=== PATIENT | female | born 1985 | race Caucasian/White ===

== ENCOUNTER → 2016-06-09 | Outpatient (REF) | payer OTHER ==
[~2016-06-09] MED LIST: /LOR25TA PO; DARI15TA PO; FISH1000 PO; FISH300C2 OR; GABA600T3 PO; MAGN250T OR; MIGRANAL; OMEP40CA2 PO; OXYCO5TA PO; OYST500T OR; PRENTAB8 PO; PRIL40CA OR; TOPI100T PO; VANC125C2 PO; VITA100066 PO; VITA100T OR; VITA500T3 PO; [UNRECOGNIZED DRUG - OTHER] PO; melatonin PO; vitamin d3 PO
== END ==
LOC: M LAB REF 09:34
PROVIDERS: ATTEND Internal Medicine Endocrinology, Diabetes & Metabolism
DX: E27.8 Other specified disorders of adrenal gland (principal)

== ENCOUNTER → 2016-10-17 | Outpatient (REF) | payer OTHER ==
[~2016-10-17] MED LIST changes: +OXYC-517 PO; -OXYCO5TA PO; -TOPI100T PO; +TOPI1TAB31 PO
== END ==
LOC: M SFHCLERA 14:45
PROVIDERS: ATTEND Nurse Practitioner Family
DX: J02.9 Acute pharyngitis, unspecified (principal)

== ENCOUNTER 2016-12-08 05:02 | Emergency (ER) | payer OTHER ==
[~2016-12-08] VITALS: Ht 157.5 cm; Wt 55.0 kg
[~2016-12-08 05:02] MED LIST changes: +TOPI100T9 PO; -TOPI1TAB31 PO
[2016-12-08] MEDS ORDERED: FAMO20TA PO (05:11)
[2016-12-08] MEDS ORDERED: PERCOCET 5MG/325MG TAB PO ONE (07:15)
[2016-12-08] MEDS ORDERED: ONDANSETRON 4 MG ORAL DISINTEGRATING TAB (S0181) PO ONE (07:15)
[2016-12-08] MEDS ORDERED: NS 500 ML IV ONE (07:15)
[2016-12-08 07:23] LABS: CONTROL LINE HCG INT CTR LINE PRESENT
[2016-12-08 07:24] LABS: BASO # 0.1 K/mm3 (0.0-0.2); BASO % 0.7 % (0.0-1.0); EOS # 0.3 K/mm3 (0.0-0.50); LARGE UNSTAINED CELL # 0.1 K/mm3 (0.0-0.4); LARGE UNSTAINED CELL % 1.4 % (0.0-4.0); LYMPH # 2.4 K/mm3 (1.5-4.5); LYMPH % 22.1 % (24.0-44.0); MEAN CORPUSCULAR HEMOGLOBIN 31.7 pg (27.0-33.0); MONO # 0.5 K/mm3 (0.0-0.8); MONO % 4.7 % (0.0-5.0); NEUTROPHILS # 7.1 K/mm3 (1.8-7.7); NEUTROPHILS % 68.3 % (36.0-66.0); PLATELET COUNT, AUTOMATED 303 k/mm3 (150-450); RED CELL DISTRIBUTION WIDTH 14.5 % (11.5-14.5); WHITE BLOOD COUNT 10.4 K/mm3 (4.0-10.0)
[2016-12-08 07:31] LABS: ALBUMIN 2.8 GM/DL (3.2-5.2); ALBUMIN/GLOBULIN RATIO 1.08 (1.00-1.93); ALKALINE PHOSPHATASE 98 U/L (45-117); ALT/SGPT 26 U/L (12-78); AMYLASE 47 U/L (25-115); ANION GAP 5 MEQ/L (8-16); AST/SGOT 25 U/L (15-37); BILIRUBIN,DIRECT < 0.1 MG/DL (0.0-0.2); BILIRUBIN,TOTAL 0.2 MG/DL (0.2-1.0); BLOOD UREA NITROGEN 15 MG/DL (7-18); CALCIUM LEVEL 8.3 MG/DL (8.5-10.1); CARBON DIOXIDE LEVEL 21 MEQ/L (21-32); CHLORIDE LEVEL 116 MEQ/L (98-107); GLOMERULAR FILTRATION RATE > 60.0 (>60); GLUCOSE, FASTING 82 MG/DL (70-105); POTASSIUM SERUM 3.9 MEQ/L (3.5-5.1); SODIUM LEVEL 142 MEQ/L (136-145); TOTAL PROTEIN 5.4 GM/DL (6.4-8.2)
[2016-12-08] MEDS ORDERED: ISOVUE-370 76% 100ML VIAL (Q9967) As Ordered ONE (07:52)
--- NOTE | 2016-12-08 08:21 | REP ---
Chest two views HISTORY: Abdominal pain Comparison: 11/29/2015 The lungs are clear. The heart is normal in size. The pulmonary vasculature is normal in appearance. The bony structure is intact. IMPRESSION: No acute disease. Signed by Cyrus Arguelles MD 12/08/2016 08:13 A
--- NOTE | 2016-12-08 08:37 | REP ---
BILATERAL LOWER EXTREMITY DUPLEX VEINS: RIGHT LOWER LEG: HISTORY: Swelling right lower extremity. There are no filling defects in the deep venous system. The deep venous system is patent. IMPRESSION: There is no deep venous thrombosis. LEFT LOWER EXTREMITY: There are no filling defects in the deep venous system. The deep venous system is patent. IMPRESSION: There is no deep venous thrombosis. Signed by Cyrus Arguelles MD 12/08/2016 08:40 A
--- NOTE | 2016-12-08 10:32 | REP ---
CT ABDOMEN AND PELVIS WITH CONTRAST: HISTORY: Left upper quadrant pain. COMPARISON: 03/02/2016 The patient is status post cholecystectomy and gastric bypass surgery. The previously noted right adrenal mass is not seen. The liver, pancreas, spleen, kidneys and left adrenal gland are normal in appearance. There is no mass, adenopathy or free fluid. The visualized lungs are clear. A small ventral abdominal hernia containing fat is present. IMPRESSION: 1. The patient is status post cholecystectomy and gastric bypass surgery. 2. Small ventral abdominal hernia. CT PELVIS: The urinary bladder and uterus are normal in appearance. There is no mass or adenopathy. A small amount of free fluid is present in the pelvis. IMPRESSION: There is a small amount of free fluid in the pelvis. Signed by Cyrus Arguelles MD 12/08/2016 10:38 A
[2016-12-08 11:02] VITALS: BP 95/60
--- NOTE | 2016-12-08 16:22 | ECGEPIP ---
Stationary ECG Study [facility] - ED Test Date: 2016-12-08 Pat Name: JHON HOFFMANN Department: Room: - Gender: F Rack Puncher: suraj : 1985 Requested By: Fernando Pham Order Number: [id number] Reading MD: Fernando Pham Measurements Intervals [place] Rate: 65 P: 60 W[place]: 115 QRS: 40 QRSD: 83 T: 64 QT: 388 QTc: 406 Interpretive Statements SINUS RHYTHM WITH SINUS ARRHYTHMIA WITH SHORT WY INTERVAL NONSPECIFIC ST T WAVE CHANGES DELAYED R WAVE PROGRESSION NO PRIOR ECG Electronically Signed On 12-08-2016 16:21:41 EDT by Fernando Pham
== END 2016-12-08 11:04 | disposition home or self-care (01) ==
LOC: M ED 05:02
DX: R60.0 Localized edema (principal); I10 Essential (primary) hypertension; R10.9 Unspecified abdominal pain; E77.8 Other disorders of glycoprotein metabolism; F17.210 Nicotine dependence, cigarettes, uncomplicated

== ENCOUNTER 2019-05-11 11:42 | Emergency (ER) | payer OTHER, SELFPAY ==
[~2019-05-11] VITALS: Ht 157.5 cm; Wt 58.2 kg
[~2019-05-11 11:42] MED LIST changes: +CYAN500T8 PO; -DARI15TA PO; +DARI15TA2 PO; +FAMO20TA PO; -OMEP40CA2 PO; +OMEP40CA97 PO; -VANC125C2 PO; +VANC125C3 PO; -VITA500T3 PO
[2019-05-11] MEDS ORDERED: MAXA10TA14 PO (11:59)
[2019-05-11] MEDS ORDERED: HYDR-3713 (11:59)
[2019-05-11] MEDS ORDERED: OMEP10CASR PO (11:59)
[2019-05-11] MEDS ORDERED: probiotic (11:59)
[2019-05-11 13:10] LABS: BASO # 0.1 10^3/uL (0.0-0.2); BASO % 0.9 % (0.0-1.0); EOS # 0.3 10^3/uL (0.0-0.5); EOS % 3.1 % (0.0-3.0); HEMATOCRIT 33.4 % (36.0-47.0); HEMOGLOBIN 9.5 g/dl (12.0-15.5); LYMPH % 21.5 % (24.0-44.0); MEAN CORPUSCULAR HEMOGLOBIN 24.4 pg (27.0-33.0); MEAN CORPUSCULAR HGB CONC 28.4 g/dl (32.0-36.5); MEAN CORPUSCULAR VOLUME 85.6 fl (80.0-96.0); MONO # 0.7 10^3/uL (0.0-0.8); NEUTROPHILS # 6.2 10^3/uL (1.5-8.5); NEUTROPHILS % 67.1 % (36.0-66.0); PLATELET COUNT, AUTOMATED 225 10^3/uL (150-450); WHITE BLOOD COUNT 9.3 10^3/uL (4.0-10.0)
[2019-05-11] MEDS ORDERED: KETOROLAC 30 MG/ML VIAL (J1885) IV ONE (13:15)
[2019-05-11] MEDS ORDERED: NS 1,000 ML IV ONE (13:15)
[2019-05-11] MEDS ORDERED: ONDANSETRON 4MG/2ML VIAL (J2405) IV ONE (13:15)
[2019-05-11] MEDS ORDERED: PANTOPRAZOLE 40MG INJ (PROTONIX) (C9113) IV ONE (13:30)
[2019-05-11 13:31] LABS: APPEARANCE, URINE CLEAR (CLEAR); BACTERIA, URINE AUTO 1+ (NEGATIVE); BILIRUBIN, URINE AUTO NEGATIVE (NEGATIVE); BLOOD, URINE BLOOD NEGATIVE (NEGATIVE); COLOR, URINE YELLOW (YELLOW); GLUCOSE, URINE (UA) AUTO NEGATIVE (NEGATIVE); KETONE, URINE AUTO NEGATIVE (NEGATIVE); LEUKOCYTE ESTERASE, URINE AUTO NEGATIVE (NEGATIVE); MUCUS, URINE SMALL (NEGATIVE); NITRITE, URINE AUTO NEGATIVE (NEGATIVE); PROTEIN, URINE AUTO NEGATIVE (NEGATIVE); RBC, URINE AUTO 1 /HPF (0-3); SPECIFIC GRAVITY URINE AUTO 1.024 (1.002-1.035); SQUAMOUS EPITHELIAL CELL UR AU 1 /HPF (0-6); UROBILINOGEN, URINE AUTO 0.2 mg/dL (0.0-2.0); WBC, URINE AUTO 0 /HPF (0-3)
[2019-05-11 13:38] LABS: ALBUMIN 3.3 GM/DL (3.2-5.2); ALT/SGPT 15 U/L (12-78); AMYLASE 132 U/L (25-115); BILIRUBIN,DIRECT < 0.1 MG/DL (0.0-0.2); BILIRUBIN,TOTAL 0.2 MG/DL (0.2-1.0); LIPASE 866 U/L (73-393); TOTAL PROTEIN 5.8 GM/DL (6.4-8.2)
[2019-05-11] MEDS: GASTROGRAFIN SOLUTION 30ML PO SCH ×2 (14:17→14:46)
[2019-05-11] MEDS ORDERED: ISOVUE-370 76% 100ML VIAL (Q9967) As Ordered ONE (15:00)
[2019-05-11] MEDS ORDERED: PERC5TAB12 PO (15:57)
[2019-05-11] MEDS ORDERED: ONDA4TAB6 PO (15:57)
[2019-05-11] MEDS ORDERED: CARA1TAB6 PO (15:57)
[2019-05-11 16:01] VITALS: BP 116/83
--- NOTE | 2019-05-11 16:03 | REP ---
CT ABDOMEN AND PELVIS WITH ORAL AND IV CONTRAST: TECHNIQUE: Axial contrast enhanced images from the lung bases to the pubic symphysis using 100 mL Isovue 370 intravenous contrast material with multiplanar reformations. Visualized lung bases are clear. Liver demonstrates no mass. Patient has had a prior cholecystectomy. Right adrenal gland also appears to have been removed. There is upper abdominal surgery with sutures most consistent with gastric bypass surgery. Spleen is normal in size with no intrinsic abnormality. Left adrenal gland is normal. No pancreatic mass is seen. Kidneys appear unremarkable. There is no abdominal aortic aneurysm. No adenopathy, free air or free fluid is seen. No bowel wall thickening is seen. I do not see evidence of appendicitis. In the umbilical region there is a midline hernia containing fluid appearing similar to the prior exam of 12/08/2016. There is a left abdominal wall hernia also visualized containing fat, also appearing unchanged. No pelvic mass is seen. Urinary bladder is mildly distended and grossly unremarkable. IMPRESSION: Status post cholecystectomy. No free air or free fluid. Two anterior abdominal wall hernias appear similar to prior study of 12/08/2016. No acute abnormalities detected. Electronically Signed by Sherwin Grace MD 05/12/2019 03:56 P
== END 2019-05-11 16:15 | disposition home or self-care (01) ==
LOC: M ED 11:42
DX: R10.13 Epigastric pain (principal); R79.89 Other specified abnormal findings of blood chemistry; K46.9 Unspecified abdominal hernia without obstruction or gangrene; Z98.84 Bariatric surgery status; Z86.19 Personal history of other infectious and parasitic diseases; Z79.899 Other long term (current) drug therapy; Z88.0 Allergy status to penicillin; Z88.1 Allergy status to other antibiotic agents; Z88.2 Allergy status to sulfonamides; F17.210 Nicotine dependence, cigarettes, uncomplicated
CPT/HCPCS: 74177; 80047; 80076; 81001; 82150; 83690; 84702; 85025; 96361; 96374; 96375; 99284; C9113; J1885; J2405; Q9963; Q9967

== ENCOUNTER → 2019-05-14 | Outpatient (REF) | payer SELFPAY ==
[~2019-05-14] MED LIST changes: +CARA1TAB6 PO; +HYDR-3713; +MAXA10TA14 PO; +OMEP10CASR PO; +ONDA4TAB6 PO; +PERC5TAB12 PO; +probiotic
[2019-05-14 11:34] LABS: AMYLASE 168 U/L (25-115); LIPASE 723 U/L (73-393)
[2019-05-14 11:35] LABS: HEMATOCRIT 32.8 % (36.0-47.0); HEMOGLOBIN 9.2 g/dl (12.0-15.5); MEAN CORPUSCULAR HEMOGLOBIN 24.6 pg (27.0-33.0); MEAN CORPUSCULAR VOLUME 87.7 fl (80.0-96.0); PLATELET COUNT, AUTOMATED 321 10^3/uL (150-450); RED BLOOD COUNT 3.74 10^6/uL (4.00-5.40); WHITE BLOOD COUNT 11.6 10^3/uL (4.0-10.0)
== END ==
LOC: M LABDRAWC 05-13 11:09
PROVIDERS: ATTEND Physician Assistant Medical
DX: D64.9 Anemia, unspecified (principal); R10.13 Epigastric pain

== ENCOUNTER → 2019-05-15 | Outpatient (REF) | payer OTHER ==
[2019-05-15 11:43] LABS: HEMATOCRIT 33.7 % (36.0-47.0); HEMOGLOBIN 9.5 g/dl (12.0-15.5); MEAN CORPUSCULAR HEMOGLOBIN 24.3 pg (27.0-33.0); MEAN CORPUSCULAR HGB CONC 28.2 g/dl (32.0-36.5); MEAN CORPUSCULAR VOLUME 86.2 fl (80.0-96.0); PLATELET COUNT, AUTOMATED 441 10^3/uL (150-450); RED BLOOD COUNT 3.91 10^6/uL (4.00-5.40)
[2019-05-15 14:16] LABS: AMYLASE 119 U/L (25-115); LIPASE 380 U/L (73-393)
== END ==
LOC: M SFHCCLAY 07:52
PROVIDERS: ATTEND Family Medicine
DX: K85.90 Acute pancreatitis without necrosis or infection, unspecified (principal)

== ENCOUNTER → 2019-06-03 | Outpatient (REF) | payer OTHER ==
[2019-06-03 17:03] LABS: ALBUMIN 3.5 GM/DL (3.2-5.2); ALT/SGPT 82 U/L (12-78); AMYLASE 59 U/L (25-115); BILIRUBIN,TOTAL 0.3 MG/DL (0.2-1.0); BLOOD UREA NITROGEN 11 MG/DL (7-18); CALCIUM LEVEL 8.4 MG/DL (8.5-10.1); CARBON DIOXIDE LEVEL 24 MEQ/L (21-32); CHLORIDE LEVEL 112 MEQ/L (98-107); COMPLEMENT C3 81 MG/DL (90-180); GLOMERULAR FILTRATION RATE > 60.0 (>60); GLUCOSE, FASTING 98 MG/DL (70-100); LIPASE 92 U/L (73-393); POTASSIUM SERUM 4.5 MEQ/L (3.5-5.1); SODIUM LEVEL 142 MEQ/L (136-145); TOTAL PROTEIN 5.9 GM/DL (6.4-8.2)
[2019-06-03 17:07] LABS: BASO # 0.1 10^3/uL (0.0-0.2); EOS # 0.7 10^3/uL (0.0-0.5); EOS % 6.3 % (0.0-3.0); HEMATOCRIT 33.7 % (36.0-47.0); HEMOGLOBIN 9.5 g/dl (12.0-15.5); LYMPH # 2.6 10^3/uL (1.5-5.0); LYMPH % 23.7 % (24.0-44.0); MEAN CORPUSCULAR HEMOGLOBIN 24.4 pg (27.0-33.0); MEAN CORPUSCULAR HGB CONC 28.2 g/dl (32.0-36.5); MEAN CORPUSCULAR VOLUME 86.4 fl (80.0-96.0); MONO # 0.7 10^3/uL (0.0-0.8); MONO % 6.3 % (0.0-5.0); NEUTROPHILS # 6.8 10^3/uL (1.5-8.5); NEUTROPHILS % 62.4 % (36.0-66.0); PLATELET COUNT, AUTOMATED 139 10^3/uL (150-450); WHITE BLOOD COUNT 10.9 10^3/uL (4.0-10.0)
[2019-06-03 17:57] LABS: ERYTHROCYTE SEDIMENTATION RATE 4 mm/hr (0-20)
[2019-06-06 00:07] LABS: ANA (HEP2) Negative (.)
== END ==
LOC: M SFHCCLAY 10:56
PROVIDERS: ATTEND Nurse Practitioner Family
DX: M25.50 Pain in unspecified joint (principal); K85.90 Acute pancreatitis without necrosis or infection, unspecified

== ENCOUNTER → 2019-06-08 | Outpatient (REF) | payer OTHER, SELFPAY ==
[2019-06-08 12:06] LABS: HEMATOCRIT 35.3 % (36.0-47.0); HEMOGLOBIN 10.3 g/dl (12.0-15.5); MEAN CORPUSCULAR HEMOGLOBIN 24.7 pg (27.0-33.0); MEAN CORPUSCULAR HGB CONC 29.2 g/dl (32.0-36.5); MEAN CORPUSCULAR VOLUME 84.7 fl (80.0-96.0); PLATELET COUNT, AUTOMATED 399 10^3/uL (150-450); RED BLOOD COUNT 4.17 10^6/uL (4.00-5.40); WHITE BLOOD COUNT 11.3 10^3/uL (4.0-10.0)
[2019-06-08 12:14] LABS: PERCENT SATURATION 4.8 % (13.2-45.0)
[2019-06-08 13:19] LABS: FOLATE 8.8 NG/ML (>5.4)
== END ==
LOC: M SFHCCLAY 08:13
PROVIDERS: ATTEND Nurse Practitioner Family
DX: D64.9 Anemia, unspecified (principal)

== ENCOUNTER → 2019-06-15 | Outpatient (REF) | payer OTHER ==
[2019-06-15 13:26] LABS: HEMATOCRIT 35.7 % (36.0-47.0); HEMOGLOBIN 10.3 g/dl (12.0-15.5); MEAN CORPUSCULAR HEMOGLOBIN 25.1 pg (27.0-33.0); MEAN CORPUSCULAR HGB CONC 28.9 g/dl (32.0-36.5); MEAN CORPUSCULAR VOLUME 86.9 fl (80.0-96.0); PLATELET COUNT, AUTOMATED 785 10^3/uL (150-450); RED BLOOD COUNT 4.11 10^6/uL (4.00-5.40); WHITE BLOOD COUNT 18.5 10^3/uL (4.0-10.0)
[2019-06-15 13:56] LABS: IRON (FE) 14 UG/DL (50-170); PERCENT SATURATION 2.2 % (13.2-45.0); RHEUMATOID FACTOR QUANT < 10.0 IU/ML (<15.0); TOTAL IRON BINDING CAPACITY 634 UG/DL (250-450)
[2019-06-15 14:12] LABS: HEPATITIS B SURFACE ANTIGEN NEGATIVE (NEGATIVE)
[2019-06-15 14:41] LABS: HEPATITIS C VIRUS ABY INDEX < 0.0 INDEX (<0.8)
== END ==
LOC: M SFHCRHEU 09:26
PROVIDERS: ATTEND Internal Medicine
DX: M02.30 Reiter's disease, unspecified site (principal); D64.9 Anemia, unspecified; R94.5 Abnormal results of liver function studies

== ENCOUNTER → 2019-06-26 | Outpatient (CLI) | payer SELFPAY ==
--- NOTE | 2019-06-26 14:12 | REP ---
AP pelvis single view: Comparison is the abdomen study dated 11/29/2015. Mineralization is normal. The sacroiliac articulations are unremarkable and unchanged . The hip articulations are unremarkable and unchanged . There are calcifications inferiorly in the pelvis, unchanged, likely phleboliths. Impression: Negative AP pelvis. No arthropathy. Electronically Signed by Sherwin Osorio MD 06/26/2019 02:03 P
--- NOTE | 2019-06-26 15:05 | REP ---
CHEST, TWO VIEWS: There is no evidence of acute infiltrate. No pleural effusion is seen. The heart is normal in size. The mediastinal silhouette is unremarkable. The visualized osseous structures are intact. IMPRESSION: No acute pulmonary disease. Electronically Signed by Sherwin Grace MD 06/26/2019 03:40 P
--- NOTE | 2019-06-26 15:06 | REP ---
LUMBOSACRAL SPINE: Five views of the lumbosacral spine are performed. There is no compression fracture. There is no spondylolysis or spondylolisthesis with normal lumbar lordosis. Disc spaces appear well preserved. There is sclerosis of the facets at L5-S1. Scattered metallic clips are seen in the abdomen. Posterior elements are intact. IMPRESSION: Mild sclerosis at the facets of L5-S1. No other significant findings. Electronically Signed by Sherwin Grace MD 06/26/2019 03:40 P
== END ==
LOC: M CLY 13:09
PROVIDERS: ATTEND Internal Medicine
DX: M02.30 Reiter's disease, unspecified site (principal)

== ENCOUNTER → 2019-07-25 | Outpatient (CLI) | payer SELFPAY ==
--- NOTE | 2019-07-25 11:30 | REPVR ---
PROCEDURE INFORMATION: Exam: MR Head Without Contrast Exam date and time: 07/25/2019 10:54 AM Age: 33 years old Clinical indication: Pain; Headache. TECHNIQUE: Imaging protocol: MR of the head without contrast. COMPARISON: No relevant prior studies available. FINDINGS: Brain: Normal. No acute infarct. No hemorrhage. No significant white matter disease. No edema. Ventricles: Normal. No ventriculomegaly. Bones/joints: Unremarkable. Soft tissues: Unremarkable. Sinuses: Normal as visualized. No acute sinusitis. Mastoid air cells: Normal as visualized. No mastoid effusion. Orbits: Unremarkable. IMPRESSION: No acute findings. Electronically signed by: Nirav Ramírez On 07/25/2019 11:30:05 AM
== END ==
LOC: M RAD 09:47
PROVIDERS: ATTEND Nurse Practitioner Family
DX: G43.909 Migraine, unspecified, not intractable, without status migrainosus (principal)

== ENCOUNTER → 2019-09-04 | Outpatient (REF) | payer OTHER | LOC: M SFHCCLAY 14:07 | PROVIDERS: ATTEND Family Medicine | DX: R39.15 Urgency of urination (principal); R05 Cough ==

== ENCOUNTER → 2019-10-05 | Outpatient (REF) | payer OTHER, SELFPAY ==
[2019-10-05 16:56] LABS: C REACTIVE PROTEIN QUANTITATIV < 0.30 MG/DL (0.00-0.30); IRON (FE) 48 UG/DL (50-170); TOTAL IRON BINDING CAPACITY 600 UG/DL (250-450)
[2019-10-05 17:36] LABS: HEMATOCRIT 32.8 % (36.0-47.0); HEMOGLOBIN 9.7 g/dl (12.0-15.5); MEAN CORPUSCULAR HEMOGLOBIN 25.2 pg (27.0-33.0); MEAN CORPUSCULAR HGB CONC 29.6 g/dl (32.0-36.5); MEAN CORPUSCULAR VOLUME 85.2 fl (80.0-96.0); PLATELET COUNT, AUTOMATED 197 10^3/uL (150-450); RED BLOOD COUNT 3.85 10^6/uL (4.00-5.40); WHITE BLOOD COUNT 10.8 10^3/uL (4.0-10.0)
[2019-10-05 18:06] LABS: ERYTHROCYTE SEDIMENTATION RATE 8 mm/hr (0-20)
== END ==
LOC: M SFHCCLAY 10:50
PROVIDERS: ATTEND Nurse Practitioner Family
DX: Z98.84 Bariatric surgery status (principal); M02.30 Reiter's disease, unspecified site

== ENCOUNTER → 2019-12-24 | Outpatient (CLI) | payer SELFPAY ==
[~2019-12-24] MED LIST changes: +ALIG10.5 PO; +CLAR10CA3 PO; +DARI15TA11 PO; -DARI15TA2 PO; +GABA-843 PO; +OMEP-221 PO; +OXYC1TAB23 PO
== END ==
LOC: M LABSMTC 13:00
PROVIDERS: ATTEND Pediatrics
DX: Z11.59 Encounter for screening for other viral diseases (principal); Z20.828 Contact with and (suspected) exposure to other viral communicable diseases
CPT/HCPCS: C9803; U0002

== ENCOUNTER → 2020-04-28 | Outpatient (REF) | payer OTHER, SELFPAY ==
[~2020-04-28] MED LIST changes: +CYAN500T14 PO; -CYAN500T8 PO
[2020-04-28 12:04] LABS: BASO # 0.1 10^3/uL (0.0-0.2); BASO % 0.6 % (0.0-1.0); EOS # 0.3 10^3/uL (0.0-0.5); EOS % 4.2 % (0.0-3.0); HEMATOCRIT 47.3 % (36.0-47.0); HEMOGLOBIN 16.1 g/dl (12.0-15.5); LYMPH # 3.1 10^3/uL (1.5-5.0); LYMPH % 38.5 % (24.0-44.0); MEAN CORPUSCULAR HEMOGLOBIN 35.5 pg (27.0-33.0); MEAN CORPUSCULAR VOLUME 104.4 fl (80.0-96.0); MONO # 0.6 10^3/uL (0.0-0.8); MONO % 7.2 % (0.0-5.0); NEUTROPHILS % 49.3 % (36.0-66.0); PLATELET COUNT, AUTOMATED 246 10^3/uL (150-450); RED BLOOD COUNT 4.53 10^6/uL (4.00-5.40); WHITE BLOOD COUNT 8.2 10^3/uL (4.0-10.0)
[2020-04-28 12:38] LABS: ALBUMIN 3.9 GM/DL (3.2-5.2); ALT/SGPT 76 U/L (12-78); BILIRUBIN,TOTAL 0.4 MG/DL (0.2-1.0); BLOOD UREA NITROGEN 6 MG/DL (7-18); CALCIUM LEVEL 9.4 MG/DL (8.5-10.1); CARBON DIOXIDE LEVEL 30 MEQ/L (21-32); CHLORIDE LEVEL 107 MEQ/L (98-107); CHOLESTEROL LEVEL 177 MG/DL (<200); CHOLESTEROL RISK RATIO 2.132 (<5); CREATININE FOR GFR 0.65 MG/DL (0.55-1.30); FERRITIN 324 NG/ML (8-252); FOLATE 8.3 NG/ML (>5.4); GLOMERULAR FILTRATION RATE > 60.0 (>60); GLUCOSE, FASTING 81 MG/DL (70-100); HDL CHOLESTEROL 83 MG/DL (>40); IRON (FE) 146 UG/DL (50-170); LDL CHOLESTEROL 67 MG/DL (<100); MAGNESIUM LEVEL 2.1 MG/DL (1.8-2.4); NON-HDL-C 94 MG/DL; SODIUM LEVEL 142 MEQ/L (136-145); TOTAL IRON BINDING CAPACITY 417 UG/DL (250-450); TOTAL PROTEIN 6.8 GM/DL (6.4-8.2); TRIGLYCERIDES LEVEL 135 MG/DL (<150); VITAMIN B12 LEVEL 515 PG/ML (247-911)
== END ==
LOC: M SFHCCLAY 08:17
PROVIDERS: ATTEND Nurse Practitioner Family
DX: Z98.84 Bariatric surgery status (principal); Z13.6 Encounter for screening for cardiovascular disorders

== ENCOUNTER → 2020-05-09 | Outpatient (REF) | LOC: M LAB 11:18 | PROVIDERS: ATTEND Nurse Practitioner Adult Health | DX: Z01.84 Encounter for antibody response examination (principal); Z11.1 Encounter for screening for respiratory tuberculosis ==

== ENCOUNTER → 2020-05-24 | Outpatient (REF) | payer OTHER, SELFPAY | LOC: M SFHCCLAY 11:43 | PROVIDERS: ATTEND Nurse Practitioner Family | DX: J40 Bronchitis, not specified as acute or chronic (principal) ==

== ENCOUNTER → 2020-07-28 | Outpatient (REF) | payer OTHER, SELFPAY ==
[~2020-07-28] MED LIST changes: +GABA-282 PO; -GABA-843 PO
[2020-07-28 11:52] LABS: BASO # 0.1 10^3/uL (0.0-0.2); BASO % 0.8 % (0.0-1.0); EOS # 0.3 10^3/uL (0.0-0.5); EOS % 2.8 % (0.0-3.0); HEMATOCRIT 42.8 % (36.0-47.0); HEMOGLOBIN 14.5 g/dl (12.0-15.5); LYMPH # 3.4 10^3/uL (1.5-5.0); LYMPH % 33.8 % (24.0-44.0); MEAN CORPUSCULAR HEMOGLOBIN 35.6 pg (27.0-33.0); MEAN CORPUSCULAR HGB CONC 33.9 g/dl (32.0-36.5); MEAN CORPUSCULAR VOLUME 105.2 fl (80.0-96.0); MONO # 0.8 10^3/uL (0.0-0.8); MONO % 7.8 % (2.0-8.0); NEUTROPHILS # 5.5 10^3/uL (1.5-8.5); NEUTROPHILS % 54.5 % (36.0-66.0); PLATELET COUNT, AUTOMATED 294 10^3/uL (150-450); RED BLOOD COUNT 4.07 10^6/uL (4.00-5.40); WHITE BLOOD COUNT 10.1 10^3/uL (4.0-10.0)
[2020-07-28 13:38] LABS: ALBUMIN 3.7 GM/DL (3.2-5.2); ALT/SGPT 22 U/L (12-78); BILIRUBIN,TOTAL 0.2 MG/DL (0.2-1.0); BLOOD UREA NITROGEN 10 MG/DL (7-18); CALCIUM LEVEL 8.5 MG/DL (8.5-10.1); CARBON DIOXIDE LEVEL 26 MEQ/L (21-32); CHLORIDE LEVEL 108 MEQ/L (98-107); FERRITIN 159 NG/ML (8-252); GLOMERULAR FILTRATION RATE > 60.0 (>60); GLUCOSE, FASTING 83 MG/DL (70-100); POTASSIUM SERUM 4.4 MEQ/L (3.5-5.1); SODIUM LEVEL 140 MEQ/L (136-145); TOTAL PROTEIN 6.4 GM/DL (6.4-8.2)
[2020-07-28 13:44] LABS: TOTAL 25(OH) VITAMIN D 11.6 NG/ML (30.0-100.0)
[2020-07-28 13:45] LABS: FOLATE 9.7 NG/ML (>5.4)
== END ==
LOC: M SFHCCLAY 09:03
PROVIDERS: ATTEND Nurse Practitioner Family
DX: E55.9 Vitamin D deficiency, unspecified (principal); R94.5 Abnormal results of liver function studies; D50.9 Iron deficiency anemia, unspecified

== ENCOUNTER → 2020-08-04 | Outpatient (REF) | LOC: M LABSMTC 09:37 | PROVIDERS: ATTEND Pediatrics | DX: Z20.822 Contact with and (suspected) exposure to COVID-19 (principal) ==

== ENCOUNTER → 2020-09-14 | Outpatient (REF) | payer OTHER ==
[2020-09-14 17:45] LABS: BASO % 0.4 % (0.0-1.0); EOS # 0.4 10^3/uL (0.0-0.5); EOS % 3.2 % (0.0-3.0); HEMOGLOBIN 16.3 g/dl (12.0-15.5); LYMPH # 0.9 10^3/uL (1.5-5.0); LYMPH % 7.5 % (24.0-44.0); MEAN CORPUSCULAR HEMOGLOBIN 35.6 pg (27.0-33.0); MEAN CORPUSCULAR HGB CONC 34.7 g/dl (32.0-36.5); MEAN CORPUSCULAR VOLUME 102.6 fl (80.0-96.0); MONO # 0.2 10^3/uL (0.0-0.8); MONO % 1.4 % (2.0-8.0); NEUTROPHILS % 87.1 % (36.0-66.0); PLATELET COUNT, AUTOMATED 167 10^3/uL (150-450); RED BLOOD COUNT 4.58 10^6/uL (4.00-5.40); WHITE BLOOD COUNT 11.4 10^3/uL (4.0-10.0)
[2020-09-14 18:23] LABS: ALBUMIN 3.9 GM/DL (3.2-5.2); ALT/SGPT 858 U/L (12-78); BILIRUBIN,TOTAL 1.6 MG/DL (0.2-1.0); BLOOD UREA NITROGEN 6 MG/DL (7-18); C REACTIVE PROTEIN QUANTITATIV 5.25 MG/DL (0.00-0.30); CALCIUM LEVEL 9.5 MG/DL (8.5-10.1); CARBON DIOXIDE LEVEL 27 MEQ/L (21-32); CHLORIDE LEVEL 97 MEQ/L (98-107); CREATININE FOR GFR 0.69 MG/DL (0.55-1.30); GLOMERULAR FILTRATION RATE > 60.0 (>60); GLUCOSE, FASTING 90 MG/DL (70-100); LDH LACTATE DEHYDROGENASE 692 U/L (84-246); POTASSIUM SERUM 4.3 MEQ/L (3.5-5.1); SODIUM LEVEL 132 MEQ/L (136-145); TOTAL PROTEIN 6.6 GM/DL (6.4-8.2)
[2020-09-14 18:54] LABS: ERYTHROCYTE SEDIMENTATION RATE 8 mm/hr (0-20)
[2020-09-15 11:24] LABS: H PYLORI QUALITATIVE IgG NEGATIVE (NEGATIVE)
[2020-09-15 12:58] LABS: HEPATITIS A ANTIBODY IGM NEGATIVE (NEGATIVE); HEPATITIS B SURFACE ANTIBODY POSITIVE (POSITIVE); HEPATITIS B SURFACE ANTIGEN NEGATIVE (NEGATIVE); HEPATITIS C VIRUS ABY INDEX < 0.0 INDEX (<0.8)
[2020-09-17 00:10] LABS: ANA (HEP2) Negative (.); CYCLIC CITRULLINATED PEPTIDE 7 units (0-19); H PYLORI SERUM QUANT IGM <9.0 units (0.0-8.9); HEPATITIS A IgG TOTAL Positive (Negative); LIVER-KIDNEY MICROSOMAL ABY <20.1 Units (0.0-20.0); SSA SJOGRENS A <0.2 AI (0.0-0.9); SSB SJOGRENS B <0.2 AI (0.0-0.9)
== END ==
LOC: M SFHCCLAY 09:48
PROVIDERS: ATTEND Family Medicine
DX: K29.00 Acute gastritis without bleeding (principal); M35.00 Sjogren syndrome, unspecified; R21 Rash and other nonspecific skin eruption

== ENCOUNTER → 2020-09-19 | Outpatient (REF) | payer OTHER, SELFPAY ==
[2020-09-19 11:53] LABS: BASO % 0.5 % (0.0-1.0); EOS # 0.5 10^3/uL (0.0-0.5); EOS % 5.6 % (0.0-3.0); HEMATOCRIT 48.1 % (36.0-47.0); HEMOGLOBIN 16.6 g/dl (12.0-15.5); LYMPH # 3.7 10^3/uL (1.5-5.0); LYMPH % 43.5 % (24.0-44.0); MEAN CORPUSCULAR HEMOGLOBIN 35.5 pg (27.0-33.0); MEAN CORPUSCULAR HGB CONC 34.5 g/dl (32.0-36.5); MEAN CORPUSCULAR VOLUME 102.8 fl (80.0-96.0); MONO # 0.5 10^3/uL (0.0-0.8); MONO % 5.5 % (2.0-8.0); NEUTROPHILS # 3.8 10^3/uL (1.5-8.5); NEUTROPHILS % 44.5 % (36.0-66.0); PLATELET COUNT, AUTOMATED 237 10^3/uL (150-450); RED BLOOD COUNT 4.68 10^6/uL (4.00-5.40); WHITE BLOOD COUNT 8.4 10^3/uL (4.0-10.0)
[2020-09-19 12:25] LABS: ALBUMIN 3.6 GM/DL (3.2-5.2); ALT/SGPT 201 U/L (12-78); AMYLASE 111 U/L (25-115); BILIRUBIN,TOTAL 0.4 MG/DL (0.2-1.0); BLOOD UREA NITROGEN 10 MG/DL (7-18); CARBON DIOXIDE LEVEL 29 MEQ/L (21-32); CHLORIDE LEVEL 108 MEQ/L (98-107); CREATININE FOR GFR 0.55 MG/DL (0.55-1.30); GLOMERULAR FILTRATION RATE > 60.0 (>60); GLUCOSE, FASTING 90 MG/DL (70-100); LDH LACTATE DEHYDROGENASE 145 U/L (84-246); LIPASE 630 U/L (73-393); POTASSIUM SERUM 3.6 MEQ/L (3.5-5.1); SODIUM LEVEL 143 MEQ/L (136-145); TOTAL PROTEIN 6.4 GM/DL (6.4-8.2)
== END ==
LOC: M SFHCCLAY 08:04
PROVIDERS: ATTEND Family Medicine
DX: R94.5 Abnormal results of liver function studies (principal); K75.9 Inflammatory liver disease, unspecified

== ENCOUNTER → 2020-10-03 | Outpatient (REF) | payer SELFPAY ==
[2020-10-03 11:39] LABS: INR 0.89; PROTHROMBIN TIME 12.2 SECONDS (12.5-14.3)
[2020-10-03 11:40] LABS: PARTIAL THROMBOPLASTIN TIME 32.6 SECONDS (24.2-38.5)
[2020-10-03 12:07] LABS: ALBUMIN 3.6 GM/DL (3.2-5.2); ALT/SGPT 41 U/L (12-78); BILIRUBIN,DIRECT 0.2 MG/DL (0.0-0.2); BILIRUBIN,TOTAL 0.3 MG/DL (0.2-1.0); BLOOD UREA NITROGEN 14 MG/DL (7-18); GLOMERULAR FILTRATION RATE > 60.0 (>60); TOTAL PROTEIN 6.1 GM/DL (6.4-8.2)
[2020-10-04 16:09] LABS: ANTI-MITOCHONDRIAL ANTIBODY <20.0 Units (0.0-20.0); ANTI-SMOOTH MUSCLE ANTIBODY 5 Units (0-19); LIVER-KIDNEY MICROSOMAL ABY <20.1 Units (0.0-20.0)
== END ==
LOC: M LABDRAWC 11:24
PROVIDERS: ATTEND Internal Medicine Gastroenterology
DX: R94.5 Abnormal results of liver function studies (principal)

== ENCOUNTER → 2020-11-24 | Outpatient (REF) | payer OTHER ==
[~2020-11-24] MED LIST changes: +OMEP40CA4 PO; -OMEP40CA97 PO
[2020-11-24 17:00] LABS: ALBUMIN 3.5 GM/DL (3.2-5.2); ALT/SGPT 16 U/L (12-78); BILIRUBIN,TOTAL 0.2 MG/DL (0.2-1.0); BLOOD UREA NITROGEN 10 MG/DL (7-18); CALCIUM LEVEL 9.1 MG/DL (8.5-10.1); CARBON DIOXIDE LEVEL 30 MEQ/L (21-32); CHLORIDE LEVEL 106 MEQ/L (98-107); CREATININE FOR GFR 0.66 MG/DL (0.55-1.30); GLOMERULAR FILTRATION RATE > 60.0 (>60); GLUCOSE, FASTING 79 MG/DL (70-100); POTASSIUM SERUM 5.1 MEQ/L (3.5-5.1); RHEUMATOID FACTOR QUANT < 10.0 IU/ML (<15.0); SODIUM LEVEL 139 MEQ/L (136-145); TOTAL PROTEIN 6.2 GM/DL (6.4-8.2)
[2020-11-24 17:04] LABS: TOTAL 25(OH) VITAMIN D 16.3 NG/ML (30.0-100.0)
== END ==
LOC: M SFHCCLAY 09:50
PROVIDERS: ATTEND Family Medicine
DX: E55.9 Vitamin D deficiency, unspecified (principal); M06.09 Rheumatoid arthritis without rheumatoid factor, multiple sites

== ENCOUNTER 2020-11-30 10:39 | Emergency (ER) | payer OTHER, SELFPAY ==
[~2020-11-30] VITALS: Ht 157.5 cm; Wt 63.7 kg
[2020-11-30] MEDS ORDERED: BUTA50TA (14:14)
[2020-11-30] MEDS ORDERED: GABA-283 (14:14)
[2020-11-30] MEDS ORDERED: FOLI1TAB11 (14:14)
[2020-11-30] MEDS ORDERED: PROM25TA12 (14:14)
[2020-11-30] MEDS ORDERED: TIZA2TA (14:14)
[2020-11-30] MEDS ORDERED: THIA100T22 (14:14)
[2020-11-30] MEDS ORDERED: PRED20TA PO (14:15)
[2020-11-30 15:27] LABS: BASO % 0.2 % (0.0-1.0); EOS % 0.1 % (0.0-3.0); HEMOGLOBIN 14.5 g/dl (12.0-15.5); LYMPH # 2.2 10^3/uL (1.5-5.0); MEAN CORPUSCULAR HEMOGLOBIN 34.4 pg (27.0-33.0); MEAN CORPUSCULAR HGB CONC 33.7 g/dl (32.0-36.5); MEAN CORPUSCULAR VOLUME 101.9 fl (80.0-96.0); MONO # 0.5 10^3/uL (0.0-0.8); MONO % 2.8 % (2.0-8.0); NEUTROPHILS # 14.1 10^3/uL (1.5-8.5); NEUTROPHILS % 83.3 % (36.0-66.0); PLATELET COUNT, AUTOMATED 366 10^3/uL (150-450); RED BLOOD COUNT 4.22 10^6/uL (4.00-5.40)
[2020-11-30] MEDS ORDERED: ACETAMINOPHEN 500 MG TAB PO ONE (15:40)
[2020-11-30] MEDS ORDERED: ONDANSETRON 4MG/2ML VIAL IV ONE (15:40)
[2020-11-30] MEDS ORDERED: KETOROLAC 30 MG/ML 1ML VIAL IV ONE (15:40)
[2020-11-30] MEDS ORDERED: NS 1,000 ML IV ONE (15:40)
--- NOTE | 2020-11-30 16:20 | REP ---
INDICATION: migraines. COMPARISON: None. TECHNIQUE: CT brain performed in the axial plane. Coronal reconstruction images are performed. FINDINGS: The ventricles are normal in size and position.. There is no midline shift or mass effect. Grace-white differentiation is well maintained. There appear to be prominent perivascular spaces at the base of the brain on the right. There is no acute intracranial hemorrhage or extra-axial fluid collection. Bone window examination is unremarkable. The visualized mastoid air cells and paranasal sinuses are clear. IMPRESSION: Negative noncontrast CT brain. <Electronically signed by Sherwin Grace > 11/30/20 [id number]
[2020-11-30 16:23] LABS: BLOOD UREA NITROGEN 15 MG/DL (7-18); CALCIUM LEVEL 9.4 MG/DL (8.5-10.1); CARBON DIOXIDE LEVEL 24 MEQ/L (21-32); CHLORIDE LEVEL 113 MEQ/L (98-107); CREATININE FOR GFR 0.75 MG/DL (0.55-1.30); GLOMERULAR FILTRATION RATE > 60.0 (>60); GLUCOSE, FASTING 118 MG/DL (70-100); POTASSIUM SERUM 4.4 MEQ/L (3.5-5.1); SODIUM LEVEL 142 MEQ/L (136-145)
[2020-11-30] MEDS ORDERED: methylPREDNISolone 125MG 2ML VIAL IV ONE (16:35)
[2020-11-30 17:15] LABS: APPEARANCE, URINE CLEAR (CLEAR); BACTERIA, URINE AUTO 1+ (NEGATIVE); BILIRUBIN, URINE AUTO NEGATIVE (NEGATIVE); BLOOD, URINE BLOOD NEGATIVE (NEGATIVE); COLOR, URINE YELLOW (YELLOW); GLUCOSE, URINE (UA) AUTO NEGATIVE (NEGATIVE); KETONE, URINE AUTO NEGATIVE (NEGATIVE); LEUKOCYTE ESTERASE, URINE AUTO NEGATIVE (NEGATIVE); MUCUS, URINE SMALL (NEGATIVE); NITRITE, URINE AUTO NEGATIVE (NEGATIVE); PROTEIN, URINE AUTO NEGATIVE (NEGATIVE); RBC, URINE AUTO 1 /HPF (0-3); SPECIFIC GRAVITY URINE AUTO 1.015 (1.002-1.035); SQUAMOUS EPITHELIAL CELL UR AU 1 /HPF (0-6); UROBILINOGEN, URINE AUTO 0.2 mg/dL (0.0-2.0); WBC, URINE AUTO 0 /HPF (0-3)
[2020-11-30] MEDS ORDERED: MAG SULF 1GM/100ML (MAG RUN) 1 GM in IV 1 EA IV ONE (18:10)
[2020-11-30] MEDS ORDERED: VALPROATE SOD INJ 1,000 MG in D5W 50 ML IV ONE (18:10)
[2020-11-30 19:45] VITALS: BP 142/68
== END 2020-11-30 19:59 | disposition left against medical advice (07) ==
LOC: M ED 10:39
DX: G43.909 Migraine, unspecified, not intractable, without status migrainosus (principal); K21.9 Gastro-esophageal reflux disease without esophagitis; Z98.84 Bariatric surgery status; Z79.899 Other long term (current) drug therapy; Z88.0 Allergy status to penicillin; Z88.1 Allergy status to other antibiotic agents; Z88.2 Allergy status to sulfonamides; F17.210 Nicotine dependence, cigarettes, uncomplicated
CPT/HCPCS: 36415; 70450; 80048; 81001; 84702; 85025; 96361; 96365; 96375; 99284; J1885; J2405; J2930; J3475

== ENCOUNTER → 2020-12-30 | Outpatient (REF) | payer OTHER, SELFPAY ==
[~2020-12-30] MED LIST changes: +ALBU8.5H; +BUTA50TA PO; +FOLI1TAB11 PO; +GABA-283 PO; -OMEP-221 PO; +OMEP40CA5 PO; +PRED20TA PO; +PROM25TA12 PO; +RIZA10TA2 PO; +SUCR1TAB56 PO; +THIA100T22 PO; +TIZA2TA PO; +VITA1TAB35 PO
[2020-12-30 16:37] LABS: ALBUMIN 3.2 GM/DL (3.2-5.2); ALT/SGPT 13 U/L (12-78); BILIRUBIN,DIRECT < 0.1 MG/DL (0.0-0.2); BILIRUBIN,TOTAL 0.2 MG/DL (0.2-1.0); TOTAL PROTEIN 5.7 GM/DL (6.4-8.2); VALPROIC ACID (DEPAKOTE) 18.5 UG/ML (50.0-100.0)
== END ==
LOC: M SFHCCLAY 10:33
PROVIDERS: ATTEND Family Medicine
DX: G43.411 Hemiplegic migraine, intractable, with status migrainosus (principal)

== ENCOUNTER → 2021-01-24 | Outpatient (CLI) | payer SELFPAY ==
[~2021-01-24] MED LIST changes: +OMEP-221 PO; -OMEP40CA5 PO
== END ==
LOC: M CLY 09:37
PROVIDERS: ATTEND Physician Assistant
DX: R05 Cough (principal)

== ENCOUNTER → 2021-01-24 | Outpatient (REF) | payer OTHER, SELFPAY | LOC: M SFHCCLAY 10:18 | PROVIDERS: ATTEND Physician Assistant | DX: R05 Cough (principal) ==

== ENCOUNTER → 2021-02-20 | Outpatient (REF) | payer BC ==
[~2021-02-20] MED LIST changes: -ALBU8.5H; +BUTA50TA; -BUTA50TA PO; +FOLI1TAB11; -FOLI1TAB11 PO; +GABA-283; -GABA-283 PO; +PROM25TA12; -PROM25TA12 PO; -RIZA10TA2 PO; -SUCR1TAB56 PO; +THIA100T22; -THIA100T22 PO; +TIZA2TA; -TIZA2TA PO; -VITA1TAB35 PO
[2021-02-21 12:06] LABS: BASO # 0.1 10^3/uL (0.0-0.2); BASO % 0.5 % (0.0-1.0); EOS # 0.2 10^3/uL (0.0-0.5); EOS % 1.6 % (0.0-3.0); HEMATOCRIT 41.8 % (36.0-47.0); HEMOGLOBIN 14.6 g/dl (12.0-15.5); LYMPH # 1.5 10^3/uL (1.5-5.0); LYMPH % 15.8 % (24.0-44.0); MEAN CORPUSCULAR HEMOGLOBIN 34.3 pg (27.0-33.0); MEAN CORPUSCULAR HGB CONC 34.9 g/dl (32.0-36.5); MEAN CORPUSCULAR VOLUME 98.1 fl (80.0-96.0); MONO # 0.6 10^3/uL (0.0-0.8); MONO % 5.7 % (2.0-8.0); NEUTROPHILS # 7.4 10^3/uL (1.5-8.5); NEUTROPHILS % 76.1 % (36.0-66.0); PLATELET COUNT, AUTOMATED 417 10^3/uL (150-450); RED BLOOD COUNT 4.26 10^6/uL (4.00-5.40); WHITE BLOOD COUNT 9.7 10^3/uL (4.0-10.0)
[2021-02-21 12:39] LABS: ALBUMIN 2.8 GM/DL (3.2-5.2); ALT/SGPT 37 U/L (12-78); AMYLASE 108 U/L (25-115); BILIRUBIN,TOTAL 0.3 MG/DL (0.2-1.0); BLOOD UREA NITROGEN 9 MG/DL (7-18); CALCIUM LEVEL 8.5 MG/DL (8.5-10.1); CARBON DIOXIDE LEVEL 27 MEQ/L (21-32); CHLORIDE LEVEL 111 MEQ/L (98-107); CREATININE FOR GFR 0.73 MG/DL (0.55-1.30); GLOMERULAR FILTRATION RATE > 60.0 (>60); GLUCOSE, FASTING 97 MG/DL (70-100); LIPASE 587 U/L (73-393); POTASSIUM SERUM 5.6 MEQ/L (3.5-5.1); SODIUM LEVEL 142 MEQ/L (136-145); TOTAL PROTEIN 5.4 GM/DL (6.4-8.2)
== END ==
LOC: M SFHCCLAY 14:12
PROVIDERS: ATTEND Physician Assistant
DX: R10.84 Generalized abdominal pain (principal)

== ENCOUNTER → 2021-03-02 | Outpatient (REF) | payer OTHER, SELFPAY ==
[2021-03-02 16:29] LABS: BASO # 0.1 10^3/uL (0.0-0.2); BASO % 1.1 % (0.0-1.0); EOS # 0.3 10^3/uL (0.0-0.5); EOS % 3.1 % (0.0-3.0); HEMATOCRIT 46.9 % (36.0-47.0); HEMOGLOBIN 15.6 g/dl (12.0-15.5); LYMPH # 2.6 10^3/uL (1.5-5.0); LYMPH % 29.4 % (24.0-44.0); MEAN CORPUSCULAR HEMOGLOBIN 33.8 pg (27.0-33.0); MEAN CORPUSCULAR HGB CONC 33.3 g/dl (32.0-36.5); MEAN CORPUSCULAR VOLUME 101.5 fl (80.0-96.0); MONO # 0.7 10^3/uL (0.0-0.8); MONO % 7.8 % (2.0-8.0); NEUTROPHILS # 5.2 10^3/uL (1.5-8.5); NEUTROPHILS % 58.3 % (36.0-66.0); PLATELET COUNT, AUTOMATED 264 10^3/uL (150-450); RED BLOOD COUNT 4.62 10^6/uL (4.00-5.40); WHITE BLOOD COUNT 8.9 10^3/uL (4.0-10.0)
[2021-03-02 17:59] LABS: ALBUMIN 3.1 GM/DL (3.2-5.2); ALT/SGPT 19 U/L (12-78); BILIRUBIN,TOTAL 0.3 MG/DL (0.2-1.0); BLOOD UREA NITROGEN 9 MG/DL (7-18); CALCIUM LEVEL 9.3 MG/DL (8.5-10.1); CARBON DIOXIDE LEVEL 29 MEQ/L (21-32); CHLORIDE LEVEL 110 MEQ/L (98-107); CREATININE FOR GFR 0.67 MG/DL (0.55-1.30); GLOMERULAR FILTRATION RATE > 60.0 (>60); GLUCOSE, FASTING 78 MG/DL (70-100); LIPASE 95 U/L (73-393); POTASSIUM SERUM 4.7 MEQ/L (3.5-5.1); SODIUM LEVEL 144 MEQ/L (136-145); TOTAL PROTEIN 5.9 GM/DL (6.4-8.2)
== END ==
LOC: M SFHCCLAY 10:52
PROVIDERS: ATTEND Family Medicine
DX: K85.30 Drug induced acute pancreatitis without necrosis or infection (principal)

== ENCOUNTER → 2021-03-21 | Outpatient (CLI) | payer SELFPAY ==
[~2021-03-21] MED LIST changes: +GASTROGRAFIN SOLUTION 30ML (Q9963) As Ordered ONE; +ISOVUE-370 76% 100ML VIAL As Ordered ONE
--- NOTE | 2021-03-21 16:04 | REP ---
INDICATION: GENERALIZED ABD PAIN. COMPARISON: Multiple the latest 05/11/2019 also with contrast. TECHNIQUE: Standard helical technique after the intravenous administration of 100 cc Isovue 370 and oral bowel preparatory contrast administration FINDINGS: There is a curvilinear density in the left lung base likely subsegmental atelectatic change. There are no pleural or pericardial effusions. There is surgical clips in the gallbladder fossa from previous cholecystectomy status quo. The liver, spleen, pancreas, and left adrenal gland are again seen to be within normal limits. The right adrenal gland is absent. Kidneys are within normal limits and unchanged. The abdominal aorta and para-aortic regions are unchanged. There is no significant change in appearance of the bowel loops or the mesenteries. There is no free fluid or free air. There is no evidence of a mass or adenopathy. There is a ventral hernia status quo. There is a left spigelian hernia status quo. Bone window technique throughout the examination shows the osseous structures to be stable and intact. IMPRESSION: 1. Likely plate like atelectasis left lung base. 2. No evidence of acute intraabdominal or intrapelvic disease. Findings as described above. <Electronically signed by Silver Mcclendon > 03/21/21 [id number]
== END ==
LOC: M RAD 13:47
PROVIDERS: ATTEND Family Medicine
DX: R10.84 Generalized abdominal pain (principal); Z90.49 Acquired absence of other specified parts of digestive tract; Z90.89 Acquired absence of other organs
CPT/HCPCS: 74177; Q9963; Q9967

== ENCOUNTER → 2021-04-26 | Outpatient (CLI) | payer SELFPAY ==
[~2021-04-26] MED LIST changes: +ALBU8.5H; -BUTA50TA; +BUTA50TA PO; -FOLI1TAB11; +FOLI1TAB11 PO; -GABA-283; +GABA-283 PO; -GASTROGRAFIN SOLUTION 30ML (Q9963) As Ordered ONE; -ISOVUE-370 76% 100ML VIAL As Ordered ONE; -OMEP-221 PO; +OMEP40CA5 PO; -PROM25TA12; +PROM25TA12 PO; +RIZA10TA2 PO; +SUCR1TAB56 PO; -THIA100T22; +THIA100T22 PO; -TIZA2TA; +TIZA2TA PO; +VITA1TAB35 PO
== END ==
LOC: M LABSMTC 11:43
PROVIDERS: ATTEND Anesthesiology
DX: Z01.812 Encounter for preprocedural laboratory examination (principal); Z11.52 Encounter for screening for COVID-19

== ENCOUNTER 2021-05-01 09:54 | Day surgery (SDC) | payer SELFPAY ==
[~2021-05-01] VITALS: Ht 157.5 cm; Wt 60.1 kg
[~2021-05-01 09:54] MED LIST changes: -ALBU8.5H; +LIDOCAINE 2% 100MG/5ML SDV (FOR ANES.) As Ordered ONE; +NS 1,000 ML IV ONE; +OMEP-221 PO; -OMEP40CA5 PO; +propofoL 500 MG/50 ML VIAL As Ordered ONE
--- OUTSIDE RECORDS SUMMARY | 2021-05-01 10:00 | CCD ---
Author Author [facility] Organization [facility] Address Unknown Phone Unavailable Care Team Providers Care Procurement Inspector Name Role Phone Jcarlos Hernández Unavailable PROBLEMS Type Condition ICD9-CM Code [id number] Code Onset Dates Condition S tatus W/U Status Risk SNOMED Code Notes Problem Migraine without status migr ainosus, not intractable, unspecified migraine type G43.909 Active confirmed 97102030 Problem Psoriasis L40.9 Active confirmed 0764819 Problem Carpal tunnel syndrome of right wrist G56.01 Ac tive confirmed 77030909 Problem Psoriatic arthritis L40.50 Active confirmed 740909641 Problem Sinusitis, unspecified chronicity, unspecified location J32.9 Active confirmed 84046511 Problem S/P bariatric surgery Z98.84 Active confirmed 362636565 Problem Elevated LFTs R94.5 Active confirmed 440648 001 Problem Colitis, enteritis, and gastroenteritis of presu med infectious origin K52.9 Active confirmed 036288903 Problem Arthralgia, unspecified joint M25.50 Active confirm ed 56409785 Problem Intestinal infection due to Clostridium difficile A04.72 Active confirmed 122204437 Problem Decreased sensation R20.8 Active confirmed 395399640 Problem Rheumatoid arthritis of multiple sites w ith negative rheumatoid factor M06.09 Active confirmed 663518707 Problem Iron deficiency anemia, unspecified iron deficiency an emia type D50.9 Active confirmed 31710131 Problem Low back pain with right-andrew ed sciatica, unspecified back pain laterality, unspecified chronicity M54.41 Active confirmed 548392913 Problem Reactive arthritis M02.30 Active confirmed 2 30009728 Problem Frontal sinusitis, unspecified chronicity J32.1 Active confirmed 99932738 Problem Intractable migraine with aura with status migrainosus G43.111 Active confirmed 943427195 Problem Low back pain M54.5 Active confirmed 420069 009 Problem Salmonella gastroenteritis A02.0 Active confirmed 54005709 Problem Intractable migraine with aura without status migrainosus G43.119 Active confirmed 470658141 Problem Leukocytosis, unspecified type D72.829 Active confi rmed 093860159 Problem Vitamin D deficiency E55.9 Active confirmed 99487014 Problem Hepatitis K75.9 Active confirmed 451553114 Problem Sicca syndrome M35.00 Active confirmed 21312 0000 ALLERGIES Allergen (clinical drug ingredient) Drug/Non Drug Allergy do cumented on EMR Reaction Allergy Type Onset Date Status Valproic Acid pancreatitis Drug Allergy Active Penicillin (For Allergies Use Only) hives Drug Allerg y Active azithromycin Zithromax Z-Mauricio([facility] Code:[address]-64) hives Drug Allergy Active cefuroxime Ceftin hives Drug Allergy Active doxycycline Doxycycline Nausea/Vomiting Drug Allergy Activ e Sulfasalazine Sulfa Antibiotics Hives Drug Allergy Ac tive Latex Gloves([facility] Code:14674-22040) EDEMA Drug Allergy Active ciprofloxacin Cipro([facility] Code:[address]-90) C-Diff Drug Allergy Active codeine Codeine Sulfate([facility] Code:[address]-57) nausea Drug Al lergy Active erythromycin Erythromycin([facility] Code:[address]-88) hives Drug All ergy Active ENCOUNTERS from 1985 to 2021-03-10 Encounter Location Date Provider Diagnosis [address] [phone] [place] [address] Feb, Jcarlos Hernández IMMUNIZATIONS Vaccine Route Administration Date Status Toradol 60mg/2mL Ketorolac IM Intramuscular November 29, 2020 Admi nistered Influenza 6mo & up Fluzone Unknown October 17, 2016 Other s SOCIAL HISTORY Tobacco Use: Social History Observation Description Date Details (start date - stop date) Current Smoker Sex Assigned At : Social History Observation Description Sex Assigned At Unknown Audit Question Answer Notes Total Score: 0 Interpretation: Alcohol Education Sexual Hx: Question Answer Notes Had sex in the last 12 months (vaginal, oral, or anal)? Yes LMP: 2018 Have you ever had an STD? No with Men only Use protection? No Drug and Alcohol Question Answer Notes Total Score: 0 Interpretation: No problems reported Alcohol Screening: Question Answer Notes Did you have a drink containing alcohol in the past year? Ye s Points 1 Interpretation Negative How often did you have six or more drinks on one occas ion in the past year? Never (0 points) How many drinks did you have on a typica l day when you were drinking in the past year? 1 or 2 (0 points) How often did you have a drink containing alcohol in t he past year? Monthly or less (1 point) Tobacco Use: Question Answer Notes Are you a: current smoker Smoking Cessation Information Given 03/02/2021 Patient counseled on the dangers of tobacco use and urged to quit: 03/02/2021 How many cigarettes a day do you smoke? 11-20 Are you interested in quitting? Not ready to quit Counseled the patient on smoking effects, education provided 03/02/2021 REASON FOR REFERRAL No Information VITAL SIGNS No information MEDICATIONS Medication SIG (Take, Route, Frequency, Duration) Notes Start Da te End Date Status Fluconazole 150 MG 1 tablet Orally one now, repeat in 3 days Nov, Not-Taking Fluticasone Propionate 50 MCG/ACT 1 spray in each nost ril Nasally bid for 30 day(s) Jan, Active Drisdol 1.25 MG (64128 UT) 1 capsule Orally TWICE A WEEK 0 4 Jul, 2020 Not-Taking tiZANidine HCl 2 MG 1 tablet as needed Orally Three times a day Feb, Active levoFLOXacin 500 MG 1 tablet Orally Once a day for 10 day(s) Nov, Not-Taking Maxalt 10 MG 1 tablet as needed one time Orally Once a day rarely Active Ondansetron 4 MG 1 tablet on the tongue and allow to dissolve Or ally qid May, Not-Taking Vitamin B12 1000 MCG 1 tablet Orally Once a day Active Butalbital-APAP 50-325 MG 1 tablet as needed Orally every 6 hrs MDD=4 rarely Jul, Active Folic Acid 1 MG 1 tablet Orally Once a day Active Gabapentin 400 MG 1 capsule Orally three times daily as needed Nov, Active Omeprazole 40 MG 1 capsule Orally bid Active Tessalon Perles 100 MG 1 capsule as needed Orally Three times a day Dec, Active predniSONE 10 MG 6 tablets/day x 3 days, 4 ta bs/day x 3 days, 2 tabs/day x 3 days, 1 tab/day x 4 days Orally Daily for 13 days Nov, Not-Taking oxyCODONE-Acetaminophen 5-325 MG 1 tablet as needed Or ally every 4 hours as needed MDD=6 for 30 Days Feb, Active Fluconazole 150 MG 1 tablet Orally one now, repeat in 3 days Jan, Active Doxycycline Monohydrate 100 MG 1 tablet Orally bid for 14 day(s) Jan, Not-Taking Probiotic 1 tab(s) Orally daily Act rashad ProAir HFA 108 (90 Base) MCG/ACT 2 puffs as needed Inh alation four times daily as needed Active Promethazine HCl 25 MG 1 tablet as needed Orally ev nita 8 hrs as needed for nausea for 10 day(s) Aug, Active PROCEDURES No Information RESULTS No Results REASON FOR VISIT paperwork MEDICAL (GENERAL) HISTORY Type Description Date Medical History C-diff Medical History Salmonella Medical History Elevated Pancreatic Enzymes Medical History IBS Medical History PCOS Medical History Endometriosis Medical History PSORIATIC ARTHRITIS Medical History PSORIASIS Medical History 2020 Elevated LFT'S Surgical History Gastric bypass 2007 Surgical History Tonsilectomy 2002 Surgical History Cholecystectomy 2016 Surgical History Fulgeration of endometriosis and bilater al ovarian drilling Surgical History umbilical hernia Surgical History adrenelectomy (R) Hospitalization History surgery Hospitalization History possible colitis 2014 Hospitalization History pancreatitis [facility] 2020 Hospitalization History pneumonia [facility] 2020 Goals Section No Information Health Concerns No Information MEDICAL EQUIPMENT No Information MENTAL STATUS No Information FUNCTIONAL STATUS No Information ASSESSMENTS No Information PLAN OF TREATMENT Medication Medication Name Sig Start Date Stop Date Folic Acid 1 MG 1 tablet Orally Once a day Probiotic 1 tab(s) Orally daily Butalbital-APAP 50-325 MG 1 tablet as needed Orally every 6 hrs MDD=4 Jul, Vitamin B12 1000 MCG 1 tablet Orally Once a day Omeprazole 40 MG 1 capsule Orally bid tiZANidine HCl 2 MG 1 tablet as needed Orally Three times a day Feb, Tessalon Perles 100 MG 1 capsule as needed Orally Three time s a day Dec, Maxalt 10 MG 1 tablet as needed one time Orally Once a day oxyCODONE-Acetaminophen 5-325 MG 1 tablet as needed Or ally every 4 hours as needed MDD=6 for 30 Days Feb, ProAir HFA 108 (90 Base) MCG/ACT 2 puffs as needed Inh alation four times daily as needed Gabapentin 400 MG 1 capsule Orally three times daily as needed 1 4 Nov, 2019 Promethazine HCl 25 MG 1 tablet as needed Orally ev nita 8 hrs as needed for nausea for 10 day(s) Aug, Fluconazole 150 MG 1 tablet Orally one now, repeat in 3 days Jan, Next Appt Details Provider Name:Jcarlos Hernández, 2021-03-16 11 :30:00 AM, [address] , , [place], [address], Provider Name:Jcarlos Hernández, 2021-06-14 11 :00:00 AM, [address], , [place], [address], Insurance Providers Payer Name Payer Address Payer Phone Insured Name Patient Relati onship to Insured Coverage Start Date Coverage End Date SELF PAY ONLY - SP1 JHON HOFFMANN self
--- OUTSIDE RECORDS SUMMARY | 2021-05-01 10:00 | CCD | Continuity of Care Document ---
Author Author Dimitrios ANNA M.D. Organization Unknown Address [address], [address] [place] [address] Phone [phone] Care Team Providers Care Bakery Machine Mechanic Supervisor Name Role Phone Coco Gamboa D.O. AUTM [phone] Jcarlos Hernández M.D. AUTM [phone] Sdio AUTM [phone] Problems Description No Information Available Social History Type Date Description Comments Sex Unknown ETOH Use Denies alcohol use Recreational Drug Use Denies Drug Use Tobacco Use Start: Unknown Patient is a current smoker, smo kes every day 1 PPD FOR 20 YEARS Allergies and adverse reactions Active Allergies Criticality Reaction | Severity Comments Date Penicillin Unable to assess criticality Hives 06/01/2019 Erythromycin Unable to assess criticality Hives 06/01/2019 Ceftin Unable to assess criticality Hives 06/01/2019 Sulfa Unable to assess criticality Hives 06/01/2019 Cipro Unable to assess criticality C DIFF 06/01/2019 Zpack Unable to assess criticality 09/22/2020 Doxycycline Unable to assess criticality 03/15/2021 Medications Active Medications SIG Qnty Indications Ordering Provide r Date Clenpiq 10-3.5-12mg-GM -GM/160ML S olution follow pre-procedure instructions. start day before procedure. (if not covered by insurance please fill gavilyte script). 320ml Jelena Lynn M.D. 04/09/2021 Gavilyte-N With Flavor Pack 420gm Solution Rec drink the liquid as per the pre-procedur e instructions. ( fill this script only if clenpiq is not covered by insurance). 4000ml Steve Lynn M.D. 04/09/2021 Dulcolax 5mg Tablets take 4 tablets together as per bowel preparation instructions. 4tabs Steve Lynn M.D. 04/09/2021 Thiamine HCL 100mg Tablets 1 by mouth every day 90tabs R94.5 Steve Lynn M.D. 2020 Folic Acid 1mg Tablets one tablet by mouth every day after meals 90tabs R94.5 Steve Lynn M.D. 09/22/[address] 1cap po bid Unknown Probiotic Capsules 1cap po q d Unknown Tizanidine HCL 2mg Capsules 1cap po prn Unknown Maxalt 10mg Tablets 1tab po p rn Unknown Vitamin D 1tab po 2x/wk Unknown Oxycodone-Acetaminophen 5-325mg Ta blets up to 6t per day prn Unknown Immunizations Description No Information Available Vital Signs Date Vital Result Comment 04/12/2021 9:16am BP Systolic 120 mmHg BP Diastolic 68 mmHg Body Temperature 98.3 F Height 62 inches 5'2" Weight 134.12 lb BMI (Body Mass Index) 24.5 kg/m2 [place] Body Weight 110 lb Weight 60.839 kg BSA (Body Surface Area) 1.61 m2 03/15/2021 1:55pm BP Systolic 112 mmHg BP Diastolic 68 mmHg Height 62 inches 5'2" Weight 131.00 lb BMI (Body Mass Index) 24.0 kg/m2 [place] Body Weight 110 lb Weight 59.422 kg BSA (Body Surface Area) 1.60 m2 Results Description No Information Available Procedures Date Code Description Status 04/12/2021 76659 Office/Outpatient Established Mo d MDM 30-39 Min Completed Medical Devices Description No Information Available Encounters Type Date Location Provider Dx Diagnosis Office Visit 04/12/2021 9:15a [facility] Marc saavedra M.D. K43.2 Incisional hernia without obstruction or gangrene Z98.84 Bariatric surgery status R10.9 Unspecified abdominal pain Assessments Date Code Description Provider 04/12/2021 K43.2 Incisional hernia without obstru ction or gangrene Marc Anna M.D. 04/12/2021 Z98.84 Bariatric surgery status Marc Anna M.D. 04/12/2021 R10.9 Unspecified abdominal pain [facility] wooten Sydnie Anna. 03/15/2021 K29.60 Other gastritis without bleeding Steve Lynn M.D. 03/15/2021 R11.2 Nausea with vomiting, unspecifie d Steve Lynn M.D. 03/15/2021 K58.1 Irritable bowel syndrome with co nstipation Steve Lynn M.D. 03/15/2021 R93.3 Abnormal findings on diagnostic imaging of other parts of digestive tract Steve Lynn M.D. Plan of Treatment Future Appointment(s):* 05/16/2021 1:00 pm - Marc Anna M.D. at [facility] * 05/30/2021 9:45 am - OSMAN Tillman at [facility] * 05/01/2021 11:25 am - Steve Lynn M.D. at [facility]ology [facility] 04/12/2021 - Marc Anna M.D.* K43.2 Incisional hernia without obstruction or gangrene* Comments:* I discussed with the patient that she has a definite left upper quadrant incisional hernia. This appears to contain some fatty tissue probably omentum. She did not initially complain of pain in this area but focused on pains in her lower quadrants particularly on the left side. I advised her that it is not clear that the hernia in her left upper quadrant is responsible for significant discomfort. She does report that she sometimes has pain in this area as well. She has had multiple tests to look for other causes for her lower abdominal pain. She will be having a colonoscopy and EGD by Dr. Lynn in the next 3 weeks. I advised her that we can certainly repair her hernia and if we were to do this that I would recommend a robotic assisted laparoscopic approach. This would allow us to reduce the contents of the hernia and then suture the defect and place mesh to reinforce this. She had an opportunity to ask questions. I described the procedure to her and also counseled her regarding the risks of the procedure. Risks include but are not limited to bleeding, infection, scarring, adverse drug reaction, need for further surgery, injury of internal organ, failure to relieve her symptoms, and possible recurrence of her hernia. After some discussion we agr eed that we will proceed with repair of her definite hernia. We will delay this until after she has completed her endoscopic exams and so after the first week of April. * Z98.84 Bariatric surgery status * R10.9 Unspecified abdominal pain Functional Status Description No Information Available Mental Status Description No Information Available Referrals Refer to Reason for Referral Status Appt Date Marc Anna M.D. ABD PAIN, SPIGELIAN HERNIA Scheduled 04/05/2021 [facility] [address] [place] [address] [phone]
--- OUTSIDE RECORDS SUMMARY | 2021-05-01 10:00 | CCD ---
Author Author [facility] Organization [facility] Address Unknown Phone Unavailable Care Team Providers Care Group President Name Role Phone Jcarlos Hernández Unavailable PROBLEMS Type Condition ICD9-CM Code NUE03-DT Code Onset Dates Condition S tatus W/U Status Risk SNOMED Code Notes Problem Migraine without status migr ainosus, not intractable, unspecified migraine type G43.909 Active confirmed 27012150 Problem Psoriasis L40.9 Active confirmed 0480231 Problem Carpal tunnel syndrome of right wrist G56.01 Ac tive confirmed 71368384 Problem Psoriatic arthritis L40.50 Active confirmed 126753619 Problem Sinusitis, unspecified chronicity, unspecified location J32.9 Active confirmed 97734815 Problem S/P bariatric surgery Z98.84 Active confirmed 278208059 Problem Elevated LFTs R94.5 Active confirmed 210845 001 Problem Colitis, enteritis, and gastroenteritis of presu med infectious origin K52.9 Active confirmed 594905395 Problem Arthralgia, unspecified joint M25.50 Active confirm ed 64765448 Problem Intestinal infection due to Clostridium difficile A04.72 Active confirmed 702783668 Problem Decreased sensation R20.8 Active confirmed 692376322 Problem Rheumatoid arthritis of multiple sites w ith negative rheumatoid factor M06.09 Active confirmed 521895656 Problem Iron deficiency anemia, unspecified iron deficiency an emia type D50.9 Active confirmed 51651993 Problem Low back pain with right-andrew ed sciatica, unspecified back pain laterality, unspecified chronicity M54.41 Active confirmed 884359539 Problem Reactive arthritis M02.30 Active confirmed 2 32644734 Problem Frontal sinusitis, unspecified chronicity J32.1 Active confirmed 55895551 Problem Intractable migraine with aura with status migrainosus G43.111 Active confirmed 199335952 Problem Low back pain M54.5 Active confirmed 135266 009 Problem Salmonella gastroenteritis A02.0 Active confirmed 53352787 Problem Intractable migraine with aura without status migrainosus G43.119 Active confirmed 569707005 Problem Leukocytosis, unspecified type D72.829 Active confi rmed 396792004 Problem Vitamin D deficiency E55.9 Active confirmed 26931222 Problem Hepatitis K75.9 Active confirmed 056019657 Problem Sicca syndrome M35.00 Active confirmed 22881 0000 ALLERGIES Allergen (clinical drug ingredient) Drug/Non Drug Allergy do cumented on EMR Reaction Allergy Type Onset Date Status Valproic Acid pancreatitis Drug Allergy Active Penicillin (For Allergies Use Only) hives Drug Allerg y Active azithromycin Zithromax Z-Mauricio([facility] Code:[address]-39) hives Drug Allergy Active cefuroxime Ceftin hives Drug Allergy Active doxycycline Doxycycline Nausea/Vomiting Drug Allergy Activ e Sulfasalazine Sulfa Antibiotics Hives Drug Allergy Ac tive Latex Gloves([facility] Code:63621-85327) EDEMA Drug Allergy Active ciprofloxacin Cipro([facility] Code:[address]-97) C-Diff Drug Allergy Active codeine Codeine Sulfate([facility] Code:[address]-51) nausea Drug Al lergy Active erythromycin Erythromycin([facility] Code:[address]-80) hives Drug All ergy Active ENCOUNTERS from 1983 to 2021-03-17 Encounter Location Date Provider Diagnosis [address] [phone] [place] [address] Feb, Jcarlos Hernández Generalized abdominal pain R10.84 ; Diar moe of presumed infectious origin R19.7 and S/P bariatric surgery Z98.84 IMMUNIZATIONS Vaccine Route Administration Date Status Toradol [...] a: current smoker Smoking Cessation Information Given 03/16/2021 Patient counseled on the dangers of tobacco use and urged to quit: 03/16/2021 How many cigarettes a day do you smoke? 11-20 Are you interested in quitting? Not ready to quit Counseled the patient on smoking effects, education provided 03/16/2021 REASON FOR REFERRAL No Information VITAL SIGNS Weight 131 lbs Feb, Height 62" in Feb, BMI 23.96 kg/m2 Feb, Heart Rate 88 /min Feb, Respiratory Rate 18 /min Feb, Temperature 98 degrees Fahrenheit Feb, Oximetry 96RA Feb, Blood pressure systolic 125 mm Hg Feb, Blood pressure diastolic 84 mm Hg Feb, MEDICATIONS Medication SIG (Take, Route, Frequency, Duration) Notes Start Da te End Date Status Butalbital-APAP 50-325 MG 1 tablet as needed Orally every 6 hrs MDD=4 rarely Jul, Active predniSONE 10 MG 6 tablets/day x 3 days, 4 ta bs/day x 3 days, 2 tabs/day x 3 days, 1 tab/day x 4 days Orally Daily for 13 days Nov, Not-Taking Vitamin B12 1000 MCG 1 tablet Orally Once a day Active oxyCODONE-Acetaminophen 5-325 MG 1 tablet as needed Or ally every 4 hours as needed MDD=6 for 30 Days Feb, Active Doxycycline Monohydrate 100 MG 1 tablet Orally bid for 14 day(s) Jan, Not-Taking Omeprazole 40 MG 1 capsule Orally bid Active Folic Acid 1 MG 1 tablet Orally Once a day Active Fluconazole 150 MG 1 tablet Orally one now, repeat in 3 days Nov, Not-Taking ProAir HFA 108 (90 Base) MCG/ACT 2 puffs as needed Inh alation four times daily as needed Active Ondansetron 4 MG 1 tablet on the tongue and allow to dissolve Or ally qid May, Not-Taking Promethazine HCl 25 MG 1 tablet as needed Orally ev nita 8 hrs as needed for nausea for 10 day(s) Aug, Active Probiotic 1 tab(s) Orally daily Act rashad Drisdol 1.25 MG (78890 UT) 1 capsule Orally TWICE A WEEK 0 4 Jul, 2020 Not-Taking Gabapentin 400 MG 1 capsule Orally three times daily as needed Nov, Active Sucralfate 1 GM 1 tablet on an empty stomach Orally qid for 30 d ay(s) Feb, Active Fluconazole 150 MG 1 tablet Orally one now, repeat in 3 days Jan, Active Tessalon Perles 100 MG 1 capsule as needed Orally Three times a day Dec, Active levoFLOXacin 500 MG 1 tablet Orally Once a day for 10 day(s) Nov, Not-Taking tiZANidine HCl 2 MG 1 tablet as needed Orally Three times a day Feb, Active Fluticasone Propionate 50 MCG/ACT 1 spray in each nost ril Nasally bid for 30 day(s) Jan, Active Maxalt 10 MG 1 tablet as needed one time Orally Once a day rarely Active PROCEDURES No Information RESULTS No Results REASON FOR VISIT 2 week follow up MEDICAL (GENERAL) HISTORY Type Description Date Medical [...] Hospitalization History surgery Hospitalization History possible colitis 2015 Hospitalization History pancreatitis [facility] 2020 Hospitalization History pneumonia [facility] 2020 Goals Section No Information Health Concerns No Information MEDICAL EQUIPMENT No Information MENTAL STATUS No Information FUNCTIONAL STATUS No Information ASSESSMENTS Encounter Date Diagnosis Assessment Notes Treatment Notes Treatm ent Clinical Notes Feb, Generalized abdominal pain (ICD-10 - R10.84) separate the sucralfate from food and other meds by 1 hour at least. Feb, Diarrhea of presumed infectious origin (ICD-10 - R19.7) Feb, S/P bariatric surgery (ICD-10 - Z98.84) PLAN OF TREATMENT Medication Medication Name Sig Start Date Stop Date Sucralfate 1 GM 1 tablet on an empty stomach Orally qid for 30 day(s) Feb, Treatment Notes Assessment Notes Clinical Notes Generalized abdominal pain separate the sucralfate fro m food and other meds by 1 hour at least. Future Test Test Name Order Date CT ABD & PELVIS WITH CONTRAST CT.ABDPELWITH PLZ or [facility] [id number] Next Appt Details 4 Weeks Reason: Provider Name:Jcarlos Hernández, 2021-06-14 11 :00:00 AM, [address] , , [place], [address], Insurance Providers Payer Name Payer Address Payer Phone Insured Name Patient Relati onship to Insured Coverage Start Date Coverage End Date SELF PAY ONLY - SP1 JHON HOFFMANN self
--- OUTSIDE RECORDS SUMMARY | 2021-05-01 10:00 | CCD | Continuity of Care Document ---
Author Author [facility] Address [address] [place] [address] Phone Care Team Providers Care Senior Information Security Architect Name Role Phone Rick BRADSHAW PCP Chief Complaint and Reason for Visit Reason for Visit ACUTE PANCREATITIS Health Concerns Health Concerns may be documented in an alternate section. Allergies, Adverse Reactions, Alerts No allergy information available. Social History Assigned Sex Female Problems No problem information available. Medications No medication information available. Immunizations No Immunization Information Available Medical Equipment No Medical Equipment Information available Procedures Procedure Date Performed Status ABD/PEL WITH IV CONTRAST January 262020 completed ABD/PEL WITH ORAL AND IV January 262020 completed ABD/PEL WITH IV CONTRAST January 262020 completed Relevant Diagnostic Tests and/or Laboratory Data Laboratory Results Test Date/Time Result Interpretation Reference Range Result Comment Performing Site White Blood Count February 19 3:20am 8.9 4.0-10.0 [facility], [address] [place] [address] Red Blood Count February 19, 2021 3:20a m 3.85 4.00-5.50 [facility], [address] [place] [address] Hemoglobin February 19, 2021 3:20am 13.2 12.0-16.0 [facility], 4 [facility] [address] Hematocrit February 19, 2021 3:20am 36.4 36.0-48.8 [facility], 4 [facility] [address] Mean Corpuscular Volume February 192020 3:20am 94.5 80-96 [facility], 4 [facility] [address] Mean Corpuscular Hemoglobin Septembe r 2020 3:20am 34.3 27.0-31.0 [facility], 4 [facility] [address] Mean Corpuscular Hgb Concent Diff Se ptember 2020 3:20am 36.3 32.0-36.0 [facility], 4 [facility] [address] Red Cell Distribution Width Septembe r 2020 3:20am 14.5 10.0-14.5 [facility], 4 [facility] [address] Platelet Count February 19, 2021 3:20am 322 172-450 [facility], 4 [facility] [address] Mean Platelet Volume February 19, 2021 3:20am 9.3 9.0-13.0 [facility], 4 [facility] [address] Granulocytes % (Auto) January 3:20am 58.9 50-80.0 [facility], 4 [facility] [address] Immature Granulocytes % February 192020 3:20am 0.2 0.0-0.2 [facility], 4 [facility] [address] Lymphocytes % February 19, 2021 3:20am 28.8 25.0-50.0 [facility], 4 [facility] [address] Monocytes % February 19, 2021 3:20am 7.2 2.0-10.0 [facility], 4 [facility] [address] Eosinophils % February 19, 2021 3:20am 4.6 0-5.0 [facility], 4 [facility] [address] Basophils % February 19, 2021 3:20am 0.3 0.0-2.0 [facility], 4 [facility] [address] Granulocytes # February 19, 2021 3:20am 5.3 2.0-8.00 [facility], 4 [facility] [address] Immature Granulocytes # February 192020 3:20am 0.0 0.0-0.2 [facility], 4 [facility] [address] Lymphocytes # February 19, 2021 3:20am 2.6 1.0-5.0 [facility], 4 [facility] [address] Monocytes # February 19, 2021 3:20am 0.6 0.10-1.20 [facility], 4 [facility] [address] Eosinophils # February 19, 2021 3:20am 0.4 0.0-0.5 [facility], 4 [facility] [address] Basophils # February 19, 2021 3:20am 0.0 0.0-0.2 [facility], 4 [facility] [address] Prothrombin Time February 16 4:48pm 9.3 9.1-11.6 [facility], 4 [facility] [address] INR International Normalized Ratio [facility] 2020 4:48pm 0.89 0.87-1.06 [facility], 4 [facility] [address] Partial Thromboplastin Time - [place] epteer 2020 4:48pm 23.5 21.2-27.3 [facility], 4 [facility] [address] Urine Color February 18, 2021 9:56am YELLOW [facility], 4 [facility] [address] Urine Appearance February 18 9:56am SLIGHTY CLOUDY [facility], 4 [facility] [address] Urine Glucose February 18, 2021 9:56am NEGATIVE NEGATIVE [facility], 4 [facility] [address] Urine Bilirubin February 18, 2021 9:56a m NEGATIVE NEGATIVE [facility], 4 [facility] [address] Urine Ketones February 18, 2021 9:56am 5(TRACE) NEGATIVE [facility], 4 [facility] [address] Specific Minetto February 18 9:56am 1.015 1.005-1.030 [facility], 4 [facility] [address] Urine Blood February 18, 2021 9:56am NEGATIVE NEGATIVE [facility], 4 [facility] [address] Urine pH February 18, 2021 9:56am 6.5 5.0-9.0 [facility], 4 [facility] [address] Urine Protein February 18, 2021 9:56am NEGATIVE NEGATIVE [facility], 4 [facility] [address] Urine Urobilinogen February 18, 021 9:56am 2 0-1 [facility], 4 [facility] [address] Urine Nitrite February 18, 2021 9:56am NEGATIVE NEGATIVE [facility], 4 [facility] [address] Urine Leukocyte Esterase January 262020 9:56am NEGATIVE NEGATIVE [facility] [address] Urine Microscopic RBC January 5:05pm NONE SEEN 0-3 [facility], [address] [place] [address] Urine Microscopic WBC January 5:05pm NONE SEEN 0-5 [facility], 4 [facility] [address] Urine Epithelial Cells January 5:05pm 1+ 0 [facility], 4 [facility] [address] Urine Bacteria February 14, 2021 9:14am TRACE NONE SEEN [facility], 4 [facility] [address] Urine Hyaline Casts February 14, 2021 9:14am 5-10 0 [facility], [address] [place] [address] Glucose Level February 19, 2021 3:20am 90 74-106 [facility], 4 [facility] [address] Lactic Acid Level February 18 12:15pm 0.8 0.4-2.0 [facility], 4 [facility] [address] Blood Urea Nitrogen February 19, 2021 3:20am 6 7-18 [facility], 4 [facility] [address] Creatinine February 19, 2021 3:20am 0.65 0.6-1.0 [facility], 4 [facility] [address] Sodium Level February 19, 2021 3:20am 148 136-145 [facility], 4 [facility] [address] Potassium Level February 19, 2021 3:20a m 3.4 3.5-5.1 [facility], 4 [facility] [address] Chloride Level February 19, 2021 3:20am 113 98-107 [facility], 4 [facility] [address] Carbon Dioxide Level February 19, 2021 3:20am 27 21-32 [facility], 4 [facility] [address] Calcium Level February 19, 2021 3:20am 7.8 8.5-10.1 [facility], 4 [facility] [address] Anion Gap February 19, 2021 3:20am 8.0 5-12 [facility], [address] [place] [address] Estimated GFR (MDRD) February 19, 2021 3:20am >90 GF R IS CALCULATED IN mL/min/1.73m2 NORMAL FUNCTION: >90MILDLY DECREASED: 60-89MILDY TO MODERATELY DECREASED: 45-59 MODERATELY TO SEVERELY DECREASED: 30-44SEVERELY DECREASED: 15-29RENAL FAILURE: <15 [facility], 4 [facility] [address] Aspartate Amino Transf (AST/SGOT) Se ptember 2020 3:20am 22 15-37 [facility], 4 [facility] [address] Alanine Aminotransferase (ALT/SGPT) February 19, 2021 3:20am 36 12-78 [facility], 4 [facility] [address] Alkaline Phosphatase February 19, 2021 3:20am 71 46-116 [facility], 4 [facility] [address] Total Bilirubin February 19, 2021 3:20a m 0.4 0.2-1.0 [facility], 4 [facility] [address] Total Protein February 19, 2021 3:20am 4.7 6.4-8.2 [facility], 4 [facility] [address] Albumin February 19, 2021 3:20am 2.3 3.4-5.0 [facility], 4 [facility] [address] Lipase February 19, 2021 3:20am 292 73-393 [facility], [address] [place] [address]3517 Magnesium Level February 16, 2021 4:48p m 1.9 1.8-2.4 [facility], 4 [facility] [address] C-Reactive Protein February 19, 2 021 3:20am < 0.5 0.0-3.0 [facility], [address] [place] [address] Coronavirus (COVID-19)(PCR) r 2020 7:52am NEGATIVE NEGATIVE Negative results should be treated as pr esumptive and, ifinconsistent with clinical signs and symptoms or necessaryfor patient management, should be tested with differentauthorized or cleared molecular tests.Negative results do not preclude SARS-CoV-2 infection andshould not be used as the sole basis for patient managementdecisions.This is a rapid molecular isothermal nucleic acidamplification technology (NAAT) in vitro diagnostic testutilizing a loop mediated isothermal amplification (LAMP)test with nicking endonuclease amplification reaction(NEAR) intended for the qualitative detection of nucleica nitesh from the SARS-CoV-2 viral RNA in direct nasal,nasopharyngeal or throat swabs from individuals who aresuspected of COVID-19.Results are for the indentification of SARS-CoV-2 RNA. [id number] RNA is generally detectable in respiratorysamples during the actue phase of infection. [facility], 4 [facility] [address] Urine HCG, Qualitative January 5:05pm NEGATIVE NEGATIVE [facility], [address] [place], [place] [id number] Adenovirus (PCR) February 16 4:48pm Not Detected Not [facility], 4 [facility] [address] Coronavirus Type 229E (PCR) [facility] 4:48pm Not Detected Not [facility], 4 [facility] [address] Coronavirus Type HKU1 (PCR) [facility] 4:48pm Not Detected Not [facility], 4 [facility] [address] Coronavirus Type NL63 (PCR) [facility] 4:48pm Not Detected Not [facility], 4 [facility] [address] Coronavirus Type OC43 (PCR) [facility] 4:48pm Not Detected Not [facility], 4 [facility] [address] Coronavirus (COVID-19)(PCR) [facility] 4:48pm Not Detected Not Negative results do not preclude SARS-Co V-2 infection andshould not be used as the sole basis for treatment or otherpatient management decisions. Negative SARS-CoV-2 resultsmust be combined with clinical observations, patienthistory, and epidemiological information. [facility], 4 [facility] [address] Human Metapneumovirus (PCR) [facility] 2020 4:48pm Not Detected Not [facility], 4 [facility] [address] Rhinovirus (PCR) February 16 4:48pm DETECTED Not [facility], 4 [facility] [address] Influenza Type A (RT-PCR) February 16, 2021 4:48pm Not Detected Not [facility], 4 [facility] [address] Influenza Type B (RT-PCR) February 16, 2021 4:48pm Not Detected Not [facility], 4 [facility] [address] Parainfluenza Type 1 (PCR) February 16, 2021 4:48pm Not Detected Not [facility], 4 [facility] [address] Parainfluenza Type 2 (PCR) February 16, 2021 4:48pm Not Detected Not [facility], 4 [facility] [address] Parainfluenza Type 3 (PCR) February 16, 2021 4:48pm Not Detected Not [facility], 4 [facility] [address] Parainfluenza Type 4 (PCR) February 16, 2021 4:48pm Not Detected Not [facility], [facility] [address] Respiratory Syncytial Virus (PCR) Se ptember 2020 4:48pm Not Detected Not [facility], [facility] [address] Bordetella parapertussis DNA (PCR) S eptember 2020 4:48pm Not Detected Not [facility], [facility] [address] Bordetella pertussis DNA (PCR) Septe mber 2020 4:48pm Not Detected Not [facility], [facility] [address] Chlamydia pneumoniae February 16, 2021 4:48pm Not Detected Not [facility], 4 [facility] [address] Mycoplasma pneumoniae January 4:48pm Not Detected Not The results of the respiratory panel should notbe used as the sole basis for diagnosis, treatmentor other patient management decisions.Negative results in the setting of a respiratoryillness may be due to infection with pathogens that are not detected by this test,or lower respiratorytract infection that may not be detected by a nasopharyngeal swab specimen.Positive results do not rule out co-infection with other organisms: the agent(s) detected by the FilmArrayRP2 may not be the definite cause of disease. Additional Laboratory testing may be necessary when evaluating a patient with possible respiratory tract infection.The Above results have been determined by using the vushaper system.TalkpushArray is an automated in vitro diagnostic system thatutilizes nested multiplex Polymerase Chain Reaction (PCR)and high-resolution melting analysis to detect and identifymultiple nucleic acid targets from clinical specimens. [facility], [address] [facility] [address] Diagnostic Imaging Reports Report Dictated Date/Time Dictated By Status PS360 TEMPLATE February 14, 2021 9:52am VINCE CURRAN lucas Patient Name: JHON HOFFMANN Unit#: [id number] Rad#: [id number] : 81 Status: SACHI Quintanilla MD: CEZAR STORY Room/Bed Sex: F Concessionist: Rose Marie Burton Date: 02/14/21 Report #: [id number] Signed - ABD/PEL WITH IV CONTRAST ORIGINAL REPORT DATE OF EXAMINATION: 02/14/2021 12:58 EDT ABD/PEL WITH IV CONTRAST HISTORY: Pain and diarrhea TECHNIQUE: This CT exam was performed using the following dose reduction techniques: automated exposure control, adjustment of mA and/or kV according to the patient's size, and use of iterative reconstruction technique. Standard contiguous axial spiral imaging was obtained from the dome of the diaphragms through the symphysis pubis without oral contrast and with intravenous contrast administration and with coronal reformatting. FINDINGS: Lower thorax: Unremarkable ABDOMEN: Liver: Moderate fatty infiltration. No focal mass Gallbladder and bile ducts: Cholecystectomy Pancreas: Normal Spleen: Normal Adrenals: Normal Kidneys and ureters: Normal Stomach and bowel: Status post gastric bypass Appendix: No appendicitis PELVIS: Bladder: Unremarkable Reproductive: Not seen 1 cm fat-containing umbilical hernia IMPRESSION: Cholecystectomy and gastric bypass. Moderate fatty infiltration of liver. 1 cm fat-containing umbilical hernia. Electronically signed in PS360 by: Vince Curran M.D. 02/14/2021 13:54 EDT PS360 TEMPLATE February 17, 2021 4:09am VINCE CURRAN completed Patient Name: JHON HOFFMANN Unit#: [id number] Rad#: [id number] : 81 Status: DEP ER [place] MD: VICKI LEROY Room/Bed Sex: F Concessionist: Keyon Zacarias Date: 02/16/21 Report #: [id number] Signed - ABD/PEL WITH ORAL AND IV ORIGINAL REPORT DATE OF EXAMINATION: 02/16/2021 20:39 EDT ABD/PEL WITH ORAL AND IV HISTORY: Abdominal pain. Generalized pain. TECHNIQUE: This CT exam was performed using the following dose reduction techniques: automated exposure control, adjustment of mA and/or kV according to the patient's size, and use of iterative reconstruction technique. Standard contiguous axial spiral imaging was obtained from the dome of the diaphragms through the symphysis pubis with oral contrast and with intravenous contrast administration and with coronal reformatting. FINDINGS: Lower thorax: Mild atelectatic changes. ABDOMEN: Liver: Moderate fatty infiltration Gallbladder and bile ducts: Cholecystectomy Pancreas: Normal Spleen: Normal Adrenals: Normal Kidneys and ureters: Normal Stomach and bowel: Gastric bypass. Dilation of proximal jejunal loops is suspicious for possible obstruction. There is some mucosal thickening of descending colon consistent with colitis Appendix: No evidence for appendicitis PELVIS: Bladder: Unremarkable Reproductive: Unremarkable No ascites IMPRESSION: Status post gastric bypass. Proximal jejunal loops appear moderately dilated raising the possibility of partial proximal small bowel obstruction. Thickening of the ascending colon suspicious for possible colitis. Eventration of the umbilicus is seen. Electronically signed in PS360 by: Vince Curran M.D. 02/17/2021 8:12 EDT PS360 TEMPLATE February 18, 2021 1:41pm AVEL WARD Patient Name: JHON HOFFMANN Unit#: [id number] Rad#: [id number] : 81 Status: REG ER Ordering MD: MONICA ABDULLAHI Room/Bed Sex: F Concessionist: Keyon Lopez Date: 02/18/21 Report #: [id number] Signed - ABD/PEL WITH IV CONTRAST ORIGINAL REPORT DATE OF EXAMINATION: 02/18/2021 16:01 EDT ABD/PEL WITH IV CONTRAST HISTORY: Pain Comparison:02/14/2021, 02/16/2021 TECHNIQUE: This CT exam was performed using the following dose reduction techniques: automated exposure control, adjustment of mA and/or kV according to the patient's size, and use of iterative reconstruction technique. Standard contiguous axial spiral imaging was obtained from the dome of the diaphragms through the symphysis pubis without oral contrast and with intravenous contrast administration and with coronal reformatting. FINDINGS: Lower thorax: Mild scarring versus atelectasis at the lung bases. No pleural or pericardial effusion. ABDOMEN: Liver: A message left hepatic lobe. No focal hepatic lesions. Gallbladder and bile ducts: Post cholecystectomy Pancreas: Pancreas is grossly unremarkable. Spleen: Spleen is normal Adrenals: Normal adrenal glands. No adrenal masses Kidneys and ureters: No hydronephrosis or renal stones no renal masses Stomach and bowel: Post bariatric surgery. The excluded portion of the of the stomach is fluid-filled similar to the previous study. Mild enhancement of the mucosa. Prominent small bowel in the region of the anastomotic talon. This is immediately adjacent to an umbilical hernia. The appearance is similar to the previous study. Mildly thickened jejunal loops. There is contrast in the colon from the previously done CT scan. No evidence of bowel obstruction. Mild thickening of the proximal ascending colon. Appendix: No evidence of appendicitis Peritoneum/retroperitoneum:Small amount of free fluid in the pelvis. No free air. Lymph nodes:No adenopathy Soft tissues:Umbilical hernia with diastases of the rectus muscles in that region. There is protrusion of the loop of small bowel. There is a defect in the left lateral abdominal wall with herniated mesenteric fat however no herniated bowel. This appearance is also similar to the previous examination. Bones:No bony lytic or blastic lesions. No fractures. Vessels:Unremarkable PELVIS: Bladder: Unremarkable Reproductive: Unremarkable as visualized IMPRESSION: Findings similar to the very recent CT scans. There is questionable mild thickening of loops of jejunum however no evidence of bowel obstruction. Prominent loop of small bowel in the midline adjacent to anastomotic talon similar to previous studies. Mild thickening of proximal colon. This can be seen with enterocolitis. There is fluid distention of the excluded portion of the stomach post bariatric surgery with mild enhancement of the mucosa. Midline vertical hernia as well as defect in the left lateral abdominal wall with herniated mesenteric fat. Electronically signed in PS360 by: Avel Ward M.D. 02/18/2021 17:53 EDT Vital Signs No vital signs result information available. Insurance Providers Guarantor JHON HOFFMANN Address [address] [place] [address] Contact Info. Home Phone: Payer Policy Id Coverage Id Subscriber's Name Subscriber Id Effective Date Expiration Date [employer] [place] [id number] JHON HOFFMANN 2020 Encounters Encounter Location(s) Ar rival/Admit Date Discharge/Depart Date Provider(s) Discharged Inpatient [facility] February 18, 2021 9:51am February 19, 2021 5:34pm PAULA SANDERS Departed Emergency [facility] February 16, 2021 3:56pm February 16, 2021 9:35pm VICKI LEROY [facility] February 14, 2021 6:59am February 14, 2021 11:03am CEZAR STORY Functional Status No Functional Status information available Mental Status No Mental Status Information Available Assessments No Assessments Information Available Goals Goals may be documented in an alternate section.
--- OUTSIDE RECORDS SUMMARY | 2021-05-01 10:00 | CCD ---
Author Author [facility] Organization [facility] Address Unknown Phone Unavailable Care Team Providers Care Senior Safety Management Consultant Name Role Phone Jcarlos Hernández Unavailable PROBLEMS Type Condition ICD9-CM Code HBJ01-VU Code Onset Dates Condition S tatus W/U Status Risk SNOMED Code Notes Problem Migraine without status migr ainosus, not intractable, unspecified migraine type G43.909 Active confirmed 86575445 Problem Psoriasis L40.9 Active confirmed 5034818 Problem Carpal tunnel syndrome of right wrist G56.01 Ac tive confirmed 14980722 Problem Psoriatic arthritis L40.50 Active confirmed 526701332 Problem Sinusitis, unspecified chronicity, unspecified location J32.9 Active confirmed 39820579 Problem S/P bariatric surgery Z98.84 Active confirmed 458510582 Problem Elevated LFTs R94.5 Active confirmed 268737 001 Problem Colitis, enteritis, and gastroenteritis of presu med infectious origin K52.9 Active confirmed 081704680 Problem Arthralgia, unspecified joint M25.50 Active confirm ed 82025386 Problem Intestinal infection due to Clostridium difficile A04.72 Active confirmed 340548404 Problem Decreased sensation R20.8 Active confirmed 868573541 Problem Rheumatoid arthritis of multiple sites w ith negative rheumatoid factor M06.09 Active confirmed 057338118 Problem Iron deficiency anemia, unspecified iron deficiency an emia type D50.9 Active confirmed 89883575 Problem Low back pain with right-andrew ed sciatica, unspecified back pain laterality, unspecified chronicity M54.41 Active confirmed 766675019 Problem Reactive arthritis M02.30 Active confirmed 2 14183583 Problem Frontal sinusitis, unspecified chronicity J32.1 Active confirmed 33178217 Problem Intractable migraine with aura with status migrainosus G43.111 Active confirmed 493656889 Problem Low back pain M54.5 Active confirmed 034959 009 Problem Salmonella gastroenteritis A02.0 Active confirmed 90469087 Problem Intractable migraine with aura without status migrainosus G43.119 Active confirmed 466125431 Problem Leukocytosis, unspecified type D72.829 Active confi rmed 748468001 Problem Vitamin D deficiency E55.9 Active confirmed 60744732 Problem Hepatitis K75.9 Active confirmed 848755732 Problem Sicca syndrome M35.00 Active confirmed 36347 0000 ALLERGIES Allergen (clinical drug ingredient) Drug/Non Drug Allergy do cumented on EMR Reaction Allergy Type Onset Date Status Valproic Acid pancreatitis Drug Allergy Active Penicillin (For Allergies Use Only) hives Drug Allerg y Active azithromycin Zithromax Z-Mauricio([facility] Code:[address]-27) hives Drug Allergy Active cefuroxime Ceftin hives Drug Allergy Active doxycycline Doxycycline Nausea/Vomiting Drug Allergy Activ e Sulfasalazine Sulfa Antibiotics Hives Drug Allergy Ac tive Latex Gloves([facility] Code:505[address]) EDEMA Drug Allergy Active ciprofloxacin Cipro([facility] Code:[address]-12) C-Diff Drug Allergy Active codeine Codeine Sulfate([facility] Code:[address]-67) nausea Drug Al lergy Active erythromycin Erythromycin([facility] Code:[address]-43) hives Drug All ergy Active ENCOUNTERS from 1983 to 2021-03-10 Encounter Location Date Provider Diagnosis [address] [phone] [place] [address] Feb, Jcarlos Hernández Drug-induced acute pancreatitis, unspeci fied complication status K85.30 ; Acute maxillary sinusitis, recurrence not specified J01.00 ; Pneumonia of left lower lobe due to infectious organism J18.9 ; Cough R05 and Intractable migraine with aura with status migrainosus G43.111 IMMUNIZATIONS Vaccine Route Administration Date Status Toradol [...] FOR REFERRAL No Information VITAL SIGNS Weight 133.8 lbs Feb, Height 62" in Feb, BMI 24.47 kg/m2 Feb, Heart Rate 84 /min Feb, Respiratory Rate 18 /min Feb, Temperature 98.6 degrees Fahrenheit Feb, Oximetry 95RA Feb, Blood pressure systolic 143 mm Hg Feb, Blood pressure diastolic 87 mm Hg Feb, MEDICATIONS Medication SIG (Take, Route, Frequency, Duration) Notes Start Da te End Date Status Fluconazole 150 MG 1 tablet Orally one now, repeat in 3 days Nov, Not-Taking Fluticasone Propionate 50 MCG/ACT 1 spray in each nost ril Nasally bid for 30 day(s) Jan, Active Drisdol 1.25 MG (49384 UT) 1 capsule Orally TWICE A WEEK [...] day(s) Aug, Active PROCEDURES No Information RESULTS Component Value Reference Range Comprehensive Metabolic Profile (CMP) Reviewed date:03/05/2021 18:26:15 Interpretation:Normal Performing Lab:[facility], [facility] [address] [facility] [id number] , ,[place] [address] GLUCOSE, FASTING 78 70-100 BLOOD UREA NITROGEN 9 7-18 CREATININE FOR GFR 0.67 0.55-1.30 GLOMERULAR FILTRATION RATE > 60.0 >60 SODIUM LEVEL 144 136-145 POTASSIUM SERUM 4.7 3.5-5.1 CHLORIDE LEVEL 110 98-107 CARBON DIOXIDE LEVEL 29 21-32 CALCIUM LEVEL 9.3 8.5-10.1 AST/SGOT 20 7-37 ALT/SGPT 19 12-78 ALKALINE PHOSPHATASE 73 45-117 BILIRUBIN,TOTAL 0.3 0.2-1.0 TOTAL PROTEIN 5.9 6.4-8.2 ALBUMIN 3.1 3.2-5.2 ALBUMIN/GLOBULIN RATIO 1.1 1.2-2.2 LIPASE Reviewed date:03/05/2021 18:26:15 Interpretation:Normal Performing Lab:[facility], [facility] [address] [facility] [address] , ,[place] [address] LIPASE 95 73-393 CBC with Auto Differential Reviewed date:03/05/2021 18:26:15 Interpretation:Normal Performing Lab:[facility], [facility] [address] [facility] [address] , ,[facility] WHITE BLOOD COUNT 8.9 4.0-10.0 RED BLOOD COUNT 4.62 4.00-5.40 HEMOGLOBIN 15.6 12.0-15.5 HEMATOCRIT 46.9 36.0-47.0 MEAN CORPUSCULAR VOLUME 101.5 80.0-96.0 MEAN CORPUSCULAR HEMOGLOBIN 33.8 27.0-33.0 MEAN CORPUSCULAR HGB CONC 33.3 32.0-36.5 RED CELL DISTRIBUTION WIDTH 14.5 11.5-14.5 PLATELET COUNT, AUTOMATED 264 150-450 NEUTROPHILS % 58.3 36.0-66.0 LYMPH % 29.4 24.0-44.0 MONO % 7.8 2.0-8.0 EOS % 3.1 0.0-3.0 BASO % 1.1 0.0-1.0 IMMATURE GRANULOCYTE % 0.3 0-3.0 NUCLEATED RED BLOOD CELL % 0.0 0-0 NEUTROPHILS # 5.2 1.5-8.5 LYMPH # 2.6 1.5-5.0 MONO # 0.7 0.0-0.8 EOS # 0.3 0.0-0.5 BASO # 0.1 0.0-0.2 REASON FOR VISIT f/u with Dr Hernández after seeing BB MEDICAL (GENERAL) HISTORY Type Description Date Medical [...] History possible colitis 2015 Hospitalization History pancreatitis [facility] 2020 Hospitalization History pneumonia [facility] 2020 Goals Section No Information Health Concerns No Information MEDICAL EQUIPMENT No Information MENTAL STATUS No Information FUNCTIONAL STATUS No Information ASSESSMENTS Encounter Date Diagnosis Assessment Notes Treatment Notes Treatm ent Clinical Notes Feb, Drug-induced acute pancreati tis, unspecified complication status (ICD-10 - K85.30) Feb, Acute maxillary sinusitis, r ecurrence not specified (ICD-10 - J01.00) Feb, Pneumonia of left lower lobe due to infectious organism (ICD-10 - J18.9) Feb, Cough (ICD-10 - R05) Feb, Intractable migraine with au ra with status migrainosus (ICD-10 - G43.111) PLAN OF TREATMENT Medication Medication Name Sig [...] in 3 days Jan, Next Appt Details 2 Weeks Reason: Provider Name:Jcarlos Hernández, 2021-03-16 11 :30:00 AM, [address] , , [place], [address], Provider Name:Jcarlos Hernández, 2021-06-14 11 :00:00 AM, [address] , , [place], [address], Insurance Providers Payer Name Payer Address Payer Phone Insured Name Patient Relati onship to Insured Coverage Start Date Coverage End Date SELF PAY ONLY - SP1 JHON HOFFMANN self
--- OUTSIDE RECORDS SUMMARY | 2021-05-01 10:00 | CCD | Continuity of Care Document ---
Author Author Dimitrios BARAKAT M.D. Organization Unknown Address [address] [place] [address], [address] [place] [address] Phone [phone] Care Team Providers Care Security Installer Name Role Phone Coco Gamboa D.O. AUTM [phone] Jcarlos Hernández M.D. AUTM [phone] Problems Description No Information Available Social History [...] SIG Qnty Indications Ordering Provide r Date Thiamine HCL 100mg Tablets 1 by mouth every day 90tabs R94.5 Steve Barakat M.D. 2020 Folic Acid 1mg Tablets one tablet by mouth every day after meals 90tabs R94.5 Steve Barakat M.D. 09/22/[address] 1cap po bid Unknown Probiotic Capsules 1cap po q d Unknown Tizanidine HCL 2mg Capsules 1cap po prn Unknown Maxalt 10mg Tablets 1tab po p rn Unknown Vitamin D 1tab po 2x/wk Unknown Oxycodone-Acetaminophen 5-325mg Ta blets up to 6t per day prn Unknown Immunizations Description No Information Available Vital Signs Date Vital Result Comment 03/15/2021 1:55pm Height 62 inches 5'2" 09/22/2020 12:03pm BP Systolic 116 mmHg BP Diastolic 68 mmHg Height 62 inches 5'2" Weight 130.00 lb BMI (Body Mass Index) 23.8 kg/m2 [place] Body Weight 110 lb Weight 58.968 kg BSA (Body Surface Area) 1.59 m2 Results Test Acquired Date Facility Test Result H/L Range Note Liver Profile 10/03/2020 [facility] [address] [place] [address] [phone] Ast/Sgot 31 U/L Normal 7-37 Alt/SGPT 41 U/L Normal 12-78 Alkaline Phosphatase 92 U/L Normal 45-117 Bilirubin,Total 0.3 mg/dL Normal 0.2-1.0 Bilirubin,Direct 0.2 mg/dL Normal 0.0-0.2 Total Protein 6.1 GM/DL Low 6.4-8.2 Albumin 3.6 GM/DL Normal 3.2-5.2 Albumin/Globulin Ratio 1.4 Normal 1.2-2.2 Laboratory test finding 10/03/2020 [facility] [address] [place] [address] [phone] Anti-Mitochondrial Antibody <20.0 units Normal 0.0 -20.0 1 Liver-Kidney Microsomal Joan <20.1 units Normal 0.0-20.0 2 Anti-Smooth Muscle Antibody 5 units Normal 0-19 3 PT & Aptt 10/03/2020 [facility] [address] [place] [address] [phone] Prothrombin Time 12.2 seconds Normal 12.5-14.3 Inr 0.89 Normal 4 Partial Thromboplastin Time 32.6 seconds Normal 24.2-38.5 BUN & Creatinine ([facility]) 10/03/2020 [facility] Lab [address] [place] [address] [phone] Blood Urea Nitrogen 14 mg/dL Normal 7-18 Creatinine With GFR 10/03/2020 [facility] Main Lab [address] [place] [address] [phone] Creatinine For GFR 0.70 mg/dL Normal 0.55-1.30 Glomerular Filtration Rate > 60.0 Normal >60 5 1 Negative 0.0 - 20.0 Equivocal 20.1 - 24.9 Positive >24.9 . Mitochondrial (M2) Antibodies are found in 90-96% of patients with primary biliary cirrhosis. 2 Negative 0.0 - 20.0 Equivocal 20.1 - 24.9 Positive >24.9 . LKM type 1 antibodies are detected in patients with autoimmune hepatitis type 2 and in up to 8% of patients with chronic HCV infection. Performed at: RN - [facility] [address] [id number] Machine Load Clerk: Belen Holman MD, Phone: [phone] 3 Negative 0 - 19 Weak positive 20 - 30 Moderate to strong positive >30 . Actin Antibodies are found in 52-85% of patients with autoimmune hepatitis or chronic active hepatitis and in 22% of patients with primary biliary cirrhosis. 4 THERAPUTIC HUMAN INR VALUES INDICATIONS NORMAL RANGES PROPHYLAXIS/TREATMENT OF: VENOUS THROMBOSIS 2.0-3.0 PULMONARY EMBOLISM 2.0-3.0 PREVENTION OF SYSTEMIC EMBOLISM FROM: TISSUE HEART VALVES 2.0-3.0 ACUTE MYOCARDIAL INFARCTION 2.0-3.0 VALVULAR HEART DISEASE 2.0-3.0 ATRIAL FIBRILLATION 2.0-3.0 MECHANICAL VALVES(HIGH RISK) 2.5-3.5 RECURRENT MYOCARDIAL INFARCTION 2.5-3.5 5 Units are mL/min/1.73 m2 Chronic Kidney Disease Staging per NKF: Stage I & II GFR >=60 Normal to Mildly Decreased Stage III GFR 30-59 Moderately Decreased Stage IV GFR 15-29 Severely Decreased Stage V GFR <15 Very Little GFR Left ESRD GFR <15 on [employer]REL LAT[employer]PERATOR Procedures Date Code Description Status 09/22/2020 66447 Office/Outpatient New Low MDM 30 -44 Minutes Completed Medical Devices Description No Information Available Encounters Type Date Location Provider Dx Diagnosis Office Visit 09/22/2020 10:50a [facility] Carlee Barakat M.D. R94.5 Abnormal results of liver fu nction studies R53.81 Other malaise R53.82 Chronic fatigue, unspecified Assessments Date Code Description Provider 03/15/2021 K29.60 Other gastritis without bleeding Steve Barakat M.D. 03/15/2021 R11.2 Nausea with vomiting, unspecifie d Steve Barakat M.D. 03/15/2021 K58.1 Irritable bowel syndrome with co nstipation Steve Barakat M.D. 03/15/2021 R93.3 Abnormal findings on diagnostic imaging of other parts of digestive tract Steve Barakat M.D. 09/22/2020 R94.5 Abnormal results of liver functi on studies Steve Barakat M.D. 09/22/2020 R53.81 Other malaise Steve Mccarthy ala, M.D. 09/22/2020 R53.82 Chronic fatigue, unspecified Adelaida Barakat M.D. Plan of Treatment No Information Available Functional Status Description No Information Available Mental Status Description No Information Available Referrals Refer to Dr Reason for Referral Status Appt Date Steve Barakat M.D. GASTRITIS, HEPATITIS Scheduled 09/22/2020 [facility] [address] [facility], [place] [address] [phone]
--- OUTSIDE RECORDS SUMMARY | 2021-05-01 10:00 | CCD ---
Author Author [facility] Organization [facility] Address Unknown Phone Unavailable Care Team Providers Care Site Auditor Name Role Phone Jcarlos Hernández Unavailable PROBLEMS Type Condition ICD9-CM Code PET37-PP Code Onset Dates Condition S tatus W/U Status Risk SNOMED Code Notes Problem Migraine without status migr ainosus, not intractable, unspecified migraine type G43.909 Active confirmed 40257092 Problem Psoriasis L40.9 Active confirmed 0027507 Problem Carpal tunnel syndrome of right wrist G56.01 Ac tive confirmed 16141939 Problem Psoriatic arthritis L40.50 Active confirmed 943126710 Problem Sinusitis, unspecified chronicity, unspecified location J32.9 Active confirmed 61580775 Problem S/P bariatric surgery Z98.84 Active confirmed 453341595 Problem Elevated LFTs R94.5 Active confirmed 773713 001 Problem Colitis, enteritis, and gastroenteritis of presu med infectious origin K52.9 Active confirmed 339675739 Problem Arthralgia, unspecified joint M25.50 Active confirm ed 45452949 Problem Intestinal infection due to Clostridium difficile A04.72 Active confirmed 892019549 Problem Decreased sensation R20.8 Active confirmed 034778876 Problem Rheumatoid arthritis of multiple sites w ith negative rheumatoid factor M06.09 Active confirmed 719023105 Problem Iron deficiency anemia, unspecified iron deficiency an emia type D50.9 Active confirmed 36647519 Problem Low back pain with right-andrew ed sciatica, unspecified back pain laterality, unspecified chronicity M54.41 Active confirmed 043520565 Problem Reactive arthritis M02.30 Active confirmed 2 04242573 Problem Frontal sinusitis, unspecified chronicity J32.1 Active confirmed 31346693 Problem Intractable migraine with aura with status migrainosus G43.111 Active confirmed 532438458 Problem Low back pain M54.5 Active confirmed 890779 009 Problem Salmonella gastroenteritis A02.0 Active confirmed 47780695 Problem Intractable migraine with aura without status migrainosus G43.119 Active confirmed 061883505 Problem Leukocytosis, unspecified type D72.829 Active confi rmed 812457739 Problem Vitamin D deficiency E55.9 Active confirmed 61421502 Problem Hepatitis K75.9 Active confirmed 562465076 Problem Sicca syndrome M35.00 Active confirmed 66260 0000 ALLERGIES Allergen (clinical drug ingredient) Drug/Non Drug Allergy do cumented on EMR Reaction Allergy Type Onset Date Status Valproic Acid pancreatitis Drug Allergy Active Penicillin (For Allergies Use Only) hives Drug Allerg y Active azithromycin Zithromax Z-Mauricio([facility] Code:[address]-99) hives Drug Allergy Active cefuroxime Ceftin hives Drug Allergy Active doxycycline Doxycycline Nausea/Vomiting Drug Allergy Activ e Sulfasalazine Sulfa Antibiotics Hives Drug Allergy Ac tive Latex Gloves([facility] Code:31266-[address]83) EDEMA Drug Allergy Active ciprofloxacin Cipro([facility] Code:[address]-95) C-Diff Drug Allergy Active codeine Codeine Sulfate([facility] Code:[address]-58) nausea Drug Al lergy Active erythromycin Erythromycin([facility] Code:[address]-63) hives Drug All ergy Active ENCOUNTERS from 1983 to 2021-03-23 Encounter Location Date Provider Diagnosis [address] [phone] [place] [address] Feb, Jcarlos Hernández 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 noted spigelian hernia. could this contribute to her c/o abdominal pain? Diagnosis 1 Spigelian hernia (K43.9) Referral Organization [facility] [place] Referring Provider First Name Jcarlos Referring Provider Last Name Edgar Referring Provider Specialty Family Medicine Referred Provider [facility] General SurgeryDipesh Referred Provider Specialty General Surgery Referral Priority Routine General Notes Dora Parker 03/23/2021 1 :50:16 PM > ref faxed VITAL SIGNS No information MEDICATIONS Medication SIG [...] Orally daily Act rashad Drisdol 1.25 MG (84298 UT) 1 capsule Orally TWICE A WEEK 0 Jul, Not-Taking Gabapentin 400 MG 1 capsule Orally [...] Information RESULTS No Results REASON FOR VISIT Re:Please review your Lab Results MEDICAL (GENERAL) HISTORY Type Description Date Medical [...] Treatment Notes Treatm ent Clinical Notes Feb, Spigelian hernia (ICD-10 - K43.9) PLAN OF TREATMENT Medication Medication Name Sig Start Date Stop Date Sucralfate 1 GM 1 tablet on an empty stomach Orally qid for 30 day(s) Feb, Referrals Referral Date Details left abdominal pain in patie nt with hx of pancreatitis. noted spigelian hernia. could this contribute to her c/o abdominal pain?, [facility] Next Appt Details Provider Name:Jcarlos Rochah, 2021-06-14 11 :00:00 AM, [address], , [place], [address], Insurance Providers Payer Name Payer Address Payer Phone Insured Name Patient Relati onship to Insured Coverage Start Date Coverage End Date SELF PAY ONLY - SP1 JHON HOFFMANN self
--- OUTSIDE RECORDS SUMMARY | 2021-05-01 10:00 | CCD | Continuity of Care Document ---
Author Author Dimitrios ANNA M.D. Organization Unknown Address [address] [facility], [address] [place] [address] Phone [phone] Care Team Providers Care Operations Research Scientist Name Role Phone Coco Gamboa D.O. AUTM [phone] Jcarlos Hernández M.D. AUTM [phone] Problems Description No Information Available Social History [...] 1 by mouth every day 90tabs R94.5 Steev Lynn M.D. 2020 Folic Acid 1mg Tablets [...] lb BMI (Body Mass Index) 24.5 kg/m2 [place] Body Weight 110 lb Weight 60.839 kg BSA (Body Surface Area) 1.61 m2 03/15/2021 1:55pm BP Systolic 112 mmHg BP Diastolic 68 mmHg Height 62 inches 5'2" Weight 131.00 lb BMI (Body Mass Index) 24.0 kg/m2 [place] Body Weight 110 lb Weight 59.422 kg BSA (Body Surface Area) 1.60 m2 Results Description No Information Available Procedures Description No Information Available Medical Devices Description No Information Available Encounters Description No Information Available Assessments Date Code Description Provider 03/15/2021 K29.60 Other gastritis without bleeding Steve Lynn M.D. 03/15/2021 R11.2 Nausea with vomiting, unspecifie d Steve Lynn M.D. 03/15/2021 K58.1 Irritable bowel syndrome with co nstipation Steve Lynn M.D. 03/15/2021 R93.3 Abnormal findings on diagnostic imaging of other parts of digestive tract Steve Lynn M.D. Plan of Treatment Future Appointment(s):* 05/01/2021 11:25 am - Steve Lynn M.D. at [facility] Functional Status Description No Information Available Mental Status Description No Information Available Referrals Refer to Reason for Referral Status Appt Date Marc Anna M.D. ABD PAIN, SPIGELIAN HERNIA Scheduled 04/05/2021 [facility] [address] [place] [address] [phone]
--- OUTSIDE RECORDS SUMMARY | 2021-05-01 10:00 | CCD ---
Author Author [facility] Organization [facility] Address Unknown Phone Unavailable Care Team Providers Care Medical Health Researcher Name Role Phone Jcarlos Hernández Unavailable PROBLEMS Type Condition ICD9-CM Code [id number] Code Onset Dates Condition S tatus W/U Status Risk SNOMED Code Notes Problem Migraine without status migr ainosus, not intractable, unspecified migraine type G43.909 Active confirmed 91328330 Problem Psoriasis L40.9 Active confirmed 7456511 Problem Carpal tunnel syndrome of right wrist G56.01 Ac tive confirmed 40465479 Problem Psoriatic arthritis L40.50 Active confirmed 774908673 Problem Sinusitis, unspecified chronicity, unspecified location J32.9 Active confirmed 93052574 Problem S/P bariatric surgery Z98.84 Active confirmed 911080092 Problem Elevated LFTs R94.5 Active confirmed 669081 001 Problem Colitis, enteritis, and gastroenteritis of presu med infectious origin K52.9 Active confirmed 938121782 Problem Arthralgia, unspecified joint M25.50 Active confirm ed 92878518 Problem Intestinal infection due to Clostridium difficile A04.72 Active confirmed 972887976 Problem Decreased sensation R20.8 Active confirmed 280948600 Problem Rheumatoid arthritis of multiple sites w ith negative rheumatoid factor M06.09 Active confirmed 563353975 Problem Iron deficiency anemia, unspecified iron deficiency an emia type D50.9 Active confirmed 31484503 Problem Low back pain with right-andrew ed sciatica, unspecified back pain laterality, unspecified chronicity M54.41 Active confirmed 947132625 Problem Reactive arthritis M02.30 Active confirmed 2 13632594 Problem Frontal sinusitis, unspecified chronicity J32.1 Active confirmed 82904238 Problem Intractable migraine with aura with status migrainosus G43.111 Active confirmed 173556162 Problem Low back pain M54.5 Active confirmed 999091 009 Problem Salmonella gastroenteritis A02.0 Active confirmed 23440605 Problem Intractable migraine with aura without status migrainosus G43.119 Active confirmed 757747498 Problem Leukocytosis, unspecified type D72.829 Active confi rmed 006408854 Problem Vitamin D deficiency E55.9 Active confirmed 15950081 Problem Hepatitis K75.9 Active confirmed 289811102 Problem Sicca syndrome M35.00 Active confirmed 15665 0000 ALLERGIES Allergen (clinical drug ingredient) Drug/Non Drug Allergy do cumented on EMR Reaction Allergy Type Onset Date Status Valproic Acid pancreatitis Drug Allergy Active Penicillin (For Allergies Use Only) hives Drug Allerg y Active azithromycin Zithromax Z-Mauricio([facility] Code:[address]-91) hives Drug Allergy Active cefuroxime Ceftin hives Drug Allergy Active doxycycline Doxycycline Nausea/Vomiting Drug Allergy Activ e Sulfasalazine Sulfa Antibiotics Hives Drug Allergy Ac tive Latex Gloves([facility] Code:97299-48089) EDEMA Drug Allergy Active ciprofloxacin Cipro([facility] Code:[address]-29) C-Diff Drug Allergy Active codeine Codeine Sulfate([facility] Code:[address]-85) nausea Drug Al lergy Active erythromycin Erythromycin([facility] Code:[address]-10) hives Drug All ergy Active ENCOUNTERS from 1983 to 2021-03-10 Encounter Location Date Provider Diagnosis [address] [phone] [place] [address] Feb, Jcarlos Hernández IMMUNIZATIONS Vaccine Route Administration [...] 30 day(s) Jan, Active Drisdol 1.25 MG (23796 UT) 1 capsule Orally TWICE A WEEK [...] Information RESULTS No Results REASON FOR VISIT No Information MEDICAL (GENERAL) HISTORY Type Description Date Medical [...] History possible colitis 2014 Hospitalization History pancreatitis [facility] 2020 Hospitalization History pneumonia [facility] 2020 Goals Section No Information Health [...] 11 :30:00 AM, Lillian THOMAS , , [place], [address], Provider Name:Jcarlos Hernández, 2021-06-14 11 :00:00 AM, [address], , [place], [address], Insurance Providers Payer Name Payer Address Payer Phone Insured Name Patient Relati onship to Insured Coverage Start Date Coverage End Date SELF PAY ONLY - SP1 JHON HOFFMANN self
--- OUTSIDE RECORDS SUMMARY | 2021-05-01 10:01 | CCD ---
Author Author [facility] Organization [facility] Address Unknown Phone Unavailable Care Team Providers Care Tank Officer Name Role Phone Vaibhav Helm Unavailable PROBLEMS Type Condition ICD9-CM Code [id number] Code Onset Dates Condition S tatus W/U Status Risk SNOMED Code Notes Problem Migraine without status migr ainosus, not intractable, unspecified migraine type G43.909 Active confirmed 63967965 Problem Psoriasis L40.9 Active confirmed 8487416 Problem Carpal tunnel syndrome of right wrist G56.01 Ac tive confirmed 00900131 Problem Psoriatic arthritis L40.50 Active confirmed 792426604 Problem Sinusitis, unspecified chronicity, unspecified location J32.9 Active confirmed 89553255 Problem S/P bariatric surgery Z98.84 Active confirmed 845637253 Problem Elevated LFTs R94.5 Active confirmed 863019 001 Problem Colitis, enteritis, and gastroenteritis of presu med infectious origin K52.9 Active confirmed 720176576 Problem Arthralgia, unspecified joint M25.50 Active confirm ed 06171110 Problem Intestinal infection due to Clostridium difficile A04.72 Active confirmed 509505366 Problem Decreased sensation R20.8 Active confirmed 138313443 Problem Rheumatoid arthritis of multiple sites w ith negative rheumatoid factor M06.09 Active confirmed 264024739 Problem Iron deficiency anemia, unspecified iron deficiency an emia type D50.9 Active confirmed 44029932 Problem Low back pain with right-andrew ed sciatica, unspecified back pain laterality, unspecified chronicity M54.41 Active confirmed 168212157 Problem Reactive arthritis M02.30 Active confirmed 2 33403912 Problem Frontal sinusitis, unspecified chronicity J32.1 Active confirmed 55373908 Problem Intractable migraine with aura with status migrainosus G43.111 Active confirmed 920268213 Problem Low back pain M54.5 Active confirmed 039766 009 Problem Salmonella gastroenteritis A02.0 Active confirmed 05442751 Problem Intractable migraine with aura without status migrainosus G43.119 Active confirmed 748976312 Problem Leukocytosis, unspecified type D72.829 Active confi rmed 728160812 Problem Vitamin D deficiency E55.9 Active confirmed 38843795 Problem Hepatitis K75.9 Active confirmed 028618339 Problem Sicca syndrome M35.00 Active confirmed 15585 0000 ALLERGIES Allergen (clinical drug ingredient) Drug/Non Drug Allergy do cumented on EMR Reaction Allergy Type Onset Date Status ciprofloxacin Cipro([facility] Code:[address]-88) C-Diff Drug Allergy Active Penicillin (For Allergies Use Only) hives Drug Allerg y Active cefuroxime Ceftin hives Drug Allergy Active codeine Codeine Sulfate([facility] Code:[address]-06) nausea Drug Al lergy Active erythromycin Erythromycin([facility] Code:[address]-66) hives Drug All ergy Active Sulfasalazine Sulfa Antibiotics Hives Drug Allergy Ac tive Latex Gloves([facility] Code:04587-99435) EDEMA Drug Allergy Active azithromycin Zithromax Z-Mauricio([facility] Code:[address]-33) hives Drug Allergy Active ENCOUNTERS from 1983 to 2021-02-03 Encounter Location Date Provider Diagnosis [address] [phone] [place] [address] Jan, 2021 Vaibhav Helm IMMUNIZATIONS Vaccine Route Administration Date Status Toradol [...] a: current smoker Smoking Cessation Information Given 12/30/2020 Patient counseled on the dangers of tobacco use and urged to quit: 12/30/2020 How many cigarettes a day do you smoke? 11-20 Are you interested in quitting? Not ready to quit Counseled the patient on smoking effects, education provided 12/30/2020 REASON FOR REFERRAL No Information VITAL SIGNS No information MEDICATIONS Medication SIG (Take, Route, Frequency, Duration) Notes Start Da te End Date Status predniSONE 10 MG 6 tablets/day x 3 days, 4 ta bs/day x 3 days, 2 tabs/day x 3 days, 1 tab/day x 4 days Orally Daily for 13 days Nov, Not-Taking levoFLOXacin 500 MG 1 tablet Orally Once a day for 10 day(s) Nov, Not-Taking Ondansetron 4 MG 1 tablet on the tongue and allow to dissolve Or ally qid May, Not-Taking ProAir HFA 108 (90 Base) MCG/ACT 2 puffs as needed Inh alation four times daily as needed for 30 Days Active tiZANidine HCl 2 MG 1 tablet as needed Orally Three times a day for 30 Days Feb, Active Valproic Acid 250 MG 1 capsule Orally tid for 30 day(s) Nov, Active Fluconazole 150 MG 1 tablet Orally one now, repeat in 3 days Nov, Not-Taking Drisdol 1.25 MG (14605 UT) 1 capsule Orally TWICE A WEEK 0 Jul, Not-Taking Probiotic 1 tab(s) Orally daily Act rashad Tessalon Perles 100 MG 1 capsule as needed Orally T hree times a day for 10 day(s) Dec, Active Folic Acid 1 MG 1 tablet Orally Once a day Active oxyCODONE-Acetaminophen 5-325 MG 1 tablet as needed Or ally every 4 hours as needed MDD=6 for 30 Days Jan, Active Omeprazole 40 MG 1 capsule Orally bid for 30 Days Active Promethazine HCl 25 MG 1 tablet as needed Orally ev nita 8 hrs as needed for nausea for 5 day(s) Aug, Not-Taking Gabapentin 400 MG 1 capsule Orally three times daily as needed Nov, Not-Taking Maxalt 10 MG 1 tablet as needed one time Orally Once a day Active Metoclopramide HCl 10 MG 1 tablet before meals Orally Twice a day for 30 day(s) Nov, Active Butalbital-APAP 50-325 MG 1 tablet as needed Orally every 6 hrs MDD=4 rarely Jul, Active Vitamin B12 1000 MCG 1 tablet Orally Once a day Active PROCEDURES No Information RESULTS No Results REASON FOR VISIT script MEDICAL (GENERAL) HISTORY Type Description Date Medical [...] History surgery Hospitalization History possible colitis 2015 Goals Section No Information Health Concerns No Information MEDICAL EQUIPMENT No Information MENTAL STATUS No Information FUNCTIONAL STATUS No Information ASSESSMENTS No Information PLAN OF TREATMENT Medication Medication Name Sig Start Date Stop Date ProAir HFA 108 (90 Base) MCG/ACT 2 puffs as needed Inh alation four times daily as needed for 30 Days Tessalon Perles 100 MG 1 capsule as needed Orally T hree times a day for 10 day(s) Dec, oxyCODONE-Acetaminophen 5-325 MG 1 tablet as needed Or ally every 4 hours as needed MDD=6 for 30 Days Jan, Next Appt Details Provider Name:Jcarlos Hernández, 2021-02-08 10 :30:00 AM, [address], , [place], [address], Insurance Providers Payer Name Payer Address Payer Phone Insured Name Patient Relati onship to Insured Coverage Start Date Coverage End Date SELF PAY ONLY - SP1 JHON HOFFMANN self
--- OUTSIDE RECORDS SUMMARY | 2021-05-01 10:01 | CCD ---
Author Author [facility] Organization [facility] Address Unknown Phone Unavailable Care Team Providers Care Technical Trainer Name Role Phone Vaibhav Helm Unavailable PROBLEMS Type Condition ICD9-CM Code ZXA07-GT Code Onset Dates Condition S tatus W/U Status Risk SNOMED Code Notes Problem Migraine without status migr ainosus, not intractable, unspecified migraine type G43.909 Active confirmed 05635896 Problem Psoriasis L40.9 Active confirmed 3825135 Problem Carpal tunnel syndrome of right wrist G56.01 Ac tive confirmed 71368231 Problem Psoriatic arthritis L40.50 Active confirmed 901659060 Problem Sinusitis, unspecified chronicity, unspecified location J32.9 Active confirmed 86598741 Problem S/P bariatric surgery Z98.84 Active confirmed 857581892 Problem Elevated LFTs R94.5 Active confirmed 313296 001 Problem Colitis, enteritis, and gastroenteritis of presu med infectious origin K52.9 Active confirmed 967307403 Problem Arthralgia, unspecified joint M25.50 Active confirm ed 87379441 Problem Intestinal infection due to Clostridium difficile A04.72 Active confirmed 428272068 Problem Decreased sensation R20.8 Active confirmed 730170228 Problem Rheumatoid arthritis of multiple sites w ith negative rheumatoid factor M06.09 Active confirmed 865623053 Problem Iron deficiency anemia, unspecified iron deficiency an emia type D50.9 Active confirmed 10203753 Problem Low back pain with right-andrew ed sciatica, unspecified back pain laterality, unspecified chronicity M54.41 Active confirmed 118613394 Problem Reactive arthritis M02.30 Active confirmed 2 83307911 Problem Frontal sinusitis, unspecified chronicity J32.1 Active confirmed 73333672 Problem Intractable migraine with aura with status migrainosus G43.111 Active confirmed 839642000 Problem Low back pain M54.5 Active confirmed 485890 009 Problem Salmonella gastroenteritis A02.0 Active confirmed 67323339 Problem Intractable migraine with aura without status migrainosus G43.119 Active confirmed 907024244 Problem Leukocytosis, unspecified type D72.829 Active confi rmed 193992960 Problem Vitamin D deficiency E55.9 Active confirmed 53610788 Problem Hepatitis K75.9 Active confirmed 144627375 Problem Sicca syndrome M35.00 Active confirmed 62341 0000 ALLERGIES Allergen (clinical drug ingredient) Drug/Non Drug Allergy do cumented on EMR Reaction Allergy Type Onset Date Status ciprofloxacin Cipro([facility] Code:[address]-25) C-Diff Drug Allergy Active Penicillin (For Allergies Use Only) hives Drug Allerg y Active cefuroxime Ceftin hives Drug Allergy Active erythromycin Erythromycin([facility] Code:[address]-89) hives Drug All ergy Active doxycycline Doxycycline Nausea/Vomiting Drug Allergy Activ e Sulfasalazine Sulfa Antibiotics Hives Drug Allergy Ac tive Latex Gloves([facility] Code:16550-25418) EDEMA Drug Allergy Active azithromycin Zithromax Z-Mauricio([facility] Code:[address]-54) hives Drug Allergy Active codeine Codeine Sulfate([facility] Code:[address]-90) nausea Drug Al lergy Active ENCOUNTERS from 1983 to 2021-02-23 Encounter Location Date Provider Diagnosis [address] [phone] [place] [address] Jan, 2021 Vaibhav [place] Cough R05 ; Generalized abdominal pain R 10.84 and Pneumonia of left lower lobe due to infectious organism J18.9 IMMUNIZATIONS Vaccine Route Administration Date Status Toradol [...] a: current smoker Smoking Cessation Information Given 02/08/2021 Patient counseled on the dangers of tobacco use and urged to quit: 02/08/2021 How many cigarettes a day do you smoke? 11-20 Are you interested in quitting? Not ready to quit Counseled the patient on smoking effects, education provided 02/08/2021 REASON FOR REFERRAL No Information VITAL SIGNS Weight 144 lbs Jan, Height 62" in Jan, BMI 26.34 kg/m2 Jan, Heart Rate 66 /min Jan, Respiratory Rate 18 /min Jan, Temperature 100.7 degrees Fahrenheit Jan, Oximetry 98 Jan, Blood pressure systolic 127 mm Hg Jan, Blood pressure diastolic 86 mm Hg Jan, MEDICATIONS Medication SIG (Take, Route, Frequency, Duration) Notes Start Da te End Date Status Doxycycline Monohydrate 100 MG 1 tablet Orally bid for 14 day(s) Jan, Not-Taking Ondansetron 4 MG 1 tablet on the tongue and allow to dissolve Or ally qid May, Not-Taking Butalbital-APAP 50-325 MG 1 tablet as needed Orally every 6 hrs MDD=4 rarely Jul, Active ProAir HFA 108 (90 Base) MCG/ACT 2 puffs as needed Inh alation four times daily as needed for 30 Days Active Fluticasone Propionate 50 MCG/ACT 1 spray in each nost ril Nasally bid for 30 day(s) Jan, Active Promethazine HCl 25 MG 1 tablet as needed Orally ev nita 8 hrs as needed for nausea for 5 day(s) Aug, Not-Taking Maxalt 10 MG 1 tablet as needed one time Orally Once a day rarely Active Ondansetron HCl 4 MG 1 tablet Orally qid, prn nausea for 14 day( s) Jan, Active Folic Acid 1 MG 1 tablet Orally Once a day Active Tessalon Perles 100 MG 1 capsule as needed Orally T hree times a day for 10 day(s) Dec, Not-Taking Vitamin B12 1000 MCG 1 tablet Orally Once a day Active levoFLOXacin 500 MG 1 tablet Orally Once a day for 10 day(s) Nov, Not-Taking predniSONE 10 MG 6 tablets/day x 3 days, 4 ta bs/day x 3 days, 2 tabs/day x 3 days, 1 tab/day x 4 days Orally Daily for 13 days Nov, Not-Taking Omeprazole 40 MG 1 capsule Orally bid for 30 Days Active tiZANidine HCl 2 MG 1 tablet as needed Orally Three times a day for 30 Days Feb, Active oxyCODONE-Acetaminophen 5-325 MG 1 tablet as needed Or ally every 4 hours as needed MDD=6 for 30 Days Jan, Active Fluconazole 150 MG 1 tablet Orally one now, repeat in 3 days Nov, Not-Taking Metoclopramide HCl 10 MG 1 tablet before meals Orally Twice a day for 30 day(s) Nov, Not-Taking Probiotic 1 tab(s) Orally daily Act rashad Fluconazole 150 MG 1 tablet Orally one now, repeat in 3 days Jan, Active levoFLOXacin 500 MG 1 tablet Orally Once a day for 7 day(s) Jan, Active Valproic Acid 250 MG 1 capsule Orally tid for 30 day(s) Nov, Active Gabapentin 400 MG 1 capsule Orally three times daily as needed Nov, Not-Taking Drisdol 1.25 MG (79240 UT) 1 capsule Orally TWICE A WEEK 0 4 Jul, 2020 Not-Taking PROCEDURES No Information RESULTS Component Value Reference Range AMYLASE Reviewed date:02/22/2021 16:33:24 Interpretation:Normal Performing Lab:[facility], [facility] [address] [id number] , ,[place] [address] AMYLASE 108 25-115 CBC with Differential Reviewed date:02/22/2021 16:33:54 Interpretation: Performing Lab:[facility] [id number] , ,[place] [address] WHITE BLOOD COUNT 9.7 4.0-10.0 RED BLOOD COUNT 4.26 4.00-5.40 HEMOGLOBIN 14.6 12.0-15.5 HEMATOCRIT 41.8 36.0-47.0 MEAN CORPUSCULAR VOLUME 98.1 80.0-96.0 MEAN CORPUSCULAR HEMOGLOBIN 34.3 27.0-33.0 MEAN CORPUSCULAR HGB CONC 34.9 32.0-36.5 RED CELL DISTRIBUTION WIDTH 15.1 11.5-14.5 PLATELET COUNT, AUTOMATED 417 150-450 NEUTROPHILS % 76.1 36.0-66.0 LYMPH % 15.8 24.0-44.0 MONO % 5.7 2.0-8.0 EOS % 1.6 0.0-3.0 BASO % 0.5 0.0-1.0 NEUTROPHILS # 7.4 1.5-8.5 LYMPH # 1.5 1.5-5.0 MONO # 0.6 0.0-0.8 EOS # 0.2 0.0-0.5 BASO # 0.1 0.0-0.2 Comprehensive Metabolic Profile (CMP) Reviewed date:02/22/2021 16:33:42 Interpretation: Performing Lab:[facility] [id number] , ,[place] [address] GLUCOSE, FASTING 97 70-100 BLOOD UREA NITROGEN 9 7-18 CREATININE FOR GFR 0.73 0.55-1.30 GLOMERULAR FILTRATION RATE > 60.0 >60 SODIUM LEVEL 142 136-145 POTASSIUM SERUM 5.6 3.5-5.1 CHLORIDE LEVEL 111 98-107 CARBON DIOXIDE LEVEL 27 21-32 CALCIUM LEVEL 8.5 8.5-10.1 AST/SGOT 24 7-37 ALT/SGPT 37 12-78 ALKALINE PHOSPHATASE 93 45-117 BILIRUBIN,TOTAL 0.3 0.2-1.0 TOTAL PROTEIN 5.4 6.4-8.2 ALBUMIN 2.8 3.2-5.2 ALBUMIN/GLOBULIN RATIO 1.1 1.2-2.2 LIPASE Reviewed date:02/22/2021 16:33:14 Interpretation:elevated, but improved from 1219 Performing Lab:[facility], [facility] [id number] , ,[place] [address] LIPASE [phone] REASON FOR VISIT ER F/U A- [place] pancreatitis MEDICAL (GENERAL) HISTORY Type Description Date Medical [...] History surgery Hospitalization History possible colitis 2014 Goals Section No Information Health Concerns No Information MEDICAL EQUIPMENT No Information MENTAL STATUS No Information FUNCTIONAL STATUS No Information ASSESSMENTS Encounter Date Diagnosis Assessment Notes Treatment Notes Treatm ent Clinical Notes Jan, Cough (ICD-10 - R05) Jan, Generalized abdominal pain (ICD-10 - R10.84) Your complaining of having ongoing uncontrolled abdominal pain. 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 If the pain remains unbearable, I recommend that you go to the emergency department where the pain can be better controlled or you can be observed as was recommended. As discussed, I am not going to increase or alter your current pain medication regimen. If you feel that it needs to be changed, I recommend that you discuss your pain further with your primary care provider. As discussed, you need to follow-up with Dr. Lynn as you are still considered to be a patient of the clinic. If you find that you need a referral, please let me know. I also recommend that you follow-up with a gastric bypass surgeon to discuss some of the possible complications that you have with hernias. Please let me know if you require a referral. Continue to follow a liquid diet and re st until pain improves. Please return to the emergency department if symptoms persist or worsen for better pain management and observation. We will recheck some blood work at this time to make sure that your white blood cell count was not elevated and that your lipase is trending down. Jan, Pneumonia of left lower lobe due to infectious organism (ICD-10 - J18.9) You may have pneumonia at this time, which can be a serious infection. Please take the antibiotic as directed until course has been completed. Rest and drink clear fluids throughout the day. You may use humidification and saline irrigation to help with the congestion. You may also take motrin or tylenol as needed for pain or fever. You may also consider using [id number] decongestant medication as needed. Use albuterol as needed to help with breathing and inflammation in the lungs. You may also use tessalon perles as needed to help with the cough. Please follow up with your family practice prov ider in 5-7 days to make sure your symptoms are improving. You may need to have a repeat chest x-ray in 3-4 weeks to make sure that the pneumonia has resolved. Go to ED if you develop difficulty breathing. Jan, Other Medication/s di scussed with patient and questions answered. RTC as needed for worsening or unresolved symptoms. Patient states understanding and agreement with this plan. PLAN OF TREATMENT Medication Medication Name Sig Start Date Stop Date levoFLOXacin 500 MG 1 tablet Orally Once a day for 7 day(s) 2020 Treatment Notes Assessment Notes Clinical Notes Generalized abdominal pain Your complaining of having ongoing uncontrolled abdominal pain. 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 If the pain remains unbearable, I recommend that you go to the emergency department where the pain can be better controlled or you can be observed as was recommended. As discussed, I am not going to increase or alter your current pain medication regimen. If you feel that it needs to be changed, I recommend that you discuss your pain further with your primary care provider. As discussed, you need to follow-up with Dr. Lynn as you are still considered to be a patient of the clinic. If you find that you need a referral, please let me know. I also recommend that you follow-up with a gastric bypass surgeon to discuss some of the possible complications that you have with hernias. Please let me know if you require a referral. Continue to follow a liquid diet and rest until pain improves. Please return to the emergency department if symptoms persist or worsen for better pain management and observation. We will recheck some blood work at this time to make sure that your white blood cell count was not elevated and that your lipase is trending down. Pneumonia of left lower lobe due to infectious organis m You may have pneumonia at this time, which can be a serious infection. Please take the antibiotic as directed until course has been completed. Rest and drink clear fluids throughout the day. You may use humidification and saline irrigation to help with the congestion. You may also take motrin or tylenol as needed for pain or fever. You may also consider using [id number] decongestant medication as needed. Use albuterol as needed to help with breathing and inflammation in the lungs. You may also use tessalon perles as needed to help with the cough. Please follow up with your family practice provider in 5-7 days to make sure your symptoms are improving. You may need to have a repeat chest x-ray in 3-4 weeks to make sure that the pneumonia has resolved. Go to ED if you develop difficulty breathing. Next Appt Details Go to the ED with worsening symptoms. A s directed with gastroenterology and your PCP. Reason: Provider Name:Jcarlos Hernández, 2021-03-02 10 :00:00 AM, [address] , , [place], [address], Provider Name:Jcarlos Hernández, 2021-06-14 11 :00:00 AM, [address], , [place], [address], Insurance Providers Payer Name Payer Address Payer Phone Insured Name Patient Relati onship to Insured Coverage Start Date Coverage End Date [employer] PPO [phone] [facility] [place] [id number] J[place] self 2021
--- OUTSIDE RECORDS SUMMARY | 2021-05-01 10:01 | CCD | Continuity of Care Document ---
Author Author [facility] Address [address] [place] [address] Phone Care Team Providers Care Garment Turner Name Role Phone Rick BRADSHAW PCP Chief [...] Blood Count February 19 3:20am 8.9 4.0-10.0 [facility], [address] [place] [address] Red Blood Count February 19, 2021 3:20a m 3.85 4.00-5.50 [facility], [address] [place] [address] Hemoglobin February 19, 2021 3:20am 13.2 12.0-16.0 [facility], [address] [facility] [address] Hematocrit February 19, 2021 3:20am 36.4 36.0-48.8 [facility], 4 [facility] [address] Mean Corpuscular Volume February 192020 3:20am 94.5 80-96 [facility], 4 [facility] 83332 Mean Corpuscular Hemoglobin Septembe r 2020 3:20am 34.3 27.0-31.0 [facility], 4 [facility] [address] Mean Corpuscular Hgb Concent Diff Se ptember 2020 3:20am 36.3 32.0-36.0 [facility], 4 [facility] [address] Red Cell Distribution Width Septembe r 2020 3:20am 14.5 10.0-14.5 [facility], 4 [facility] [address]951 Platelet Count February 19, 2021 3:20am 322 172-450 [facility], 4 [facility] 81294 Mean Platelet Volume February 19, 2021 3:20am 9.3 9.0-13.0 [facility], 4 [facility] [address] Granulocytes % (Auto) January 3:20am 58.9 50-80.0 [facility], 4 [facility] [address] Immature Granulocytes % February 192020 3:20am 0.2 0.0-0.2 [facility], 4 [facility] 29468 Lymphocytes % February 19, 2021 3:20am 28.8 25.0-50.0 [facility], 4 [facility] 18027 Monocytes % February 19, 2021 3:20am 7.2 2.0-10.0 [facility], 4 [facility] [address] Eosinophils % February 19, 2021 3:20am 4.6 0-5.0 [facility], 4 [facility] 14792 Basophils % February 19, 2021 3:20am 0.3 0.0-2.0 [facility], 4 [facility] 8[address] Granulocytes # February 19, 2021 3:20am 5.3 2.0-8.00 [facility], 4 [facility] 31072 Immature Granulocytes # February 192020 3:20am 0.0 0.0-0.2 [facility], 4 [facility] 62748 Lymphocytes # February 19, 2021 3:20am 2.6 1.0-5.0 [facility], 4 [facility] [address] Monocytes # February 19, 2021 3:20am 0.6 0.10-1.20 [facility], 4 [facility] [address] Eosinophils # February 19, 2021 3:20am 0.4 0.0-0.5 [facility], 4 [facility] 80599 Basophils # February 19, 2021 3:20am 0.0 0.0-0.2 [facility], 4 [facility] 88660 Prothrombin Time February 16 4:48pm 9.3 9.1-11.6 [facility], 4 [facility] [address]684 INR International Normalized Ratio [facility] 4:48pm 0.89 0.87-1.06 [facility], 4 [facility] [address] Partial Thromboplastin Time - [place] S epteer 2020 4:48pm 23.5 21.2-27.3 [facility], 4 [facility] [address] Urine Color February 18, 2021 9:56am YELLOW [facility], 4 [facility] 866[address] Urine Appearance February 18 9:56am SLIGHTY CLOUDY [facility], 4 [facility] [address] Urine Glucose February 18, 2021 9:56am NEGATIVE NEGATIVE [facility], 4 [facility] [address]92 Urine Bilirubin February 18, 2021 9:56a m NEGATIVE NEGATIVE [facility], 4 [facility] [address]59 Urine Ketones February 18, 2021 9:56am 5(TRACE) NEGATIVE [facility], 4 [facility] [address]99 Specific Bethany February 18 9:56am 1.015 1.005-1.030 [facility], 4 [facility] 76576 Urine Blood February 18, 2021 9:56am NEGATIVE NEGATIVE [facility], 4 [facility] 39393 Urine pH February 18, 2021 9:56am 6.5 5.0-9.0 [facility], 4 [facility] [address]18[address] Urine Protein February 18, 2021 9:56am NEGATIVE NEGATIVE [facility], 4 [facility] 47476 Urine Urobilinogen February 18, 021 9:56am 2 0-1 [facility], 4 [facility] [address]33 Urine Nitrite February 18, 2021 9:56am NEGATIVE NEGATIVE [facility], 4 [facility] [address]294 Urine Leukocyte Esterase January 262020 9:56am NEGATIVE NEGATIVE [facility] [address] Urine Microscopic RBC January 5:05pm NONE SEEN 0-3 [facility], [address] [place] [address] Urine Microscopic WBC January 5:05pm NONE SEEN 0-5 [facility], 4 [facility] 87885 Urine Epithelial Cells January 5:05pm 1+ 0 [facility], 4 [facility] 98617 Urine Bacteria February 14, 2021 9:14am TRACE NONE SEEN [facility], 4 [facility] [address]33 Urine Hyaline Casts February 14, 2021 9:14am 5-10 0 [facility], [address] [place] [address]73 Glucose Level February 19, 2021 3:20am 90 74-106 [facility], 4 [facility] [address]285 Lactic Acid Level February 18 12:15pm 0.8 0.4-2.0 [facility], 4 [facility] [address] Blood Urea Nitrogen February 19, 2021 3:20am 6 7-18 [facility], 4 [facility] [address] Creatinine February 19, 2021 3:20am 0.65 0.6-1.0 [facility], 4 [facility] [address]130 Sodium Level February 19, 2021 3:20am 148 136-145 [facility], 4 [facility] 24654 Potassium Level February 19, 2021 3:20a m 3.4 3.5-5.1 [facility], 4 [facility] [address]66 Chloride Level February 19, 2021 3:20am 113 98-107 [facility], 4 [facility] 93298 Carbon Dioxide Level February 19, 2021 3:20am 27 21-32 [facility], 4 [facility] 97698 Calcium Level February 19, 2021 3:20am 7.8 8.5-10.1 [facility], 4 [facility] [address] Anion Gap February 19, 2021 3:20am 8.0 5-12 [facility], [address] [place] [address] Estimated GFR (MDRD) February 19, 2021 3:20am >90 GF R IS CALCULATED IN mL/min/1.73m2 NORMAL FUNCTION: >90MILDLY DECREASED: 60-89MILDY TO MODERATELY DECREASED: 45-59 MODERATELY TO SEVERELY DECREASED: 30-44SEVERELY DECREASED: 15-29RENAL FAILURE: <15 [facility], 4 [facility] [address]132 Aspartate Amino Transf (AST/SGOT) Se ptember 2020 3:20am 22 15-37 [facility], 4 [facility] [address] Alanine Aminotransferase (ALT/SGPT) February 19, 2021 3:20am 36 12-78 [facility], 4 [facility] [address] Alkaline Phosphatase February 19, 2021 3:20am 71 46-116 [facility], 4 [facility] [address]249 Total Bilirubin February 19, 2021 3:20a m 0.4 0.2-1.0 [facility], 4 [facility] 6[address]37 Total Protein February 19, 2021 3:20am 4.7 6.4-8.2 [facility], 4 [facility] 89055 Albumin February 19, 2021 3:20am 2.3 3.4-5.0 [facility], 4 [facility] [address]88 Lipase February 19, 2021 3:20am 292 73-393 [facility], [address] [place] 7943217 Magnesium Level February 16, 2021 4:48p m 1.9 1.8-2.4 [facility], 4 [facility] [address]2584 C-Reactive Protein February 19, 2 021 3:20am < 0.5 0.0-3.0 [facility], [address] [place] [address] Coronavirus (COVID-19)(PCR) r 2020 7:52am NEGATIVE NEGATIVE [...] are for the indentification of SARS-CoV-2 RNA. [id number]-[id number] RNA is generally detectable in respiratorysamples during the actue phase of infection. [facility], 4 [facility] [address] Urine HCG, Qualitative January 5:05pm NEGATIVE NEGATIVE [facility], [address] [place], [place] [address] Adenovirus (PCR) February 16 4:48pm Not Detected Not [facility], 4 [facility] [address] Coronavirus Type 229E (PCR) [facility] 4:48pm Not Detected Not [facility], 4 [facility] [address] Coronavirus Type HKU1 (PCR) [facility] 4:48pm Not Detected Not [facility], 4 [facility] [address]855 Coronavirus Type NL63 (PCR) [facility] 4:48pm Not Detected Not [facility], 4 [facility] [address] Coronavirus Type OC43 (PCR) [facility] 4:48pm Not Detected Not [facility], 4 [facility] [address] Coronavirus (COVID-19)([facility]) [facility] 4:48pm Not Detected Not Negative results do not preclude SARS-Co V-2 infection andshould not be used as the sole basis for treatment or otherpatient management decisions. Negative SARS-CoV-2 resultsmust be combined with clinical observations, patienthistory, and epidemiological information. [facility], 4 [facility] [address] Human Metapneumovirus (PCR) [facility] 2020 4:48pm Not Detected Not [facility], 4 [facility] [address]773 Rhinovirus (PCR) February 16 4:48pm DETECTED Not [facility], 4 [facility] [address]70 Influenza Type A (RT-PCR) February 16, 2021 4:48pm Not Detected Not [facility], 4 [facility] [address]2881 Influenza Type B (RT-PCR) February 16, 2021 4:48pm Not Detected Not [facility], 4 [facility] [address] Parainfluenza Type 1 (PCR) February 16, 2021 4:48pm Not Detected Not [facility], 4 [facility] [address] Parainfluenza Type 2 (PCR) February 16, 2021 4:48pm Not Detected Not [facility], 4 [facility] [address] Parainfluenza Type 3 (PCR) February 16, 2021 4:48pm Not Detected Not [facility], 4 [facility] [address] Parainfluenza Type 4 (PCR) February 16, 2021 4:48pm Not Detected Not [facility], 4 [facility] [address] Respiratory Syncytial Virus (PCR) Se ptember 2020 4:48pm Not Detected Not [facility], 4 [facility] [address]776 Bordetella parapertussis DNA (PCR) S eptember 2020 4:48pm Not Detected Not [facility], 4 [facility] [address]39 Bordetella pertussis DNA (PCR) Septe mber 2020 4:48pm Not Detected Not [facility], [address] [facility] [address] Chlamydia pneumoniae February 16, 2021 4:48pm Not Detected Not [facility], 4 [facility] [address] Mycoplasma pneumoniae January 4:48pm Not Detected Not [...] results have been determined by using the [employer] system.[employer] is an automated in vitro diagnostic system thatutilizes nested multiplex Polymerase Chain Reaction (PCR)and high-resolution melting analysis to detect and identifymultiple nucleic acid targets from clinical specimens. [facility], 4 [facility] [address] Diagnostic Imaging Reports Report Dictated Date/Time Dictated By Status PS360 TEMPLATE February 14, 2021 9:52am VINCE CURRAN lucas Patient Name: JHON HOFFMANN Unit#: [id number] Rad#: [id number] : 81 Status: SACHI Quintanilla MD: CEZAR STORY Room/Bed Sex: F Psychiatric Secretary: Rose Marie Burton Date: 02/14/21 Report #: [id number] Signed - ABD/PEL WITH IV CONTRAST ORIGINAL [...] CURRAN completed Patient Name: JHON HOFFMANN Unit#: [id number] Rad#: [id number] : 81 Status: DEP ER [place] MD: VICKI LEROY Room/Bed Sex: F Psychiatric Secretary: Keyon Zacarias Date: 02/16/21 Report #: [id number] Signed - ABD/PEL WITH ORAL AND IV [...] AVEL WARD Patient Name: JHON HOFFMANN Unit#: [id number] Rad#: [id number] : 81 Status: REG ER Ordering MD: MONICA ABDULLAHI Room/Bed Sex: F Psychiatric Secretary: Keyon Lopez Date: 02/18/21 Report #: [id number] Signed - ABD/PEL WITH IV CONTRAST ORIGINAL [...] available. Insurance Providers Guarantor JHON HOFFMANN Address [address] [place] [address] Contact Info. Home Phone: Payer Policy Id Coverage Id Subscriber's Name Subscriber Id Effective Date Expiration Date [employer] [place] [id number] JHON HOFFMANN 2020 Encounters Encounter Location(s) Ar rival/Admit Date Discharge/Depart Date Provider(s) Discharged Inpatient [facility] February 18, 2021 9:51am February 19, 2021 5:34pm PAULA SANDERS Departed Emergency [facility] February 16, 2021 3:56pm February 16, 2021 9:35pm VICKI LEROY [facility], [facility] February 14, 2021 6:59am February 14, 2021 11:03am CEZAR STORY Functional Status No Functional Status information available Mental Status No Mental Status Information Available Assessments No Assessments Information Available Goals Goals may be documented in an alternate section.
--- OUTSIDE RECORDS SUMMARY | 2021-05-01 10:01 | CCD | Continuity of Care Document ---
Author Author [facility] Address [address] [place] [address] Phone Care Team Providers Care Diamond Setter Name Role Phone Rick BRADSHAW PCP Chief [...] Blood Count February 19 3:20am 8.9 4.0-10.0 [facility], [address] [place] [address] Red Blood Count February 19, 2021 3:20a m 3.85 4.00-5.50 [facility], [address] [place] [address] Hemoglobin February 19, 2021 3:20am 13.2 12.0-16.0 [facility], 4 [facility] [address] Hematocrit February 19, 2021 3:20am 36.4 36.0-48.8 [facility], 4 [facility] [address] Mean Corpuscular Volume February 192020 3:20am 94.5 80-96 [facility], 4 [facility] [address]775 Mean Corpuscular Hemoglobin Septembe r 2020 3:20am 34.3 27.0-31.0 [facility], 4 [facility] [address] Mean Corpuscular Hgb Concent Diff Se ptember 2020 3:20am 36.3 32.0-36.0 [facility], 4 [facility] [address] Red Cell Distribution Width Septembe r 2020 3:20am 14.5 10.0-14.5 [facility], 4 [facility] [address] Platelet Count February 19, 2021 3:20am 322 172-450 [facility], 4 [facility] 85671 Mean Platelet Volume February 19, 2021 3:20am 9.3 9.0-13.0 [facility], 4 [facility] 94012 Granulocytes % (Auto) January 3:20am 58.9 50-80.0 [facility], 4 [facility] [address] Immature Granulocytes % February 192020 3:20am 0.2 0.0-0.2 [facility], 4 [facility] 87992 Lymphocytes % February 19, 2021 3:20am 28.8 25.0-50.0 [facility], 4 [facility] 865[address] Monocytes % February 19, 2021 3:20am 7.2 2.0-10.0 [facility], 4 [facility] 10279 Eosinophils % February 19, 2021 3:20am 4.6 0-5.0 [facility], 4 [facility] 97092 Basophils % February 19, 2021 3:20am 0.3 0.0-2.0 [facility], 4 [facility] [address] Granulocytes # February 19, 2021 3:20am 5.3 2.0-8.00 [facility], 4 [facility] [address]46 Immature Granulocytes # February 192020 3:20am 0.0 0.0-0.2 [facility], 4 [facility] [address] Lymphocytes # February 19, 2021 3:20am 2.6 1.0-5.0 [facility], 4 [facility] [address] Monocytes # February 19, 2021 3:20am 0.6 0.10-1.20 [facility], 4 [facility] [address] Eosinophils # February 19, 2021 3:20am 0.4 0.0-0.5 [facility], 4 [facility] 9[address] Basophils # February 19, 2021 3:20am 0.0 0.0-0.2 [facility], 4 [facility] [address] Prothrombin Time February 16 4:48pm 9.3 9.1-11.6 [facility], 4 [facility] 62645 INR International Normalized [facility] 2020 4:48pm 0.89 0.87-1.06 [facility], 4 [facility] [address] Partial Thromboplastin Time - Hendry S epteer 2020 4:48pm 23.5 21.2-27.3 [facility], 4 [facility] [address] Urine Color February 18, 2021 9:56am YELLOW [facility], 4 [facility] [address]137 Urine Appearance February 18 9:56am SLIGHTY CLOUDY [facility], 4 [facility] 19572 Urine Glucose February 18, 2021 9:56am NEGATIVE NEGATIVE [facility], 4 [facility] 60251 Urine Bilirubin February 18, 2021 9:56a m NEGATIVE NEGATIVE [facility], 4 [facility] [address]208 Urine Ketones February 18, 2021 9:56am 5(TRACE) NEGATIVE [facility], 4 [facility] 09678 Specific [place]ester[place] February 18 9:56am 1.015 1.005-1.030 [facility], 4 [facility] [address] Urine Blood February 18, 2021 9:56am NEGATIVE NEGATIVE [facility], 4 [facility] [address] Urine pH February 18, 2021 9:56am 6.5 5.0-9.0 [facility], 4 [facility] 69669 Urine Protein February 18, 2021 9:56am NEGATIVE NEGATIVE [facility], 4 [facility] [address]3766 Urine Urobilinogen February 18, 021 9:56am 2 0-1 [facility], 4 [facility] 287[address] Urine Nitrite February 18, 2021 9:56am NEGATIVE NEGATIVE [facility], 4 [facility] [address]778 Urine Leukocyte Esterase January 262020 9:56am NEGATIVE NEGATIVE [facility] [address] Urine Microscopic RBC January 5:05pm NONE SEEN 0-3 [facility], [address] [place] [address] Urine Microscopic WBC January 5:05pm NONE SEEN 0-5 [facility], 4 [facility] 35862 Urine Epithelial Cells January 5:05pm 1+ 0 [facility], 4 [facility] 78516 Urine Bacteria February 14, 2021 9:14am TRACE NONE SEEN [facility], 4 [facility] 98813 Urine Hyaline Casts February 14, 2021 9:14am 5-10 0 [facility], [address] [place] [address] Glucose Level February 19, 2021 3:20am 90 74-106 [facility], 4 [facility] [address]208 Lactic Acid Level February 18 12:15pm 0.8 0.4-2.0 [facility], 4 [facility] 648[address] Blood Urea Nitrogen February 19, 2021 3:20am 6 7-18 [facility], 4 [facility] [address]137 Creatinine February 19, 2021 3:20am 0.65 0.6-1.0 [facility], 4 [facility] 62119 Sodium Level February 19, 2021 3:20am 148 136-145 [facility], 4 [facility] [address] Potassium Level February 19, 2021 3:20a m 3.4 3.5-5.1 [facility], 4 [facility] 68643 Chloride Level February 19, 2021 3:20am 113 98-107 [facility], 4 [facility] [address]86 Carbon Dioxide Level February 19, 2021 3:20am 27 21-32 [facility], 4 [facility] 95017 Calcium Level February 19, 2021 3:20am 7.8 8.5-10.1 [facility], 4 [facility] 87528 Anion Gap February 19, 2021 3:20am 8.0 5-12 [facility], [address] [place] [address] Estimated GFR (MDRD) February 19, 2021 3:20am >90 GF R IS CALCULATED IN mL/min/1.73m2 NORMAL FUNCTION: >90MILDLY DECREASED: 60-89MILDY TO MODERATELY DECREASED: 45-59 MODERATELY TO SEVERELY DECREASED: 30-44SEVERELY DECREASED: 15-29RENAL FAILURE: <15 [facility], 4 [facility] 6[address] Aspartate Amino Transf (AST/SGOT) Se ptember 2020 3:20am 22 15-37 [facility], 4 [facility] [address]57 Alanine Aminotransferase (ALT/SGPT) February 19, 2021 3:20am 36 12-78 [facility], 4 [facility] [address]130 Alkaline Phosphatase February 19, 2021 3:20am 71 46-116 [facility], 4 [facility] 24232 Total Bilirubin February 19, 2021 3:20a m 0.4 0.2-1.0 [facility], 4 [facility] 19806 Total Protein February 19, 2021 3:20am 4.7 6.4-8.2 [facility], 4 [facility] 81530 Albumin February 19, 2021 3:20am 2.3 3.4-5.0 [facility], 4 [facility] 76568 Lipase February 19, 2021 3:20am 292 73-393 [facility], [address] [place] 3437917 Magnesium Level February 16, 2021 4:48p m 1.9 1.8-2.4 [facility], 4 [facility] [address] C-Reactive Protein February 19, 2 021 3:20am < 0.5 0.0-3.0 [facility], [address] [place] [address] Coronavirus (COVID-19)(PCR) r 2020 7:52am NEGATIVE NEGATIVE [...] are for the indentification of SARS-CoV-2 RNA. SfeXZYS-FiX-8 RNA is generally detectable in respiratorysamples during the actue phase of infection. [facility], 4 [facility] [address] Urine HCG, Qualitative January 5:05pm NEGATIVE NEGATIVE [facility], [address] [place], [place] [address] Adenovirus (PCR) February 16 4:48pm Not Detected Not [facility], 4 [facility] [address] Coronavirus Type 229E (PCR) [facility] 2020 4:48pm Not Detected Not [facility], 4 [facility] [address] Coronavirus Type HKU1 (PCR) [facility] 2020 4:48pm Not Detected Not [facility], 4 [facility] [address] Coronavirus Type NL63 (PCR) [facility] 2020 4:48pm Not Detected Not [facility], 4 [facility] [address] Coronavirus Type OC43 (PCR) [facility] 2020 4:48pm Not Detected Not [facility], 4 [facility] [address] Coronavirus (COVID-19)(PCR) [facility] 2020 4:48pm Not Detected Not Negative results do not preclude SARS-Co V-2 infection andshould not be used as the sole basis for treatment or otherpatient management decisions. Negative SARS-CoV-2 resultsmust be combined with clinical observations, patienthistory, and epidemiological information. [facility], 4 [facility] [address] Human Metapneumovirus (PCR) [facility] 2020 4:48pm Not Detected Not [facility], 4 [facility] [address] Rhinovirus (PCR) February 16 4:48pm DETECTED Not [facility], 4 [facility] [address]24 Influenza Type A (RT-PCR) February 16, 2021 4:48pm Not Detected Not [facility], 4 [facility] [address] Influenza Type B (RT-PCR) February 16, 2021 4:48pm Not Detected Not [facility], 4 [facility] [address] Parainfluenza Type 1 (PCR) February 16, 2021 4:48pm Not Detected Not [facility], 4 [facility] 9[address]47 Parainfluenza Type 2 (PCR) February 16, 2021 4:48pm Not Detected Not [facility], 4 [facility] [address] Parainfluenza Type 3 (PCR) February 16, 2021 4:48pm Not Detected Not [facility], 4 [facility] [address] Parainfluenza Type 4 (PCR) February 16, 2021 4:48pm Not Detected Not [facility], 4 [facility] [address] Respiratory Syncytial Virus (PCR) Se ptember 2020 4:48pm Not Detected Not [facility], 4 [facility] [address] Bordetella parapertussis DNA (PCR) S eptember 2020 4:48pm Not Detected Not [facility], 4 [facility] [address] Bordetella pertussis DNA (PCR) Septe mber 2020 4:48pm Not Detected Not [facility], 4 [facility] [address] Chlamydia pneumoniae February 16, 2021 4:48pm Not Detected Not [facility], 4 [facility] [address] Mycoplasma pneumoniae January 4:48pm Not Detected Not [...] results have been determined by using the [employer] system.[employer] is an automated in vitro diagnostic system thatutilizes nested multiplex Polymerase Chain Reaction (PCR)and high-resolution melting analysis to detect and identifymultiple nucleic acid targets from clinical specimens. [facility], 4 [facility] [address] Diagnostic Imaging Reports Report Dictated Date/Time Dictated By Status PS360 TEMPLATE February 14, 2021 9:52am VINCE CURRAN lucas Patient Name: JHON HOFFMANN Unit#: [id number] Rad#: [id number] : 81 Status: SACHI Quintanilla MD: CEZAR STORY Room/Bed Sex: F Supervisor [employer] [place]: Rose Marie Burton Date: 02/14/21 Report #: [id number] Signed - ABD/PEL WITH IV CONTRAST ORIGINAL [...] CURRAN completed Patient Name: JHON HOFFMANN Unit#: [id number] Rad#: [id number] : 81 Status: DEP ER [place] MD: VICKI LEROY Room/Bed Sex: F Supervisor [employer] [place]: Keyon Zacarias Date: 02/16/21 Report #: [id number] Signed - ABD/PEL WITH ORAL AND IV [...] AVEL WARD Patient Name: JHON HOFFMANN Unit#: [id number] Rad#: [id number] : 81 Status: REG ER Ordering MD: MONICA ABDULLAHI Room/Bed Sex: F Supervisor [employer] [place]: Keyon Lopez Date: 02/18/21 Report #: [id number] Signed - ABD/PEL WITH IV CONTRAST ORIGINAL [...] available. Insurance Providers Guarantor JHON HOFFMANN Address [address] [place] [address] Contact Info. Home Phone: Payer Policy Id Coverage Id Subscriber's Name Subscriber Id Effective Date Expiration Date [employer] [id number] JHON HOFFMANN 2020 Encounters Encounter Location(s) Ar rival/Admit Date Discharge/Depart Date Provider(s) Discharged Inpatient [facility] February 18, 2021 9:51am February 19, 2021 5:34pm PAULA SANDERS Departed Emergency [facility] February 16, 2021 3:56pm February 16, 2021 9:35pm VICKI LEROY [facility] February 14, 2021 6:59am February 14, 2021 11:03am CEZAR STORY Functional Status No Functional Status information available Mental Status No Mental Status Information Available Assessments No Assessments Information Available Goals Goals may be documented in an alternate section.
--- OUTSIDE RECORDS SUMMARY | 2021-05-01 10:01 | CCD ---
Author Author [facility] Organization [facility] Address Unknown Phone Unavailable Care Team Providers Care Machine Cementer Name Role Phone Jcarlos Hernández Unavailable PROBLEMS Type Condition ICD9-CM Code [id number] Code Onset Dates Condition S tatus W/U Status Risk SNOMED Code Notes Problem Migraine without status migr ainosus, not intractable, unspecified migraine type G43.909 Active confirmed 67018812 Problem Psoriasis L40.9 Active confirmed 2802637 Problem Carpal tunnel syndrome of right wrist G56.01 Ac tive confirmed 19685113 Problem Psoriatic arthritis L40.50 Active confirmed 900784350 Problem Sinusitis, unspecified chronicity, unspecified location J32.9 Active confirmed 08071101 Problem S/P bariatric surgery Z98.84 Active confirmed 542273371 Problem Elevated LFTs R94.5 Active confirmed 990473 001 Problem Colitis, enteritis, and gastroenteritis of presu med infectious origin K52.9 Active confirmed 412055573 Problem Arthralgia, unspecified joint M25.50 Active confirm ed 05182706 Problem Intestinal infection due to Clostridium difficile A04.72 Active confirmed 069549879 Problem Decreased sensation R20.8 Active confirmed 366303459 Problem Rheumatoid arthritis of multiple sites w ith negative rheumatoid factor M06.09 Active confirmed 541280315 Problem Iron deficiency anemia, unspecified iron deficiency an emia type D50.9 Active confirmed 96298469 Problem Low back pain with right-andrew ed sciatica, unspecified back pain laterality, unspecified chronicity M54.41 Active confirmed 387633752 Problem Reactive arthritis M02.30 Active confirmed 2 08909957 Problem Frontal sinusitis, unspecified chronicity J32.1 Active confirmed 44863519 Problem Intractable migraine with aura with status migrainosus G43.111 Active confirmed 243488791 Problem Low back pain M54.5 Active confirmed 468025 009 Problem Salmonella gastroenteritis A02.0 Active confirmed 10409863 Problem Intractable migraine with aura without status migrainosus G43.119 Active confirmed 727720017 Problem Leukocytosis, unspecified type D72.829 Active confi rmed 436567524 Problem Vitamin D deficiency E55.9 Active confirmed 26428449 Problem Hepatitis K75.9 Active confirmed 590855781 Problem Sicca syndrome M35.00 Active confirmed 50739 0000 ALLERGIES Allergen (clinical drug ingredient) Drug/Non Drug Allergy do cumented on EMR Reaction Allergy Type Onset Date Status ciprofloxacin Cipro([facility] Code:[address]-29) C-Diff Drug Allergy Active Penicillin (For Allergies Use Only) hives Drug Allerg y Active cefuroxime Ceftin hives Drug Allergy Active codeine Codeine Sulfate([facility] Code:[address]-82) nausea Drug Al lergy Active erythromycin Erythromycin([facility] Code:[address]-42) hives Drug All ergy Active Sulfasalazine Sulfa Antibiotics Hives Drug Allergy Ac tive Latex Gloves([facility] Code:09666-39408) EDEMA Drug Allergy Active azithromycin Zithromax Z-Mauricio([facility] Code:[address]-37) hives Drug Allergy Active ENCOUNTERS from 1983 to 2021-02-09 Encounter Location Date Provider Diagnosis [address] [phone] [place] [address] Jan, Jcarlos Hernández Acute maxillary sinusitis, recurrence no t specified J01.00 IMMUNIZATIONS Vaccine Route Administration Date Status Toradol [...] effects, education provided 02/08/2021 REASON FOR REFERRAL from 1983 to 2021-02-09 Reason long hx of migraines, since age 10. various agents have been used with little success. currently on depakote with some improvement. Diagnosis 1 Migraine without status migr ainosus, not intractable, unspecified migraine type (G43.909) Referral Organization [facility] Referring Provider First Name Jcarlos Referring Provider Last Name Hernández Referring Provider Specialty Family Medicine Referred Provider Karina Carter Referred Provider Specialty Neurology Referral Priority Routine General Notes Dora Parker 02/08/2021 1: 58:01 PM > sent P2P VITAL SIGNS Weight 135.8 lbs Jan, Height 62" in Jan, BMI 24.84 kg/m2 Jan, Heart Rate 92 /min Jan, Respiratory Rate 18 /min Jan, Temperature 97.3 degrees Fahrenheit Jan, Oximetry 97RA Jan, Blood pressure systolic 130 mm Hg Jan, Blood pressure diastolic 90 mm Hg Jan, MEDICATIONS Medication SIG (Take, Route, Frequency, Duration) Notes Start Da te End Date Status Ondansetron 4 MG 1 tablet on the tongue and allow to dissolve Or ally qid May, Not-Taking Metoclopramide HCl 10 MG 1 tablet before meals Orally Twice a day for 30 day(s) Nov, Active Promethazine HCl 25 MG 1 tablet as needed Orally ev nita 8 hrs as needed for nausea for 5 day(s) Aug, Not-Taking Fluconazole 150 MG 1 tablet Orally one now, repeat in 3 days Nov, Not-Taking Tessalon Perles 100 MG 1 capsule as needed Orally T hree times a day for 10 day(s) Dec, Active tiZANidine HCl 2 MG 1 tablet as needed Orally Three times a day for 30 Days Feb, Active Gabapentin 400 MG 1 capsule Orally three times daily as needed Nov, Not-Taking Vitamin B12 1000 MCG 1 tablet Orally Once a day Active Ondansetron HCl 4 MG 1 tablet Orally qid, prn nausea for 14 day( s) Jan, Active Butalbital-APAP 50-325 MG 1 tablet as needed Orally every 6 hrs MDD=4 rarely Jul, Active Maxalt 10 MG 1 tablet as needed one time Orally Once a day Active Valproic Acid 250 MG 1 capsule Orally tid for 30 day(s) Nov, Active Fluticasone Propionate 50 MCG/ACT 1 spray in each nost ril Nasally bid for 30 day(s) Jan, Active Probiotic 1 tab(s) Orally daily Act rashad Omeprazole 40 MG 1 capsule Orally bid for 30 Days Active Folic Acid 1 MG 1 tablet Orally Once a day Active ProAir HFA 108 (90 Base) MCG/ACT 2 puffs as needed Inh alation four times daily as needed for 30 Days Active Doxycycline Monohydrate 100 MG 1 tablet Orally bid for 14 day(s) Jan, Active levoFLOXacin 500 MG 1 tablet Orally Once a day for 10 day(s) Nov, Not-Taking predniSONE 10 MG 6 tablets/day x 3 days, 4 ta bs/day x 3 days, 2 tabs/day x 3 days, 1 tab/day x 4 days Orally Daily for 13 days Nov, Not-Taking Fluconazole 150 MG 1 tablet Orally one now, repeat in 3 days Jan, Active oxyCODONE-Acetaminophen 5-325 MG 1 tablet as needed Or ally every 4 hours as needed MDD=6 for 30 Days Jan, Active Drisdol 1.25 MG (61299 UT) 1 capsule Orally TWICE A WEEK 0 4 Jul, 2020 Not-Taking PROCEDURES No Information RESULTS No Results REASON FOR VISIT Follow Up per Dr. Hernández MEDICAL (GENERAL) HISTORY Type Description Date Medical [...] Treatment Notes Treatm ent Clinical Notes Jan, Acute maxillary sinusitis, r ecurrence not specified (ICD-10 - J01.00) PLAN OF TREATMENT Medication Medication Name Sig Start Date Stop Date Ondansetron HCl 4 MG 1 tablet Orally qid, prn nausea for 14 day( s) Jan, Fluconazole 150 MG 1 tablet Orally one now, repeat in 3 days Jan, Doxycycline Monohydrate 100 MG 1 tablet Orally bid for 14 day(s) Jan, Fluticasone Propionate 50 MCG/ACT 1 spray in each nost ril Nasally bid for 30 day(s) Jan, Referrals Referral Date Details long hx of migraines, since age 10. various agents have been used with little success. currently on depakote with some improvement., Karina Carter Next Appt Details 4 Months Reason: Provider Name:Jcarlos Hernández, 2021-06-14 11 :00:00 AM, [address] , , [place], [address], Insurance Providers Payer Name Payer Address Payer Phone Insured Name Patient Relati onship to Insured Coverage Start Date Coverage End Date [employer]AT [employer]TI[employer]ULIA ALMEIDA PPO [id number] [facility] [employer] OSMAN SERRANO [id number] JHON HOFFMANN 2021
--- OUTSIDE RECORDS SUMMARY | 2021-05-01 10:01 | CCD ---
Author Author [facility] Organization [facility] Address Unknown Phone Unavailable Care Team Providers Care Sap Security Architect Name Role Phone Jcarlos Hernández Unavailable PROBLEMS Type Condition ICD9-CM Code IER84-MR Code Onset Dates Condition S tatus W/U Status Risk SNOMED Code Notes Problem Migraine without status migr ainosus, not intractable, unspecified migraine type G43.909 Active confirmed 61400745 Problem Psoriasis L40.9 Active confirmed 7302228 Problem Carpal tunnel syndrome of right wrist G56.01 Ac tive confirmed 45613582 Problem Psoriatic arthritis L40.50 Active confirmed 773137123 Problem Sinusitis, unspecified chronicity, unspecified location J32.9 Active confirmed 82956042 Problem S/P bariatric surgery Z98.84 Active confirmed 093590127 Problem Elevated LFTs R94.5 Active confirmed 862091 001 Problem Colitis, enteritis, and gastroenteritis of presu med infectious origin K52.9 Active confirmed 489422759 Problem Arthralgia, unspecified joint M25.50 Active confirm ed 18932496 Problem Intestinal infection due to Clostridium difficile A04.72 Active confirmed 231708807 Problem Decreased sensation R20.8 Active confirmed 815158584 Problem Rheumatoid arthritis of multiple sites w ith negative rheumatoid factor M06.09 Active confirmed 343539873 Problem Iron deficiency anemia, unspecified iron deficiency an emia type D50.9 Active confirmed 30412986 Problem Low back pain with right-andrew ed sciatica, unspecified back pain laterality, unspecified chronicity M54.41 Active confirmed 712973567 Problem Reactive arthritis M02.30 Active confirmed 2 06883623 Problem Frontal sinusitis, unspecified chronicity J32.1 Active confirmed 15255421 Problem Intractable migraine with aura with status migrainosus G43.111 Active confirmed 656050002 Problem Low back pain M54.5 Active confirmed 357904 009 Problem Salmonella gastroenteritis A02.0 Active confirmed 39249848 Problem Intractable migraine with aura without status migrainosus G43.119 Active confirmed 985229045 Problem Leukocytosis, unspecified type D72.829 Active confi rmed 248609140 Problem Vitamin D deficiency E55.9 Active confirmed 90926758 Problem Hepatitis K75.9 Active confirmed 740671832 Problem Sicca syndrome M35.00 Active confirmed 84111 0000 ALLERGIES Allergen (clinical drug ingredient) Drug/Non Drug Allergy do cumented on EMR Reaction Allergy Type Onset Date Status ciprofloxacin Cipro([facility] Code:[address]-79) C-Diff Drug Allergy Active Penicillin (For Allergies Use Only) hives Drug Allerg y Active cefuroxime Ceftin hives Drug Allergy Active codeine Codeine Sulfate([facility] Code:[address]-72) nausea Drug Al lergy Active erythromycin Erythromycin([facility] Code:[address]-21) hives Drug All ergy Active Sulfasalazine Sulfa Antibiotics Hives Drug Allergy Ac tive Latex Gloves([facility] Code:59174-04480) EDEMA Drug Allergy Active azithromycin Zithromax Z-Mauricio([facility] Code:[address]-76) hives Drug Allergy Active ENCOUNTERS from 1983 to 2021-02-10 Encounter Location Date Provider Diagnosis [address] [phone] [place] [address] 17 Jan, 2021 Jcarlos Hernández IMMUNIZATIONS Vaccine Route Administration Date [...] 30 Days Jan, Active Drisdol 1.25 MG (58654 UT) 1 capsule Orally TWICE A WEEK 0 Jul, Not-Taking PROCEDURES No Information RESULTS No Results REASON FOR VISIT doxycycline issues MEDICAL (GENERAL) HISTORY Type Description Date Medical [...] ril Nasally bid for 30 day(s) Jan, Next Appt Details Provider Name:Jcarlos Hernández, 2021-06-14 11 :00:00 AM, AyeshaDarya LINARES, , [place], [address], Insurance Providers Payer Name Payer Address Payer Phone Insured Name Patient Relati onship to Insured Coverage Start Date Coverage End Date BCBS MITCH [place] O [phone] [facility] [place] [address] JHON HOFFMANN self 2021
--- OUTSIDE RECORDS SUMMARY | 2021-05-01 10:01 | CCD ---
Author Author [facility] Organization [facility] Address Unknown Phone Unavailable Care Team Providers Care Associate Financial Advisor Name Role Phone Jcarlos Hernández Unavailable PROBLEMS Type Condition ICD9-CM Code VUN29-GO Code Onset Dates Condition S tatus W/U Status Risk SNOMED Code Notes Problem Migraine without status migr ainosus, not intractable, unspecified migraine type G43.909 Active confirmed 34527777 Problem Psoriasis L40.9 Active confirmed 2098821 Problem Carpal tunnel syndrome of right wrist G56.01 Ac tive confirmed 83244221 Problem Psoriatic arthritis L40.50 Active confirmed 136973779 Problem Sinusitis, unspecified chronicity, unspecified location J32.9 Active confirmed 25754884 Problem S/P bariatric surgery Z98.84 Active confirmed 117364238 Problem Elevated LFTs R94.5 Active confirmed 115049 001 Problem Colitis, enteritis, and gastroenteritis of presu med infectious origin K52.9 Active confirmed 696378947 Problem Arthralgia, unspecified joint M25.50 Active confirm ed 24233069 Problem Intestinal infection due to Clostridium difficile A04.72 Active confirmed 954762763 Problem Decreased sensation R20.8 Active confirmed 964203425 Problem Rheumatoid arthritis of multiple sites w ith negative rheumatoid factor M06.09 Active confirmed 348350536 Problem Iron deficiency anemia, unspecified iron deficiency an emia type D50.9 Active confirmed 67131583 Problem Low back pain with right-andrew ed sciatica, unspecified back pain laterality, unspecified chronicity M54.41 Active confirmed 342438186 Problem Reactive arthritis M02.30 Active confirmed 2 23700971 Problem Frontal sinusitis, unspecified chronicity J32.1 Active confirmed 48065403 Problem Intractable migraine with aura with status migrainosus G43.111 Active confirmed 547803832 Problem Low back pain M54.5 Active confirmed 803096 009 Problem Salmonella gastroenteritis A02.0 Active confirmed 45787285 Problem Intractable migraine with aura without status migrainosus G43.119 Active confirmed 909894855 Problem Leukocytosis, unspecified type D72.829 Active confi rmed 387976780 Problem Vitamin D deficiency E55.9 Active confirmed 53021802 Problem Hepatitis K75.9 Active confirmed 695877592 Problem Sicca syndrome M35.00 Active confirmed 25381 0000 ALLERGIES Allergen (clinical drug ingredient) Drug/Non Drug Allergy do cumented on EMR Reaction Allergy Type Onset Date Status ciprofloxacin Cipro([facility] Code:[address]-91) C-Diff Drug Allergy Active Penicillin (For Allergies Use Only) hives Drug Allerg y Active cefuroxime Ceftin hives Drug Allergy Active codeine Codeine Sulfate([facility] Code:[address]-93) nausea Drug Al lergy Active erythromycin Erythromycin([facility] Code:[address]-32) hives Drug All ergy Active Sulfasalazine Sulfa Antibiotics Hives Drug Allergy Ac tive Latex Gloves([facility] Code:98552-51274) EDEMA Drug Allergy Active azithromycin Zithromax Z-Mauricio([facility] Code:[address]-50) hives Drug Allergy Active ENCOUNTERS from 1983 to 2021-02-10 Encounter Location Date Provider Diagnosis [address] [phone] [place] [address] 16 Jan, 2021 Jcarlos Hernández IMMUNIZATIONS Vaccine Route [...] 30 Days Jan, Active Drisdol 1.25 MG (45680 UT) 1 capsule Orally TWICE A WEEK 0 4 Jul, 2020 Not-Taking PROCEDURES No Information RESULTS No Results REASON FOR VISIT nausea from antibotic MEDICAL (GENERAL) HISTORY Type Description Date Medical [...] :00:00 AM, AyeshaDarya LINARES, , [place], [address], Insurance Providers Payer Name Payer Address Payer Phone Insured Name Patient Relati onship to Insured Coverage Start Date Coverage End Date BCBS MITCH [place] O [phone] [facility] [place] [address] JHON HOFFMANN self 2021
--- OUTSIDE RECORDS SUMMARY | 2021-05-01 10:01 | CCD ---
Author Author [facility] Organization [facility] Address Unknown Phone Unavailable Care Team Providers Care Cleaning Porter Name Role Phone Vaibhav Helm Unavailable PROBLEMS Type Condition ICD9-CM Code ADK29-VE Code Onset Dates Condition S tatus W/U Status Risk SNOMED Code Notes Problem Migraine without status migr ainosus, not intractable, unspecified migraine type G43.909 Active confirmed 21078016 Problem Psoriasis L40.9 Active confirmed 2826137 Problem Carpal tunnel syndrome of right wrist G56.01 Ac tive confirmed 85166891 Problem Psoriatic arthritis L40.50 Active confirmed 473879225 Problem Sinusitis, unspecified chronicity, unspecified location J32.9 Active confirmed 05935602 Problem S/P bariatric surgery Z98.84 Active confirmed 366982592 Problem Elevated LFTs R94.5 Active confirmed 996244 001 Problem Colitis, enteritis, and gastroenteritis of presu med infectious origin K52.9 Active confirmed 266387615 Problem Arthralgia, unspecified joint M25.50 Active confirm ed 84633435 Problem Intestinal infection due to Clostridium difficile A04.72 Active confirmed 694324196 Problem Decreased sensation R20.8 Active confirmed 301165135 Problem Rheumatoid arthritis of multiple sites w ith negative rheumatoid factor M06.09 Active confirmed 050457483 Problem Iron deficiency anemia, unspecified iron deficiency an emia type D50.9 Active confirmed 75809454 Problem Low back pain with right-andrew ed sciatica, unspecified back pain laterality, unspecified chronicity M54.41 Active confirmed 642367134 Problem Reactive arthritis M02.30 Active confirmed 2 86589101 Problem Frontal sinusitis, unspecified chronicity J32.1 Active confirmed 76408665 Problem Intractable migraine with aura with status migrainosus G43.111 Active confirmed 296549039 Problem Low back pain M54.5 Active confirmed 397212 009 Problem Salmonella gastroenteritis A02.0 Active confirmed 20413559 Problem Intractable migraine with aura without status migrainosus G43.119 Active confirmed 692641704 Problem Leukocytosis, unspecified type D72.829 Active confi rmed 191944330 Problem Vitamin D deficiency E55.9 Active confirmed 93176277 Problem Hepatitis K75.9 Active confirmed 018507815 Problem Sicca syndrome M35.00 Active confirmed 33735 0000 ALLERGIES Allergen (clinical drug ingredient) Drug/Non Drug Allergy do cumented on EMR Reaction Allergy Type Onset Date Status ciprofloxacin Cipro([facility] Code:[address]-85) C-Diff Drug Allergy Active Penicillin (For Allergies Use Only) hives Drug Allerg y Active cefuroxime Ceftin hives Drug Allergy Active erythromycin Erythromycin([facility] Code:[address]-06) hives Drug All ergy Active doxycycline Doxycycline Nausea/Vomiting Drug Allergy Activ e Sulfasalazine Sulfa Antibiotics Hives Drug Allergy Ac tive Latex Gloves([facility] Code:[address]) EDEMA Drug Allergy Active azithromycin Zithromax Z-Mauricio([facility] Code:[address]-29) hives Drug Allergy Active codeine Codeine Sulfate([facility] Code:[address]-71) nausea Drug Al lergy Active ENCOUNTERS from 1983 to 2021-02-22 Encounter Location Date Provider Diagnosis [address] [phone] [place] [address] Jan, Vaibhav Helm IMMUNIZATIONS Vaccine Route Administration Date [...] as needed Nov, Not-Taking Drisdol 1.25 MG (72887 UT) 1 capsule Orally TWICE A WEEK 0 Jul, Not-Taking PROCEDURES No Information RESULTS No Results REASON FOR VISIT Lab results MEDICAL (GENERAL) HISTORY Type Description Date Medical [...] Orally Once a day for 7 day(s) 27 S 2020 Next Appt Details Provider Name:Jcarlos Hernández, 2021-03-02 10 :00:00 AM, Lillian LINARES, , [place], [address], Provider Name:Jcarlos Hernández, 2021-06-14 11 :00:00 AM, AyeshaDarya LINARES, , [place], [address], Insurance Providers Payer Name Payer Address Payer Phone Insured Name Patient Relati onship to Insured Coverage Start Date Coverage End Date BCBS MITCH [place] O [phone] [facility] [place] [address] JHON HOFFMANN self 2021
--- OUTSIDE RECORDS SUMMARY | 2021-05-01 10:01 | CCD ---
Author Author [facility] Organization [facility] Address Unknown Phone Unavailable Care Team Providers Care Woodyard Operator Name Role Phone Jcarlos Hernández Unavailable PROBLEMS Type Condition ICD9-CM Code ISN56-BM Code Onset Dates Condition S tatus W/U Status Risk SNOMED Code Notes Problem Migraine without status migr ainosus, not intractable, unspecified migraine type G43.909 Active confirmed 27534397 Problem Psoriasis L40.9 Active confirmed 9988542 Problem Carpal tunnel syndrome of right wrist G56.01 Ac tive confirmed 35260661 Problem Psoriatic arthritis L40.50 Active confirmed 886276546 Problem Sinusitis, unspecified chronicity, unspecified location J32.9 Active confirmed 48583313 Problem S/P bariatric surgery Z98.84 Active confirmed 371351279 Problem Elevated LFTs R94.5 Active confirmed 593926 001 Problem Colitis, enteritis, and gastroenteritis of presu med infectious origin K52.9 Active confirmed 988426437 Problem Arthralgia, unspecified joint M25.50 Active confirm ed 31453950 Problem Intestinal infection due to Clostridium difficile A04.72 Active confirmed 127770259 Problem Decreased sensation R20.8 Active confirmed 603224259 Problem Rheumatoid arthritis of multiple sites w ith negative rheumatoid factor M06.09 Active confirmed 113651684 Problem Iron deficiency anemia, unspecified iron deficiency an emia type D50.9 Active confirmed 77312460 Problem Low back pain with right-andrew ed sciatica, unspecified back pain laterality, unspecified chronicity M54.41 Active confirmed 234929143 Problem Reactive arthritis M02.30 Active confirmed 2 56975480 Problem Frontal sinusitis, unspecified chronicity J32.1 Active confirmed 53717585 Problem Intractable migraine with aura with status migrainosus G43.111 Active confirmed 847217614 Problem Low back pain M54.5 Active confirmed 942472 009 Problem Salmonella gastroenteritis A02.0 Active confirmed 00393088 Problem Intractable migraine with aura without status migrainosus G43.119 Active confirmed 866681828 Problem Leukocytosis, unspecified type D72.829 Active confi rmed 929839607 Problem Vitamin D deficiency E55.9 Active confirmed 54052090 Problem Hepatitis K75.9 Active confirmed 827899352 Problem Sicca syndrome M35.00 Active confirmed 88686 0000 ALLERGIES Allergen (clinical drug ingredient) Drug/Non Drug Allergy do cumented on EMR Reaction Allergy Type Onset Date Status ciprofloxacin Cipro([facility] Code:[address]-44) C-Diff Drug Allergy Active Penicillin (For Allergies Use Only) hives Drug Allerg y Active cefuroxime Ceftin hives Drug Allergy Active erythromycin Erythromycin([facility] Code:[address]-40) hives Drug All ergy Active doxycycline Doxycycline Nausea/Vomiting Drug Allergy Activ e Sulfasalazine Sulfa Antibiotics Hives Drug Allergy Ac tive Latex Gloves([facility] Code:[address]) EDEMA Drug Allergy Active azithromycin Zithromax Z-Mauricio([facility] Code:[address]-81) hives Drug Allergy Active codeine Codeine Sulfate([facility] Code:[address]-43) nausea Drug Al lergy Active ENCOUNTERS from 1983 to 2021-02-20 Encounter Location Date Provider Diagnosis [address] [phone] [place] [address] Jan, Jcarlos Hernández IMMUNIZATIONS Vaccine Route Administration Date [...] as needed Nov, Not-Taking Drisdol 1.25 MG (07560 UT) 1 capsule Orally TWICE A WEEK 0 Jul, Not-Taking PROCEDURES No Information RESULTS No Results REASON FOR VISIT ER F/U seen in A- Marty/pancreatitis MEDICAL (GENERAL) HISTORY Type Description Date Medical [...] 2020 Next Appt Details Provider Name:Jcarlos Hernández, 2021-06-14 11 :00:00 AM, [address], , [place], [address], Insurance Providers Payer Name Payer Address Payer Phone Insured Name Patient Relati onship to Insured Coverage Start Date Coverage End Date GRETCHEN [employer]MEIDA PPO [phone] [facility] [place] [address] JHON HOFFMANN self 2021
--- OUTSIDE RECORDS SUMMARY | 2021-05-01 10:01 | CCD ---
Author Author [facility] Organization [facility] Address Unknown Phone Unavailable Care Team Providers Care Road Test Examiner Name Role Phone Jcarlos Hernández Unavailable PROBLEMS Type Condition ICD9-CM Code PDB43-TO Code Onset Dates Condition S tatus W/U Status Risk SNOMED Code Notes Problem Migraine without status migr ainosus, not intractable, unspecified migraine type G43.909 Active confirmed 18885809 Problem Psoriasis L40.9 Active confirmed 4929484 Problem Carpal tunnel syndrome of right wrist G56.01 Ac tive confirmed 82315379 Problem Psoriatic arthritis L40.50 Active confirmed 342241498 Problem Sinusitis, unspecified chronicity, unspecified location J32.9 Active confirmed 51976975 Problem S/P bariatric surgery Z98.84 Active confirmed 451616023 Problem Elevated LFTs R94.5 Active confirmed 275663 001 Problem Colitis, enteritis, and gastroenteritis of presu med infectious origin K52.9 Active confirmed 851677591 Problem Arthralgia, unspecified joint M25.50 Active confirm ed 63165734 Problem Intestinal infection due to Clostridium difficile A04.72 Active confirmed 304454449 Problem Decreased sensation R20.8 Active confirmed 252515958 Problem Rheumatoid arthritis of multiple sites w ith negative rheumatoid factor M06.09 Active confirmed 286127699 Problem Iron deficiency anemia, unspecified iron deficiency an emia type D50.9 Active confirmed 85923748 Problem Low back pain with right-andrew ed sciatica, unspecified back pain laterality, unspecified chronicity M54.41 Active confirmed 501895534 Problem Reactive arthritis M02.30 Active confirmed 2 99367881 Problem Frontal sinusitis, unspecified chronicity J32.1 Active confirmed 22894413 Problem Intractable migraine with aura with status migrainosus G43.111 Active confirmed 330651024 Problem Low back pain M54.5 Active confirmed 587220 009 Problem Salmonella gastroenteritis A02.0 Active confirmed 73207475 Problem Intractable migraine with aura without status migrainosus G43.119 Active confirmed 297993991 Problem Leukocytosis, unspecified type D72.829 Active confi rmed 240004489 Problem Vitamin D deficiency E55.9 Active confirmed 25248384 Problem Hepatitis K75.9 Active confirmed 338496624 Problem Sicca syndrome M35.00 Active confirmed 12152 0000 ALLERGIES Allergen (clinical drug ingredient) Drug/Non Drug Allergy do cumented on EMR Reaction Allergy Type Onset Date Status ciprofloxacin Cipro([facility] Code:[address]-58) C-Diff Drug Allergy Active Penicillin (For Allergies Use Only) hives Drug Allerg y Active Ceftin hives Drug Allergy Active codeine Codeine Sulfate([facility] Code:[address]-74) nausea Drug Al lergy Active erythromycin Erythromycin([facility] Code:[address]-81) hives Drug All ergy Active Sulfasalazine Sulfa Antibiotics Hives Drug Allergy Ac tive Latex Gloves([facility] Code:68043-41376) EDEMA Drug Allergy Active Zithromax Z-Mauricio hives Drug Allergy Active ENCOUNTERS from 1983 to 2021-02-15 Encounter Location Date Provider Diagnosis [facility] [address] [facility] [phone] [place] [address] Jan, Jcarlos Hernández IMMUNIZATIONS Vaccine Route Administration [...] 30 Days Jan, Active Drisdol 1.25 MG (89115 UT) 1 capsule Orally TWICE A WEEK 0 4 Jul, 2020 Not-Taking PROCEDURES No Information RESULTS No Results REASON FOR VISIT headache/n/v/d MEDICAL (GENERAL) HISTORY Type Description Date Medical [...] Provider Name:Jcarlos Hernández, 2021-06-14 11 :00:00 AM, Lillian THOMAS VIJAY, , [place], [address], Insurance Providers Payer Name Payer Address Payer Phone Insured Name Patient Relati onship to Insured Coverage Start Date Coverage End Date BCBS [employer]CH [place] PPO [phone] [facility] [place] [address] JHON HOFFMANN 2021
--- OUTSIDE RECORDS SUMMARY | 2021-05-01 10:04 | CCD ---
Author Author [facility] Organization [facility] Address Unknown Phone Unavailable Care Team Providers Care Cyber Transport Systems Specialist Name Role Phone PAULA SANDERS Unavailable Unavailable PAULA SANDERS Unavailable Unavailable Rick Hernández MD Unavailable Unavailable Rick Hernández MD Unavailable Unavailable Rick Hernández MD Unavailable Unavailable Rick Hernández MD Unavailable Unavailable Rick Hernández MD Unavailable Unavailable Rick Hernández MD Unavailable Unavailable Rick Hernández MD Unavailable Unavailable Rick Hernández MD Unavailable Unavailable Rick Hernández MD Unavailable Unavailable Rick Hernández MD Unavailable Unavailable Rick Hernández MD Unavailable Unavailable Rick Hernández MD Unavailable Unavailable Rick Hernández MD Unavailable Unavailable Rick Hernández MD Unavailable Unavailable Rick Hernández MD Unavailable Unavailable Rick Hernández MD Unavailable Unavailable Rick Hernández MD Unavailable Unavailable Rick Hernández MD Unavailable Unavailable Rick Hernández MD Unavailable Unavailable Rick Hernández MD Unavailable Unavailable Rick Hernández MD Unavailable Unavailable Rick Hernández MD Unavailable Unavailable Rick Hernández MD Unavailable Unavailable Rick Hernández MD Unavailable Unavailable Rick Hernández MD Unavailable Unavailable Rick Hernández MD Unavailable Unavailable Rick Hernández MD Unavailable Unavailable Rick Hernández MD Unavailable Unavailable Rick Hernández MD Unavailable Unavailable Rick Hernández MD Unavailable Unavailable Rick Hernández MD Unavailable Unavailable Rick Hernández MD Unavailable Unavailable Rick Hernández MD Unavailable Unavailable Rick Hernández MD Unavailable Unavailable Rick Hernández MD Unavailable Unavailable Rick Hernández MD Unavailable Unavailable Rick Hernández MD Unavailable Unavailable Rick Hernández MD Unavailable Unavailable Rick Hernández MD Unavailable Unavailable Rick Hernández MD Unavailable Unavailable Rick Hernández MD Unavailable Unavailable Rick Hernández MD Unavailable Unavailable Rick Hernández MD Unavailable Unavailable Rick Hernández MD Unavailable Unavailable Rick Hernández MD Unavailable Unavailable Rick Hernández MD Unavailable Unavailable Rick Hernández MD Unavailable Unavailable Rick Hernández MD Unavailable Unavailable Rick Hernández MD Unavailable Unavailable Rick Hernández MD Unavailable Unavailable Rick Hernández MD Unavailable Unavailable Rick Hernández MD Unavailable Unavailable Rick Hernández MD Unavailable Unavailable Rick Hernández MD Unavailable Unavailable Rick Hernández MD Unavailable Unavailable Rick Hernández MD Unavailable Unavailable Rick Hernández MD Unavailable Unavailable Rick Hernández MD Unavailable Unavailable Rick Hernández MD Unavailable Unavailable Rick Hernández MD Unavailable Unavailable Rick Hernández MD Unavailable Unavailable Rick Hernández MD Unavailable Unavailable Rick Hernández MD Unavailable Unavailable Rick Hernández MD Unavailable Unavailable Rick Hernández MD Unavailable Unavailable Rick Hernández MD Unavailable Unavailable Rick Hernández MD Unavailable Unavailable Rick Hernández MD Unavailable Unavailable Rick Hernández MD Unavailable Unavailable Rick Hernández MD Unavailable Unavailable Rick Hernández MD Unavailable Unavailable Rick Hernández MD Unavailable Unavailable Rick Hernández MD Unavailable Unavailable Rick Hernández MD Unavailable Unavailable Rick Hernández MD Unavailable Unavailable PETROFF, MONICA PA Unavailable Unavailable PETROFF, MONICA PA Unavailable Unavailable PETROFF, MONICA PA Unavailable Unavailable PETROFF, MONICA PA Unavailable Unavailable PETROFF, MONICA PA Unavailable Unavailable PETROFF, MONICA PA Unavailable Unavailable PETROFF, MONICA PA Unavailable Unavailable PETROFF, MONICA PA Unavailable Unavailable SHOSHANA, O MIKE PALOMARES Unavailable Unavailable SHOSHANA, O MIKE PALOMARES Unavailable Unavailable SHOSHANA, O MIKE PALOMARES Unavailable Unavailable SHOSHANA, O MIKE PALOMARES Unavailable Unavailable SHOSHANA, O MIKE PALOMARES Unavailable Unavailable SHOSHANA, O MIKE PALOMARES Unavailable Unavailable SHOSHANA, O MIKE PALOMARES Unavailable Unavailable SHOSHANA, O MIKE PALOMARES Unavailable Unavailable SHOSHANA, O IMKE PALOMARES Unavailable Unavailable SHOSHANA, O MIKE PALOMARES Unavailable Unavailable SHOSHANA, O MIKE PALOMARES Unavailable Unavailable SHOSHANA, O MIKE PALOMARES Unavailable Unavailable SHOSHANA, O MIKE PALOMARES Unavailable Unavailable SHOSHANA, O MIKE PALOMARES Unavailable Unavailable SHOSHANA, Kameron MCKEON MD Unavailable Unavailable SHOSHANA, O MIKE PALOMARES Unavailable Unavailable SHOSHANA, O MIKE PALOMARES Unavailable Unavailable SHOSHANA, O MIKE PALOMARES Unavailable Unavailable SHOSHANA, O MIKE PALOMARES Unavailable Unavailable SHOSHANA, O MIKE PALOMARES Unavailable Unavailable SHOSHANA, O MIKE PALOMARES Unavailable Unavailable SHOSHANA, O MIKE PALOMARES Unavailable Unavailable SHOSHANA, O MIKE PALOMARES Unavailable Unavailable SHOSHANA, O MIKE PALOMARES Unavailable Unavailable SHOSHANA, O MIKE PALOMARES Unavailable Unavailable SHOSHANA, O MIKE PALOMARES Unavailable Unavailable SHOSHANA, O MIKE PALOMARES Unavailable Unavailable SHOSHANA, O MIKE PALOMARES Unavailable Unavailable SHOSHANA, O MIKE PALOMARES Unavailable Unavailable SHOSHANA, O MIKE PALOMARES Unavailable Unavailable SHOSHANA, O MIKE PALOMARES Unavailable Unavailable SHOSHANA, O MIKE PALOMARES Unavailable Unavailable SHOSHANA, O MIKE PALOMARES Unavailable Unavailable SHOSHANA, O MIKE PALOMARES Unavailable Unavailable SHOSHANA, O MIKE PALOMARES Unavailable Unavailable SHOSHANA, O MIKE PALOMARES Unavailable Unavailable SHOSHANA, O MIKE PALOMARES Unavailable Unavailable SHOSHANA, O MIKE PALOMARES Unavailable Unavailable SHOSHANA, O MIKE PALOMARES Unavailable Unavailable SHOSHANA, O MIKE PALOMARES Unavailable Unavailable SHOSHANA, O MIKE PALOMARES Unavailable Unavailable SHOSHANA, O MIKE PALOMARES Unavailable Unavailable SHOSHANA, O MIKE PALOMARES Unavailable Unavailable SHOSHANA, O MIKE PALOMARES Unavailable Unavailable SHOSHANA, O MIKE PALOMARES Unavailable Unavailable Carrie Romero CARDROOM HAND Unavailable Unavailable Romero, Carrie CARDROOM HAND Unavailable Unavailable Romero, Carrie CARDROOM HAND Unavailable Unavailable Romero, Carrie CARDROOM HAND Unavailable Unavailable Romero, Carrie CARDROOM HAND Unavailable Unavailable Romero, Carrie CARDROOM HAND Unavailable Unavailable Romero, Carrie CARDROOM HAND Unavailable Unavailable Romero, Carrie CARDROOM HAND Unavailable Unavailable Romero, Carrie CARDROOM HAND Unavailable Unavailable Romero, Carrie CARDROOM HAND Unavailable Unavailable Romero, Carrie CARDROOM HAND Unavailable Unavailable Romero, Carrie CARDROOM HAND Unavailable Unavailable Romero, Carrie CARDROOM HAND Unavailable Unavailable Romero, Carrie CARDROOM HAND Unavailable Unavailable Romero, Carrie CARDROOM HAND Unavailable Unavailable Romero, Carrie CARDROOM HAND Unavailable Unavailable Romero, Carrie CARDROOM HAND Unavailable Unavailable Romero, Carrie CARDROOM HAND Unavailable Unavailable Romero, Carrie CARDROOM HAND Unavailable Unavailable Romero, Carrie CARDROOM HAND Unavailable Unavailable Romero, Carrie CARDROOM HAND Unavailable Unavailable Romero, Carrie CARDROOM HAND Unavailable Unavailable Romero, Carrie CARDROOM HAND Unavailable Unavailable Romero, Carrie CARDROOM HAND Unavailable Unavailable Romero, Carrie CARDROOM HAND Unavailable Unavailable Romero, Carrie CARDROOM HAND Unavailable Unavailable Romero, Carrie CARDROOM HAND Unavailable Unavailable Romero, Carrie CARDROOM HAND Unavailable Unavailable Romero, Carrie CARDROOM HAND Unavailable Unavailable Romero, Carrie CARDROOM HAND Unavailable Unavailable Romero, Carrie CARDROOM HAND Unavailable Unavailable Romero, Carrie CARDROOM HAND Unavailable Unavailable Romero, Carrie CARDROOM HAND Unavailable Unavailable Romero, Carrie CARDROOM HAND Unavailable Unavailable Romero, Carrie CARDROOM HAND Unavailable Unavailable Romero, Carrie CARDROOM HAND Unavailable Unavailable Romero, Carrie CARDROOM HAND Unavailable Unavailable Romero, Carrie CARDROOM HAND Unavailable Unavailable Romero, Carrie CARDROOM HAND Unavailable Unavailable Romero, Carrie CARDROOM HAND Unavailable Unavailable Romero, Carrie CARDROOM HAND Unavailable Unavailable Romero, Carrie CARDROOM HAND Unavailable Unavailable Romero, Carrie CARDROOM HAND Unavailable Unavailable Romero, Carrie CARDROOM HAND Unavailable Unavailable Romero, Carrie CARDROOM HAND Unavailable Unavailable Romero, Carrie CARDROOM HAND Unavailable Unavailable Romero, Carrie CARDROOM HAND Unavailable Unavailable Romero, Carrie CARDROOM HAND Unavailable Unavailable Tea LEROYER PA Unavailable Unavailable MARGARETHENOTea BondER PA Unavailable Unavailable MARGARETHENOTea BondER PA Unavailable Unavailable MARGARETHENOTea BondER PA Unavailable Unavailable MARGARETHENOTea BondER PA Unavailable Unavailable MARGARETHENOTea BondER PA Unavailable Unavailable MARGARETHENOTea BondER PA Unavailable Unavailable Tea LEROYOPHER PA Unavailable Unavailable MARGARETHENOTea Bond CHRISTOPHER PA Unavailable Unavailable MRAGARETHENOTea BondOPHER PA Unavailable Unavailable MARGARETHENOVarun G CHRISTOPHER PA Unavailable Unavailable MARGARETHENOVarun G CHRISTOPHER PA Unavailable Unavailable SYMENOW, G CHRISTOPHER PA Unavailable Unavailable SYMENOW, G CHRISTOPHER PA Unavailable Unavailable SYMENOW, G CHRISTOPHER PA Unavailable Unavailable SYMENOW, G CHRISTOPHER PA Unavailable Unavailable Clyde Moreno PA-C Unavailable Clyde Moreno PA-C Unavailable Clyde Moreno PA-C Unavailable Clyde Moreno PA-C Unavailable Clyde Moreno PA-C Unavailable RADHA, L BATSHEVA PA Unavailable Unavailable RADHA, L BATSHEVA PA Unavailable Unavailable RADHA, L BATSHEVA PA Unavailable Unavailable RADHA, L BATSHEVA PA Unavailable Unavailable RADHA, L BATSHEVA PA Unavailable Unavailable RADHA, L BATSHEVA PA Unavailable Unavailable RADHA, L BATSHEVA PA Unavailable Unavailable RADHA, L BATSHEVA PA Unavailable Unavailable RADHA, L BATSHEVA PA Unavailable Unavailable RADHA, L BATSHEVA PA Unavailable Unavailable RADHA, L BATSHEVA PA Unavailable Unavailable RADHA, L BATSHEVA PA Unavailable Unavailable RADHA, L BATSHEVA PA Unavailable Unavailable RADHA, L BATSHEVA PA Unavailable Unavailable RADHA, L BATSHEVA PA Unavailable Unavailable RADHA, L BATSHEVA PA Unavailable Unavailable RADHA, L BATSHEVA PA Unavailable Unavailable RADHA, L BATSHEVA PA Unavailable Unavailable RADHA, L BATSHEVA PA Unavailable Unavailable RADHA, L BATSHEVA PA Unavailable Unavailable RADHA, L BATSHEVA PA Unavailable Unavailable RADHA, L BATSHEVA PA Unavailable Unavailable RADHA, L BATSHEVA PA Unavailable Unavailable Ruddy Carty MD Unavailable Unavailable Ruddy Carty MD Unavailable Unavailable Ruddy Carty MD Unavailable Unavailable Ruddy Carty MD Unavailable Unavailable Ruddy Carty MD Unavailable Unavailable Ruddy Carty MD Unavailable Unavailable Ruddy Carty MD Unavailable Unavailable Ruddy Carty MD Unavailable Unavailable Ruddy Carty MD Unavailable Unavailable Ruddy Carty MD Unavailable Unavailable Ruddy Carty MD Unavailable Unavailable Ruddy Carty MD Unavailable Unavailable Ruddy Carty MD Unavailable Unavailable Ruddy Carty MD Unavailable Unavailable Ruddy Carty MD Unavailable Unavailable Ruddy Carty MD Unavailable Unavailable Dombek-Lang, V Sally MD Unavailable Unavailable Dombek-Lang, V Sally MD Unavailable Unavailable Dombek-Lang, V Sally MD Unavailable Unavailable Dombek-Lang, V Sally MD Unavailable Unavailable Dombek-Lang, V Sally MD Unavailable Unavailable Dombek-Lang, V Sally MD Unavailable Unavailable Dombek-Lang, V Sally MD Unavailable Unavailable Dombek-Lang, V Sally MD Unavailable Unavailable Dombek-Lang, V Sally MD Unavailable Unavailable Dombek-Lang, V Sally MD Unavailable Unavailable Dombek-Lang, V Sally MD Unavailable Unavailable Dombek-Lang, V Sally MD Unavailable Unavailable Dombek-Lang, V Sally MD Unavailable Unavailable Dombek-Lang, V Sally MD Unavailable Unavailable Dombek-Lang, V Sally MD Unavailable Unavailable Dombek-Lang, V Sally MD Unavailable Unavailable Dombek-Lang, V Sally MD Unavailable Unavailable Dombek-Lang, V Sally MD Unavailable Unavailable Dombek-Lang, V Sally MD Unavailable Unavailable Dombek-Lang, V Sally MD Unavailable Unavailable Dombek-Lang, V Sally MD Unavailable Unavailable Dombek-Lang, V Sally MD Unavailable Unavailable Dombek-Lang, V Sally MD Unavailable Unavailable Sandy BARAKAT MD Unavailable Unavailable Sandy BARAKAT MD Unavailable Unavailable Sandy BARAKAT MD Unavailable Unavailable Sandy BARAKAT MD Unavailable Unavailable Sandy BARAKAT MD Unavailable Unavailable Sandy BARAKAT MD Unavailable Unavailable Sandy BARAKAT MD Unavailable Unavailable Sandy BARAKAT MD Unavailable Unavailable Sandy BARAKAT MD Unavailable Unavailable Sandy BARAKAT MD Unavailable Unavailable Sandy BARAKAT MD Unavailable Unavailable Sandy BARAKAT MD Unavailable Unavailable Sandy BARAKAT MD Unavailable Unavailable Sandy BARAKAT MD Unavailable Unavailable Sandy BARAKAT MD Unavailable Unavailable Sandy BARAKAT MD Unavailable Unavailable Sandy BARAKAT MD Unavailable Unavailable Sandy BARAKAT MD Unavailable Unavailable Sandy BARAKAT MD Unavailable Unavailable Sandy BARAKAT MD Unavailable Unavailable Sandy BARAKAT MD Unavailable Unavailable AWARALSandy Saucedo MD Unavailable Unavailable YUVAL, Sandy HAYNES MD Unavailable Unavailable YUVAL, Sandy HAYNES MD Unavailable Unavailable YUVAL, Sandy HAYNES MD Unavailable Unavailable Sandy BARAKAT MD Unavailable Unavailable Sandy BARAKAT MD Unavailable Unavailable Sandy BARAKAT MD Unavailable Unavailable YUVAL, Sandy HAYNES MD Unavailable Unavailable YUVAL, Sandy HAYNES MD Unavailable Unavailable YUVAL, Sandy HAYNES MD Unavailable Unavailable Sandy BARAKAT MD Unavailable Unavailable YUVAL, Sandy HAYNES MD Unavailable Unavailable Hebert, W Mike RPA-C Unavailable Unavailable Hebert, W Mike RPA-C Unavailable Unavailable Hebert, W Mike RPA-C Unavailable Unavailable Hebert, W Mike RPA-C Unavailable Unavailable Hebert, W Mike RPA-C Unavailable Unavailable Hebert, W Mike RPA-C Unavailable Unavailable Hebert, W Mike RPA-C Unavailable Unavailable Hebert, W Mike RPA-C Unavailable Unavailable Hebert, W Mike RPA-C Unavailable Unavailable Hebert, W Mike RPA-C Unavailable Unavailable Hebert, W Mike RPA-C Unavailable Unavailable Hebert, W Mike RPA-C Unavailable Unavailable Hebert, W Mike RPA-C Unavailable Unavailable Hebert, W Mike RPA-C Unavailable Unavailable Hebert, W Mike RPA-C Unavailable Unavailable Hebert, W Mike RPA-C Unavailable Unavailable Hebert, W Mike RPA-C Unavailable Unavailable SHERLY, HUNTER KELLY PA Unavailable Unavailable SHERLY, HUNTER KELLY PA Unavailable Unavailable SEHRLY, HUNTER KELLY PA Unavailable Unavailable SHERLY, HUNTER KELLY PA Unavailable Unavailable SHERLY, HUNTER KELLY PA Unavailable Unavailable SHERLY, HUNTER KELLY PA Unavailable Unavailable SHERLY, HUNTER KELLY PA Unavailable Unavailable SHERLY, HUNTER KELLY PA Unavailable Unavailable SHERLY, HUNTER KELLY PA Unavailable Unavailable SHERLY, HUNTER KELLY PA Unavailable Unavailable SHERLY, HUNTER KELLY PA Unavailable Unavailable SHERLY, HUNTER KELLY PA Unavailable Unavailable SHERLY, HUNTER KELLY PA Unavailable Unavailable SHERLY, HUNTER KELLY PA Unavailable Unavailable SHERLY, HUNTER KELLY PA Unavailable Unavailable SHERLY, HUNTER KELLY PA Unavailable Unavailable SHERLY, HUNTER KELLY PA Unavailable Unavailable SHERLY, HUNTER MENDOZA PA Unavailable Unavailable SHERLY, HUNTER MENDOZA PA Unavailable Unavailable SHERLY, HUNTER MENDOZA PA Unavailable Unavailable SHERLY, HUNTER MENDOZA PA Unavailable Unavailable SHERLY, HUNTER MENDOZA PA Unavailable Unavailable Re-disclosure Warning The records that you are about to access may contain information from federally-assisted alcohol or drug abuse programs. If such information is present, then the following federally mandated warning applies: This information has been disclosed to you from records protected by federal confidentiality rules (42 CFR part 2). The federal rules prohibit you from making any further disclosure of this information unless further disclosure is expressly permitted by the written consent of the person to whom it pertains or as otherwise permitted by 42 CFR part 2. A general authorization for the release of medical or other information is NOT sufficient for this purpose. The Federal rules restrict any use of the information to criminally investigate or prosecute any alcohol or drug abuse patient.The records that you are about to access may contain highly sensitive health information, the redisclosure of which is protected by Article 27-F of the [facility] Public Health law. If you continue you may have access to information: Regarding HIV / AIDS; Provided by facilities licensed or operated by the [facility] Office of Mental Health; or Provided by the [facility] Office for People With Developmental Disabilities. If such information is present, then the following [facility] mandated warning applies: This information has been disclosed to you from confidential records which are protected by state law. State law prohibits you from making any further disclosure of this information without the specific written consent of the person to whom it pertains, or as otherwise permitted by law. Any unauthorized further disclosure in violation of state law may result in a fine or [place] [facility] sentence or both. A general authorization for the release of medical or other information is NOT sufficient authorization for further disc losure. Family History Family Member Name Family Member Gender Family Member Status Date o f Status Description Data Source(s) Unknown Unknown Problem [facility] ([facility]) Unknown Unknown Problem [facility] ([facility]) Encounters Encounter Providers Location Date Indications Data Source(s ) Outpatient Attender: MIKE Sepulveda/Ashley/Toy/Jacque indl 04/12/2021 08:15:00 AM EST [facility] ([facility]) [place] [address] [facility] [address] 03/22/2021 12:00:00 AM EDT eCW1 ([facility]) [place] [address] [facility] [address] 03/16/2021 12:00:00 AM EDT eCW1 ([facility]) [place] [address] [facility] [address] 03/10/2021 12:00:00 AM EDT eCW1 ([facility]) [place] [address] [facility] [address] 03/09/2021 12:00:00 AM EDT eCW1 ([facility]) [place] [address] [facility] [address] 03/02/2021 12:00:00 AM EDT eCW1 ([facility]) [place] [address] [facility] [address] 02/22/2021 12:00:00 AM EDT eCW1 ([facility]) [place] [address] [facility] [address] 02/20/2021 12:00:00 AM EDT eCW1 ([facility]) [place] [address] [facility] [address] 02/20/2021 12:00:00 AM EDT eCW1 ([facility]) Inpatient Attender: PAULA Abel : MONICA ABDULLAHI PAAdmitter: Sally Thomas MDReferrer: Jcarlos Hernández MD EMERGENCY ROOM-2N 02/18/2021 09:24:00 PM E DT - 02/19/2021 09:34:00 PM EDT [facility] Patient discharged. Emergency ES1-ES1 02/18/2021 09:00:00 AM EDT - 021 01:21:00 PM EDT [facility] Patient discharged. Emergency Attender: VICKI LEROY PAReferrsandeep : Jcarlos Hernández MD EMERGENCY ROOM-ER 02/16/2021 10:48:00 PM EDT - 02/17/2021 01:35:00 AM EDT [facility] Patient discharged. Emergency Attender: Clyde BREWER-CReferrer: Carrie TUCKER EMERGENCY ROOM-ER 02/14/2021 11:39:00 AM EDT - 02/14/2021 03:03:00 PM EDT [facility] Patient discharged. [place] [address] [facility] [address] 02/14/2021 12:00:00 AM EDT eCW1 ([facility]) [place] [address] [facility] [address] 02/10/2021 12:00:00 AM EDT eCW1 ([facility]) [place] [address] [facility] [address] 02/09/2021 12:00:00 AM EDT eCW1 ([facility]) [place] [address] [facility] [address] 02/08/2021 12:00:00 AM EDT eCW1 ([facility]) [place] [address] [facility] [address] 02/03/2021 12:00:00 AM EDT eCW1 ([facility]) [place] [address] [facility] [address] 01/25/2021 12:00:00 AM EDT eCW1 ([facility]) [place] [address] [facility] [address] 01/24/2021 12:00:00 AM EDT eCW1 ([facility]) [place] [address] [facility] [place] [address] 01/23/2021 12:00:00 AM EDT eCW1 ([facility]) [place] [address] [facility] [address] 01/06/2021 12:00:00 AM EDT eCW1 ([facility]) [place] [address] [facility] [address] 01/03/2021 12:00:00 AM EDT eCW1 ([facility]) [place] [address] [facility] [address] 12/30/2020 12:00:00 AM EDT eCW1 ([facility]) [place] [address] [facility] [address] 12/30/2020 12:00:00 AM EDT eCW1 ([facility]) Unknown [address] [facility] [address] 12/06/2020 12:00:00 AM EDT eCW1 ([facility]) [place] [address] [facility] [address] 12/06/2020 12:00:00 AM EDT eCW1 ([facility]) Outpatient [address] [facility] [address] 12/02/2020 12:00:00 AM EDT eCW1 ([facility]) [place] [address] [facility] [address] 12/01/2020 12:00:00 AM EDT eCW1 ([facility]) Outpatient [address] [facility] [address] 11/29/2020 12:00:00 AM EDT eCW1 ([facility]) [place] [address] [facility] [address] 11/29/2020 12:00:00 AM EDT eCW1 ([facility]) [place] [address] [facility] [address] 11/24/2020 12:00:00 AM EDT eCW1 ([facility]) Emergency Attender: VICKI Stanton: Carrie TUCKER 11/13/2020 07:57:00 PM EDT - 11/13/2020 09:58:00 PM EDT [facility] Patient discharged. Emergency Attender: KELLY Stanton: Ton SEYMOURP EMERGENCY ROOM-ER 11/09/2020 01:26:00 PM EDT - 11/09/2020 02:47:00 PM EDT [facility] Patient discharged. [place] [address] [facility] [address] 11/09/2020 12:00:00 AM EDT [facility]CW1 ([facility]) [place] [address] [facility] [address] 11/07/2020 12:00:00 AM EDT eCW1 ([facility]) [place] [address] [facility] [address] 10/14/2020 12:00:00 AM EDT eCW1 ([facility]) [place] [address] [facility] [address] 10/06/2020 12:00:00 AM EDT eCW1 ([facility]) [place] [address] [facility] [address] 09/29/2020 12:00:00 AM EDT eCW1 ([facility]) [place] [address] [facility] [address] 09/28/2020 12:00:00 AM EDT eCW1 ([facility]) [place] [address] [facility] [address] 09/27/2020 12:00:00 AM EDT eCW1 ([facility]) [place] [address] [facility] [address] 09/23/2020 12:00:00 AM EDT eCW1 [facility]) Outpatient Attender: IVY Sepulveda/Ashley/Tod orosco/Terrie 09/22/2020 10:50:00 AM EDT [facility] ([facility]) [place] [address] [facility] [address] 09/22/2020 12:00:00 AM EDT eCW1 ([facility]) Outpatient Attender: Jcarlos Hernández MDReferrer: Carrie TUCKER 09/20/2020 08:30:00 AM EDT [facility] Unknown [address] [facility] [address] 09/19/2020 12:00:00 AM EDT eCW1 ([facility]) Unknown [address] [facility] [address] 09/19/2020 12:00:00 AM EDT eCW1 ([facility]) [place] [address] [facility] [address] 09/18/2020 12:00:00 AM EDT eCW1 ([facility]) [place] [address] [facility] [address] 09/16/2020 12:00:00 AM EDT [facility] [facility] [address] [facility] [address] 09/14/2020 12:00:00 AM EDT eCW1 ([facility]) Unknown [address] [facility] [address] 09/14/2020 12:00:00 AM EDT eCW1 ([facility]) Unknown [address] [facility] [address] 09/14/2020 12:00:00 AM EDT eCW1 ([facility]) Unknown [address] [facility] [address] 09/08/2020 12:00:00 AM EDT eCW1 ([facility]) Unknown [address] [facility] [address] 08/15/2020 12:00:00 AM EDT eCW1 ([facility]) Unknown [address] [facility] [address] 08/05/2020 12:00:00 AM EST eCW1 ([facility]) [place]patient [address] [facility] [address] 07/28/2020 12:00:00 AM EST eCW1 ([facility]) Unknown [address] [facility] [address] 07/22/2020 12:00:00 AM EST eCW1 ([facility]) [place] [address] [facility] [address] 07/15/2020 12:00:00 AM EST eCW1 ([facility]) Emergency Attender: BATSHEVA Stanton: Carrie Fowler 07/09/2020 04:35:00 PM EST - 07/09/2020 04:55:00 PM EST [facility] Patient discharged. Unknown [address] [facility] [address] 07/08/2020 12:00:00 AM EST eCW1 ([facility]) Unknown [address] [facility] [address] 07/01/2020 12:00:00 AM EST eCW1 ([facility]) Unknown [address] [facility] [address] 06/30/2020 12:00:00 AM EST eCW1 ([facility]) Unknown [address] [facility] [address] 06/24/2020 12:00:00 AM EST eCW1 ([facility]) Unknown [address] [facility] [address] 06/17/2020 12:00:00 AM EST eCW1 ([facility]) Unknown [address] [facility] [address] 06/14/2020 12:00:00 AM EST eCW1 ([facility]) Unknown [address] [facility] [address] 06/13/2020 12:00:00 AM EST eCW1 ([facility]) Unknown [address] [facility] [address] 06/06/2020 12:00:00 AM EST eCW1 ([facility]) Unknown [address] [facility] [address] 05/30/2020 12:00:00 AM EST eCW1 ([facility]) Outpatient [address] [facility] [address] 05/24/2020 12:00:00 AM EST eCW1 ([facility]) Unknown [address] [facility] [address] 05/24/2020 12:00:00 AM EST eCW1 ([facility]) Unknown [address] [facility] [address] 05/23/2020 12:00:00 AM EST eCW1 ([facility]) Unknown [address] [facility] [address] 05/18/2020 12:00:00 AM EST eCW1 ([facility]) Unknown [address] [facility] [address] 05/12/2020 12:00:00 AM EST eCW1 ([facility]) Unknown [address] [facility] [address] 05/06/2020 12:00:00 AM EST eCW1 ([facility]) Outpatient [address] [facility] [address] 04/29/2020 12:00:00 AM EST eCW1 ([facility]) Unknown [address] [facility] [address] 04/20/2020 12:00:00 AM EST eCW1 ([facility]) Unknown [address] [facility] [address] 04/15/2020 12:00:00 AM EST eCW1 ([facility]) Unknown [address] [facility] [address] 04/11/2020 12:00:00 AM EST eCW1 ([facility]) Unknown [address] [facility] [address] 04/04/2020 12:00:00 AM EST eCW1 ([facility]) Unknown [address] [facility] [address] 04/01/2020 12:00:00 AM EST eCW1 ([facility]) Unknown [address] [facility] [address] 03/30/2020 12:00:00 AM EST eCW1 ([facility]) Unknown [address] [facility] [address] 03/29/2020 12:00:00 AM EST eCW1 ([facility]) Unknown [address] [facility] [address] 03/23/2020 12:00:00 AM EDT eCW1 ([facility]) Unknown [address] [facility] [address] 03/17/2020 12:00:00 AM EDT eCW1 ([facility]) Unknown [address] [facility] [address] 03/11/2020 12:00:00 AM EDT eCW1 ([facility]) Unknown [address] [facility] [address] 03/02/2020 12:00:00 AM EDT eCW1 ([facility]) Emergency Attender: BATSHEVA Stanton: Lamin TUCKER EMERGENCY ROOM-ER 04/16/2019 02:48:00 PM EST - 04/16/2019 04:14:00 PM [facility] Patient discharged. Emergency Attender: Mike Hebert RPA-C 11:28:00 PM EDT - 10/12/2017 11:36:00 PM [facility] Emergency Attender: KELLY BREWER EMERGENCY ROOM-ER 12/17/2016 03:28:00 PM EDT - 11/26/2016 12:55:00 PM [facility] Immunizations Vaccine Date Status Description Data Source(s) 11/29/2020 03:47:00 PM EDT completed e CW1 ([facility]) 11/29/2020 03:47:00 PM EDT completed e CW1 ([facility]) 11/29/2020 03:47:00 PM EDT completed e CW1 ([facility]) 11/29/2020 03:47:00 PM EDT completed e CW1 ([facility]) 11/29/2020 03:47:00 PM EDT completed e CW1 ([facility]) 11/29/2020 03:47:00 PM EDT completed e CW1 ([facility]) 11/29/2020 03:47:00 PM EDT completed e CW1 ([facility]) 11/29/2020 03:47:00 PM EDT completed e CW1 ([facility]) 11/29/2020 03:47:00 PM EDT completed e CW1 ([facility]) 11/29/2020 03:47:00 PM EDT completed e CW1 ([facility]) 11/29/2020 03:47:00 PM EDT completed e CW1 ([facility]) 11/29/2020 03:47:00 PM EDT completed e CW1 ([facility]) 11/29/2020 03:47:00 PM EDT completed e CW1 ([facility]) 11/29/2020 03:47:00 PM EDT completed e CW1 ([facility]) 11/29/2020 03:47:00 PM EDT completed e CW1 ([facility]) 11/29/2020 03:47:00 PM EDT completed e CW1 ([facility]) 11/29/2020 03:47:00 PM EDT completed e CW1 ([facility]) 11/29/2020 03:47:00 PM EDT completed e CW1 ([facility]) 11/29/2020 03:47:00 PM EDT completed e CW1 ([facility]) 11/29/2020 03:47:00 PM EDT completed e CW1 ([facility]) 11/29/2020 03:47:00 PM EDT completed e CW1 ([facility]) 11/29/2020 03:47:00 PM EDT completed e CW1 ([facility]) 11/29/2020 03:47:00 PM EDT completed e CW1 ([facility]) 11/29/2020 03:47:00 PM EDT completed e CW1 ([facility]) 11/29/2020 03:47:00 PM EDT completed e CW1 ([facility]) 11/29/2020 03:47:00 PM EDT completed e CW1 ([facility]) 11/29/2020 03:47:00 PM EDT completed e CW1 ([facility]) Medications Medication Brand Name Start Date Product Form Dose Route Admi nistrative Instructions Pharmacy Instructions Status Indications Reaction Description Data Source(s) 5 mg 04/28/2021 12:00:00 AM EST tablet,delayed release (DR/EC) 4 TAKE FOUR TABLETS BY MOUTH TOGETHER PER BOWEL PREPARATION INSTRUCTIONS TAKE FOUR TABLETS BY MOUTH TOGETHER PER BOWEL PREPARATION INSTRUCTIONS SOLD: 04/29/2021 [facility] POLYETHYLENE GLYCOL 3350 423428 MG / Pot assium Chloride 1480 MG / Sodium Bicarbonate 5720 MG / Sodium Chloride 54274 MG Powder for Oral Solution SODIUM CHLORIDE/NAHCO3/KCL/PEG 04/28/2021 12:00:00 AM EST recon soln 4000 DRINK THE LIQUID PER THE PRE-PROCEDURE INSTRUCTIONS DRINK THE LIQUID PER THE PRE- PROCEDURE INSTRUCTIONS SOLD: 04/29/2021 [facility] Clenpiq Clenpiq 04/09/2021 12:00:00 AM EST active MED[facility] ([facility], ) POLYETHYLENE GLYCOL 3350 105 MG/ML / Pot assium Chloride 0.12040 MEQ/ML / Sodium Bicarbonate 0.017 MEQ/ML / Sodium Chloride 0.0479 MEQ/ML Oral Solution [GaviLyte-N] Gavilyte-N With Flavor Pack 04/09/2021 12:00:00 AM EST active MED[facility] ([facility], ) Bisacodyl 5 MG Delayed Release Oral Tablet [Dulcolax] Dulcol ax 04/09/2021 12:00:00 AM EST active M EDENT ([facility], ) 5-325 mg 04/04/2021 12:00:00 AM EST tablet 180 TAKE ONE TABLET BY MOUTH EVERY FOUR HOURS NEEDED MAXIMUM DAILY DOSE = SIX TABLETS TAKE ONE TABLET BY MOUTH EVERY FOUR HOURS NEEDED MAXIMUM DAILY DOSE = SIX TABLETS SOLD: 04/04/2021 [facility] 1 gram 03/17/2021 12:00:00 AM EDT tablet 120 TAKE ONE TABLET BY MOUTH FOUR TIMES A DAY ON AN EMPTY STOMACH TAKE ONE TABLET BY MOUTH FOUR TIMES A DA Y ON AN EMPTY STOMACH SOLD: 03/18/2021 [facility] Sucralfate 1000 MG Oral Tablet Sucralfate 1 GM Sucralfate 1 GM 03/16/2021 12:00:00 AM EDT 1.0 {tablet_on_an_empty_stomach} active Sucralfate 1 GM eCW1 ([facility]) Sucralfate 1000 MG Oral Tablet Sucralfate 1 GM Sucralfate 1 GM 03/16/2021 12:00:00 AM EDT 1.0 {tablet_on_an_empty_stomach} active Sucralfate 1 GM eCW1 ([facility]) 400 mg 03/14/2021 12:00:00 AM EDT capsule 90 TAKE ONE CAPSULE BY MOUTH THREE TIMES A DAY TAKE ONE CAPSULE BY MOUTH THREE TIMES A DAY SOLD: 03/14/2021 [facility] 5-325 mg 03/05/2021 12:00:00 AM EDT tablet 180 TAKE ONE TABLET BY MOUTH EVERY 4 HOURS NEEDED MAXIMUM DAILY DOSE = 6 TABLETS TAKE ONE TABLET BY MOUTH EVERY 4 HOURS NEEDED MAXIMUM DAILY DOSE = 6 TABLETS SOLD: 03/05/2021 [facility] Promethazine Hydrochloride 25 MG Oral Tablet PROMETHAZINE HC L 03/02/2021 12:00:00 AM EDT tablet 30 TAKE ONE TABLET BY MOUTH EVERY 8 HOURS NEEDED FOR NAUSEA TAKE ONE TABLET BY MOUTH EVERY 8 HOURS NEEDED FOR N AUSEA SOLD: 03/03/2021 [facility] Acetaminophen 325 MG / Oxycodone Hydroch loride 5 MG Oral Tablet oxyCODONE- Acetaminophen 5-325 MG oxyCODONE-Acetaminophen 5-325 MG 03/02/2021 12:00:00 A M EDT 1.0 {tablet_as_needed} active o xyCODONE-Acetaminophen 5-325 MG eCW1 ([facility]) Acetaminophen 325 MG / Oxycodone Hydroch loride 5 MG Oral Tablet oxyCODONE- Acetaminophen 5-325 MG oxyCODONE-Acetaminophen 5-325 MG 03/02/2021 12:00:00 A M EDT 1.0 {tablet_as_needed} active o xyCODONE-Acetaminophen 5-325 MG eCW1 ([facility]) 10 mg 03/02/2021 12:00:00 AM EDT tablet 5 TAKE ONE TABLET BY MOUTH NEEDED ONE TIME ONCE A DAY TAKE ONE TABLET BY MOUTH NEEDED ONE TIME ONCE A DAY SOLD: 04/01/2021 [facility] 150 mg 03/02/2021 12:00:00 AM EDT tablet 2 TAKE ONE TABLET BY MOUTH NOW, REPEAT IN 3 DAYS TAKE ONE TABLET BY MOUTH NOW, REPEAT IN 3 DAYS SOLD: 1 [facility] 10 mg 03/02/2021 12:00:00 AM EDT tablet 5 TAKE ONE TABLET BY MOUTH NEEDED ONE TIME ONCE A DAY TAKE ONE TABLET BY MOUTH NEEDED ONE TIME ONCE A DAY SOLD: 03/03/2021 [facility] Acetaminophen 325 MG / Oxycodone Hydroch loride 5 MG Oral Tablet oxyCODONE- Acetaminophen 5-325 MG oxyCODONE-Acetaminophen 5-325 MG 03/02/2021 12:00:00 A M EDT 1.0 {tablet_as_needed} active o xyCODONE-Acetaminophen 5-325 MG eCW1 ([facility]) 10 mg 03/02/2021 12:00:00 AM EDT tablet 5 TAKE ONE TABLET BY MOUTH NEEDED ONE TIME ONCE A DAY TAKE ONE TABLET BY MOUTH NEEDED ONE TIME ONCE A DAY SOLD: 03/22/2021 [facility] Acetaminophen 325 MG / Oxycodone Hydroch loride 5 MG Oral Tablet oxyCODONE- Acetaminophen 5-325 MG oxyCODONE-Acetaminophen 5-325 MG 03/02/2021 12:00:00 A M EDT 1.0 {tablet_as_needed} active o xyCODONE-Acetaminophen 5-325 MG eCW1 ([facility]) Acetaminophen 325 MG / Oxycodone Hydroch loride 5 MG Oral Tablet oxyCODONE- Acetaminophen 5-325 MG oxyCODONE-Acetaminophen 5-325 MG 03/02/2021 12:00:00 A M EDT 1.0 {tablet_as_needed} active o xyCODONE-Acetaminophen 5-325 MG eCW1 ([facility]) Levofloxacin 500 MG Oral Tablet levoFLOXacin 500 MG levoFLOX acin 500 MG 02/20/2021 12:00:00 AM EDT 1.0 {tablet} active levoFLOXacin 500 MG eCW1 ([facility]) 500 mg 02/20/2021 12:00:00 AM EDT tablet 7 TAKE ONE TABLET BY MOUTH EVERY DAY FOR 7 DAYS TAKE ONE TABLET BY MOUTH EVERY DAY FOR 7 DAYS SOLD: 02/20/2021 [facility] Levofloxacin 500 MG Oral Tablet levoFLOXacin 500 MG levoFLOX acin 500 MG 02/20/2021 12:00:00 AM EDT 1.0 {tablet} active levoFLOXacin 500 MG eCW1 ([facility]) Levofloxacin 500 MG Oral Tablet levoFLOXacin 500 MG levoFLOX acin 500 MG 02/20/2021 12:00:00 AM EDT 1.0 {tablet} active levoFLOXacin 500 MG eCW1 ([facility]) Ondansetron 4 MG Oral Tablet Ondansetron HCl 4 MG Ondansetro n HCl 4 MG 02/09/2021 12:00:00 AM EDT 1.0 {tablet} active Ondansetron HCl 4 MG eCW1 ([facility]) Ondansetron 4 MG Oral Tablet Ondansetron HCl 4 MG Ondansetro n HCl 4 MG 02/09/2021 12:00:00 AM EDT 1.0 {tablet} active Ondansetron HCl 4 MG eCW1 ([facility]) Ondansetron 4 MG Oral Tablet Ondansetron HCl 4 MG Ondansetro n HCl 4 MG 02/09/2021 12:00:00 AM EDT 1.0 {tablet} active Ondansetron HCl 4 MG eCW1 ([facility]) Ondansetron 4 MG Oral Tablet Ondansetron HCl 4 MG Ondansetro n HCl 4 MG 02/09/2021 12:00:00 AM EDT 1.0 {tablet} active Ondansetron HCl 4 MG eCW1 ([facility]) 4 mg 02/09/2021 12:00:00 AM EDT tablet 56 TAKE ONE TABLET BY MOUTH FOUR TIMES A DAY NEEDED FOR NAUSEA TAKE ONE TABLET BY MOUTH FOUR TIMES A DA Y NEEDED FOR NAUSEA SOLD: 02/09/2021 [facility] Ondansetron 4 MG Oral Tablet Ondansetron HCl 4 MG Ondansetro n HCl 4 MG 02/09/2021 12:00:00 AM EDT 1.0 {tablet} active Ondansetron HCl 4 MG eCW1 ([facility]) Ondansetron 4 MG Oral Tablet Ondansetron HCl 4 MG Ondansetro n HCl 4 MG 02/09/2021 12:00:00 AM EDT 1.0 {tablet} active Ondansetron HCl 4 MG eCW1 ([facility]) Ondansetron 4 MG Oral Tablet Ondansetron HCl 4 MG Ondansetro n HCl 4 MG 02/09/2021 12:00:00 AM EDT 1.0 {tablet} active Ondansetron HCl 4 MG eCW1 ([facility]) Doxycycline Monohydrate 100 MG Oral Tablet Doxycycline Monoh ydrate 100 MG 02/08/2021 12:00:00 AM EDT 1.0 {tablet} active Doxycycline Monohydrate 100 MG eCW1 ([facility]) 150 mg 02/08/2021 12:00:00 AM EDT tablet 2 TAKE ONE TABLET BY MOUTH NOW, THEN REPEAT IN 3 DAYS TAKE ONE TABLET BY MOUTH NOW, THEN REPEAT IN 3 DAYS SO LD: 02/08/2021 [facility] Fluticasone Propionate 50 MCG/ACT Fluticasone Propionate 50 MCG/ACT 02/08/2021 12:00:00 AM EDT 1.0 {spray_in_each_nostril} acti ve Fluticasone Propionate 50 MCG/ACT eCW1 ([facility]) Fluticasone Propionate 50 MCG/ACT Fluticasone Propionate 50 MCG/ACT 02/08/2021 12:00:00 AM EDT 1.0 {spray_in_each_nostril} acti ve Fluticasone Propionate 50 MCG/ACT eCW1 ([facility]) Fluconazole 150 MG Oral Tablet Fluconazole 150 MG 02/08/2021 12:00: 00 AM EDT 1.0 {tablet} active Fluconazole 150 MG eCW1 ([facility]) 150 mg 02/08/2021 12:00:00 AM EDT tablet 2 TAKE ONE TABLET BY MOUTH NOW, THEN REPEAT IN 3 DAYS TAKE ONE TABLET BY MOUTH NOW, THEN REPEAT IN 3 DAYS SO LD: 02/22/2021 [facility] Doxycycline Monohydrate 100 MG Oral Tablet Doxycycline Monoh ydrate 100 MG 02/08/2021 12:00:00 AM EDT 1.0 {tablet} suspende d Doxycycline Monohydrate 100 MG eCW1 ([facility]) Fluconazole 150 MG Oral Tablet Fluconazole 150 MG 02/08/2021 12:00: 00 AM EDT 1.0 {tablet} active Fluconazole 150 MG eCW1 ([facility]) Fluconazole 150 MG Oral Tablet Fluconazole 150 MG 02/08/2021 12:00: 00 AM EDT 1.0 {tablet} active Fluconazole 150 MG eCW1 ([facility]) Doxycycline Monohydrate 100 MG Oral Tablet Doxycycline Monoh ydrate 100 MG 02/08/2021 12:00:00 AM EDT 1.0 {tablet} active Doxycycline Monohydrate 100 MG eCW1 ([facility]) Fluconazole 150 MG Oral Tablet Fluconazole 150 MG 02/08/2021 12:00: 00 AM EDT 1.0 {tablet} active Fluconazole 150 MG eCW1 ([facility]) Doxycycline Monohydrate 100 MG Oral Tablet Doxycycline Monoh ydrate 100 MG 02/08/2021 12:00:00 AM EDT 1.0 {tablet} suspende d Doxycycline Monohydrate 100 MG eCW1 ([facility]) Fluticasone Propionate 50 MCG/ACT Fluticasone Propionate 50 MCG/ACT 02/08/2021 12:00:00 AM EDT 1.0 {spray_in_each_nostril} acti ve Fluticasone Propionate 50 MCG/ACT eCW1 ([facility]) Doxycycline Monohydrate 100 MG Oral Tablet Doxycycline Monoh ydrate 100 MG 02/08/2021 12:00:00 AM EDT 1.0 {tablet} suspende d Doxycycline Monohydrate 100 MG eCW1 ([facility]) 100 mg 02/08/2021 12:00:00 AM EDT tablet 28 TAKE ONE TABLET BY MOUTH TWICE A DAY FOR 14 DAYS TAKE ONE TABLET BY MOUTH TWICE A DAY FOR 14 DAYS SOLD: 02/08/2021 [facility] Fluticasone Propionate 50 MCG/ACT Fluticasone Propionate 50 MCG/ACT 02/08/2021 12:00:00 AM EDT 1.0 {spray_in_each_nostril} acti ve Fluticasone Propionate 50 MCG/ACT eCW1 ([facility]) Doxycycline Monohydrate 100 MG Oral Tablet Doxycycline Monoh ydrate 100 MG 02/08/2021 12:00:00 AM EDT 1.0 {tablet} suspende d Doxycycline Monohydrate 100 MG eCW1 ([facility]) Fluticasone Propionate 50 MCG/ACT Fluticasone Propionate 50 MCG/ACT 02/08/2021 12:00:00 AM EDT 1.0 {spray_in_each_nostril} acti ve Fluticasone Propionate 50 MCG/ACT eCW1 ([facility]) Fluticasone Propionate 50 MCG/ACT Fluticasone Propionate 50 MCG/ACT 02/08/2021 12:00:00 AM EDT 1.0 {spray_in_each_nostril} acti ve Fluticasone Propionate 50 MCG/ACT eCW1 ([facility]) Doxycycline Monohydrate 100 MG Oral Tablet Doxycycline Monoh ydrate 100 MG 02/08/2021 12:00:00 AM EDT 1.0 {tablet} suspende d Doxycycline Monohydrate 100 MG eCW1 ([facility]) Fluticasone propionate 0.05 MG/ACTUAT Metered Dose Jose al [place] 50 mcg/actuation FLUTICASONE PROPIONATE 02/08/2021 12:00:00 AM EDT spray,suspension 16 SPRAY ONE SPRAY IN EACH NOSTRIL EVERY DAY SPRAY ONE SPRAY IN EACH NOSTRIL EVERY DAY SOLD: 02/08/2021 [facility] Doxycycline Monohydrate 100 MG Oral Tablet Doxycycline Monoh ydrate 100 MG 02/08/2021 12:00:00 AM EDT 1.0 {tablet} active Doxycycline Monohydrate 100 MG eCW1 ([facility]) Fluticasone Propionate 50 MCG/ACT Fluticasone Propionate 50 MCG/ACT 02/08/2021 12:00:00 AM EDT 1.0 {spray_in_each_nostril} acti ve Fluticasone Propionate 50 MCG/ACT eCW1 ([facility]) Doxycycline Monohydrate 100 MG Oral Tablet Doxycycline Monoh ydrate 100 MG 02/08/2021 12:00:00 AM EDT 1.0 {tablet} suspende d Doxycycline Monohydrate 100 MG eCW1 ([facility]) Doxycycline Monohydrate 100 MG Oral Tablet Doxycycline Monoh ydrate 100 MG 02/08/2021 12:00:00 AM EDT 1.0 {tablet} suspende d Doxycycline Monohydrate 100 MG eCW1 ([facility]) Fluconazole 150 MG Oral Tablet Fluconazole 150 MG 02/08/2021 12:00: 00 AM EDT 1.0 {tablet} active Fluconazole 150 MG eCW1 ([facility]) Fluticasone Propionate 50 MCG/ACT Fluticasone Propionate 50 MCG/ACT 02/08/2021 12:00:00 AM EDT 1.0 {spray_in_each_nostril} acti ve Fluticasone Propionate 50 MCG/ACT eCW1 ([facility]) Doxycycline Monohydrate 100 MG Oral Tablet Doxycycline Monoh ydrate 100 MG 02/08/2021 12:00:00 AM EDT 1.0 {tablet} active Doxycycline Monohydrate 100 MG eCW1 ([facility]) Fluticasone Propionate 50 MCG/ACT Fluticasone Propionate 50 MCG/ACT 02/08/2021 12:00:00 AM EDT 1.0 {spray_in_each_nostril} acti ve Fluticasone Propionate 50 MCG/ACT eCW1 ([facility]) Fluticasone Propionate 50 MCG/ACT Fluticasone Propionate 50 MCG/ACT 02/08/2021 12:00:00 AM EDT 1.0 {spray_in_each_nostril} acti ve Fluticasone Propionate 50 MCG/ACT eCW1 ([facility]) Fluconazole 150 MG Oral Tablet Fluconazole 150 MG 02/08/2021 12:00: 00 AM EDT 1.0 {tablet} active Fluconazole 150 MG eCW1 ([facility]) Fluconazole 150 MG Oral Tablet Fluconazole 150 MG 02/08/2021 12:00: 00 AM EDT 1.0 {tablet} active Fluconazole 150 MG eCW1 ([facility]) Fluconazole 150 MG Oral Tablet Fluconazole 150 MG 02/08/2021 12:00: 00 AM EDT 1.0 {tablet} active Fluconazole 150 MG eCW1 ([facility]) Fluticasone Propionate 50 MCG/ACT Fluticasone Propionate 50 MCG/ACT 02/08/2021 12:00:00 AM EDT 1.0 {spray_in_each_nostril} acti ve Fluticasone Propionate 50 MCG/ACT eCW1 ([facility]) Fluconazole 150 MG Oral Tablet Fluconazole 150 MG 02/08/2021 12:00: 00 AM EDT 1.0 {tablet} active Fluconazole 150 MG eCW1 ([facility]) Fluconazole 150 MG Oral Tablet Fluconazole 150 MG 02/08/2021 12:00: 00 AM EDT 1.0 {tablet} active Fluconazole 150 MG eCW1 ([facility]) Doxycycline Monohydrate 100 MG Oral Tablet Doxycycline Monoh ydrate 100 MG 02/08/2021 12:00:00 AM EDT 1.0 {tablet} suspende d Doxycycline Monohydrate 100 MG eCW1 ([facility]) Fluconazole 150 MG Oral Tablet Fluconazole 150 MG 02/08/2021 12:00: 00 AM EDT 1.0 {tablet} active Fluconazole 150 MG eCW1 ([facility]) Fluconazole 150 MG Oral Tablet Fluconazole 150 MG 02/08/2021 12:00: 00 AM EDT 1.0 {tablet} active Fluconazole 150 MG eCW1 ([facility]) Fluticasone Propionate 50 MCG/ACT Fluticasone Propionate 50 MCG/ACT 02/08/2021 12:00:00 AM EDT 1.0 {spray_in_each_nostril} acti ve Fluticasone Propionate 50 MCG/ACT eCW1 ([facility]) Acetaminophen 325 MG / Oxycodone Hydroch loride 5 MG Oral Tablet oxyCODONE- Acetaminophen 5-325 MG oxyCODONE-Acetaminophen 5-325 MG 02/03/2021 12:00:00 A M EDT 1.0 {tablet_as_needed} active o xyCODONE-Acetaminophen 5-325 MG eCW1 ([facility]) Acetaminophen 325 MG / Oxycodone Hydroch loride 5 MG Oral Tablet oxyCODONE- Acetaminophen 5-325 MG oxyCODONE-Acetaminophen 5-325 MG 02/03/2021 12:00:00 A M EDT 1.0 {tablet_as_needed} active o xyCODONE-Acetaminophen 5-325 MG eCW1 ([facility]) Acetaminophen 325 MG / Oxycodone Hydroch loride 5 MG Oral Tablet oxyCODONE- Acetaminophen 5-325 MG oxyCODONE-Acetaminophen 5-325 MG 02/03/2021 12:00:00 A M EDT 1.0 {tablet_as_needed} active o xyCODONE-Acetaminophen 5-325 MG eCW1 ([facility]) Acetaminophen 325 MG / Oxycodone Hydroch loride 5 MG Oral Tablet oxyCODONE- Acetaminophen 5-325 MG oxyCODONE-Acetaminophen 5-325 MG 02/03/2021 12:00:00 A M EDT 1.0 {tablet_as_needed} active o xyCODONE-Acetaminophen 5-325 MG eCW1 ([facility]) Acetaminophen 325 MG / Oxycodone Hydroch loride 5 MG Oral Tablet oxyCODONE- Acetaminophen 5-325 MG oxyCODONE-Acetaminophen 5-325 MG 02/03/2021 12:00:00 A M EDT 1.0 {tablet_as_needed} active o xyCODONE-Acetaminophen 5-325 MG eCW1 ([facility]) 5-325 mg 02/03/2021 12:00:00 AM EDT tablet 180 TAKE ONE TABLET BY MOUTH EVERY 4 HOURS NEEDED MAXIMUM DAILY DOSE = 6 TABLETS TAKE ONE TABLET BY MOUTH EVERY 4 HOURS NEEDED MAXIMUM DAILY DOSE = 6 TABLETS SOLD: 02/04/2021 [facility] Acetaminophen 325 MG / Oxycodone Hydroch loride 5 MG Oral Tablet oxyCODONE- Acetaminophen 5-325 MG oxyCODONE-Acetaminophen 5-325 MG 02/03/2021 12:00:00 A M EDT 1.0 {tablet_as_needed} active o xyCODONE-Acetaminophen 5-325 MG eCW1 ([facility]) Acetaminophen 325 MG / Oxycodone Hydroch loride 5 MG Oral Tablet oxyCODONE- Acetaminophen 5-325 MG oxyCODONE-Acetaminophen 5-325 MG 02/03/2021 12:00:00 A M EDT 1.0 {tablet_as_needed} active o xyCODONE-Acetaminophen 5-325 MG eCW1 ([facility]) Acetaminophen 325 MG / Oxycodone Hydroch loride 5 MG Oral Tablet oxyCODONE- Acetaminophen 5-325 MG oxyCODONE-Acetaminophen 5-325 MG 02/03/2021 12:00:00 A M EDT 1.0 {tablet_as_needed} active o xyCODONE-Acetaminophen 5-325 MG eCW1 ([facility]) 90 mcg/actuation 01/25/2021 12:00:00 AM EDT HFA aerosol inha ler 8 INHALE TWO PUFFS BY MOUTH FOUR TIMES A DAY NEEDED INHALE TWO PUFFS BY MOUTH FOUR TIMES A DAY NEEDED SOLD: 01/25/2021 Ebenezer sharma benzonatate 100 MG Oral Capsule [Tessalon Perles] Dali angel Perles 100 MG Tessalon Perles 100 MG 01/24/2021 12:00:00 AM EDT 1.0 {capsule_as_nee ded} active Tessalon Perles 100 MG eCW1 ([facility]) benzonatate 100 MG Oral Capsule [Tessalon Perles] Dali angel Perles 100 MG Tessalon Perles 100 MG 01/24/2021 12:00:00 AM EDT 1.0 {capsule_as_nee ded} active Tessalon Perles 100 MG eCW1 ([facility]) benzonatate 100 MG Oral Capsule [Tessalon Perles] Dali angel Perles 100 MG Tessalon Perles 100 MG 01/24/2021 12:00:00 AM EDT 1.0 {capsule_as_nee ded} active Tessalon Perles 100 MG eCW1 ([facility]) benzonatate 100 MG Oral Capsule [Tessalon Perles] Dali angel Perles 100 MG Tessalon Perles 100 MG 01/24/2021 12:00:00 AM EDT 1.0 {capsule_as_nee ded} active Tessalon Perles 100 MG eCW1 ([facility]) benzonatate 100 MG Oral Capsule [Tessalon Perles] Dali angel Perles 100 MG Tessalon Perles 100 MG 01/24/2021 12:00:00 AM EDT 1.0 {capsule_as_nee ded} active Tessalon Perles 100 MG eCW1 ([facility]) benzonatate 100 MG Oral Capsule [Tessalon Perles] Dali angel Perles 100 MG Tessalon Perles 100 MG 01/24/2021 12:00:00 AM EDT 1.0 {capsule_as_nee ded} active Tessalon Perles 100 MG eCW1 ([facility]) benzonatate 100 MG Oral Capsule [Tessalon Perles] Dali angel Perles 100 MG Tessalon Perles 100 MG 01/24/2021 12:00:00 AM EDT 1.0 {capsule_as_nee ded} active Tessalon Perles 100 MG eCW1 ([facility]) benzonatate 100 MG Oral Capsule [Tessalon Perles] Dali angel Perles 100 MG Tessalon Perles 100 MG 01/24/2021 12:00:00 AM EDT 1.0 {capsule_as_nee ded} suspended Tessalon Perles 100 MG eCW1 ([facility]) benzonatate 100 MG Oral Capsule [Tessalon Perles] Dali angel Perles 100 MG Tessalon Perles 100 MG 01/24/2021 12:00:00 AM EDT 1.0 {capsule_as_nee ded} suspended Tessalon Perles 100 MG eCW1 ([facility]) benzonatate 100 MG Oral Capsule [Tessalon Perles] Dali angel Perles 100 MG Tessalon Perles 100 MG 01/24/2021 12:00:00 AM EDT 1.0 {capsule_as_nee ded} suspended Tessalon Perles 100 MG eCW1 ([facility]) benzonatate 100 MG Oral Capsule [Tessalon Perles] Dali angel Perles 100 MG Tessalon Perles 100 MG 01/24/2021 12:00:00 AM EDT 1.0 {capsule_as_nee ded} active Tessalon Perles 100 MG eCW1 ([facility]) benzonatate 100 MG Oral Capsule [Tessalon Perles] Dali angel Perles 100 MG Tessalon Perles 100 MG 01/24/2021 12:00:00 AM EDT 1.0 {capsule_as_nee ded} active Tessalon Perles 100 MG eCW1 ([facility]) benzonatate 100 MG Oral Capsule [Tessalon Perles] Dali angel Perles 100 MG Tessalon Perles 100 MG 01/24/2021 12:00:00 AM EDT 1.0 {capsule_as_nee ded} active Tessalon Perles 100 MG eCW1 ([facility]) benzonatate 100 MG Oral Capsule [Tessalon Perles] Dali angel Perles 100 MG Tessalon Perles 100 MG 01/24/2021 12:00:00 AM EDT 1.0 {capsule_as_nee ded} active Tessalon Perles 100 MG eCW1 ([facility]) benzonatate 100 MG Oral Capsule [Tessalon Perles] Dali angel Perles 100 MG Tessalon Perles 100 MG 01/24/2021 12:00:00 AM EDT 1.0 {capsule_as_nee ded} active Tessalon Perles 100 MG eCW1 ([facility]) benzonatate 100 MG Oral Capsule BENZONATATE 01/24/2021 12:00:00 AM EDT capsule 30 TAKE ONE CAPSULE BY MOUTH THREE TIMES A DAY NEEDED FOR 10 DAYS TAKE ONE CAPSULE BY MOUTH THREE TIMES A DAY NEEDED FOR 10 DAYS SOLD: 01/24/2021 [facility] 250 mg 01/08/2021 12:00:00 AM EDT capsule 90 TAKE ONE CAPSULE BY MOUTH THREE TIMES A DAY TAKE ONE CAPSULE BY MOUTH THREE TIMES A DAY SOLD: 01/09/2021 [facility] Acetaminophen 325 MG / Oxycodone Hydroch loride 5 MG Oral Tablet oxyCODONE- Acetaminophen 5-325 MG oxyCODONE-Acetaminophen 5-325 MG 01/06/2021 12:00:00 A M EDT 1.0 {tablet_as_needed} active o xyCODONE-Acetaminophen 5-325 MG eCW1 ([facility]) Acetaminophen 325 MG / Oxycodone Hydroch loride 5 MG Oral Tablet oxyCODONE- Acetaminophen 5-325 MG oxyCODONE-Acetaminophen 5-325 MG 01/06/2021 12:00:00 A M EDT 1.0 {tablet_as_needed} active o xyCODONE-Acetaminophen 5-325 MG eCW1 ([facility]) Acetaminophen 325 MG / Oxycodone Hydroch loride 5 MG Oral Tablet oxyCODONE- Acetaminophen 5-325 MG oxyCODONE-Acetaminophen 5-325 MG 01/06/2021 12:00:00 A M EDT 1.0 {tablet_as_needed} active o xyCODONE-Acetaminophen 5-325 MG eCW1 ([facility]) Acetaminophen 325 MG / Oxycodone Hydroch loride 5 MG Oral Tablet oxyCODONE- Acetaminophen 5-325 MG oxyCODONE-Acetaminophen 5-325 MG 01/06/2021 12:00:00 A M EDT 1.0 {tablet_as_needed} active o xyCODONE-Acetaminophen 5-325 MG eCW1 ([facility]) 5-325 mg 01/06/2021 12:00:00 AM EDT tablet 180 TAKE ONE TABLET BY MOUTH EVERY 4 HOURS NEEDED MAXIMUM DAILY DOSE = 6 TAKE ONE TABLET BY MOUTH EVERY 4 HOURS NEEDED MAXIMUM DAILY DOSE = 6 SOLD: 01/06/2021 [facility] 40 mg 01/04/2021 12:00:00 AM EDT capsule,delayed release (DR/EC) 60 TAKE ONE CAPSULE BY MOUTH TWICE A DAY TAKE ONE CAPSULE BY MOUTH TWICE A DAY SOLD: 04/28/2021 [facility] 40 mg 01/04/2021 12:00:00 AM EDT capsule,delayed release (DR/EC) 60 TAKE ONE CAPSULE BY MOUTH TWICE A DAY TAKE ONE CAPSULE BY MOUTH TWICE A DAY SOLD: 03/22/2021 [facility] 40 mg 01/04/2021 12:00:00 AM EDT capsule,delayed release (DR/EC) 60 TAKE ONE CAPSULE BY MOUTH TWICE A DAY TAKE ONE CAPSULE BY MOUTH TWICE A DAY SOLD: 02/15/2021 [facility] 40 mg 01/04/2021 12:00:00 AM EDT capsule,delayed release (DR/EC) 60 TAKE ONE CAPSULE BY MOUTH TWICE A DAY TAKE ONE CAPSULE BY MOUTH TWICE A DAY SOLD: 01/06/2021 [facility] 5-325 mg 12/08/2020 12:00:00 AM EDT tablet 180 TAKE ONE TABLET BY MOUTH EVERY 4 HOURS NEEDED MAX=6TABS/DAY TAKE ONE TABLET BY MOUTH EVERY 4 HOURS A S NEEDED MAX=6TABS/DAY SOLD: 12/08/2020 [facility] Acetaminophen 325 MG / Oxycodone Hydroch loride 5 MG Oral Tablet oxyCODONE- Acetaminophen 5-325 MG oxyCODONE-Acetaminophen 5-325 MG 12/06/2020 12:00:00 A M EDT 1.0 {tablet_as_needed} active o xyCODONE-Acetaminophen 5-325 MG eCW1 ([facility]) Acetaminophen 325 MG / Oxycodone Hydroch loride 5 MG Oral Tablet oxyCODONE- Acetaminophen 5-325 MG oxyCODONE-Acetaminophen 5-325 MG 12/06/2020 12:00:00 A M EDT 1.0 {tablet_as_needed} active o xyCODONE-Acetaminophen 5-325 MG eCW1 ([facility]) Metoclopramide 10 MG Oral Tablet Metoclopramide HCl 10 MG Metoclopramide HCl 10 MG 12/06/2020 12:00:00 AM EDT 1.0 {tablet_before_meals} suspended Metoclopramide HCl 10 MG eCW1 ([facility]) Metoclopramide 10 MG Oral Tablet Metoclopramide HCl 10 MG Metoclopramide HCl 10 MG 12/06/2020 12:00:00 AM EDT 1.0 {tablet_before_meals} active Metoclopramide HCl 10 MG eCW1 ([facility]) Metoclopramide 10 MG Oral Tablet Metoclopramide HCl 10 MG Metoclopramide HCl 10 MG 12/06/2020 12:00:00 AM EDT 1.0 {tablet_before_meals} active Metoclopramide HCl 10 MG eCW1 ([facility]) Metoclopramide 10 MG Oral Tablet Metoclopramide HCl 10 MG Metoclopramide HCl 10 MG 12/06/2020 12:00:00 AM EDT 1.0 {tablet_before_meals} active Metoclopramide HCl 10 MG eCW1 ([facility]) Metoclopramide 10 MG Oral Tablet Metoclopramide HCl 10 MG Metoclopramide HCl 10 MG 12/06/2020 12:00:00 AM EDT 1.0 {tablet_before_meals} active Metoclopramide HCl 10 MG eCW1 ([facility]) Acetaminophen 325 MG / Oxycodone Hydroch loride 5 MG Oral Tablet oxyCODONE- Acetaminophen 5-325 MG oxyCODONE-Acetaminophen 5-325 MG 12/06/2020 12:00:00 A M EDT 1.0 {tablet_as_needed} active o xyCODONE-Acetaminophen 5-325 MG eCW1 ([facility]) Acetaminophen 325 MG / Oxycodone Hydroch loride 5 MG Oral Tablet oxyCODONE- Acetaminophen 5-325 MG oxyCODONE-Acetaminophen 5-325 MG 12/06/2020 12:00:00 A M EDT 1.0 {tablet_as_needed} active o xyCODONE-Acetaminophen 5-325 MG eCW1 ([facility]) Metoclopramide 10 MG Oral Tablet Metoclopramide HCl 10 MG Metoclopramide HCl 10 MG 12/06/2020 12:00:00 AM EDT 1.0 {tablet_before_meals} active Metoclopramide HCl 10 MG eCW1 ([facility]) Metoclopramide 10 MG Oral Tablet Metoclopramide HCl 10 MG Metoclopramide HCl 10 MG 12/06/2020 12:00:00 AM EDT 1.0 {tablet_before_meals} active Metoclopramide HCl 10 MG eCW1 ([facility]) Metoclopramide 10 MG Oral Tablet Metoclopramide HCl 10 MG Metoclopramide HCl 10 MG 12/06/2020 12:00:00 AM EDT 1.0 {tablet_before_meals} active Metoclopramide HCl 10 MG eCW1 ([facility]) Acetaminophen 325 MG / Oxycodone Hydroch loride 5 MG Oral Tablet oxyCODONE- Acetaminophen 5-325 MG oxyCODONE-Acetaminophen 5-325 MG 12/06/2020 12:00:00 A M EDT 1.0 {tablet_as_needed} active o xyCODONE-Acetaminophen 5-325 MG eCW1 ([facility]) 10 mg 12/06/2020 12:00:00 AM EDT tablet 60 TAKE ONE TABLET BY MOUTH TWICE A DAY BEFORE MEALS TAKE ONE TABLET BY MOUTH TWICE A DAY BEFORE MEALS SOLD : 12/08/2020 [facility] Acetaminophen 325 MG / Oxycodone Hydroch loride 5 MG Oral Tablet oxyCODONE- Acetaminophen 5-325 MG oxyCODONE-Acetaminophen 5-325 MG 12/06/2020 12:00:00 A M EDT 1.0 {tablet_as_needed} active o xyCODONE-Acetaminophen 5-325 MG eCW1 ([facility]) Metoclopramide 10 MG Oral Tablet Metoclopramide HCl 10 MG Metoclopramide HCl 10 MG 12/06/2020 12:00:00 AM EDT 1.0 {tablet_before_meals} active Metoclopramide HCl 10 MG eCW1 ([facility]) Metoclopramide 10 MG Oral Tablet Metoclopramide HCl 10 MG Metoclopramide HCl 10 MG 12/06/2020 12:00:00 AM EDT 1.0 {tablet_before_meals} active Metoclopramide HCl 10 MG eCW1 ([facility]) Metoclopramide 10 MG Oral Tablet Metoclopramide HCl 10 MG Metoclopramide HCl 10 MG 12/06/2020 12:00:00 AM EDT 1.0 {tablet_before_meals} active Metoclopramide HCl 10 MG eCW1 ([facility]) Metoclopramide 10 MG Oral Tablet Metoclopramide HCl 10 MG Metoclopramide HCl 10 MG 12/06/2020 12:00:00 AM EDT 1.0 {tablet_before_meals} active Metoclopramide HCl 10 MG eCW1 ([facility]) Metoclopramide 10 MG Oral Tablet Metoclopramide HCl 10 MG Metoclopramide HCl 10 MG 12/06/2020 12:00:00 AM EDT 1.0 {tablet_before_meals} active Metoclopramide HCl 10 MG eCW1 ([facility]) Metoclopramide 10 MG Oral Tablet Metoclopramide HCl 10 MG Metoclopramide HCl 10 MG 12/06/2020 12:00:00 AM EDT 1.0 {tablet_before_meals} active Metoclopramide HCl 10 MG eCW1 ([facility]) Acetaminophen 325 MG / Oxycodone Hydroch loride 5 MG Oral Tablet oxyCODONE- Acetaminophen 5-325 MG oxyCODONE-Acetaminophen 5-325 MG 12/06/2020 12:00:00 A M EDT 1.0 {tablet_as_needed} active o xyCODONE-Acetaminophen 5-325 MG eCW1 ([facility]) Metoclopramide 10 MG Oral Tablet Metoclopramide HCl 10 MG Metoclopramide HCl 10 MG 12/06/2020 12:00:00 AM EDT 1.0 {tablet_before_meals} active Metoclopramide HCl 10 MG eCW1 ([facility]) Metoclopramide 10 MG Oral Tablet Metoclopramide HCl 10 MG Metoclopramide HCl 10 MG 12/06/2020 12:00:00 AM EDT 1.0 {tablet_before_meals} active Metoclopramide HCl 10 MG eCW1 ([facility]) Metoclopramide 10 MG Oral Tablet Metoclopramide HCl 10 MG Metoclopramide HCl 10 MG 12/06/2020 12:00:00 AM EDT 1.0 {tablet_before_meals} active Metoclopramide HCl 10 MG eCW1 ([facility]) Metoclopramide 10 MG Oral Tablet Metoclopramide HCl 10 MG Metoclopramide HCl 10 MG 12/06/2020 12:00:00 AM EDT 1.0 {tablet_before_meals} suspended Metoclopramide HCl 10 MG eCW1 ([facility]) Metoclopramide 10 MG Oral Tablet Metoclopramide HCl 10 MG Metoclopramide HCl 10 MG 12/06/2020 12:00:00 AM EDT 1.0 {tablet_before_meals} suspended Metoclopramide HCl 10 MG eCW1 ([facility]) Acetaminophen 325 MG / Oxycodone Hydroch loride 5 MG Oral Tablet oxyCODONE- Acetaminophen 5-325 MG oxyCODONE-Acetaminophen 5-325 MG 12/06/2020 12:00:00 A M EDT 1.0 {tablet_as_needed} active o xyCODONE-Acetaminophen 5-325 MG eCW1 ([facility]) Metoclopramide 10 MG Oral Tablet Metoclopramide HCl 10 MG Metoclopramide HCl 10 MG 12/06/2020 12:00:00 AM EDT 1.0 {tablet_before_meals} active Metoclopramide HCl 10 MG eCW1 ([facility]) Levofloxacin 500 MG Oral Tablet levoFLOXacin 500 MG levoFLOX acin 500 MG 12/02/2020 12:00:00 AM EDT 1.0 {tablet} active levoFLOXacin 500 MG eCW1 ([facility]) Valproic Acid 250 MG Oral Capsule Valproic Acid 250 MG 12/02 12:00:00 AM EDT 1.0 {capsule} active Valproic A nitesh 250 MG eCW1 ([facility]) Levofloxacin 500 MG Oral Tablet levoFLOXacin 500 MG levoFLOX acin 500 MG 12/02/2020 12:00:00 AM EDT 1.0 {tablet} suspende d levoFLOXacin 500 MG eCW1 ([facility]) Levofloxacin 500 MG Oral Tablet levoFLOXacin 500 MG levoFLOX acin 500 MG 12/02/2020 12:00:00 AM EDT 1.0 {tablet} suspende d levoFLOXacin 500 MG eCW1 ([facility]) Fluconazole 150 MG Oral Tablet Fluconazole 150 MG 12/02/2020 12:00: 00 AM EDT 1.0 {tablet} suspended Fluconazole 150 M G eCW1 ([facility]) Levofloxacin 500 MG Oral Tablet levoFLOXacin 500 MG levoFLOX acin 500 MG 12/02/2020 12:00:00 AM EDT 1.0 {tablet} active levoFLOXacin 500 MG eCW1 ([facility]) Valproic Acid 250 MG Oral Capsule Valproic Acid 250 MG 12/02 12:00:00 AM EDT 1.0 {capsule} active Valproic A nitesh 250 MG eCW1 ([facility]) Valproic Acid 250 MG Oral Capsule Valproic Acid 250 MG 12/02 12:00:00 AM EDT 1.0 {capsule} active Valproic A nitesh 250 MG eCW1 ([facility]) Fluconazole 150 MG Oral Tablet Fluconazole 150 MG 12/02/2020 12:00: 00 AM EDT 1.0 {tablet} suspended Fluconazole 150 M G eCW1 ([facility]) Levofloxacin 500 MG Oral Tablet levoFLOXacin 500 MG levoFLOX acin 500 MG 12/02/2020 12:00:00 AM EDT 1.0 {tablet} suspende d levoFLOXacin 500 MG eCW1 ([facility]) Valproic Acid 250 MG Oral Capsule Valproic Acid 250 MG 12/02 12:00:00 AM EDT 1.0 {capsule} active Valproic A nitesh 250 MG eCW1 ([facility]) Valproic Acid 250 MG Oral Capsule Valproic Acid 250 MG 12/02 12:00:00 AM EDT 1.0 {capsule} active Valproic A nitesh 250 MG eCW1 ([facility]) Levofloxacin 500 MG Oral Tablet levoFLOXacin 500 MG levoFLOX acin 500 MG 12/02/2020 12:00:00 AM EDT 1.0 {tablet} suspende d levoFLOXacin 500 MG eCW1 ([facility]) Valproic Acid 250 MG Oral Capsule Valproic Acid 250 MG 12/02 12:00:00 AM EDT 1.0 {capsule} active Valproic A nitesh 250 MG eCW1 ([facility]) Valproic Acid 250 MG Oral Capsule Valproic Acid 250 MG 12/02 12:00:00 AM EDT 1.0 {capsule} active Valproic A nitesh 250 MG eCW1 ([facility]) Fluconazole 150 MG Oral Tablet Fluconazole 150 MG 12/02/2020 12:00: 00 AM EDT 1.0 {tablet} suspended Fluconazole 150 M G eCW1 ([facility]) Fluconazole 150 MG Oral Tablet Fluconazole 150 MG 12/02/2020 12:00: 00 AM EDT 1.0 {tablet} suspended Fluconazole 150 M G eCW1 ([facility]) Valproic Acid 250 MG Oral Capsule Valproic Acid 250 MG 12/02 12:00:00 AM EDT 1.0 {capsule} active Valproic A nitesh 250 MG eCW1 ([facility]) 150 mg 12/02/2020 12:00:00 AM EDT tablet 2 TAKE ONE TABLET BY MOUTH NOW, REPEAT IN THREE DAYS TAKE ONE TABLET BY MOUTH NOW, REPEAT IN THREE DAYS [facility] Levofloxacin 500 MG Oral Tablet levoFLOXacin 500 MG levoFLOX acin 500 MG 12/02/2020 12:00:00 AM EDT 1.0 {tablet} suspende d levoFLOXacin 500 MG eCW1 ([facility]) Valproic Acid 250 MG Oral Capsule Valproic Acid 250 MG 12/02 12:00:00 AM EDT 1.0 {capsule} active Valproic A nitesh 250 MG eCW1 ([facility]) Levofloxacin 500 MG Oral Tablet levoFLOXacin 500 MG levoFLOX acin 500 MG 12/02/2020 12:00:00 AM EDT 1.0 {tablet} suspende d levoFLOXacin 500 MG eCW1 ([facility]) 150 mg 12/02/2020 12:00:00 AM EDT tablet 2 TAKE ONE TABLET BY MOUTH NOW, REPEAT IN THREE DAYS TAKE ONE TABLET BY MOUTH NOW, REPEAT IN THREE DAYS [facility] Fluconazole 150 MG Oral Tablet Fluconazole 150 MG 12/02/2020 12:00: 00 AM EDT 1.0 {tablet} suspended Fluconazole 150 M G eCW1 ([facility]) Levofloxacin 500 MG Oral Tablet levoFLOXacin 500 MG levoFLOX acin 500 MG 12/02/2020 12:00:00 AM EDT 1.0 {tablet} suspende d levoFLOXacin 500 MG eCW1 ([facility]) Valproic Acid 250 MG Oral Capsule Valproic Acid 250 MG 12/02 12:00:00 AM EDT 1.0 {capsule} active Valproic A nitesh 250 MG eCW1 ([facility]) 250 mg 12/02/2020 12:00:00 AM EDT capsule 60 TAKE ONE CAPSULE BY MOUTH TWICE A DAY FOR 30 DAYS TAKE ONE CAPSULE BY MOUTH TWICE A DAY FOR 30 DAYS SOLD : 12/03/2020 [facility] Valproic Acid 250 MG Oral Capsule Valproic Acid 250 MG 12/02 12:00:00 AM EDT 1.0 {capsule} active Valproic A nitesh 250 MG eCW1 ([facility]) Valproic Acid 250 MG Oral Capsule Valproic Acid 250 MG 12/02 12:00:00 AM EDT 1.0 {capsule} active Valproic A nitesh 250 MG eCW1 ([facility]) Fluconazole 150 MG Oral Tablet Fluconazole 150 MG 12/02/2020 12:00: 00 AM EDT 1.0 {tablet} suspended Fluconazole 150 M G eCW1 ([facility]) Fluconazole 150 MG Oral Tablet Fluconazole 150 MG 12/02/2020 12:00: 00 AM EDT 1.0 {tablet} suspended Fluconazole 150 M G eCW1 ([facility]) Levofloxacin 500 MG Oral Tablet levoFLOXacin 500 MG levoFLOX acin 500 MG 12/02/2020 12:00:00 AM EDT 1.0 {tablet} active levoFLOXacin 500 MG eCW1 ([facility]) Levofloxacin 500 MG Oral Tablet levoFLOXacin 500 MG levoFLOX acin 500 MG 12/02/2020 12:00:00 AM EDT 1.0 {tablet} suspende d levoFLOXacin 500 MG eCW1 ([facility]) Fluconazole 150 MG Oral Tablet Fluconazole 150 MG 12/02/2020 12:00: 00 AM EDT 1.0 {tablet} suspended Fluconazole 150 M G eCW1 ([facility]) Valproic Acid 250 MG Oral Capsule Valproic Acid 250 MG 12/02 12:00:00 AM EDT 1.0 {capsule} active Valproic A nitesh 250 MG eCW1 ([facility]) Levofloxacin 500 MG Oral Tablet levoFLOXacin 500 MG levoFLOX acin 500 MG 12/02/2020 12:00:00 AM EDT 1.0 {tablet} suspende d levoFLOXacin 500 MG eCW1 ([facility]) Fluconazole 150 MG Oral Tablet Fluconazole 150 MG 12/02/2020 12:00: 00 AM EDT 1.0 {tablet} suspended Fluconazole 150 M G eCW1 ([facility]) Levofloxacin 500 MG Oral Tablet levoFLOXacin 500 MG levoFLOX acin 500 MG 12/02/2020 12:00:00 AM EDT 1.0 {tablet} suspende d levoFLOXacin 500 MG eCW1 ([facility]) Fluconazole 150 MG Oral Tablet Fluconazole 150 MG 12/02/2020 12:00: 00 AM EDT 1.0 {tablet} suspended Fluconazole 150 M G eCW1 ([facility]) Levofloxacin 500 MG Oral Tablet levoFLOXacin 500 MG levoFLOX acin 500 MG 12/02/2020 12:00:00 AM EDT 1.0 {tablet} suspende d levoFLOXacin 500 MG eCW1 ([facility]) Levofloxacin 500 MG Oral Tablet levoFLOXacin 500 MG levoFLOX acin 500 MG 12/02/2020 12:00:00 AM EDT 1.0 {tablet} suspende d levoFLOXacin 500 MG eCW1 ([facility]) Fluconazole 150 MG Oral Tablet Fluconazole 150 MG 12/02/2020 12:00: 00 AM EDT 1.0 {tablet} suspended Fluconazole 150 M G eCW1 ([facility]) Fluconazole 150 MG Oral Tablet Fluconazole 150 MG 12/02/2020 12:00: 00 AM EDT 1.0 {tablet} suspended Fluconazole 150 M G eCW1 ([facility]) Fluconazole 150 MG Oral Tablet Fluconazole 150 MG 12/02/2020 12:00: 00 AM EDT 1.0 {tablet} suspended Fluconazole 150 M G eCW1 ([facility]) Levofloxacin 500 MG Oral Tablet levoFLOXacin 500 MG levoFLOX acin 500 MG 12/02/2020 12:00:00 AM EDT 1.0 {tablet} suspende d levoFLOXacin 500 MG eCW1 ([facility]) Valproic Acid 250 MG Oral Capsule Valproic Acid 250 MG 12/02 12:00:00 AM EDT 1.0 {capsule} active Valproic A nitesh 250 MG eCW1 ([facility]) Fluconazole 150 MG Oral Tablet Fluconazole 150 MG 12/02/2020 12:00: 00 AM EDT 1.0 {tablet} active Fluconazole 150 MG eCW1 ([facility]) Fluconazole 150 MG Oral Tablet Fluconazole 150 MG 12/02/2020 12:00: 00 AM EDT 1.0 {tablet} active Fluconazole 150 MG eCW1 ([facility]) Levofloxacin 500 MG Oral Tablet levoFLOXacin 500 MG levoFLOX acin 500 MG 12/02/2020 12:00:00 AM EDT 1.0 {tablet} suspende d levoFLOXacin 500 MG eCW1 ([facility]) Fluconazole 150 MG Oral Tablet Fluconazole 150 MG 12/02/2020 12:00: 00 AM EDT 1.0 {tablet} suspended Fluconazole 150 M G eCW1 ([facility]) Fluconazole 150 MG Oral Tablet Fluconazole 150 MG 12/02/2020 12:00: 00 AM EDT 1.0 {tablet} suspended Fluconazole 150 M G eCW1 ([facility]) Fluconazole 150 MG Oral Tablet Fluconazole 150 MG 12/02/2020 12:00: 00 AM EDT 1.0 {tablet} suspended Fluconazole 150 M G eCW1 ([facility]) Fluconazole 150 MG Oral Tablet Fluconazole 150 MG 12/02/2020 12:00: 00 AM EDT 1.0 {tablet} active Fluconazole 150 MG eCW1 ([facility]) Valproic Acid 250 MG Oral Capsule Valproic Acid 250 MG 12/02 12:00:00 AM EDT 1.0 {capsule} active Valproic A nitesh 250 MG eCW1 ([facility]) Levofloxacin 500 MG Oral Tablet levoFLOXacin 500 MG levoFLOX acin 500 MG 12/02/2020 12:00:00 AM EDT 1.0 {tablet} active levoFLOXacin 500 MG eCW1 ([facility]) Levofloxacin 500 MG Oral Tablet levoFLOXacin 500 MG levoFLOX acin 500 MG 12/02/2020 12:00:00 AM EDT 1.0 {tablet} suspende d levoFLOXacin 500 MG eCW1 ([facility]) Fluconazole 150 MG Oral Tablet Fluconazole 150 MG 12/02/2020 12:00: 00 AM EDT 1.0 {tablet} active Fluconazole 150 MG eCW1 ([facility]) Levofloxacin 500 MG Oral Tablet levoFLOXacin 500 MG levoFLOX acin 500 MG 12/02/2020 12:00:00 AM EDT 1.0 {tablet} suspende d levoFLOXacin 500 MG eCW1 ([facility]) Valproic Acid 250 MG Oral Capsule Valproic Acid 250 MG 12/02 12:00:00 AM EDT 1.0 {capsule} active Valproic A nitesh 250 MG eCW1 ([facility]) Fluconazole 150 MG Oral Tablet Fluconazole 150 MG 12/02/2020 12:00: 00 AM EDT 1.0 {tablet} suspended Fluconazole 150 M G eCW1 ([facility]) Valproic Acid 250 MG Oral Capsule Valproic Acid 250 MG 12/02 12:00:00 AM EDT 1.0 {capsule} active Valproic A nitesh 250 MG eCW1 ([facility]) Fluconazole 150 MG Oral Tablet Fluconazole 150 MG 12/02/2020 12:00: 00 AM EDT 1.0 {tablet} active Fluconazole 150 MG eCW1 ([facility]) Fluconazole 150 MG Oral Tablet Fluconazole 150 MG 12/02/2020 12:00: 00 AM EDT 1.0 {tablet} suspended Fluconazole 150 M G eCW1 ([facility]) Fluconazole 150 MG Oral Tablet Fluconazole 150 MG 12/02/2020 12:00: 00 AM EDT 1.0 {tablet} suspended Fluconazole 150 M G eCW1 ([facility]) Valproic Acid 250 MG Oral Capsule Valproic Acid 250 MG 12/02 12:00:00 AM EDT 1.0 {capsule} active Valproic A nitesh 250 MG eCW1 ([facility]) Valproic Acid 250 MG Oral Capsule Valproic Acid 250 MG 12/02 12:00:00 AM EDT 1.0 {capsule} active Valproic A nitesh 250 MG eCW1 ([facility]) Levofloxacin 500 MG Oral Tablet levoFLOXacin 500 MG levoFLOX acin 500 MG 12/02/2020 12:00:00 AM EDT 1.0 {tablet} suspende d levoFLOXacin 500 MG eCW1 ([facility]) Levofloxacin 500 MG Oral Tablet levoFLOXacin 500 MG levoFLOX acin 500 MG 12/02/2020 12:00:00 AM EDT 1.0 {tablet} suspende d levoFLOXacin 500 MG eCW1 ([facility]) Levofloxacin 500 MG Oral Tablet levoFLOXacin 500 MG levoFLOX acin 500 MG 12/02/2020 12:00:00 AM EDT 1.0 {tablet} active levoFLOXacin 500 MG eCW1 ([facility]) Levofloxacin 500 MG Oral Tablet levoFLOXacin 500 MG levoFLOX acin 500 MG 12/02/2020 12:00:00 AM EDT 1.0 {tablet} suspende d levoFLOXacin 500 MG eCW1 ([facility]) Fluconazole 150 MG Oral Tablet Fluconazole 150 MG 12/02/2020 12:00: 00 AM EDT 1.0 {tablet} suspended Fluconazole 150 M G eCW1 ([facility]) 500 mg 12/02/2020 12:00:00 AM EDT tablet 10 TAKE ONE TABLET BY MOUTH EVERY DAY FOR 10 DAYS TAKE ONE TABLET BY MOUTH EVERY DAY FOR 10 DAYS SOLD: [facility] Levofloxacin 500 MG Oral Tablet levoFLOXacin 500 MG levoFLOX acin 500 MG 12/02/2020 12:00:00 AM EDT 1.0 {tablet} suspende d levoFLOXacin 500 MG eCW1 ([facility]) Valproic Acid 250 MG Oral Capsule Valproic Acid 250 MG 12/02 12:00:00 AM EDT 1.0 {capsule} active Valproic A nitesh 250 MG eCW1 ([facility]) Prednisone 10 MG Oral Tablet predniSONE 10 MG predniSONE 10 MG 11/29/2020 12:00:00 AM EDT active predniSO NE 10 MG eCW1 ([facility]) Prednisone 10 MG Oral Tablet predniSONE 10 MG predniSONE 10 MG 11/29/2020 12:00:00 AM EDT suspended predn iSONE 10 MG eCW1 ([facility]) Prednisone 10 MG Oral Tablet predniSONE 10 MG predniSONE 10 MG 11/29/2020 12:00:00 AM EDT suspended predn iSONE 10 MG eCW1 ([facility]) Prednisone 10 MG Oral Tablet predniSONE 10 MG predniSONE 10 MG 11/29/2020 12:00:00 AM EDT active predniSO NE 10 MG eCW1 ([facility]) 10 mg 11/29/2020 12:00:00 AM EDT tablet 40 TAKE SIX TABLETS BY MOUTH FOR 3 DAYS, THEN FOUR TABLETS FOR 3 DAYS, THEN TWO TABLETS FOR THREE DAYS, THEN ONE TABLET FOR FOUR DAYS TAKE SIX TABLETS BY MOUTH FOR 3 DAYS, TH EN FOUR TABLETS FOR 3 DAYS, THEN TWO TABLETS FOR THREE DAYS, THEN ONE TABLET FOR FOUR DAYS SOLD: 11/29/2020 [facility] Prednisone 10 MG Oral Tablet predniSONE 10 MG predniSONE 10 MG 11/29/2020 12:00:00 AM EDT suspended predn iSONE 10 MG eCW1 ([facility]) Prednisone 10 MG Oral Tablet predniSONE 10 MG predniSONE 10 MG 11/29/2020 12:00:00 AM EDT suspended predn iSONE 10 MG eCW1 ([facility]) Prednisone 10 MG Oral Tablet predniSONE 10 MG predniSONE 10 MG 11/29/2020 12:00:00 AM EDT suspended predn iSONE 10 MG eCW1 ([facility]) Prednisone 10 MG Oral Tablet predniSONE 10 MG predniSONE 10 MG 11/29/2020 12:00:00 AM EDT suspended predn iSONE 10 MG eCW1 ([facility]) Prednisone 10 MG Oral Tablet predniSONE 10 MG predniSONE 10 MG 11/29/2020 12:00:00 AM EDT suspended predn iSONE 10 MG eCW1 ([facility]) Prednisone 10 MG Oral Tablet predniSONE 10 MG predniSONE 10 MG 11/29/2020 12:00:00 AM EDT suspended predn iSONE 10 MG eCW1 ([facility]) Prednisone 10 MG Oral Tablet predniSONE 10 MG predniSONE 10 MG 11/29/2020 12:00:00 AM EDT active predniSO NE 10 MG eCW1 ([facility]) Prednisone 10 MG Oral Tablet predniSONE 10 MG predniSONE 10 MG 11/29/2020 12:00:00 AM EDT active predniSO NE 10 MG eCW1 ([facility]) Prednisone 10 MG Oral Tablet predniSONE 10 MG predniSONE 10 MG 11/29/2020 12:00:00 AM EDT suspended predn iSONE 10 MG eCW1 ([facility]) Prednisone 10 MG Oral Tablet predniSONE 10 MG predniSONE 10 MG 11/29/2020 12:00:00 AM EDT active predniSO NE 10 MG eCW1 ([facility]) Prednisone 10 MG Oral Tablet predniSONE 10 MG predniSONE 10 MG 11/29/2020 12:00:00 AM EDT suspended predn iSONE 10 MG eCW1 ([facility]) Prednisone 10 MG Oral Tablet predniSONE 10 MG predniSONE 10 MG 11/29/2020 12:00:00 AM EDT suspended predn iSONE 10 MG eCW1 ([facility]) Prednisone 10 MG Oral Tablet predniSONE 10 MG predniSONE 10 MG 11/29/2020 12:00:00 AM EDT suspended predn iSONE 10 MG eCW1 ([facility]) Prednisone 10 MG Oral Tablet predniSONE 10 MG predniSONE 10 MG 11/29/2020 12:00:00 AM EDT suspended predn iSONE 10 MG eCW1 ([facility]) Prednisone 10 MG Oral Tablet predniSONE 10 MG predniSONE 10 MG 11/29/2020 12:00:00 AM EDT active predniSO NE 10 MG eCW1 ([facility]) Prednisone 10 MG Oral Tablet predniSONE 10 MG predniSONE 10 MG 11/29/2020 12:00:00 AM EDT suspended predn iSONE 10 MG eCW1 ([facility]) Prednisone 10 MG Oral Tablet predniSONE 10 MG predniSONE 10 MG 11/29/2020 12:00:00 AM EDT suspended predn iSONE 10 MG eCW1 ([facility]) Prednisone 10 MG Oral Tablet predniSONE 10 MG predniSONE 10 MG 11/29/2020 12:00:00 AM EDT suspended predn iSONE 10 MG eCW1 ([facility]) Prednisone 10 MG Oral Tablet predniSONE 10 MG predniSONE 10 MG 11/29/2020 12:00:00 AM EDT suspended predn iSONE 10 MG eCW1 ([facility]) Promethazine Hydrochloride 25 MG Oral Tablet PROMETHAZINE HC L 11/29/2020 12:00:00 AM EDT tablet 15 TAKE ONE TABLET BY MOUTH EVERY EIGHT HOURS NEEDED FOR NAUSEA TAKE ONE TABLET BY MOUTH EVERY EIGHT HOURS NEEDED F OR NAUSEA SOLD: 11/29/2020 [facility] Prednisone 10 MG Oral Tablet predniSONE 10 MG predniSONE 10 MG 11/29/2020 12:00:00 AM EDT suspended predn iSONE 10 MG eCW1 ([facility]) Prednisone 10 MG Oral Tablet predniSONE 10 MG predniSONE 10 MG 11/29/2020 12:00:00 AM EDT active predniSO NE 10 MG eCW1 ([facility]) Prednisone 10 MG Oral Tablet predniSONE 10 MG predniSONE 10 MG 11/29/2020 12:00:00 AM EDT suspended predn iSONE 10 MG eCW1 ([facility]) Prednisone 10 MG Oral Tablet predniSONE 10 MG predniSONE 10 MG 11/29/2020 12:00:00 AM EDT suspended predn iSONE 10 MG eCW1 ([facility]) 5 % 11/14/2020 12:00:00 AM EDT adhesive patch,medicate d 20 APPLY 2 PATCHES TOPICALLY ONCE DAILY REMOVE AFTER 12 HOURS APPLY 2 PATCHES TOPICALLY ONCE DAILY REMOVE AFTER 12 HOURS SOLD: 11/14/2020 [facility] 5-325 mg 11/08/2020 12:00:00 AM EDT tablet 180 TAKE ONE TABLET BY MOUTH EVERY 4 HOURS NEEDED MAXIMUM DAILY DOSE = 6 TABLETS TAKE ONE TABLET BY MOUTH EVERY 4 HOURS NEEDED MAXIMUM DAILY DOSE = 6 TABLETS SOLD: 11/09/2020 [facility] tizanidine 2 MG Oral Tablet TIZANIDINE HCL 11/07/2020 12:00:00 AM EDT tablet 90 TAKE ONE TABLET BY MOUTH THREE TIMES A DAY NEEDED T HARLEY ONE TABLET BY MOUTH THREE TIMES A DAY NEEDED SOLD: 11/09/2020 [facility] Acetaminophen 325 MG / Oxycodone Hydroch loride 5 MG Oral Tablet oxyCODONE- Acetaminophen 5-325 MG oxyCODONE-Acetaminophen 5-325 MG 11/07/2020 12:00:00 A M EDT 1.0 {tablet_as_needed} active o xyCODONE-Acetaminophen 5-325 MG eCW1 ([facility]) Acetaminophen 325 MG / Oxycodone Hydroch loride 5 MG Oral Tablet oxyCODONE- Acetaminophen 5-325 MG oxyCODONE-Acetaminophen 5-325 MG 11/07/2020 12:00:00 A M EDT 1.0 {tablet_as_needed} active o xyCODONE-Acetaminophen 5-325 MG eCW1 ([facility]) tizanidine 2 MG Oral Tablet TIZANIDINE HCL 11/07/2020 12:00:00 AM EDT tablet 90 TAKE ONE TABLET BY MOUTH THREE TIMES A DAY NEEDED T HARLEY ONE TABLET BY MOUTH THREE TIMES A DAY NEEDED SOLD: 03/29/2021 [facility] Acetaminophen 325 MG / Oxycodone Hydroch loride 5 MG Oral Tablet oxyCODONE- Acetaminophen 5-325 MG oxyCODONE-Acetaminophen 5-325 MG 11/07/2020 12:00:00 A M EDT 1.0 {tablet_as_needed} active o xyCODONE-Acetaminophen 5-325 MG eCW1 ([facility]) 40 mg 11/07/2020 12:00:00 AM EDT capsule,delayed release (DR/EC) 60 TAKE ONE CAPSULE BY MOUTH TWICE A DAY TAKE ONE CAPSULE BY MOUTH TWICE A DAY SOLD: 11/09/2020 [facility] Acetaminophen 325 MG / Oxycodone Hydroch loride 5 MG Oral Tablet oxyCODONE- Acetaminophen 5-325 MG oxyCODONE-Acetaminophen 5-325 MG 11/07/2020 12:00:00 A M EDT 1.0 {tablet_as_needed} active o xyCODONE-Acetaminophen 5-325 MG eCW1 ([facility]) tizanidine 2 MG Oral Tablet TIZANIDINE HCL 11/07/2020 12:00:00 AM EDT tablet 90 TAKE ONE TABLET BY MOUTH THREE TIMES A DAY NEEDED T HARLEY ONE TABLET BY MOUTH THREE TIMES A DAY NEEDED SOLD: 02/21/2021 [facility] 5-325 mg 2020 12:00:00 AM EDT tablet 180 TAKE ONE TABLET BY MOUTH EVERY 4 HOURS NEEDED MAXIMUM DAILY DOSE = 6 TABLETS TAKE ONE TABLET BY MOUTH EVERY 4 HOURS NEEDED MAXIMUM DAILY DOSE = 6 TABLETS SOLD: 2020 [facility] Acetaminophen 325 MG / Oxycodone Hydroch loride 5 MG Oral Tablet Oxycodone- Acetaminophen 5-325 MG Oxycodone-Acetaminophen 5-325 MG 10/07/2020 12:00:00 A M EDT 1.0 {tablet_as_needed} active O xycodone-Acetaminophen 5-325 MG eCW1 ([facility]) Acetaminophen 325 MG / Oxycodone Hydroch loride 5 MG Oral Tablet Oxycodone- Acetaminophen 5-325 MG Oxycodone-Acetaminophen 5-325 MG 10/07/2020 12:00:00 A M EDT 1.0 {tablet_as_needed} active eCW1 ([facility]) 100 mg 09/22/2020 12:00:00 AM EDT tablet 90 TAKE ONE TABLET BY MOUTH EVERY DAY TAKE ONE TABLET BY MOUTH EVERY DAY SOLD: 09/24/2020 [facility] 1 mg 09/22/2020 12:00:00 AM EDT tablet 90 TAKE ONE TABLET BY MOUTH EVERY DAY AFTER A MEAL TAKE ONE TABLET BY MOUTH EVERY DAY AFTER A MEAL SOLD: 09/24/2020 [facility] Folic Acid 1 MG Oral Tablet Folic Acid 09/22/2020 12:00:00 AM EDT ORAL active MEDENT ([facility], ) Thiamine 100 MG Oral Tablet Thiamine HCL 09/22/2020 12:00:00 AM EDT ORAL active MEDENT ([facility], ) 90 mcg/actuation 09/21/2020 12:00:00 AM EDT HFA aerosol inha ler 8 INHALE TWO PUFFS BY MOUTH FOUR TIMES A DAY NEEDED INHALE TWO PUFFS BY MOUTH FOUR TIMES A DAY NEEDED SOLD: 09/21/2020 [facility] 1,250 mcg (50,000 unit) 09/19/2020 12:00:00 AM EDT capsule 8 TAKE ONE CAPSULE BY MOUTH TWICE A WEEK TAKE ONE CAPSULE BY MOUTH TWICE A WEEK SOLD: 09/21/2020 [facility] Fluconazole 150 MG Oral Tablet Fluconazole 150 MG 09/14/2020 12:00: 00 AM EDT 1.0 {tablet} suspended Fluconazole 150 M G eCW1 ([facility]) Promethazine Hydrochloride 25 MG Oral Tablet Promethaz ine HCl 25 MG Promethazine HCl 25 MG 09/14/2020 12:00:00 AM EDT 1.0 {tablet_as_needed} active Promethazine HCl 25 MG eCW1 ([facility]) Promethazine Hydrochloride 25 MG Oral Tablet Promethaz ine HCl 25 MG Promethazine HCl 25 MG 09/14/2020 12:00:00 AM EDT 1.0 {tablet_as_needed} active Promethazine HCl 25 MG eCW1 ([facility]) Promethazine Hydrochloride 25 MG Oral Tablet Promethaz ine HCl 25 MG Promethazine HCl 25 MG 09/14/2020 12:00:00 AM EDT 1.0 {tablet_as_needed} active Promethazine HCl 25 MG eCW1 ([facility]) Promethazine Hydrochloride 25 MG Oral Tablet Promethaz ine HCl 25 MG Promethazine HCl 25 MG 09/14/2020 12:00:00 AM EDT 1.0 {tablet_as_needed} suspended Promethazine HCl 25 MG eCW1 ([facility]) Promethazine Hydrochloride 25 MG Oral Tablet Promethaz ine HCl 25 MG Promethazine HCl 25 MG 09/14/2020 12:00:00 AM EDT 1.0 {tablet_as_needed} active Promethazine HCl 25 MG eCW1 ([facility]) 40 mg 09/14/2020 12:00:00 AM EDT capsule,delayed release (DR/EC) 28 TAKE ONE CAPSULE BY MOUTH TWICE A DAY TAKE ONE CAPSULE BY MOUTH TWICE A DAY SOLD: 10/19/2020 [facility] Promethazine Hydrochloride 25 MG Oral Tablet Promethaz ine HCl 25 MG Promethazine HCl 25 MG 09/14/2020 12:00:00 AM EDT 1.0 {tablet_as_needed} suspended Promethazine HCl 25 MG eCW1 ([facility]) Fluconazole 150 MG Oral Tablet Fluconazole 150 MG 09/14/2020 12:00: 00 AM EDT 1.0 {tablet} active Fluconazole 150 MG eCW1 ([facility]) Promethazine Hydrochloride 25 MG Oral Tablet Promethaz ine HCl 25 MG Promethazine HCl 25 MG 09/14/2020 12:00:00 AM EDT 1.0 {tablet_as_needed} active Promethazine HCl 25 MG eCW1 ([facility]) Promethazine Hydrochloride 25 MG Oral Tablet Promethaz ine HCl 25 MG Promethazine HCl 25 MG 09/14/2020 12:00:00 AM EDT 1.0 {tablet_as_needed} active Promethazine HCl 25 MG eCW1 ([facility]) Promethazine Hydrochloride 25 MG Oral Tablet PROMETHAZINE HC L 09/14/2020 12:00:00 AM EDT tablet 15 TAKE ONE TABLET BY MOUTH EVERY 8 HOURS NEEDED FOR NAUSEA TAKE ONE TABLET BY MOUTH EVERY 8 HOURS NEEDED FOR N AUSEA SOLD: 09/14/2020 [facility] Promethazine Hydrochloride 25 MG Oral Tablet Promethaz ine HCl 25 MG Promethazine HCl 25 MG 09/14/2020 12:00:00 AM EDT 1.0 {tablet_as_needed} active Promethazine HCl 25 MG eCW1 ([facility]) Promethazine Hydrochloride 25 MG Oral Tablet Promethaz ine HCl 25 MG Promethazine HCl 25 MG 09/14/2020 12:00:00 AM EDT 1.0 {tablet_as_needed} suspended Promethazine HCl 25 MG eCW1 ([facility]) Promethazine Hydrochloride 25 MG Oral Tablet Promethaz ine HCl 25 MG Promethazine HCl 25 MG 09/14/2020 12:00:00 AM EDT 1.0 {tablet_as_needed} active Promethazine HCl 25 MG eCW1 ([facility]) Fluconazole 150 MG Oral Tablet Fluconazole 150 MG 09/14/2020 12:00: 00 AM EDT 1.0 {tablet} active Fluconazole 150 MG eCW1 ([facility]) Fluconazole 150 MG Oral Tablet Fluconazole 150 MG 09/14/2020 12:00: 00 AM EDT 1.0 {tablet} active Fluconazole 150 MG eCW1 ([facility]) Fluconazole 150 MG Oral Tablet Fluconazole 150 MG 09/14/2020 12:00: 00 AM EDT 1.0 {tablet} active Fluconazole 150 MG eCW1 ([facility]) Promethazine Hydrochloride 25 MG Oral Tablet Promethaz ine HCl 25 MG Promethazine HCl 25 MG 09/14/2020 12:00:00 AM EDT 1.0 {tablet_as_needed} suspended Promethazine HCl 25 MG eCW1 ([facility]) Promethazine Hydrochloride 25 MG Oral Tablet Promethaz ine HCl 25 MG Promethazine HCl 25 MG 09/14/2020 12:00:00 AM EDT 1.0 {tablet_as_needed} suspended Promethazine HCl 25 MG eCW1 ([facility]) Promethazine Hydrochloride 25 MG Oral Tablet Promethaz ine HCl 25 MG Promethazine HCl 25 MG 09/14/2020 12:00:00 AM EDT 1.0 {tablet_as_needed} active Promethazine HCl 25 MG eCW1 ([facility]) Promethazine Hydrochloride 25 MG Oral Tablet Promethaz ine HCl 25 MG Promethazine HCl 25 MG 09/14/2020 12:00:00 AM EDT 1.0 {tablet_as_needed} active Promethazine HCl 25 MG eCW1 ([facility]) Promethazine Hydrochloride 25 MG Oral Tablet Promethaz ine HCl 25 MG Promethazine HCl 25 MG 09/14/2020 12:00:00 AM EDT 1.0 {tablet_as_needed} active eCW1 ([facility]) Promethazine Hydrochloride 25 MG Oral Tablet Promethaz ine HCl 25 MG Promethazine HCl 25 MG 09/14/2020 12:00:00 AM EDT 1.0 {tablet_as_needed} active Promethazine HCl 25 MG eCW1 ([facility]) Promethazine Hydrochloride 25 MG Oral Tablet Promethaz ine HCl 25 MG Promethazine HCl 25 MG 09/14/2020 12:00:00 AM EDT 1.0 {tablet_as_needed} suspended Promethazine HCl 25 MG eCW1 ([facility]) Fluconazole 150 MG Oral Tablet Fluconazole 150 MG 09/14/2020 12:00: 00 AM EDT 1.0 {tablet} active Fluconazole 150 MG eCW1 ([facility]) Promethazine Hydrochloride 25 MG Oral Tablet Promethaz ine HCl 25 MG Promethazine HCl 25 MG 09/14/2020 12:00:00 AM EDT 1.0 {tablet_as_needed} suspended Promethazine HCl 25 MG eCW1 ([facility]) Promethazine Hydrochloride 25 MG Oral Tablet Promethaz ine HCl 25 MG Promethazine HCl 25 MG 09/14/2020 12:00:00 AM EDT 1.0 {tablet_as_needed} active Promethazine HCl 25 MG eCW1 ([facility]) Promethazine Hydrochloride 25 MG Oral Tablet Promethaz ine HCl 25 MG Promethazine HCl 25 MG 09/14/2020 12:00:00 AM EDT 1.0 {tablet_as_needed} active Promethazine HCl 25 MG eCW1 ([facility]) Promethazine Hydrochloride 25 MG Oral Tablet Promethaz ine HCl 25 MG Promethazine HCl 25 MG 09/14/2020 12:00:00 AM EDT 1.0 {tablet_as_needed} active Promethazine HCl 25 MG eCW1 ([facility]) Promethazine Hydrochloride 25 MG Oral Tablet Promethaz ine HCl 25 MG Promethazine HCl 25 MG 09/14/2020 12:00:00 AM EDT 1.0 {tablet_as_needed} suspended Promethazine HCl 25 MG eCW1 ([facility]) Promethazine Hydrochloride 25 MG Oral Tablet Promethaz ine HCl 25 MG Promethazine HCl 25 MG 09/14/2020 12:00:00 AM EDT 1.0 {tablet_as_needed} suspended Promethazine HCl 25 MG eCW1 ([facility]) Promethazine Hydrochloride 25 MG Oral Tablet Promethaz ine HCl 25 MG Promethazine HCl 25 MG 09/14/2020 12:00:00 AM EDT 1.0 {tablet_as_needed} active Promethazine HCl 25 MG eCW1 ([facility]) Promethazine Hydrochloride 25 MG Oral Tablet Promethaz ine HCl 25 MG Promethazine HCl 25 MG 09/14/2020 12:00:00 AM EDT 1.0 {tablet_as_needed} active Promethazine HCl 25 MG eCW1 ([facility]) Promethazine Hydrochloride 25 MG Oral Tablet Promethaz ine HCl 25 MG Promethazine HCl 25 MG 09/14/2020 12:00:00 AM EDT 1.0 {tablet_as_needed} active Promethazine HCl 25 MG eCW1 ([facility]) Fluconazole 150 MG Oral Tablet Fluconazole 150 MG 09/14/2020 12:00: 00 AM EDT 1.0 {tablet} active Fluconazole 150 MG eCW1 ([facility]) Promethazine Hydrochloride 25 MG Oral Tablet Promethaz ine HCl 25 MG Promethazine HCl 25 MG 09/14/2020 12:00:00 AM EDT 1.0 {tablet_as_needed} active Promethazine HCl 25 MG eCW1 ([facility]) 150 mg 09/14/2020 12:00:00 AM EDT tablet 2 TAKE ONE TABLET BY MOUTH NOW AND REPEAT IN 3 DAYS TAKE ONE TABLET BY MOUTH NOW AND REPEAT IN 3 DAYS SOLD : 09/14/2020 [facility] Fluconazole 150 MG Oral Tablet Fluconazole 150 MG 09/14/2020 12:00: 00 AM EDT 1.0 {tablet} active Fluconazole 150 MG eCW1 ([facility]) Promethazine Hydrochloride 25 MG Oral Tablet Promethaz ine HCl 25 MG Promethazine HCl 25 MG 09/14/2020 12:00:00 AM EDT 1.0 {tablet_as_needed} active Promethazine HCl 25 MG eCW1 ([facility]) Promethazine Hydrochloride 25 MG Oral Tablet Promethaz ine HCl 25 MG Promethazine HCl 25 MG 09/14/2020 12:00:00 AM EDT 1.0 {tablet_as_needed} active Promethazine HCl 25 MG eCW1 ([facility]) Promethazine Hydrochloride 25 MG Oral Tablet PROMETHAZINE HC L 09/14/2020 12:00:00 AM EDT tablet 15 TAKE ONE TABLET BY MOUTH EVERY 8 HOURS NEEDED FOR NAUSEA TAKE ONE TABLET BY MOUTH EVERY 8 HOURS NEEDED FOR N AUSEA SOLD: 10/19/2020 [facility] Promethazine Hydrochloride 25 MG Oral Tablet Promethaz ine HCl 25 MG Promethazine HCl 25 MG 09/14/2020 12:00:00 AM EDT 1.0 {tablet_as_needed} active Promethazine HCl 25 MG eCW1 ([facility]) Promethazine Hydrochloride 25 MG Oral Tablet Promethaz ine HCl 25 MG Promethazine HCl 25 MG 09/14/2020 12:00:00 AM EDT 1.0 {tablet_as_needed} active Promethazine HCl 25 MG eCW1 ([facility]) Promethazine Hydrochloride 25 MG Oral Tablet Promethaz ine HCl 25 MG Promethazine HCl 25 MG 09/14/2020 12:00:00 AM EDT 1.0 {tablet_as_needed} active Promethazine HCl 25 MG eCW1 ([facility]) Fluconazole 150 MG Oral Tablet Fluconazole 150 MG 09/14/2020 12:00: 00 AM EDT 1.0 {tablet} active Fluconazole 150 MG eCW1 ([facility]) Fluconazole 150 MG Oral Tablet Fluconazole 150 MG 09/14/2020 12:00: 00 AM EDT 1.0 {tablet} active Fluconazole 150 MG eCW1 ([facility]) Promethazine Hydrochloride 25 MG Oral Tablet Promethaz ine HCl 25 MG Promethazine HCl 25 MG 09/14/2020 12:00:00 AM EDT 1.0 {tablet_as_needed} suspended Promethazine HCl 25 MG eCW1 ([facility]) Promethazine Hydrochloride 25 MG Oral Tablet Promethaz ine HCl 25 MG Promethazine HCl 25 MG 09/14/2020 12:00:00 AM EDT 1.0 {tablet_as_needed} active Promethazine HCl 25 MG eCW1 ([facility]) Promethazine Hydrochloride 25 MG Oral Tablet Promethaz ine HCl 25 MG Promethazine HCl 25 MG 09/14/2020 12:00:00 AM EDT 1.0 {tablet_as_needed} active Promethazine HCl 25 MG eCW1 ([facility]) 40 mg 09/14/2020 12:00:00 AM EDT capsule,delayed release (DR/EC) 28 TAKE ONE CAPSULE BY MOUTH TWICE A DAY TAKE ONE CAPSULE BY MOUTH TWICE A DAY SOLD: 09/14/2020 [facility] Promethazine Hydrochloride 25 MG Oral Tablet Promethaz ine HCl 25 MG Promethazine HCl 25 MG 09/14/2020 12:00:00 AM EDT 1.0 {tablet_as_needed} active Promethazine HCl 25 MG eCW1 ([facility]) Promethazine Hydrochloride 25 MG Oral Tablet Promethaz ine HCl 25 MG Promethazine HCl 25 MG 09/14/2020 12:00:00 AM EDT 1.0 {tablet_as_needed} active Promethazine HCl 25 MG eCW1 ([facility]) Promethazine Hydrochloride 25 MG Oral Tablet Promethaz ine HCl 25 MG Promethazine HCl 25 MG 09/14/2020 12:00:00 AM EDT 1.0 {tablet_as_needed} active Promethazine HCl 25 MG eCW1 ([facility]) Promethazine Hydrochloride 25 MG Oral Tablet Promethaz ine HCl 25 MG Promethazine HCl 25 MG 09/14/2020 12:00:00 AM EDT 1.0 {tablet_as_needed} active Promethazine HCl 25 MG eCW1 ([facility]) Promethazine Hydrochloride 25 MG Oral Tablet Promethaz ine HCl 25 MG Promethazine HCl 25 MG 09/14/2020 12:00:00 AM EDT 1.0 {tablet_as_needed} active Promethazine HCl 25 MG eCW1 ([facility]) Promethazine Hydrochloride 25 MG Oral Tablet Promethaz ine HCl 25 MG Promethazine HCl 25 MG 09/14/2020 12:00:00 AM EDT 1.0 {tablet_as_needed} active Promethazine HCl 25 MG eCW1 ([facility]) Fluconazole 150 MG Oral Tablet Fluconazole 150 MG 09/14/2020 12:00: 00 AM EDT 1.0 {tablet} active Fluconazole 150 MG eCW1 ([facility]) Promethazine Hydrochloride 25 MG Oral Tablet Promethaz ine HCl 25 MG Promethazine HCl 25 MG 09/14/2020 12:00:00 AM EDT 1.0 {tablet_as_needed} active Promethazine HCl 25 MG eCW1 ([facility]) 5-325 mg 09/11/2020 12:00:00 AM EDT tablet 180 TAKE ONE TABLET BY MOUTH EVERY 4 HOURS NEEDED MAXIMUM DAILY DOSE = 6 TAKE ONE TABLET BY MOUTH EVERY 4 HOURS NEEDED MAXIMUM DAILY DOSE = 6 SOLD: 09/11/2020 [facility] Acetaminophen 325 MG / Oxycodone Hydroch loride 5 MG Oral Tablet Oxycodone- Acetaminophen 5-325 MG Oxycodone-Acetaminophen 5-325 MG 09/08/2020 12:00:00 A M EDT 1.0 {tablet_as_needed} active O xycodone-Acetaminophen 5-325 MG eCW1 ([facility]) Acetaminophen 325 MG / Oxycodone Hydroch loride 5 MG Oral Tablet Oxycodone- Acetaminophen 5-325 MG Oxycodone-Acetaminophen 5-325 MG 09/08/2020 12:00:00 A M EDT 1.0 {tablet_as_needed} active O xycodone-Acetaminophen 5-325 MG eCW1 ([facility]) Acetaminophen 325 MG / Oxycodone Hydroch loride 5 MG Oral Tablet Oxycodone- Acetaminophen 5-325 MG Oxycodone-Acetaminophen 5-325 MG 09/08/2020 12:00:00 A M EDT 1.0 {tablet_as_needed} active O xycodone-Acetaminophen 5-325 MG eCW1 ([facility]) Acetaminophen 325 MG / Oxycodone Hydroch loride 5 MG Oral Tablet Oxycodone- Acetaminophen 5-325 MG Oxycodone-Acetaminophen 5-325 MG 09/08/2020 12:00:00 A M EDT 1.0 {tablet_as_needed} active O xycodone-Acetaminophen 5-325 MG eCW1 ([facility]) Acetaminophen 325 MG / Oxycodone Hydroch loride 5 MG Oral Tablet Oxycodone- Acetaminophen 5-325 MG Oxycodone-Acetaminophen 5-325 MG 09/08/2020 12:00:00 A M EDT 1.0 {tablet_as_needed} active O xycodone-Acetaminophen 5-325 MG eCW1 ([facility]) Acetaminophen 325 MG / Oxycodone Hydroch loride 5 MG Oral Tablet Oxycodone- Acetaminophen 5-325 MG Oxycodone-Acetaminophen 5-325 MG 09/08/2020 12:00:00 A M EDT 1.0 {tablet_as_needed} active O xycodone-Acetaminophen 5-325 MG eCW1 ([facility]) Acetaminophen 325 MG / Oxycodone Hydroch loride 5 MG Oral Tablet Oxycodone- Acetaminophen 5-325 MG Oxycodone-Acetaminophen 5-325 MG 09/08/2020 12:00:00 A M EDT 1.0 {tablet_as_needed} active O xycodone-Acetaminophen 5-325 MG eCW1 ([facility]) Acetaminophen 325 MG / Oxycodone Hydroch loride 5 MG Oral Tablet Oxycodone- Acetaminophen 5-325 MG Oxycodone-Acetaminophen 5-325 MG 09/08/2020 12:00:00 A M EDT 1.0 {tablet_as_needed} active O xycodone-Acetaminophen 5-325 MG eCW1 ([facility]) Acetaminophen 325 MG / Oxycodone Hydroch loride 5 MG Oral Tablet Oxycodone- Acetaminophen 5-325 MG Oxycodone-Acetaminophen 5-325 MG 09/08/2020 12:00:00 A M EDT 1.0 {tablet_as_needed} active O xycodone-Acetaminophen 5-325 MG eCW1 ([facility]) Acetaminophen 325 MG / Oxycodone Hydroch loride 5 MG Oral Tablet Oxycodone- Acetaminophen 5-325 MG Oxycodone-Acetaminophen 5-325 MG 09/08/2020 12:00:00 A M EDT 1.0 {tablet_as_needed} active O xycodone-Acetaminophen 5-325 MG eCW1 ([facility]) Acetaminophen 325 MG / Oxycodone Hydroch loride 5 MG Oral Tablet Oxycodone- Acetaminophen 5-325 MG Oxycodone-Acetaminophen 5-325 MG 09/08/2020 12:00:00 A M EDT 1.0 {tablet_as_needed} active O xycodone-Acetaminophen 5-325 MG eCW1 ([facility]) Acetaminophen 325 MG / Oxycodone Hydroch loride 5 MG Oral Tablet Oxycodone- Acetaminophen 5-325 MG Oxycodone-Acetaminophen 5-325 MG 09/08/2020 12:00:00 A M EDT 1.0 {tablet_as_needed} active O xycodone-Acetaminophen 5-325 MG eCW1 ([facility]) Acetaminophen 325 MG / Oxycodone Hydroch loride 5 MG Oral Tablet Oxycodone- Acetaminophen 5-325 MG Oxycodone-Acetaminophen 5-325 MG 09/08/2020 12:00:00 A M EDT 1.0 {tablet_as_needed} active O xycodone-Acetaminophen 5-325 MG eCW1 ([facility]) 5-325 mg 08/13/2020 12:00:00 AM EDT tablet 180 TAKE ONE TABLET BY MOUTH EVERY 4 HOURS NEEDED MAX=6TABS/DAY TAKE ONE TABLET BY MOUTH EVERY 4 HOURS A S NEEDED MAX=6TABS/DAY SOLD: 08/13/2020 [facility] Acetaminophen 325 MG / Oxycodone Hydroch loride 5 MG Oral Tablet Oxycodone- Acetaminophen 5-325 MG Oxycodone-Acetaminophen 5-325 MG 08/12/2020 12:00:00 A M EDT 1.0 {tablet_as_needed} active O xycodone-Acetaminophen 5-325 MG eCW1 ([facility]) 4 mg 08/12/2020 12:00:00 AM EDT tablet 30 TAKE ONE TABLET BY MOUTH EVERY 8 HOURS TAKE ONE TABLET BY MOUTH EVERY 8 HOURS SOLD: 08/13/2020 [facility] tizanidine 2 MG Oral Tablet TIZANIDINE HCL 08/05/2020 12:00:00 AM EST tablet 90 TAKE ONE TABLET BY MOUTH THREE TIMES A DAY NEEDED T [place] ONE TABLET BY MOUTH THREE TIMES A DAY NEEDED SOLD: 08/05/2020 [facility] 5-325 mg 07/31/2020 12:00:00 AM EST tablet 84 TAKE ONE TABLET BY MOUTH EVERY 4 HOURS NEEDED FOR PAIN MAXIMUM DAILY DOSE = 6 TABLETS TAKE ONE TABLET BY MOUTH EVERY 4 HOURS NEEDED FOR PAIN MAXIMUM DAILY DOSE = 6 TABLETS SOLD: 07/31/2020 [facility] Ergocalciferol 44870 UNT Oral Capsule [Drisdol] Drisdo l 1.25 MG (49448 UT) Drisdol 1.25 MG (92068 UT) 07/28/2020 12:00:00 AM EST 1.0 {capsule} active Drisdol 1.25 MG (28050 UT) eCW1 ([facility]) Ergocalciferol 96268 UNT Oral Capsule [Drisdol] Drisdo l 1.25 MG (08842 UT) Drisdol 1.25 MG (58138 UT) 07/28/2020 12:00:00 AM EST 1.0 {capsule} active eCW1 ([facility]) Ergocalciferol 24598 UNT Oral Capsule [Drisdol] Drisdo l 1.25 MG (95464 UT) Drisdol 1.25 MG (23185 UT) 07/28/2020 12:00:00 AM EST 1.0 {capsule} active Drisdol 1.25 MG (02203 UT) [facility] ([facility]) Ergocalciferol 14897 UNT Oral Capsule [Drisdol] Drisdo l 1.25 MG (42908 UT) Drisdol 1.25 MG (70913 UT) 07/28/2020 12:00:00 AM EST 1.0 {capsule} suspended Drisdol 1.25 MG (90934 UT) [facility] ([facility]) Ergocalciferol 87471 UNT Oral Capsule [Drisdol] Drisdo l 1.25 MG (48290 UT) Drisdol 1.25 MG (65319 UT) 07/28/2020 12:00:00 AM EST 1.0 {capsule} suspended Drisdol 1.25 MG (83057 UT) [facility] ([facility]) Ergocalciferol 75306 UNT Oral Capsule [Drisdol] Drisdo l 1.25 MG (98527 UT) Drisdol 1.25 MG (22682 UT) 07/28/2020 12:00:00 AM EST 1.0 {capsule} suspended Drisdol 1.25 MG (35991 UT) [facility] ([facility]) Ergocalciferol 63691 UNT Oral Capsule [Drisdol] Drisdo l 1.25 MG (46147 UT) Drisdol 1.25 MG (79988 UT) 07/28/2020 12:00:00 AM EST 1.0 {capsule} active Drisdol 1.25 MG (26307 UT) eC ([facility]) Ergocalciferol 52328 UNT Oral Capsule [Drisdol] Drisdo l 1.25 MG (13211 UT) Drisdol 1.25 MG (14614 UT) 07/28/2020 12:00:00 AM EST 1.0 {capsule} active Drisdol 1.25 MG (41271 UT) [facility] ([facility]) Ergocalciferol 12090 UNT Oral Capsule [Drisdol] Drisdo l 1.25 MG (63288 UT) Drisdol 1.25 MG (80895 UT) 07/28/2020 12:00:00 AM EST 1.0 {capsule} active Drisdol 1.25 MG (58634 UT) eCW1 ([facility]) Ergocalciferol 53756 UNT Oral Capsule [Drisdol] Drisdo l 1.25 MG (24000 UT) Drisdol 1.25 MG (16698 UT) 07/28/2020 12:00:00 AM EST 1.0 {capsule} suspended Drisdol 1.25 MG (29974 UT) eCW1 ([facility]) Ergocalciferol 53933 UNT Oral Capsule [Drisdol] Drisdo l 1.25 MG (68103 UT) Drisdol 1.25 MG (67218 UT) 07/28/2020 12:00:00 AM EST 1.0 {capsule} suspended Drisdol 1.25 MG (54212 UT) [facility] ([facility]) Ergocalciferol 39355 UNT Oral Capsule [Drisdol] Drisdo l 1.25 MG (63594 UT) Drisdol 1.25 MG (20310 UT) 07/28/2020 12:00:00 AM EST 1.0 {capsule} active Drisdol 1.25 MG (33530 UT) [facility] ([facility]) Acetaminophen 325 MG / Oxycodone Hydroch loride 5 MG Oral Tablet Oxycodone- Acetaminophen 5-325 MG Oxycodone-Acetaminophen 5-325 MG 07/28/2020 12:00:00 A M EST 1.0 {tablet_as_needed} active O xycodone-Acetaminophen 5-325 MG [facility] ([facility]) 50-325 mg 07/28/2020 12:00:00 AM EST tablet 40 TAKE ONE TABLET BY MOUTH EVERY 6 HOURS NEEDED MAXIMUM DAILY DOSE = 4 TABLETS TAKE ONE TABLET BY MOUTH EVERY 6 HOURS NEEDED MAXIMUM DAILY DOSE = 4 TABLETS SOLD: 07/28/2020 [facility] Ergocalciferol 33258 UNT Oral Capsule [Drisdol] Drisdo l 1.25 MG (11206 UT) Drisdol 1.25 MG (51877 UT) 07/28/2020 12:00:00 AM EST 1.0 {capsule} suspended Drisdol 1.25 MG (32780 UT) eCW1 ([facility]) Ergocalciferol 23637 UNT Oral Capsule [Drisdol] Drisdo l 1.25 MG (78140 UT) Drisdol 1.25 MG (58896 UT) 07/28/2020 12:00:00 AM EST 1.0 {capsule} suspended Drisdol 1.25 MG (10682 UT) W ([facility]) Ergocalciferol 53225 UNT Oral Capsule [Drisdol] Drisdo l 1.25 MG (97601 UT) Drisdol 1.25 MG (81587 UT) 07/28/2020 12:00:00 AM EST 1.0 {capsule} suspended Drisdol 1.25 MG (87054 UT) [facility] ([facility]) Ergocalciferol 27696 UNT Oral Capsule [Drisdol] Drisdo l 1.25 MG (59286 UT) Drisdol 1.25 MG (77695 UT) 07/28/2020 12:00:00 AM EST 1.0 {capsule} active Drisdol 1.25 MG (49553 UT) eCW ([facility]) Ergocalciferol 31920 UNT Oral Capsule [Drisdol] Drisdo l 1.25 MG (51745 UT) Drisdol 1.25 MG (19826 UT) 07/28/2020 12:00:00 AM EST 1.0 {capsule} active Drisdol 1.25 MG (58123 UT) [facility] ([facility]) Ergocalciferol 39656 UNT Oral Capsule [Drisdol] Drisdo l 1.25 MG (09309 UT) Drisdol 1.25 MG (89219 UT) 07/28/2020 12:00:00 AM EST 1.0 {capsule} active Drisdol 1.25 MG (00875 UT) [facility] ([facility]) Ergocalciferol 78617 UNT Oral Capsule [Drisdol] Drisdo l 1.25 MG (53533 UT) Drisdol 1.25 MG (92323 UT) 07/28/2020 12:00:00 AM EST 1.0 {capsule} active Drisdol 1.25 MG (97572 UT) [facility] ([facility]) Acetaminophen 325 MG / Oxycodone Hydroch loride 5 MG Oral Tablet Oxycodone- Acetaminophen 5-325 MG Oxycodone-Acetaminophen 5-325 MG 07/28/2020 12:00:00 A M EST 1.0 {tablet_as_needed} active O xycodone-Acetaminophen 5-325 MG [facility] ([facility]) Ergocalciferol 75357 UNT Oral Capsule [Drisdol] Drisdo l 1.25 MG (03870 UT) Drisdol 1.25 MG (51443 UT) 07/28/2020 12:00:00 AM EST 1.0 {capsule} active Drisdol 1.25 MG (64523 UT) [facility] ([facility]) Ergocalciferol 41027 UNT Oral Capsule [Drisdol] Drisdo l 1.25 MG (85207 UT) Drisdol 1.25 MG (83548 UT) 07/28/2020 12:00:00 AM EST 1.0 {capsule} active Drisdol 1.25 MG (97718 UT) [facility] ([facility]) Ergocalciferol 13941 UNT Oral Capsule [Drisdol] Drisdo l 1.25 MG (55577 UT) Drisdol 1.25 MG (68252 UT) 07/28/2020 12:00:00 AM EST 1.0 {capsule} suspended Drisdol 1.25 MG (94673 UT) [facility] ([facility]) Ergocalciferol 24579 UNT Oral Capsule [Drisdol] Drisdo l 1.25 MG (93332 UT) Drisdol 1.25 MG (28381 UT) 07/28/2020 12:00:00 AM EST 1.0 {capsule} active Drisdol 1.25 MG (78836 UT) [facility] ([facility]) Ergocalciferol 10130 UNT Oral Capsule [Drisdol] Drisdo l 1.25 MG (21540 UT) Drisdol 1.25 MG (08520 UT) 07/28/2020 12:00:00 AM EST 1.0 {capsule} active Drisdol 1.25 MG (37175 UT) [facility] ([facility]) Ergocalciferol 92830 UNT Oral Capsule [Drisdol] Drisdo l 1.25 MG (19499 UT) Drisdol 1.25 MG (93240 UT) 07/28/2020 12:00:00 AM EST 1.0 {capsule} suspended Drisdol 1.25 MG (60025 UT) [facility] ([facility]) Ergocalciferol 17011 UNT Oral Capsule [Drisdol] Drisdo l 1.25 MG (48652 UT) Drisdol 1.25 MG (07278 UT) 07/28/2020 12:00:00 AM EST 1.0 {capsule} active Drisdol 1.25 MG (40023 UT) [facility] ([facility]) Ergocalciferol 38735 UNT Oral Capsule [Drisdol] Drisdo l 1.25 MG (99539 UT) Drisdol 1.25 MG (42244 UT) 07/28/2020 12:00:00 AM EST 1.0 {capsule} suspended Drisdol 1.25 MG (75081 UT) [facility] ([facility]) Ergocalciferol 94589 UNT Oral Capsule [Drisdol] Drisdo l 1.25 MG (81915 UT) Drisdol 1.25 MG (78383 UT) 07/28/2020 12:00:00 AM EST 1.0 {capsule} active Drisdol 1.25 MG (53902 UT) [facility] ([facility]) Ergocalciferol 46157 UNT Oral Capsule [Drisdol] Drisdo l 1.25 MG (30530 UT) Drisdol 1.25 MG (19965 UT) 07/28/2020 12:00:00 AM EST 1.0 {capsule} suspended Drisdol 1.25 MG (13887 UT) [facility] ([facility]) Ergocalciferol 40522 UNT Oral Capsule [Drisdol] Drisdo l 1.25 MG (44783 UT) Drisdol 1.25 MG (32243 UT) 07/28/2020 12:00:00 AM EST 1.0 {capsule} active Drisdol 1.25 MG (38338 UT) [facility] ([facility]) Ergocalciferol 10416 UNT Oral Capsule [Drisdol] Drisdo l 1.25 MG (77551 UT) Drisdol 1.25 MG (54874 UT) 07/28/2020 12:00:00 AM EST 1.0 {capsule} active Drisdol 1.25 MG (99013 UT) [facility] ([facility]) Ergocalciferol 55628 UNT Oral Capsule [Drisdol] Drisdo l 1.25 MG (21494 UT) Drisdol 1.25 MG (08195 UT) 07/28/2020 12:00:00 AM EST 1.0 {capsule} suspended Drisdol 1.25 MG (38920 UT) [facility] ([facility]) Ergocalciferol 09733 UNT Oral Capsule [Drisdol] Drisdo l 1.25 MG (56495 UT) Drisdol 1.25 MG (35950 UT) 07/28/2020 12:00:00 AM EST 1.0 {capsule} suspended Drisdol 1.25 MG (97365 UT) [facility] ([facility]) Ergocalciferol 19360 UNT Oral Capsule [Drisdol] Drisdo l 1.25 MG (10941 UT) Drisdol 1.25 MG (05666 UT) 07/28/2020 12:00:00 AM EST 1.0 {capsule} suspended Drisdol 1.25 MG (64479 UT) [facility] ([facility]) Ergocalciferol 59438 UNT Oral Capsule [Drisdol] Drisdo l 1.25 MG (76051 UT) Drisdol 1.25 MG (36297 UT) 07/28/2020 12:00:00 AM EST 1.0 {capsule} suspended Drisdol 1.25 MG (24533 UT) [facility] ([facility]) Ergocalciferol 33082 UNT Oral Capsule [Drisdol] Drisdo l 1.25 MG (98351 UT) Drisdol 1.25 MG (25159 UT) 07/28/2020 12:00:00 AM EST 1.0 {capsule} active Drisdol 1.25 MG (54841 UT) [facility] ([facility]) Ergocalciferol 46388 UNT Oral Capsule [Drisdol] Drisdo l 1.25 MG (68489 UT) Drisdol 1.25 MG (94749 UT) 07/28/2020 12:00:00 AM EST 1.0 {capsule} suspended Drisdol 1.25 MG (70181 UT) [facility] ([facility]) Ergocalciferol 64852 UNT Oral Capsule [Drisdol] Drisdo l 1.25 MG (74721 UT) Drisdol 1.25 MG (02520 UT) 07/28/2020 12:00:00 AM EST 1.0 {capsule} suspended Drisdol 1.25 MG (16619 UT) [facility] ([facility]) Ergocalciferol 26232 UNT Oral Capsule [Drisdol] Drisdo l 1.25 MG (71607 UT) Drisdol 1.25 MG (26598 UT) 07/28/2020 12:00:00 AM EST 1.0 {capsule} suspended Drisdol 1.25 MG (65600 UT) [facility] ([facility]) Ergocalciferol 84347 UNT Oral Capsule [Drisdol] Drisdo l 1.25 MG (22668 UT) Drisdol 1.25 MG (31643 UT) 07/28/2020 12:00:00 AM EST 1.0 {capsule} suspended Drisdol 1.25 MG (75481 UT) [facility] ([facility]) Ergocalciferol 74342 UNT Oral Capsule [Drisdol] Drisdo l 1.25 MG (12014 UT) Drisdol 1.25 MG (84866 UT) 07/28/2020 12:00:00 AM EST 1.0 {capsule} suspended Drisdol 1.25 MG (74760 UT) [facility] ([facility]) Ergocalciferol 40092 UNT Oral Capsule [Drisdol] Drisdo l 1.25 MG (51093 UT) Drisdol 1.25 MG (50111 UT) 07/28/2020 12:00:00 AM EST 1.0 {capsule} suspended Drisdol 1.25 MG (61176 UT) [facility] ([facility]) Ergocalciferol 27108 UNT Oral Capsule [Drisdol] Drisdo l 1.25 MG (79386 UT) Drisdol 1.25 MG (90098 UT) 07/28/2020 12:00:00 AM EST 1.0 {capsule} suspended Drisdol 1.25 MG (64446 UT) [facility] ([facility]) Ergocalciferol 67234 UNT Oral Capsule [Drisdol] Drisdo l 1.25 MG (35785 UT) Drisdol 1.25 MG (89066 UT) 07/28/2020 12:00:00 AM EST 1.0 {capsule} suspended Drisdol 1.25 MG (61263 UT) [facility] ([facility]) Ergocalciferol 32481 UNT Oral Capsule [Drisdol] Drisdo l 1.25 MG (11382 UT) Drisdol 1.25 MG (09013 UT) 07/28/2020 12:00:00 AM EST 1.0 {capsule} suspended Drisdol 1.25 MG (60705 UT) [facility] ([facility]) Ergocalciferol 62557 UNT Oral Capsule [Drisdol] Drisdo l 1.25 MG (78428 UT) Drisdol 1.25 MG (45096 UT) 07/28/2020 12:00:00 AM EST 1.0 {capsule} suspended Drisdol 1.25 MG (82657 UT) [facility] ([facility]) Ergocalciferol 57823 UNT Oral Capsule [Drisdol] Drisdo l 1.25 MG (38116 UT) Drisdol 1.25 MG (13146 UT) 07/28/2020 12:00:00 AM EST 1.0 {capsule} suspended Drisdol 1.25 MG (14589 UT) [facility] ([facility]) 5-325 mg 07/24/2020 12:00:00 AM EST tablet 42 TAKE ONE TABLET BY MOUTH EVERY 4 HOURS NEEDED MAX=6TABS/DAY TAKE ONE TABLET BY MOUTH EVERY 4 HOURS A S NEEDED MAX=6TABS/DAY SOLD: 07/24/2020 [facility] Acetaminophen 325 MG / Oxycodone Hydroch loride 5 MG Oral Tablet Oxycodone- Acetaminophen 5-325 MG Oxycodone-Acetaminophen 5-325 MG 07/22/2020 12:00:00 A M EST 1.0 {tablet_as_needed} active O xycodone-Acetaminophen 5-325 MG eCW1 ([facility]) 5-325 mg 07/17/2020 12:00:00 AM EST tablet 42 TAKE ONE TABLET BY MOUTH EVERY 4 HOURS NEEDED MAXIMUM DAILY DOSE = 6 TABLETS TAKE ONE TABLET BY MOUTH EVERY 4 HOURS NEEDED MAXIMUM DAILY DOSE = 6 TABLETS SOLD: 07/17/2020 [facility] Acetaminophen 325 MG / Oxycodone Hydroch loride 5 MG Oral Tablet Oxycodone- Acetaminophen 5-325 MG Oxycodone-Acetaminophen 5-325 MG 07/15/2020 12:00:00 A M EST 1.0 {tablet_as_needed} active O xycodone-Acetaminophen 5-325 MG eCW1 ([facility]) 5-325 mg 07/10/2020 12:00:00 AM EST tablet 42 TAKE ONE TABLET BY MOUTH EVERY 4 HOURS NEEDED MAX=6TABS TAKE ONE TABLET BY MOUTH EVERY 4 HOURS A S NEEDED MAX=6TABS SOLD: 07/10/2020 [facility] 0.3 % 07/09/2020 12:00:00 AM EST drops 5 INSTILL 1 TO 2 DROPS IN EACH EYE EVERY 2 HOURS FOR 2 DAYS THEN EVERY 4 HOURS FOR 5 DAYS INSTILL 1 TO 2 DROPS IN EACH EYE EVERY 2 HOURS FOR 2 DAYS THEN EVERY 4 HOURS FOR 5 DAYS SOLD: 07/09/2020 [facility] Acetaminophen 325 MG / Oxycodone Hydroch loride 5 MG Oral Tablet Oxycodone- Acetaminophen 5-325 MG Oxycodone-Acetaminophen 5-325 MG 07/08/2020 12:00:00 A M EST 1.0 {tablet_as_needed} active O xycodone-Acetaminophen 5-325 MG eCW1 ([facility]) 5-325 mg 07/03/2020 12:00:00 AM EST tablet 42 TAKE ONE TABLET BY MOUTH EVERY 4 HOURS NEEDED MAXIMUM DAILY DOSE = 6 TABLETS TAKE ONE TABLET BY MOUTH EVERY 4 HOURS NEEDED MAXIMUM DAILY DOSE = 6 TABLETS SOLD: 07/03/2020 [facility] Acetaminophen 325 MG / Oxycodone Hydroch loride 5 MG Oral Tablet Oxycodone- Acetaminophen 5-325 MG Oxycodone-Acetaminophen 5-325 MG 07/01/2020 12:00:00 A M EST 1.0 {tablet_as_needed} active O xycodone-Acetaminophen 5-325 MG eCW1 ([facility]) Acetaminophen 325 MG / Oxycodone Hydroch loride 5 MG Oral Tablet Oxycodone- Acetaminophen 5-325 MG Oxycodone-Acetaminophen 5-325 MG 07/01/2020 12:00:00 A M EST 1.0 {tablet_as_needed} active O xycodone-Acetaminophen 5-325 MG eCW1 ([facility]) 4 mg 06/30/2020 12:00:00 AM EST tablet,disintegrating 1 2 DISSOLVE ONE TABLET ON TONGUE FOUR TIMES A DAY FOR 3 DAYS DISSOLVE ONE TABLET ON TONGUE FOUR TIMES A DAY FOR 3 DAYS SOLD: 07/26/2020 [facility] 4 mg 06/30/2020 12:00:00 AM EST tablet,disintegrating 1 2 DISSOLVE ONE TABLET ON TONGUE FOUR TIMES A DAY FOR 3 DAYS DISSOLVE ONE TABLET ON TONGUE FOUR TIMES A DAY FOR 3 DAYS SOLD: 06/30/2020 [facility] 5-325 mg 06/25/2020 12:00:00 AM EST tablet 42 TAKE ONE TABLET BY MOUTH EVERY 4 HOURS NEEDED MAXIMUM DAILY DOSE = 6 TABLETS TAKE ONE TABLET BY MOUTH EVERY 4 HOURS NEEDED MAXIMUM DAILY DOSE = 6 TABLETS SOLD: 06/26/2020 [facility] Acetaminophen 325 MG / Oxycodone Hydroch loride 5 MG Oral Tablet Oxycodone- Acetaminophen 5-325 MG Oxycodone-Acetaminophen 5-325 MG 06/24/2020 12:00:00 A M EST 1.0 {tablet_as_needed} active O xycodone-Acetaminophen 5-325 MG eCW1 ([facility]) Acetaminophen 325 MG / Oxycodone Hydroch loride 5 MG Oral Tablet Oxycodone- Acetaminophen 5-325 MG Oxycodone-Acetaminophen 5-325 MG 06/17/2020 12:00:00 A M EST 1.0 {tablet_as_needed} active O xycodone-Acetaminophen 5-325 MG eCW1 ([facility]) 5-325 mg 06/17/2020 12:00:00 AM EST tablet 42 TAKE ONE TABLET BY MOUTH EVERY 4 HOURS NEEDED. MAXIMUM DAILY DOSE = 6 TABLETS TAKE ONE TABLET BY MOUTH EVERY 4 HOURS NEEDED. MAXIMUM DAILY DOSE = 6 TABLETS SOLD: 06/19/2020 [facility] Ondansetron 4 MG Disintegrating Oral Tablet Ondansetron 4 MG 06/14/2020 12:00:00 AM EST 1.0 {tablet_on_the_tongue_and_allow_to_dissolve} active Ondansetron 4 MG eCW1 ([facility]) Ondansetron 4 MG Disintegrating Oral Tablet Ondansetron 4 MG 06/14/2020 12:00:00 AM EST 1.0 {tablet_on_the_tongue_and_allow_to_dissolve} active Ondansetron 4 MG eCW1 ([facility]) Ondansetron 4 MG Disintegrating Oral Tablet Ondansetron 4 MG 06/14/2020 12:00:00 AM EST 1.0 {tablet_on_the_tongue_and_allow_to_dissolve} suspended Ondansetron 4 MG eCW1 ([facility]) Ondansetron 4 MG Disintegrating Oral Tablet Ondansetron 4 MG 06/14/2020 12:00:00 AM EST 1.0 {tablet_on_the_tongue_and_allow_to_dissolve} suspended Ondansetron 4 MG eCW1 ([facility]) Ondansetron 4 MG Disintegrating Oral Tablet Ondansetron 4 MG 06/14/2020 12:00:00 AM EST 1.0 {tablet_on_the_tongue_and_allow_to_dissolve} suspended Ondansetron 4 MG eCW1 ([facility]) Ondansetron 4 MG Disintegrating Oral Tablet Ondansetron 4 MG 06/14/2020 12:00:00 AM EST 1.0 {tablet_on_the_tongue_and_allow_to_dissolve} suspended Ondansetron 4 MG eCW1 ([facility]) Ondansetron 4 MG Disintegrating Oral Tablet Ondansetron 4 MG 06/14/2020 12:00:00 AM EST 1.0 {tablet_on_the_tongue_and_allow_to_dissolve} active Ondansetron 4 MG eCW1 ([facility]) Ondansetron 4 MG Disintegrating Oral Tablet Ondansetron 4 MG 06/14/2020 12:00:00 AM EST 1.0 {tablet_on_the_tongue_and_allow_to_dissolve} active Ondansetron 4 MG eCW1 ([facility]) Ondansetron 4 MG Disintegrating Oral Tablet Ondansetron 4 MG 06/14/2020 12:00:00 AM EST 1.0 {tablet_on_the_tongue_and_allow_to_dissolve} suspended Ondansetron 4 MG eCW1 ([facility]) Ondansetron 4 MG Disintegrating Oral Tablet Ondansetron 4 MG 06/14/2020 12:00:00 AM EST 1.0 {tablet_on_the_tongue_and_allow_to_dissolve} active Ondansetron 4 MG eCW1 ([facility]) Ondansetron 4 MG Disintegrating Oral Tablet Ondansetron 4 MG 06/14/2020 12:00:00 AM EST 1.0 {tablet_on_the_tongue_and_allow_to_dissolve} active Ondansetron 4 MG eCW1 ([facility]) Ondansetron 4 MG Disintegrating Oral Tablet Ondansetron 4 MG 06/14/2020 12:00:00 AM EST 1.0 {tablet_on_the_tongue_and_allow_to_dissolve} suspended Ondansetron 4 MG eCW1 ([facility]) Ondansetron 4 MG Disintegrating Oral Tablet Ondansetron 4 MG 06/14/2020 12:00:00 AM EST 1.0 {tablet_on_the_tongue_and_allow_to_dissolve} suspended Ondansetron 4 MG eCW1 ([facility]) Ondansetron 4 MG Disintegrating Oral Tablet Ondansetron 4 MG 06/14/2020 12:00:00 AM EST 1.0 {tablet_on_the_tongue_and_allow_to_dissolve} active Ondansetron 4 MG eCW1 ([facility]) Ondansetron 4 MG Disintegrating Oral Tablet Ondansetron 4 MG 06/14/2020 12:00:00 AM EST 1.0 {tablet_on_the_tongue_and_allow_to_dissolve} suspended Ondansetron 4 MG eCW1 ([facility]) Ondansetron 4 MG Disintegrating Oral Tablet Ondansetron 4 MG 06/14/2020 12:00:00 AM EST 1.0 {tablet_on_the_tongue_and_allow_to_dissolve} active Ondansetron 4 MG eCW1 ([facility]) Ondansetron 4 MG Disintegrating Oral Tablet Ondansetron 4 MG 06/14/2020 12:00:00 AM EST 1.0 {tablet_on_the_tongue_and_allow_to_dissolve} active Ondansetron 4 MG eCW1 ([facility]) Ondansetron 4 MG Disintegrating Oral Tablet Ondansetron 4 MG 06/14/2020 12:00:00 AM EST 1.0 {tablet_on_the_tongue_and_allow_to_dissolve} active Ondansetron 4 MG eCW1 ([facility]) Ondansetron 4 MG Disintegrating Oral Tablet Ondansetron 4 MG 06/14/2020 12:00:00 AM EST 1.0 {tablet_on_the_tongue_and_allow_to_dissolve} suspended Ondansetron 4 MG eCW1 ([facility]) Ondansetron 4 MG Disintegrating Oral Tablet Ondansetron 4 MG 06/14/2020 12:00:00 AM EST 1.0 {tablet_on_the_tongue_and_allow_to_dissolve} suspended Ondansetron 4 MG eCW1 ([facility]) Ondansetron 4 MG Disintegrating Oral Tablet Ondansetron 4 MG 06/14/2020 12:00:00 AM EST 1.0 {tablet_on_the_tongue_and_allow_to_dissolve} suspended Ondansetron 4 MG eCW1 ([facility]) Ondansetron 4 MG Disintegrating Oral Tablet Ondansetron 4 MG 06/14/2020 12:00:00 AM EST 1.0 {tablet_on_the_tongue_and_allow_to_dissolve} active Ondansetron 4 MG eCW1 ([facility]) Ondansetron 4 MG Disintegrating Oral Tablet Ondansetron 4 MG 06/14/2020 12:00:00 AM EST 1.0 {tablet_on_the_tongue_and_allow_to_dissolve} suspended Ondansetron 4 MG eCW1 ([facility]) 4 mg 06/14/2020 12:00:00 AM EST tablet,disintegrating 1 2 DISSOLVE ONE TABLET ON TONGUE FOUR TIMES A DAY DISSOLVE ONE TABLET ON TONGUE FOUR TIMES A DAY SOLD: 06/14/2020 [facility] Ondansetron 4 MG Disintegrating Oral Tablet Ondansetron 4 MG 06/14/2020 12:00:00 AM EST 1.0 {tablet_on_the_tongue_and_allow_to_dissolve} suspended Ondansetron 4 MG eCW1 ([facility]) Ondansetron 4 MG Disintegrating Oral Tablet Ondansetron 4 MG 06/14/2020 12:00:00 AM EST 1.0 {tablet_on_the_tongue_and_allow_to_dissolve} active Ondansetron 4 MG eCW1 ([facility]) Ondansetron 4 MG Disintegrating Oral Tablet Ondansetron 4 MG 06/14/2020 12:00:00 AM EST 1.0 {tablet_on_the_tongue_and_allow_to_dissolve} active Ondansetron 4 MG eCW1 ([facility]) Ondansetron 4 MG Disintegrating Oral Tablet Ondansetron 4 MG 06/14/2020 12:00:00 AM EST 1.0 {tablet_on_the_tongue_and_allow_to_dissolve} suspended Ondansetron 4 MG eCW1 ([facility]) Ondansetron 4 MG Disintegrating Oral Tablet Ondansetron 4 MG 06/14/2020 12:00:00 AM EST 1.0 {tablet_on_the_tongue_and_allow_to_dissolve} active Ondansetron 4 MG eCW1 ([facility]) Ondansetron 4 MG Disintegrating Oral Tablet Ondansetron 4 MG 06/14/2020 12:00:00 AM EST 1.0 {tablet_on_the_tongue_and_allow_to_dissolve} active Ondansetron 4 MG eCW1 ([facility]) Ondansetron 4 MG Disintegrating Oral Tablet Ondansetron 4 MG 06/14/2020 12:00:00 AM EST 1.0 {tablet_on_the_tongue_and_allow_to_dissolve} active Ondansetron 4 MG eCW1 ([facility]) Ondansetron 4 MG Disintegrating Oral Tablet Ondansetron 4 MG 06/14/2020 12:00:00 AM EST 1.0 {tablet_on_the_tongue_and_allow_to_dissolve} active Ondansetron 4 MG eCW1 ([facility]) Ondansetron 4 MG Disintegrating Oral Tablet Ondansetron 4 MG 06/14/2020 12:00:00 AM EST 1.0 {tablet_on_the_tongue_and_allow_to_dissolve} active Ondansetron 4 MG eCW1 ([facility]) Ondansetron 4 MG Disintegrating Oral Tablet Ondansetron 4 MG 06/14/2020 12:00:00 AM EST 1.0 {tablet_on_the_tongue_and_allow_to_dissolve} active Ondansetron 4 MG eCW1 ([facility]) Ondansetron 4 MG Disintegrating Oral Tablet Ondansetron 4 MG 06/14/2020 12:00:00 AM EST 1.0 {tablet_on_the_tongue_and_allow_to_dissolve} active Ondansetron 4 MG eCW1 ([facility]) Ondansetron 4 MG Disintegrating Oral Tablet Ondansetron 4 MG 06/14/2020 12:00:00 AM EST 1.0 {tablet_on_the_tongue_and_allow_to_dissolve} suspended Ondansetron 4 MG eCW1 ([facility]) Ondansetron 4 MG Disintegrating Oral Tablet Ondansetron 4 MG 06/14/2020 12:00:00 AM EST 1.0 {tablet_on_the_tongue_and_allow_to_dissolve} active Ondansetron 4 MG eCW1 ([facility]) Ondansetron 4 MG Disintegrating Oral Tablet Ondansetron 4 MG 06/14/2020 12:00:00 AM EST 1.0 {tablet_on_the_tongue_and_allow_to_dissolve} active Ondansetron 4 MG eCW1 ([facility]) Ondansetron 4 MG Disintegrating Oral Tablet Ondansetron 4 MG 06/14/2020 12:00:00 AM EST 1.0 {tablet_on_the_tongue_and_allow_to_dissolve} active Ondansetron 4 MG eCW1 ([facility]) Ondansetron 4 MG Disintegrating Oral Tablet Ondansetron 4 MG 06/14/2020 12:00:00 AM EST 1.0 {tablet_on_the_tongue_and_allow_to_dissolve} suspended Ondansetron 4 MG eCW1 ([facility]) Ondansetron 4 MG Disintegrating Oral Tablet Ondansetron 4 MG 06/14/2020 12:00:00 AM EST 1.0 {tablet_on_the_tongue_and_allow_to_dissolve} active Ondansetron 4 MG eCW1 ([facility]) Ondansetron 4 MG Disintegrating Oral Tablet Ondansetron 4 MG 06/14/2020 12:00:00 AM EST 1.0 {tablet_on_the_tongue_and_allow_to_dissolve} active Ondansetron 4 MG eCW1 ([facility]) Ondansetron 4 MG Disintegrating Oral Tablet Ondansetron 4 MG 06/14/2020 12:00:00 AM EST 1.0 {tablet_on_the_tongue_and_allow_to_dissolve} active Ondansetron 4 MG eCW1 ([facility]) Ondansetron 4 MG Disintegrating Oral Tablet Ondansetron 4 MG 06/14/2020 12:00:00 AM EST 1.0 {tablet_on_the_tongue_and_allow_to_dissolve} suspended Ondansetron 4 MG eCW1 ([facility]) Ondansetron 4 MG Disintegrating Oral Tablet Ondansetron 4 MG 06/14/2020 12:00:00 AM EST 1.0 {tablet_on_the_tongue_and_allow_to_dissolve} suspended Ondansetron 4 MG eCW1 ([facility]) Ondansetron 4 MG Disintegrating Oral Tablet Ondansetron 4 MG 06/14/2020 12:00:00 AM EST 1.0 {tablet_on_the_tongue_and_allow_to_dissolve} suspended Ondansetron 4 MG eCW1 ([facility]) Ondansetron 4 MG Disintegrating Oral Tablet Ondansetron 4 MG 06/14/2020 12:00:00 AM EST 1.0 {tablet_on_the_tongue_and_allow_to_dissolve} suspended Ondansetron 4 MG eCW1 ([facility]) Ondansetron 4 MG Disintegrating Oral Tablet Ondansetron 4 MG 06/14/2020 12:00:00 AM EST 1.0 {tablet_on_the_tongue_and_allow_to_dissolve} active Ondansetron 4 MG eCW1 ([facility]) Ondansetron 4 MG Disintegrating Oral Tablet Ondansetron 4 MG 06/14/2020 12:00:00 AM EST 1.0 {tablet_on_the_tongue_and_allow_to_dissolve} suspended Ondansetron 4 MG eCW1 ([facility]) Ondansetron 4 MG Disintegrating Oral Tablet Ondansetron 4 MG 06/14/2020 12:00:00 AM EST 1.0 {tablet_on_the_tongue_and_allow_to_dissolve} active Ondansetron 4 MG eCW1 ([facility]) Ondansetron 4 MG Disintegrating Oral Tablet Ondansetron 4 MG 06/14/2020 12:00:00 AM EST 1.0 {tablet_on_the_tongue_and_allow_to_dissolve} suspended Ondansetron 4 MG eCW1 ([facility]) Ondansetron 4 MG Disintegrating Oral Tablet Ondansetron 4 MG 06/14/2020 12:00:00 AM EST 1.0 {tablet_on_the_tongue_and_allow_to_dissolve} active eCW1 ([facility]) Ondansetron 4 MG Disintegrating Oral Tablet Ondansetron 4 MG 06/14/2020 12:00:00 AM EST 1.0 {tablet_on_the_tongue_and_allow_to_dissolve} active Ondansetron 4 MG eCW1 ([facility]) Ondansetron 4 MG Disintegrating Oral Tablet Ondansetron 4 MG 06/14/2020 12:00:00 AM EST 1.0 {tablet_on_the_tongue_and_allow_to_dissolve} suspended Ondansetron 4 MG eCW1 ([facility]) Ondansetron 4 MG Disintegrating Oral Tablet Ondansetron 4 MG 06/14/2020 12:00:00 AM EST 1.0 {tablet_on_the_tongue_and_allow_to_dissolve} suspended Ondansetron 4 MG eCW1 ([facility]) Ondansetron 4 MG Disintegrating Oral Tablet Ondansetron 4 MG 06/14/2020 12:00:00 AM EST 1.0 {tablet_on_the_tongue_and_allow_to_dissolve} suspended Ondansetron 4 MG eCW1 ([facility]) 5-325 mg 06/13/2020 12:00:00 AM EST tablet 42 TAKE ONE TABLET BY MOUTH EVERY 4 HOURS NEEDED MAXIMUM DAILY DOSE = 6 TABLETS TAKE ONE TABLET BY MOUTH EVERY 4 HOURS NEEDED MAXIMUM DAILY DOSE = 6 TABLETS SOLD: 06/13/2020 [facility] Acetaminophen 325 MG / Oxycodone Hydroch loride 5 MG Oral Tablet Oxycodone- Acetaminophen 5-325 MG Oxycodone-Acetaminophen 5-325 MG 06/13/2020 12:00:00 A M EST 1.0 {tablet_as_needed} active O xycodone-Acetaminophen 5-325 MG eCW1 ([facility]) Acetaminophen 325 MG / Oxycodone Hydroch loride 5 MG Oral Tablet Oxycodone- Acetaminophen 5-325 MG Oxycodone-Acetaminophen 5-325 MG 06/13/2020 12:00:00 A M EST 1.0 {tablet_as_needed} active O xycodone-Acetaminophen 5-325 MG eCW1 ([facility]) 5-325 mg 06/06/2020 12:00:00 AM EST tablet 42 TAKE ONE TABLET BY MOUTH EVERY 4 HOURS NEEDED MAX=6TABS/DAY TAKE ONE TABLET BY MOUTH EVERY 4 HOURS A S NEEDED MAX=6TABS/DAY SOLD: 06/06/2020 [facility] Acetaminophen 325 MG / Oxycodone Hydroch loride 5 MG Oral Tablet Oxycodone- Acetaminophen 5-325 MG Oxycodone-Acetaminophen 5-325 MG 06/06/2020 12:00:00 A M EST 1.0 {tablet_as_needed} active O xycodone-Acetaminophen 5-325 MG eCW1 ([facility]) 5-325 mg 05/31/2020 12:00:00 AM EST tablet 42 TAKE ONE TABLET BY MOUTH EVERY 4 HOURS NEEDED MAXIMUM DAILY DOSE = 6 TABLETS TAKE ONE TABLET BY MOUTH EVERY 4 HOURS NEEDED MAXIMUM DAILY DOSE = 6 TABLETS SOLD: 05/31/2020 [facility] Acetaminophen 325 MG / Oxycodone Hydroch loride 5 MG Oral Tablet Oxycodone- Acetaminophen 5-325 MG Oxycodone-Acetaminophen 5-325 MG 05/31/2020 12:00:00 A M EST 1.0 {tablet_as_needed} active O xycodone-Acetaminophen 5-325 MG eCW1 ([facility]) Acetaminophen 325 MG / Oxycodone Hydroch loride 5 MG Oral Tablet Oxycodone- Acetaminophen 5-325 MG Oxycodone-Acetaminophen 5-325 MG 05/24/2020 12:00:00 A M EST 1.0 {tablet_as_needed} active O xycodone-Acetaminophen 5-325 MG eCW1 ([facility]) Fluconazole 150 MG Oral Tablet [Diflucan] Diflucan 150 MG Di flucan 150 MG 05/24/2020 12:00:00 AM EST 1.0 {tablet} active Diflucan 150 MG eCW1 ([facility]) doxycycline hyclate 100 MG Oral Capsule Doxycycline Hy clate 100 MG Doxycycline Hyclate 100 MG 05/24/2020 12:00:00 AM EST 1.0 {capsule} active Doxycycline Hyclate 100 MG eCW1 ([facility]) doxycycline hyclate 100 MG Oral Capsule Doxycycline Hy clate 100 MG Doxycycline Hyclate 100 MG 05/24/2020 12:00:00 AM EST 1.0 {capsule} active Doxycycline Hyclate 100 MG eCW1 ([facility]) Fluconazole 150 MG Oral Tablet [Diflucan] Diflucan 150 MG Di flucan 150 MG 05/24/2020 12:00:00 AM EST 1.0 {tablet} active Diflucan 150 MG eCW1 ([facility]) doxycycline hyclate 100 MG Oral Capsule Doxycycline Hy clate 100 MG Doxycycline Hyclate 100 MG 05/24/2020 12:00:00 AM EST 1.0 {capsule} active Doxycycline Hyclate 100 MG eCW1 ([facility]) Prednisone 20 MG Oral Tablet PredniSONE 20 MG PredniSONE 20 MG 05/24/2020 12:00:00 AM EST 2.0 {tablet} active Pr edniSONE 20 MG eCW1 ([facility]) doxycycline hyclate 100 MG Oral Capsule Doxycycline Hy clate 100 MG Doxycycline Hyclate 100 MG 05/24/2020 12:00:00 AM EST 1.0 {capsule} active Doxycycline Hyclate 100 MG eCW1 ([facility]) Fluconazole 150 MG Oral Tablet [Diflucan] Diflucan 150 MG Di flucan 150 MG 05/24/2020 12:00:00 AM EST 1.0 {tablet} active Diflucan 150 MG eCW1 ([facility]) doxycycline hyclate 100 MG Oral Capsule Doxycycline Hy clate 100 MG Doxycycline Hyclate 100 MG 05/24/2020 12:00:00 AM EST 1.0 {capsule} active Doxycycline Hyclate 100 MG eCW1 ([facility]) doxycycline hyclate 100 MG Oral Capsule DOXYCYCLINE HYCLATE 05/24/2020 12:00:00 AM EST capsule 20 TAKE ONE CAPSULE BY MOUTH EV KARISSA 12 HOURS FOR 10 DAYS TAKE ONE CAPSULE BY MOUTH EVERY 12 HOURS FOR 10 DAYS SOLD: 05/24/2020 [facility] 5-325 mg 05/24/2020 12:00:00 AM EST tablet 42 TAKE ONE TABLET BY MOUTH EVERY 4 HOURS NEEDED MAXIMUM DAILY DOSE = 6 TABLETS TAKE ONE TABLET BY MOUTH EVERY 4 HOURS NEEDED MAXIMUM DAILY DOSE = 6 TABLETS SOLD: 05/24/2020 [facility] Acetaminophen 325 MG / Oxycodone Hydroch loride 5 MG Oral Tablet Oxycodone- Acetaminophen 5-325 MG Oxycodone-Acetaminophen 5-325 MG 05/24/2020 12:00:00 A M EST 1.0 {tablet_as_needed} active O xycodone-Acetaminophen 5-325 MG eCW1 ([facility]) doxycycline hyclate 100 MG Oral Capsule Doxycycline Hy clate 100 MG Doxycycline Hyclate 100 MG 05/24/2020 12:00:00 AM EST 1.0 {capsule} active Doxycycline Hyclate 100 MG eCW1 ([facility]) Fluconazole 150 MG Oral Tablet [Diflucan] Diflucan 150 MG Di flucan 150 MG 05/24/2020 12:00:00 AM EST 1.0 {tablet} active Diflucan 150 MG eCW1 ([facility]) Prednisone 20 MG Oral Tablet PredniSONE 20 MG PredniSONE 20 MG 05/24/2020 12:00:00 AM EST 2.0 {tablet} active Pr edniSONE 20 MG eCW1 ([facility]) Fluconazole 150 MG Oral Tablet [Diflucan] Diflucan 150 MG Di flucan 150 MG 05/24/2020 12:00:00 AM EST 1.0 {tablet} active Diflucan 150 MG eCW1 ([facility]) Fluconazole 150 MG Oral Tablet [Diflucan] Diflucan 150 MG Di flucan 150 MG 05/24/2020 12:00:00 AM EST 1.0 {tablet} active Diflucan 150 MG eCW1 ([facility]) Fluconazole 150 MG Oral Tablet [Diflucan] Diflucan 150 MG Di flucan 150 MG 05/24/2020 12:00:00 AM EST 1.0 {tablet} active Diflucan 150 MG eCW1 ([facility]) Fluconazole 150 MG Oral Tablet [Diflucan] Diflucan 150 MG Di flucan 150 MG 05/24/2020 12:00:00 AM EST 1.0 {tablet} active Diflucan 150 MG eCW1 ([facility]) doxycycline hyclate 100 MG Oral Capsule Doxycycline Hy clate 100 MG Doxycycline Hyclate 100 MG 05/24/2020 12:00:00 AM EST 1.0 {capsule} active Doxycycline Hyclate 100 MG eCW1 ([facility]) Fluconazole 150 MG Oral Tablet [Diflucan] Diflucan 150 MG Di flucan 150 MG 05/24/2020 12:00:00 AM EST 1.0 {tablet} active Diflucan 150 MG eCW1 ([facility]) Prednisone 20 MG Oral Tablet PredniSONE 20 MG PredniSONE 20 MG 05/24/2020 12:00:00 AM EST 2.0 {tablet} active Pr edniSONE 20 MG eCW1 ([facility]) Fluconazole 150 MG Oral Tablet [Diflucan] Diflucan 150 MG Di flucan 150 MG 05/24/2020 12:00:00 AM EST 1.0 {tablet} active Diflucan 150 MG eCW1 ([facility]) Prednisone 20 MG Oral Tablet PredniSONE 20 MG PredniSONE 20 MG 05/24/2020 12:00:00 AM EST 2.0 {tablet} active Pr edniSONE 20 MG eCW1 ([facility]) Fluconazole 150 MG Oral Tablet [Diflucan] Diflucan 150 MG Di flucan 150 MG 05/24/2020 12:00:00 AM EST 1.0 {tablet} active Diflucan 150 MG eCW1 ([facility]) Fluconazole 150 MG Oral Tablet [Diflucan] Diflucan 150 MG Di flucan 150 MG 05/24/2020 12:00:00 AM EST 1.0 {tablet} active Diflucan 150 MG eCW1 ([facility]) Prednisone 20 MG Oral Tablet PredniSONE 20 MG PredniSONE 20 MG 05/24/2020 12:00:00 AM EST 2.0 {tablet} active Pr edniSONE 20 MG eCW1 ([facility]) Prednisone 20 MG Oral Tablet PredniSONE 20 MG PredniSONE 20 MG 05/24/2020 12:00:00 AM EST 2.0 {tablet} active Pr edniSONE 20 MG eCW1 ([facility]) Prednisone 20 MG Oral Tablet PredniSONE 20 MG PredniSONE 20 MG 05/24/2020 12:00:00 AM EST 2.0 {tablet} active Pr edniSONE 20 MG eCW1 ([facility]) Prednisone 20 MG Oral Tablet PredniSONE 20 MG PredniSONE 20 MG 05/24/2020 12:00:00 AM EST 2.0 {tablet} active Pr edniSONE 20 MG eCW1 ([facility]) doxycycline hyclate 100 MG Oral Capsule Doxycycline Hy clate 100 MG Doxycycline Hyclate 100 MG 05/24/2020 12:00:00 AM EST 1.0 {capsule} active Doxycycline Hyclate 100 MG eCW1 ([facility]) Prednisone 20 MG Oral Tablet PredniSONE 20 MG PredniSONE 20 MG 05/24/2020 12:00:00 AM EST 2.0 {tablet} active Pr edniSONE 20 MG eCW1 ([facility]) doxycycline hyclate 100 MG Oral Capsule Doxycycline Hy clate 100 MG Doxycycline Hyclate 100 MG 05/24/2020 12:00:00 AM EST 1.0 {capsule} active Doxycycline Hyclate 100 MG eCW1 ([facility]) Prednisone 20 MG Oral Tablet PredniSONE 20 MG PredniSONE 20 MG 05/24/2020 12:00:00 AM EST 2.0 {tablet} active Pr edniSONE 20 MG eCW1 ([facility]) doxycycline hyclate 100 MG Oral Capsule Doxycycline Hy clate 100 MG Doxycycline Hyclate 100 MG 05/24/2020 12:00:00 AM EST 1.0 {capsule} active Doxycycline Hyclate 100 MG eCW1 ([facility]) doxycycline hyclate 100 MG Oral Capsule Doxycycline Hy clate 100 MG Doxycycline Hyclate 100 MG 05/24/2020 12:00:00 AM EST 1.0 {capsule} active Doxycycline Hyclate 100 MG eCW1 ([facility]) Prednisone 20 MG Oral Tablet PredniSONE 20 MG PredniSONE 20 MG 05/24/2020 12:00:00 AM EST 2.0 {tablet} active Pr edniSONE 20 MG eCW1 ([facility]) Prednisone 20 MG Oral Tablet PredniSONE 20 MG PredniSONE 20 MG 05/24/2020 12:00:00 AM EST 2.0 {tablet} active Pr edniSONE 20 MG eCW1 ([facility]) 150 mg 05/24/2020 12:00:00 AM EST tablet 3 TAKE ONE TABLET BY MOUTH EVERY DAY DIRECTED FOR 3 DAYS TAKE ONE TABLET BY MOUTH EVERY DAY DI RECTED FOR 3 DAYS SOLD: 05/24/2020 [facility] Prednisone 20 MG Oral Tablet PredniSONE 20 MG PredniSONE 20 MG 05/24/2020 12:00:00 AM EST 2.0 {tablet} active Pr edniSONE 20 MG eCW1 ([facility]) doxycycline hyclate 100 MG Oral Capsule Doxycycline Hy clate 100 MG Doxycycline Hyclate 100 MG 05/24/2020 12:00:00 AM EST 1.0 {capsule} active Doxycycline Hyclate 100 MG eCW1 ([facility]) Fluconazole 150 MG Oral Tablet [Diflucan] Diflucan 150 MG Di flucan 150 MG 05/24/2020 12:00:00 AM EST 1.0 {tablet} active Diflucan 150 MG eCW1 ([facility]) 20 mg 05/24/2020 12:00:00 AM EST tablet 10 TAKE TWO TABLETS BY MOUTH EVERY DAY FOR 5 DAYS TAKE TWO TABLETS BY MOUTH EVERY DAY FOR 5 DAYS SOLD: 020 [facility] doxycycline hyclate 100 MG Oral Capsule Doxycycline Hy clate 100 MG Doxycycline Hyclate 100 MG 05/24/2020 12:00:00 AM EST 1.0 {capsule} active Doxycycline Hyclate 100 MG eCW1 ([facility]) Acetaminophen 325 MG / Oxycodone Hydroch loride 5 MG Oral Tablet Oxycodone- Acetaminophen 5-325 MG Oxycodone-Acetaminophen 5-325 MG 05/18/2020 12:00:00 A M EST 1.0 {tablet_as_needed} active O xycodone-Acetaminophen 5-325 MG eCW1 ([facility]) Acetaminophen 325 MG / Oxycodone Hydroch loride 5 MG Oral Tablet Oxycodone- Acetaminophen 5-325 MG Oxycodone-Acetaminophen 5-325 MG 05/18/2020 12:00:00 A M EST 1.0 {tablet_as_needed} active O xycodone-Acetaminophen 5-325 MG eCW1 ([facility]) 5-325 mg 05/18/2020 12:00:00 AM EST tablet 42 TAKE ONE TABLET BY MOUTH EVERY 4 HOURS NEEDED MAXIMUM DAILY DOSE = 6 TABLETS TAKE ONE TABLET BY MOUTH EVERY 4 HOURS NEEDED MAXIMUM DAILY DOSE = 6 TABLETS SOLD: 05/18/2020 [facility] 40 mg 05/14/2020 12:00:00 AM EST capsule,delayed release (DR/EC) 30 TAKE ONE CAPSULE BY MOUTH EVERY DAY TAKE ONE CAPSULE BY MOUTH EVERY DAY SOLD: 06/29/2020 [facility] 40 mg 05/14/2020 12:00:00 AM EST capsule,delayed release (DR/EC) 30 TAKE ONE CAPSULE BY MOUTH EVERY DAY TAKE ONE CAPSULE BY MOUTH EVERY DAY SOLD: 07/27/2020 [facility] 40 mg 05/14/2020 12:00:00 AM EST capsule,delayed release (DR/EC) 30 TAKE ONE CAPSULE BY MOUTH EVERY DAY TAKE ONE CAPSULE BY MOUTH EVERY DAY SOLD: 09/07/2020 [facility] 40 mg 05/14/2020 12:00:00 AM EST capsule,delayed release (DR/EC) 30 TAKE ONE CAPSULE BY MOUTH EVERY DAY TAKE ONE CAPSULE BY MOUTH EVERY DAY SOLD: 05/14/2020 [facility] 40 mg 05/14/2020 12:00:00 AM EST capsule,delayed release (DR/EC) 30 TAKE ONE CAPSULE BY MOUTH EVERY DAY TAKE ONE CAPSULE BY MOUTH EVERY DAY SOLD: 06/05/2020 [facility] Acetaminophen 325 MG / Oxycodone Hydroch loride 5 MG Oral Tablet Oxycodone- Acetaminophen 5-325 MG Oxycodone-Acetaminophen 5-325 MG 05/12/2020 12:00:00 A M EST 1.0 {tablet_as_needed} active O xycodone-Acetaminophen 5-325 MG eCW1 ([facility]) 5-325 mg 05/12/2020 12:00:00 AM EST tablet 42 TAKE ONE TABLET BY MOUTH EVERY 4 HOURS NEEDED MAXIMUM DAILY DOSE = 6 TABLETS TAKE ONE TABLET BY MOUTH EVERY 4 HOURS NEEDED MAXIMUM DAILY DOSE = 6 TABLETS SOLD: 05/13/2020 [facility] Acetaminophen 325 MG / Oxycodone Hydroch loride 5 MG Oral Tablet Oxycodone- Acetaminophen 5-325 MG Oxycodone-Acetaminophen 5-325 MG 05/06/2020 12:00:00 A M EST 1.0 {tablet_as_needed} active O xycodone-Acetaminophen 5-325 MG eCW1 ([facility]) 5-325 mg 05/06/2020 12:00:00 AM EST tablet 42 TAKE ONE TABLET BY MOUTH EVERY 4 HOURS NEEDED MAX=6TABS/DAY TAKE ONE TABLET BY MOUTH EVERY 4 HOURS A S NEEDED MAX=6TABS/DAY SOLD: 05/06/2020 [facility] 1,250 mcg (50,000 unit) 05/01/2020 12:00:00 AM EST capsule 4 TAKE ONE CAPSULE BY MOUTH WEEKLY TAKE ONE CAPSULE BY MOUTH WEEKLY SOLD: 05/10/2020 [facility] 5-325 mg 04/30/2020 12:00:00 AM EST tablet 42 TAKE ONE TABLET BY MOUTH EVERY 4 HOURS NEEDED MAXIMUM DAILY DOSE = 6 TABLETS TAKE ONE TABLET BY MOUTH EVERY 4 HOURS NEEDED MAXIMUM DAILY DOSE = 6 TABLETS SOLD: 04/30/2020 [facility] Ergocalciferol [id number] UNT Oral Capsule [Drisdol] Drisdo l 1.25 MG (13513 UT) Drisdol 1.25 MG (70685 UT) 04/29/2020 12:00:00 AM EST 1.0 {capsule} suspended Drisdol 1.25 MG (29119 UT) [facility] ([facility]) Ergocalciferol 55907 UNT Oral Capsule [Drisdol] Drisdo l 1.25 MG (86648 UT) Drisdol 1.25 MG (55802 UT) 04/29/2020 12:00:00 AM EST 1.0 {capsule} suspended Drisdol 1.25 MG (24377 UT) [facility] ([facility]) Ergocalciferol 56090 UNT Oral Capsule [Drisdol] Drisdo l 1.25 MG (69294 UT) Drisdol 1.25 MG (38167 UT) 04/29/2020 12:00:00 AM EST 1.0 {capsule} suspended Drisdol 1.25 MG (46381 UT) [facility] ([facility]) Ergocalciferol 97411 UNT Oral Capsule [Drisdol] Drisdo l 1.25 MG (88181 UT) Drisdol 1.25 MG (80464 UT) 04/29/2020 12:00:00 AM EST 1.0 {capsule} active Drisdol 1.25 MG (83045 UT) [facility] ([facility]) Ergocalciferol 63991 UNT Oral Capsule [Drisdol] Drisdo l 1.25 MG (87619 UT) Drisdol 1.25 MG (35447 UT) 04/29/2020 12:00:00 AM EST 1.0 {capsule} active Drisdol 1.25 MG (13512 UT) eCW1 ([facility]) Acetaminophen 325 MG / Oxycodone Hydroch loride 5 MG Oral Tablet Oxycodone- Acetaminophen 5-325 MG Oxycodone-Acetaminophen 5-325 MG 04/29/2020 12:00:00 A M EST 1.0 {tablet_as_needed} active O xycodone-Acetaminophen 5-325 MG eCW1 ([facility]) Ergocalciferol 09145 UNT Oral Capsule [Drisdol] Drisdo l 1.25 MG (77303 UT) Drisdol 1.25 MG (97407 UT) 04/29/2020 12:00:00 AM EST 1.0 {capsule} active Drisdol 1.25 MG (73071 UT) [facility] ([facility]) Ergocalciferol 86501 UNT Oral Capsule [Drisdol] Drisdo l 1.25 MG (24312 UT) Drisdol 1.25 MG (49991 UT) 04/29/2020 12:00:00 AM EST 1.0 {capsule} active Drisdol 1.25 MG (46923 UT) [facility] ([facility]) Ergocalciferol 80553 UNT Oral Capsule [Drisdol] Drisdo l 1.25 MG (77451 UT) Drisdol 1.25 MG (18318 UT) 04/29/2020 12:00:00 AM EST 1.0 {capsule} active Drisdol 1.25 MG (55552 UT) [facility] ([facility]) Ergocalciferol 06150 UNT Oral Capsule [Drisdol] Drisdo l 1.25 MG (81523 UT) Drisdol 1.25 MG (85826 UT) 04/29/2020 12:00:00 AM EST 1.0 {capsule} active Drisdol 1.25 MG (51231 UT) [facility] ([facility]) Ergocalciferol 14112 UNT Oral Capsule [Drisdol] Drisdo l 1.25 MG (14485 UT) Drisdol 1.25 MG (98449 UT) 04/29/2020 12:00:00 AM EST 1.0 {capsule} active Drisdol 1.25 MG (29772 UT) eCW1 ([facility]) Ergocalciferol 67425 UNT Oral Capsule [Drisdol] Drisdo l 1.25 MG (53576 UT) Drisdol 1.25 MG (31819 UT) 04/29/2020 12:00:00 AM EST 1.0 {capsule} suspended Drisdol 1.25 MG (30430 UT) [facility] ([facility]) Ergocalciferol 38123 UNT Oral Capsule [Drisdol] Drisdo l 1.25 MG (75059 UT) Drisdol 1.25 MG (36875 UT) 04/29/2020 12:00:00 AM EST 1.0 {capsule} suspended Drisdol 1.25 MG (32818 UT) [facility] ([facility]) Ergocalciferol 41257 UNT Oral Capsule [Drisdol] Drisdo l 1.25 MG (16454 UT) Drisdol 1.25 MG (74656 UT) 04/29/2020 12:00:00 AM EST 1.0 {capsule} active Drisdol 1.25 MG (91572 UT) [facility] ([facility]) Ergocalciferol 69071 UNT Oral Capsule [Drisdol] Drisdo l 1.25 MG (19779 UT) Drisdol 1.25 MG (07197 UT) 04/29/2020 12:00:00 AM EST 1.0 {capsule} active Drisdol 1.25 MG (37618 UT) [facility] ([facility]) Ergocalciferol 40054 UNT Oral Capsule [Drisdol] Drisdo l 1.25 MG (16920 UT) Drisdol 1.25 MG (42563 UT) 04/29/2020 12:00:00 AM EST 1.0 {capsule} suspended Drisdol 1.25 MG (50419 UT) [facility] ([facility]) Ergocalciferol 18629 UNT Oral Capsule [Drisdol] Drisdo l 1.25 MG (77758 UT) Drisdol 1.25 MG (66334 UT) 04/29/2020 12:00:00 AM EST 1.0 {capsule} active Drisdol 1.25 MG (12322 UT) [facility] ([facility]) Ergocalciferol 05219 UNT Oral Capsule [Drisdol] Drisdo l 1.25 MG (87962 UT) Drisdol 1.25 MG (16889 UT) 04/29/2020 12:00:00 AM EST 1.0 {capsule} active Drisdol 1.25 MG (37953 UT) [facility] ([facility]) Ergocalciferol 56277 UNT Oral Capsule [Drisdol] Drisdo l 1.25 MG (10665 UT) Drisdol 1.25 MG (11514 UT) 04/29/2020 12:00:00 AM EST 1.0 {capsule} suspended Drisdol 1.25 MG (35838 UT) [facility] ([facility]) Ergocalciferol 45288 UNT Oral Capsule [Drisdol] Drisdo l 1.25 MG (75921 UT) Drisdol 1.25 MG (93044 UT) 04/29/2020 12:00:00 AM EST 1.0 {capsule} active Drisdol 1.25 MG (23345 UT) [facility] ([facility]) Ergocalciferol 19073 UNT Oral Capsule [Drisdol] Drisdo l 1.25 MG (51431 UT) Drisdol 1.25 MG (35010 UT) 04/29/2020 12:00:00 AM EST 1.0 {capsule} active Drisdol 1.25 MG (40577 UT) [facility] ([facility]) Ergocalciferol 27943 UNT Oral Capsule [Drisdol] Drisdo l 1.25 MG (25662 UT) Drisdol 1.25 MG (01283 UT) 04/29/2020 12:00:00 AM EST 1.0 {capsule} active Drisdol 1.25 MG (35976 UT) [facility] ([facility]) Ergocalciferol 59139 UNT Oral Capsule [Drisdol] Drisdo l 1.25 MG (74675 UT) Drisdol 1.25 MG (94076 UT) 04/29/2020 12:00:00 AM EST 1.0 {capsule} active Drisdol 1.25 MG (26039 UT) [facility] ([facility]) Ergocalciferol 44838 UNT Oral Capsule [Drisdol] Drisdo l 1.25 MG (07567 UT) Drisdol 1.25 MG (29584 UT) 04/29/2020 12:00:00 AM EST 1.0 {capsule} suspended Drisdol 1.25 MG (14650 UT) [facility] ([facility]) Ergocalciferol 55380 UNT Oral Capsule [Drisdol] Drisdo l 1.25 MG (49930 UT) Drisdol 1.25 MG (64065 UT) 04/29/2020 12:00:00 AM EST 1.0 {capsule} active Drisdol 1.25 MG (11733 UT) [facility] ([facility]) Ergocalciferol 08070 UNT Oral Capsule [Drisdol] Drisdo l 1.25 MG (18836 UT) Drisdol 1.25 MG (40426 UT) 04/29/2020 12:00:00 AM EST 1.0 {capsule} active Drisdol 1.25 MG (79440 UT) [facility] ([facility]) Ergocalciferol 38542 UNT Oral Capsule [Drisdol] Drisdo l 1.25 MG (97635 UT) Drisdol 1.25 MG (24218 UT) 04/29/2020 12:00:00 AM EST 1.0 {capsule} active Drisdol 1.25 MG (35761 UT) [facility] ([facility]) Ergocalciferol 15404 UNT Oral Capsule [Drisdol] Drisdo l 1.25 MG (76599 UT) Drisdol 1.25 MG (52870 UT) 04/29/2020 12:00:00 AM EST 1.0 {capsule} active Drisdol 1.25 MG (23384 UT) [facility] ([facility]) Ergocalciferol 40143 UNT Oral Capsule [Drisdol] Drisdo l 1.25 MG (80590 UT) Drisdol 1.25 MG (83783 UT) 04/29/2020 12:00:00 AM EST 1.0 {capsule} active Drisdol 1.25 MG (55934 UT) [facility] ([facility]) Ergocalciferol 26160 UNT Oral Capsule [Drisdol] Drisdo l 1.25 MG (63021 UT) Drisdol 1.25 MG (50527 UT) 04/29/2020 12:00:00 AM EST 1.0 {capsule} suspended Drisdol 1.25 MG (70270 UT) [facility] ([facility]) Ergocalciferol 53114 UNT Oral Capsule [Drisdol] Drisdo l 1.25 MG (62191 UT) Drisdol 1.25 MG (43882 UT) 04/29/2020 12:00:00 AM EST 1.0 {capsule} active Drisdol 1.25 MG (10818 UT) [facility] ([facility]) Ergocalciferol 41196 UNT Oral Capsule [Drisdol] Drisdo l 1.25 MG (41852 UT) Drisdol 1.25 MG (39371 UT) 04/29/2020 12:00:00 AM EST 1.0 {capsule} suspended Drisdol 1.25 MG (39005 UT) [facility] ([facility]) Ergocalciferol 95206 UNT Oral Capsule [Drisdol] Drisdo l 1.25 MG (42304 UT) Drisdol 1.25 MG (98071 UT) 04/29/2020 12:00:00 AM EST 1.0 {capsule} active Drisdol 1.25 MG (17594 UT) [facility] ([facility]) Ergocalciferol 29067 UNT Oral Capsule [Drisdol] Drisdo l 1.25 MG (25779 UT) Drisdol 1.25 MG (10177 UT) 04/29/2020 12:00:00 AM EST 1.0 {capsule} suspended Drisdol 1.25 MG (50093 UT) [facility] ([facility]) 5-325 mg 04/24/2020 12:00:00 AM EST tablet 42 TAKE ONE TABLET BY MOUTH EVERY 4 HOURS NEEDED MAXIMUM DAILY DOSE = 6 TABLETS TAKE ONE TABLET BY MOUTH EVERY 4 HOURS NEEDED MAXIMUM DAILY DOSE = 6 TABLETS SOLD: 04/24/2020 [facility] Acetaminophen 325 MG / Oxycodone Hydroch loride 5 MG Oral Tablet Oxycodone- Acetaminophen 5-325 MG Oxycodone-Acetaminophen 5-325 MG 04/20/2020 12:00:00 A M EST 1.0 {tablet_as_needed} active O xycodone-Acetaminophen 5-325 MG eCW1 ([facility]) 5-325 mg 04/17/2020 12:00:00 AM EST tablet 42 TAKE ONE TABLET BY MOUTH EVERY 4 HOURS NEEDED MAX=6TABS/DAY TAKE ONE TABLET BY MOUTH EVERY 4 HOURS A S NEEDED MAX=6TABS/DAY SOLD: 04/17/2020 [facility] Acetaminophen 325 MG / Oxycodone Hydroch loride 5 MG Oral Tablet Oxycodone- Acetaminophen 5-325 MG Oxycodone-Acetaminophen 5-325 MG 04/15/2020 12:00:00 A M EST 1.0 {tablet_as_needed} active O xycodone-Acetaminophen 5-325 MG eCW1 ([facility]) 5-325 mg 04/11/2020 12:00:00 AM EST tablet 42 TAKE ONE TABLET BY MOUTH EVERY 4 HOURS NEEDED MAXIMUM DAILY DOSE = 6 TABLETS TAKE ONE TABLET BY MOUTH EVERY 4 HOURS NEEDED MAXIMUM DAILY DOSE = 6 TABLETS SOLD: 04/11/2020 [facility] Acetaminophen 325 MG / Oxycodone Hydroch loride 5 MG Oral Tablet Oxycodone- Acetaminophen 5-325 MG Oxycodone-Acetaminophen 5-325 MG 04/11/2020 12:00:00 A M EST 1.0 {tablet_as_needed} active O xycodone-Acetaminophen 5-325 MG eCW1 ([facility]) 5-325 mg 04/05/2020 12:00:00 AM EST tablet 42 TAKE ONE TABLET BY MOUTH EVERY 4 HOURS NEEDED MAX=6TABS/DAY TAKE ONE TABLET BY MOUTH EVERY 4 HOURS A S NEEDED MAX=6TABS/DAY SOLD: 04/05/2020 [facility] Acetaminophen 325 MG / Oxycodone Hydroch loride 5 MG Oral Tablet Oxycodone- Acetaminophen 5-325 MG Oxycodone-Acetaminophen 5-325 MG 04/04/2020 12:00:00 A M EST 1.0 {tablet_as_needed} active O xycodone-Acetaminophen 5-325 MG eCW1 ([facility]) Acetaminophen 325 MG / Oxycodone Hydroch loride 5 MG Oral Tablet Oxycodone- Acetaminophen 5-325 MG Oxycodone-Acetaminophen 5-325 MG 03/29/2020 12:00:00 A M EST 1.0 {tablet_as_needed} active O xycodone-Acetaminophen 5-325 MG eCW1 ([facility]) Acetaminophen 325 MG / Oxycodone Hydroch loride 5 MG Oral Tablet Oxycodone- Acetaminophen 5-325 MG Oxycodone-Acetaminophen 5-325 MG 03/29/2020 12:00:00 A M EST 1.0 {tablet_as_needed} active O xycodone-Acetaminophen 5-325 MG eCW1 ([facility]) Acetaminophen 325 MG / Oxycodone Hydroch loride 5 MG Oral Tablet Oxycodone- Acetaminophen 5-325 MG Oxycodone-Acetaminophen 5-325 MG 03/29/2020 12:00:00 A M EST 1.0 {tablet_as_needed} active O xycodone-Acetaminophen 5-325 MG eCW1 ([facility]) Acetaminophen 325 MG / Oxycodone Hydroch loride 5 MG Oral Tablet Oxycodone- Acetaminophen 5-325 MG Oxycodone-Acetaminophen 5-325 MG 03/23/2020 12:00:00 A M EDT 1.0 {tablet_as_needed} active O xycodone-Acetaminophen 5-325 MG eCW1 ([facility]) 5-325 mg 03/23/2020 12:00:00 AM EDT tablet 42 TAKE ONE TABLET BY MOUTH EVERY 4 HOURS NEEDED FOR 7 DAYS MAXIMUM DAILY DOSE = SIX TABLETS TAKE ONE TABLET BY MOUTH EVERY 4 HOURS NEEDED FOR 7 DAYS MAXIMUM DAILY DOSE = SIX TABLETS SOLD: 03/23/2020 [facility] 5-325 mg 03/17/2020 12:00:00 AM EDT tablet 42 TAKE ONE TABLET BY MOUTH EVERY 4 HOURS NEEDED MAXIMUM DAILY DOSE = 6 TABLETS TAKE ONE TABLET BY MOUTH EVERY 4 HOURS NEEDED MAXIMUM DAILY DOSE = 6 TABLETS SOLD: 03/17/2020 [facility] Acetaminophen 325 MG / Oxycodone Hydroch loride 5 MG Oral Tablet Oxycodone- Acetaminophen 5-325 MG Oxycodone-Acetaminophen 5-325 MG 03/17/2020 12:00:00 A M EDT 1.0 {tablet_as_needed} active O xycodone-Acetaminophen 5-325 MG eCW1 ([facility]) Acetaminophen 325 MG / Oxycodone Hydroch loride 5 MG Oral Tablet Oxycodone- Acetaminophen 5-325 MG Oxycodone-Acetaminophen 5-325 MG 03/11/2020 12:00:00 A M EDT 1.0 {tablet_as_needed} active O xycodone-Acetaminophen 5-325 MG eCW1 ([facility]) 5-325 mg 03/11/2020 12:00:00 AM EDT tablet 42 TAKE ONE TABLET BY MOUTH EVERY 4 HOURS NEEDED MAX=6TABS/DAY TAKE ONE TABLET BY MOUTH EVERY 4 HOURS A S NEEDED MAX=6TABS/DAY SOLD: 03/11/2020 [facility] Acetaminophen 325 MG / Oxycodone Hydroch loride 5 MG Oral Tablet Oxycodone- Acetaminophen 5-325 MG Oxycodone-Acetaminophen 5-325 MG 03/11/2020 12:00:00 A M EDT 1.0 {tablet_as_needed} active O xycodone-Acetaminophen 5-325 MG eCW1 ([facility]) 5-325 mg 03/05/2020 12:00:00 AM EDT tablet 42 TAKE ONE TABLET BY MOUTH EVERY 4 HOURS NEEDED MAXIMUM DAILY DOSE = 6 TAKE ONE TABLET BY MOUTH EVERY 4 HOURS NEEDED MAXIMUM DAILY DOSE = 6 SOLD: 03/05/2020 [facility] tizanidine 2 MG Oral Tablet tiZANidine HCl 2 MG tiZANidine H Cl 2 MG 03/04/2020 12:00:00 AM EDT 1.0 {tablet_as_needed} active tiZANidine HCl 2 MG eCW1 ([facility]) tizanidine 2 MG Oral Tablet Tizanidine HCl 2 MG Tizanidine H Cl 2 MG 03/04/2020 12:00:00 AM EDT 1.0 {tablet_as_needed} active Tizanidine HCl 2 MG eCW1 ([facility]) tizanidine 2 MG Oral Tablet Tizanidine HCl 2 MG Tizanidine H Cl 2 MG 03/04/2020 12:00:00 AM EDT 1.0 {tablet_as_needed} active Tizanidine HCl 2 MG eCW1 ([facility]) tizanidine 2 MG Oral Tablet Tizanidine HCl 2 MG Tizanidine H Cl 2 MG 03/04/2020 12:00:00 AM EDT 1.0 {tablet_as_needed} active Tizanidine HCl 2 MG eCW1 ([facility]) tizanidine 2 MG Oral Tablet Tizanidine HCl 2 MG Tizanidine H Cl 2 MG 03/04/2020 12:00:00 AM EDT 1.0 {tablet_as_needed} active Tizanidine HCl 2 MG eCW1 ([facility]) tizanidine 2 MG Oral Tablet Tizanidine HCl 2 MG Tizanidine H Cl 2 MG 03/04/2020 12:00:00 AM EDT 1.0 {tablet_as_needed} active Tizanidine HCl 2 MG eCW1 ([facility]) tizanidine 2 MG Oral Tablet Tizanidine HCl 2 MG Tizanidine H Cl 2 MG 03/04/2020 12:00:00 AM EDT 1.0 {tablet_as_needed} active Tizanidine HCl 2 MG eCW1 ([facility]) tizanidine 2 MG Oral Tablet tiZANidine HCl 2 MG tiZANidine H Cl 2 MG 03/04/2020 12:00:00 AM EDT 1.0 {tablet_as_needed} active tiZANidine HCl 2 MG eCW1 ([facility]) tizanidine 2 MG Oral Tablet tiZANidine HCl 2 MG tiZANidine H Cl 2 MG 03/04/2020 12:00:00 AM EDT 1.0 {tablet_as_needed} active tiZANidine HCl 2 MG eCW1 ([facility]) tizanidine 2 MG Oral Tablet Tizanidine HCl 2 MG Tizanidine H Cl 2 MG 03/04/2020 12:00:00 AM EDT 1.0 {tablet_as_needed} active Tizanidine HCl 2 MG eCW1 ([facility]) tizanidine 2 MG Oral Tablet Tizanidine HCl 2 MG Tizanidine H Cl 2 MG 03/04/2020 12:00:00 AM EDT 1.0 {tablet_as_needed} active Tizanidine HCl 2 MG eCW1 ([facility]) tizanidine 2 MG Oral Tablet tiZANidine HCl 2 MG tiZANidine H Cl 2 MG 03/04/2020 12:00:00 AM EDT 1.0 {tablet_as_needed} active tiZANidine HCl 2 MG eCW1 ([facility]) tizanidine 2 MG Oral Tablet Tizanidine HCl 2 MG Tizanidine H Cl 2 MG 03/04/2020 12:00:00 AM EDT 1.0 {tablet_as_needed} active Tizanidine HCl 2 MG eCW1 ([facility]) tizanidine 2 MG Oral Tablet Tizanidine HCl 2 MG Tizanidine H Cl 2 MG 03/04/2020 12:00:00 AM EDT 1.0 {tablet_as_needed} active Tizanidine HCl 2 MG eCW1 ([facility]) tizanidine 2 MG Oral Tablet tiZANidine HCl 2 MG tiZANidine H Cl 2 MG 03/04/2020 12:00:00 AM EDT 1.0 {tablet_as_needed} active tiZANidine HCl 2 MG eCW1 ([facility]) tizanidine 2 MG Oral Tablet Tizanidine HCl 2 MG Tizanidine H Cl 2 MG 03/04/2020 12:00:00 AM EDT 1.0 {tablet_as_needed} active Tizanidine HCl 2 MG eCW1 ([facility]) tizanidine 2 MG Oral Tablet tiZANidine HCl 2 MG tiZANidine H Cl 2 MG 03/04/2020 12:00:00 AM EDT 1.0 {tablet_as_needed} active tiZANidine HCl 2 MG eCW1 ([facility]) tizanidine 2 MG Oral Tablet tiZANidine HCl 2 MG tiZANidine H Cl 2 MG 03/04/2020 12:00:00 AM EDT 1.0 {tablet_as_needed} active tiZANidine HCl 2 MG eCW1 ([facility]) tizanidine 2 MG Oral Tablet Tizanidine HCl 2 MG Tizanidine H Cl 2 MG 03/04/2020 12:00:00 AM EDT 1.0 {tablet_as_needed} active Tizanidine HCl 2 MG eCW1 ([facility]) tizanidine 2 MG Oral Tablet tiZANidine HCl 2 MG tiZANidine H Cl 2 MG 03/04/2020 12:00:00 AM EDT 1.0 {tablet_as_needed} active tiZANidine HCl 2 MG eCW1 ([facility]) tizanidine 2 MG Oral Tablet tiZANidine HCl 2 MG tiZANidine H Cl 2 MG 03/04/2020 12:00:00 AM EDT 1.0 {tablet_as_needed} active tiZANidine HCl 2 MG eCW1 ([facility]) tizanidine 2 MG Oral Tablet tiZANidine HCl 2 MG tiZANidine H Cl 2 MG 03/04/2020 12:00:00 AM EDT 1.0 {tablet_as_needed} active tiZANidine HCl 2 MG W1 ([facility]) tizanidine 2 MG Oral Tablet tiZANidine HCl 2 MG tiZANidine H Cl 2 MG 03/04/2020 12:00:00 AM EDT 1.0 {tablet_as_needed} active tiZANidine HCl 2 MG W1 ([facility]) tizanidine 2 MG Oral Tablet Tizanidine HCl 2 MG Tizanidine H Cl 2 MG 03/04/2020 12:00:00 AM EDT 1.0 {tablet_as_needed} active Tizanidine HCl 2 MG W1 ([facility]) tizanidine 2 MG Oral Tablet tiZANidine HCl 2 MG tiZANidine H Cl 2 MG 03/04/2020 12:00:00 AM EDT 1.0 {tablet_as_needed} active tiZANidine HCl 2 MG eCW1 ([facility]) tizanidine 2 MG Oral Tablet Tizanidine HCl 2 MG Tizanidine H Cl 2 MG 03/04/2020 12:00:00 AM EDT 1.0 {tablet_as_needed} active Tizanidine HCl 2 MG eCW1 ([facility]) tizanidine 2 MG Oral Tablet Tizanidine HCl 2 MG Tizanidine H Cl 2 MG 03/04/2020 12:00:00 AM EDT 1.0 {tablet_as_needed} active Tizanidine HCl 2 MG eCW1 ([facility]) tizanidine 2 MG Oral Tablet tiZANidine HCl 2 MG tiZANidine H Cl 2 MG 03/04/2020 12:00:00 AM EDT 1.0 {tablet_as_needed} active tiZANidine HCl 2 MG eCW1 ([facility]) tizanidine 2 MG Oral Tablet Tizanidine HCl 2 MG Tizanidine H Cl 2 MG 03/04/2020 12:00:00 AM EDT 1.0 {tablet_as_needed} active Tizanidine HCl 2 MG eCW1 ([facility]) tizanidine 2 MG Oral Tablet Tizanidine HCl 2 MG Tizanidine H Cl 2 MG 03/04/2020 12:00:00 AM EDT 1.0 {tablet_as_needed} active Tizanidine HCl 2 MG eCW1 ([facility]) tizanidine 2 MG Oral Tablet tiZANidine HCl 2 MG tiZANidine H Cl 2 MG 03/04/2020 12:00:00 AM EDT 1.0 {tablet_as_needed} active tiZANidine HCl 2 MG eCW1 ([facility]) tizanidine 2 MG Oral Tablet tiZANidine HCl 2 MG tiZANidine H Cl 2 MG 03/04/2020 12:00:00 AM EDT 1.0 {tablet_as_needed} active tiZANidine HCl 2 MG eCW1 ([facility]) 2 mg 03/04/2020 12:00:00 AM EDT tablet 30 TAKE ONE TABLET BY MOUTH THREE TIMES A DAY NEEDED FOR 10 DAYS TAKE ONE TABLET BY MOUTH THREE TIMES A D AY NEEDED FOR 10 DAYS SOLD: 03/05/2020 [facility] tizanidine 2 MG Oral Tablet Tizanidine HCl 2 MG Tizanidine H Cl 2 MG 03/04/2020 12:00:00 AM EDT 1.0 {tablet_as_needed} active Tizanidine HCl 2 MG eCW1 ([facility]) 2 mg 03/04/2020 12:00:00 AM EDT tablet 30 TAKE ONE TABLET BY MOUTH THREE TIMES A DAY NEEDED FOR 10 DAYS TAKE ONE TABLET BY MOUTH THREE TIMES A D AY NEEDED FOR 10 DAYS SOLD: 04/15/2020 [facility] tizanidine 2 MG Oral Tablet tiZANidine HCl 2 MG tiZANidine H Cl 2 MG 03/04/2020 12:00:00 AM EDT 1.0 {tablet_as_needed} active tiZANidine HCl 2 MG eCW1 ([facility]) tizanidine 2 MG Oral Tablet Tizanidine HCl 2 MG Tizanidine H Cl 2 MG 03/04/2020 12:00:00 AM EDT 1.0 {tablet_as_needed} active Tizanidine HCl 2 MG eCW1 ([facility]) tizanidine 2 MG Oral Tablet tiZANidine HCl 2 MG tiZANidine H Cl 2 MG 03/04/2020 12:00:00 AM EDT 1.0 {tablet_as_needed} active tiZANidine HCl 2 MG eCW1 ([facility]) tizanidine 2 MG Oral Tablet Tizanidine HCl 2 MG Tizanidine H Cl 2 MG 03/04/2020 12:00:00 AM EDT 1.0 {tablet_as_needed} active Tizanidine HCl 2 MG eCW1 ([facility]) tizanidine 2 MG Oral Tablet tiZANidine HCl 2 MG tiZANidine H Cl 2 MG 03/04/2020 12:00:00 AM EDT 1.0 {tablet_as_needed} active tiZANidine HCl 2 MG eCW1 ([facility]) tizanidine 2 MG Oral Tablet Tizanidine HCl 2 MG Tizanidine H Cl 2 MG 03/04/2020 12:00:00 AM EDT 1.0 {tablet_as_needed} active Tizanidine HCl 2 MG eCW1 ([facility]) tizanidine 2 MG Oral Tablet tiZANidine HCl 2 MG tiZANidine H Cl 2 MG 03/04/2020 12:00:00 AM EDT 1.0 {tablet_as_needed} active tiZANidine HCl 2 MG eCW1 ([facility]) tizanidine 2 MG Oral Tablet Tizanidine HCl 2 MG Tizanidine H Cl 2 MG 03/04/2020 12:00:00 AM EDT 1.0 {tablet_as_needed} active Tizanidine HCl 2 MG eCW1 ([facility]) tizanidine 2 MG Oral Tablet tiZANidine HCl 2 MG tiZANidine H Cl 2 MG 03/04/2020 12:00:00 AM EDT 1.0 {tablet_as_needed} active tiZANidine HCl 2 MG eCW1 ([facility]) tizanidine 2 MG Oral Tablet tiZANidine HCl 2 MG tiZANidine H Cl 2 MG 03/04/2020 12:00:00 AM EDT 1.0 {tablet_as_needed} active tiZANidine HCl 2 MG eCW1 ([facility]) tizanidine 2 MG Oral Tablet Tizanidine HCl 2 MG Tizanidine H Cl 2 MG 03/04/2020 12:00:00 AM EDT 1.0 {tablet_as_needed} active Tizanidine HCl 2 MG eCW1 ([facility]) tizanidine 2 MG Oral Tablet Tizanidine HCl 2 MG Tizanidine H Cl 2 MG 03/04/2020 12:00:00 AM EDT 1.0 {tablet_as_needed} active Tizanidine HCl 2 MG eCW1 ([facility]) tizanidine 2 MG Oral Tablet tiZANidine HCl 2 MG tiZANidine H Cl 2 MG 03/04/2020 12:00:00 AM EDT 1.0 {tablet_as_needed} active tiZANidine HCl 2 MG eCW1 ([facility]) tizanidine 2 MG Oral Tablet Tizanidine HCl 2 MG Tizanidine H Cl 2 MG 03/04/2020 12:00:00 AM EDT 1.0 {tablet_as_needed} active Tizanidine HCl 2 MG eCW1 ([facility]) tizanidine 2 MG Oral Tablet Tizanidine HCl 2 MG Tizanidine H Cl 2 MG 03/04/2020 12:00:00 AM EDT 1.0 {tablet_as_needed} active Tizanidine HCl 2 MG eCW1 ([facility]) tizanidine 2 MG Oral Tablet Tizanidine HCl 2 MG Tizanidine H Cl 2 MG 03/04/2020 12:00:00 AM EDT 1.0 {tablet_as_needed} active Tizanidine HCl 2 MG eCW1 ([facility]) Acetaminophen 325 MG / Oxycodone Hydroch loride 5 MG Oral Tablet Oxycodone- Acetaminophen 5-325 MG Oxycodone-Acetaminophen 5-325 MG 03/04/2020 12:00:00 A M EDT 1.0 {tablet_as_needed} active O xycodone-Acetaminophen 5-325 MG eCW1 ([facility]) tizanidine 2 MG Oral Tablet tiZANidine HCl 2 MG tiZANidine H Cl 2 MG 03/04/2020 12:00:00 AM EDT 1.0 {tablet_as_needed} active tiZANidine HCl 2 MG eCW1 ([facility]) tizanidine 2 MG Oral Tablet Tizanidine HCl 2 MG Tizanidine H Cl 2 MG 03/04/2020 12:00:00 AM EDT 1.0 {tablet_as_needed} active Tizanidine HCl 2 MG eCW1 ([facility]) tizanidine 2 MG Oral Tablet Tizanidine HCl 2 MG Tizanidine H Cl 2 MG 03/04/2020 12:00:00 AM EDT 1.0 {tablet_as_needed} active Tizanidine HCl 2 MG eCW1 ([facility]) tizanidine 2 MG Oral Tablet Tizanidine HCl 2 MG Tizanidine H Cl 2 MG 03/04/2020 12:00:00 AM EDT 1.0 {tablet_as_needed} active Tizanidine HCl 2 MG eCW1 ([facility]) tizanidine 2 MG Oral Tablet Tizanidine HCl 2 MG Tizanidine H Cl 2 MG 03/04/2020 12:00:00 AM EDT 1.0 {tablet_as_needed} active Tizanidine HCl 2 MG eCW1 ([facility]) tizanidine 2 MG Oral Tablet Tizanidine HCl 2 MG Tizanidine H Cl 2 MG 03/04/2020 12:00:00 AM EDT 1.0 {tablet_as_needed} active Tizanidine HCl 2 MG eCW1 ([facility]) tizanidine 2 MG Oral Tablet tiZANidine HCl 2 MG tiZANidine H Cl 2 MG 03/04/2020 12:00:00 AM EDT 1.0 {tablet_as_needed} active tiZANidine HCl 2 MG eCW1 ([facility]) tizanidine 2 MG Oral Tablet tiZANidine HCl 2 MG tiZANidine H Cl 2 MG 03/04/2020 12:00:00 AM EDT 1.0 {tablet_as_needed} active tiZANidine HCl 2 MG eCW1 ([facility]) tizanidine 2 MG Oral Tablet Tizanidine HCl 2 MG Tizanidine H Cl 2 MG 03/04/2020 12:00:00 AM EDT 1.0 {tablet_as_needed} active Tizanidine HCl 2 MG eCW1 ([facility]) tizanidine 2 MG Oral Tablet tiZANidine HCl 2 MG tiZANidine H Cl 2 MG 03/04/2020 12:00:00 AM EDT 1.0 {tablet_as_needed} active tiZANidine HCl 2 MG eCW1 ([facility]) tizanidine 2 MG Oral Tablet Tizanidine HCl 2 MG Tizanidine H Cl 2 MG 03/04/2020 12:00:00 AM EDT 1.0 {tablet_as_needed} active Tizanidine HCl 2 MG eCW1 ([facility]) tizanidine 2 MG Oral Tablet Tizanidine HCl 2 MG Tizanidine H Cl 2 MG 03/04/2020 12:00:00 AM EDT 1.0 {tablet_as_needed} active Tizanidine HCl 2 MG eCW1 ([facility]) tizanidine 2 MG Oral Tablet Tizanidine HCl 2 MG Tizanidine H Cl 2 MG 03/04/2020 12:00:00 AM EDT 1.0 {tablet_as_needed} active Tizanidine HCl 2 MG eCW1 ([facility]) tizanidine 2 MG Oral Tablet Tizanidine HCl 2 MG Tizanidine H Cl 2 MG 03/04/2020 12:00:00 AM EDT 1.0 {tablet_as_needed} active Tizanidine HCl 2 MG eCW1 ([facility]) tizanidine 2 MG Oral Tablet Tizanidine HCl 2 MG Tizanidine H Cl 2 MG 03/04/2020 12:00:00 AM EDT 1.0 {tablet_as_needed} active Tizanidine HCl 2 MG eCW1 ([facility]) tizanidine 2 MG Oral Tablet Tizanidine HCl 2 MG Tizanidine H Cl 2 MG 03/04/2020 12:00:00 AM EDT 1.0 {tablet_as_needed} active Tizanidine HCl 2 MG eCW1 ([facility]) tizanidine 2 MG Oral Tablet Tizanidine HCl 2 MG Tizanidine H Cl 2 MG 03/04/2020 12:00:00 AM EDT 1.0 {tablet_as_needed} active Tizanidine HCl 2 MG W1 ([facility]) tizanidine 2 MG Oral Tablet Tizanidine HCl 2 MG Tizanidine H Cl 2 MG 03/04/2020 12:00:00 AM EDT 1.0 {tablet_as_needed} active Tizanidine HCl 2 MG eCW1 ([facility]) tizanidine 2 MG Oral Tablet Tizanidine HCl 2 MG Tizanidine H Cl 2 MG 03/04/2020 12:00:00 AM EDT 1.0 {tablet_as_needed} active Tizanidine HCl 2 MG eCW1 ([facility]) tizanidine 2 MG Oral Tablet Tizanidine HCl 2 MG Tizanidine H Cl 2 MG 03/04/2020 12:00:00 AM EDT 1.0 {tablet_as_needed} active Tizanidine HCl 2 MG eCW1 ([facility]) tizanidine 2 MG Oral Tablet tiZANidine HCl 2 MG tiZANidine H Cl 2 MG 03/04/2020 12:00:00 AM EDT 1.0 {tablet_as_needed} active tiZANidine HCl 2 MG eCW1 ([facility]) tizanidine 2 MG Oral Tablet tiZANidine HCl 2 MG tiZANidine H Cl 2 MG 03/04/2020 12:00:00 AM EDT 1.0 {tablet_as_needed} active tiZANidine HCl 2 MG eCW1 ([facility]) tizanidine 2 MG Oral Tablet Tizanidine HCl 2 MG Tizanidine H Cl 2 MG 03/04/2020 12:00:00 AM EDT 1.0 {tablet_as_needed} active Tizanidine HCl 2 MG W ([facility]) tizanidine 2 MG Oral Tablet Tizanidine HCl 2 MG Tizanidine H Cl 2 MG 03/04/2020 12:00:00 AM EDT 1.0 {tablet_as_needed} active W1 ([facility]) tizanidine 2 MG Oral Tablet Tizanidine HCl 2 MG Tizanidine H Cl 2 MG 03/04/2020 12:00:00 AM EDT 1.0 {tablet_as_needed} active Tizanidine HCl 2 MG [facility] ([facility]) tizanidine 2 MG Oral Tablet Tizanidine HCl 2 MG Tizanidine H Cl 2 MG 03/04/2020 12:00:00 AM EDT 1.0 {tablet_as_needed} active Tizanidine HCl 2 MG W1 ([facility]) tizanidine 2 MG Oral Tablet Tizanidine HCl 2 MG Tizanidine H Cl 2 MG 03/04/2020 12:00:00 AM EDT 1.0 {tablet_as_needed} active Tizanidine HCl 2 MG W ([facility]) tizanidine 2 MG Oral Tablet tiZANidine HCl 2 MG tiZANidine H Cl 2 MG 03/04/2020 12:00:00 AM EDT 1.0 {tablet_as_needed} active tiZANidine HCl 2 MG eCW1 ([facility]) 40 mg 02/09/2020 12:00:00 AM EDT capsule,delayed release (DR/EC) 30 TAKE ONE CAPSULE BY MOUTH EVERY DAY TAKE ONE CAPSULE BY MOUTH EVERY DAY SOLD: 03/17/2020 [facility] 40 mg 02/09/2020 12:00:00 AM EDT capsule,delayed release (DR/EC) 30 TAKE ONE CAPSULE BY MOUTH EVERY DAY TAKE ONE CAPSULE BY MOUTH EVERY DAY SOLD: 04/15/2020 [facility] 400 mg 12/08/2019 12:00:00 AM EDT capsule 90 TAKE ONE CAPSULE BY MOUTH THREE TIMES A DAY TAKE ONE CAPSULE BY MOUTH THREE TIMES A DAY SOLD: 03/15/2020 [facility] 400 mg 12/08/2019 12:00:00 AM EDT capsule 90 TAKE ONE CAPSULE BY MOUTH THREE TIMES A DAY TAKE ONE CAPSULE BY MOUTH THREE TIMES A DAY SOLD: 08/05/2020 [facility] Insurance Providers Payer name Policy type / Coverage type Policy ID Covered green party ID Covered green party's relationship to win Policy Win Plan Information JOVITA [id number] Patient [id number] SELF PAY SELF PAY Patient SELF PAY MEDICAID UNAVAILABLE Patient UNAVAILA BLE BLUE CROSS OUT OF STATE [id number] Patient [id number] BLUE CROSS OUT OF STATE [id number] Patient [id number] MEDICAID [id number] Patient [id number] [employer]CELL[employer] BCBS [id number] Mely WMW [id number] [facility] (OUT OF STATE - ALL) [id number] [employer]BS [id number] Mely WMW [id number] [employer] [id number] Mely W [id number] [employer] [place] [id number] S [id number] STATE INSURANCE FUND [id number] SP [id number] STATE INSURANCE FUND [id number] SP [id number] [facility] [id number] SP [id number] [facility] [id number] FA2 [id number] [facility] [id number] FA [id number] [employer] [place] [id number] S [id number] SELF PAY [id number] S [id number] SELF PAY [id number] S [id number] [facility]ARE MEDICAID [id number] S [id number] [facility] [id number] S [id number] HRSA UNINSURED FUND [id number] SP [id number] [facility] CARE ID [id number] S [id number] JOVITA [id number] SP [id number] ANSI-Not a Secondary Insurance [id number] ANSI-Not a Secondary Insurance [id number] ANSI-Not a Secondary Insurance [id number] ANSI-Not a Secondary Insurance [id number] ANSI-Not a Secondary Insurance [id number] ANSI-Not a Secondary Insurance [id number] ANSI-Not a Secondary Insurance [id number] ANSI-Commercial [id number] ANSI-Commercial [id number] ANSI-Commercial [id number] [facility] [id number] ANSI-Commercial [id number] ANSI-Commercial [id number] ANSI-Commercial [id number] ANSI-Commercial [id number] ANSI-Commercial [id number] ANSI-Commercial [id number] ANSI-Commercial [id number] [facility] [id number] 18 [id number] [place] Medicaid/P/[facility] Commercial [id number] Self [place] 020/520 [id number] SP [id number] [employer] B [id number] S [id number] [employer] B [id number] S [id number] ANSI-Commercial [id number] SELF PAY UNAVAILABLE UNAVAILA BLE eDealya [id number] S [id number] [place] P[place] 302/307 [id number] SP [id number] SELF PAY ONLY - SP1 SP1 SP SP1 SELF PAY ONLY SP1 SP SP1 SELF PAY ONLY UNK SP UNK JOVITA [id number] SP [id number] [employer] PPO 302/307 [id number] SP [id number] [place] 020/520 [id number] SP [id number] [place] [id number] SP [id number] Problems, Conditions, and Diagnoses Code Display Name Description Problem Type Effective Dates Data Source(s) Z53.20 Procedure and treatment not carried out because of patient's decision for unspecified reasons PROC/TRTMT NOT CRD OUT BEC PT DECISION FOR UNSP RE Diagnosis 02/18/2021 09:24:00 PM [facility] Z98.84 Bariatric surgery status BARIATRIC SURGERY STATUS Diag nosis 02/18/2021 09:24:00 PM [facility] R51.9 HEADACHE, UNSPECIFIED HEADACHE, UNSPECIFIED Diagnosis 02/18/2021 09:24:00 PM [facility] E87.6 Hypokalemia HYPOKALEMIA Diagnosis 02/18/2021 09:24:00 PM [facility] R12 Heartburn HEARTBURN Diagnosis 02/18/2021 09:24:00 PM [facility] K85.00 IDIOPATHIC ACUTE PANCREATITIS WITHOUT NE CROSIS OR IDIOPATHIC ACUTE PANCREATITIS WITHOUT NECROSIS OR Diagnosis 02/18/2021 09:24:00 PM [facility] Z90.49 Acquired absence of other specified part s of digestive tract ACQUIRED ABSENCE OF OTHER SPECIFIED PARTS OF DIGES Diagnosis 02/16/2021 10:48:0 0 PM [facility] Z79.899 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 O THER INTERMEDIATE (CURRENT) DRUG THERAPY Diagnosis 02/16/2021 10:48:00 PM [facility] l F17.210 Nicotine dependence, cigarettes, uncompl icated NICOTINE DEPENDENCE, CIGARETTES, UNCOMPLICATED Diagnosis 02/16/2021 10:48:00 PM [facility] K46.9 Unspecified abdominal hernia without obs truction or gangrene UNSPECIFIED ABDOMINAL HERNIA WITHOUT OBSTRUCTION O Diagnosis 02/16/2021 10:48:00 P M [facility] K42.9 Umbilical hernia without obstruction or gangrene UMBILICAL HERNIA WITHOUT OBSTRUCTION OR GANGRENE Diagnosis 02/16/2021 10:48:00 PM [facility] pital K52.9 Noninfective gastroenteritis and colitis , unspecified NONINFECTIVE GASTROENTERITIS AND COLITIS, UNSPECIF Diagnosis 02/16/2021 10:48:00 PM [facility] K29.70 Gastritis, unspecified, without bleeding GASTRITIS, UNSPECIFIED, WITHOUT BLEEDING Diagnosis 02/16/2021 10:48:00 PM [facility] l B34.1 Enterovirus infection, unspecified ENTEROVIRUS I NFECTION, UNSPECIFIED Diagnosis 02/16/2021 10:48:00 PM [facility] J06.9 Acute upper respiratory infection, unspe cified ACUTE UPPER RESPIRATORY INFECTION, UNSPECIFIED Diagnosis 02/16/2021 10:48:00 PM [facility] ital R10.84 Generalized abdominal pain GENERALIZED ABDOMINAL PAIN Diagnosis 02/16/2021 10:48:00 PM [facility] Z20.822 CONTACT WITH AND (SUSPECTED) EXPOSURE TO COVID-19 CONTACT WITH AND (SUSPECTED) EXPOSURE TO COVID-19 Diagnosis 02/14/2021 11:39:00 AM [facility] E86.0 Dehydration DEHYDRATION Diagnosis 02/14/2021 11:39:00 AM [facility] R19.7 Diarrhea, unspecified DIARRHEA, UNSPECIFIED Diagnosis 02/14/2021 11:39:00 AM [facility] Y93.89 Activity, other specified ACTIVITY, OTHER SPECIFIED Di agnosis 11/13/2020 07:57:00 PM [facility] Y99.0 Civilian activity done for income or pay CIVILIAN ACTIVITY DONE FOR INCOME OR PAY Diagnosis 11/13/2020 07:57:[facility] Y[facility] Other [address] as the place of o ccurrence of the external cause OT PLACES THE PLACE OF OCCURRENCE OF THE EXTER Diagnosis 07:57:00 PM [facility] W01.198A Fall on same level from slip ping, tripping and stumbling with subsequent striking against other object, initial encounter FALL SAME LEV FROM SLIP/TRIP W STRIKE AGNST OT OB Diagnosis 11/13/2020 07:57:00 PM [facility] R07.89 Other chest pain OTHER CHEST PAIN Diagnosis 11/13/2020 07 :57:00 PM [facility] S29.9XXA Unspecified injury of thorax, initial en counter UNSPECIFIED INJURY OF THORAX, INITIAL ENCOUNTER Diagnosis 11/13/2020 07:57:00 PM [facility] ostal Y93.02 Activity, running ACTIVITY, RUNNING Diagnosis 11/09/2020 01:26:00 PM [facility] W18.39XA Other fall on same level, initial encoun ter OTHER FALL ON SAME LEVEL, INITIAL ENCOUNTER Diagnosis 11/09/2020 01:26:00 PM [facility] R91.8 Other nonspecific abnormal finding of man ng field OTHER NONSPECIFIC ABNORMAL FINDING OF LUNG FIELD Diagnosis 11/09/2020 01:26:00 PM [facility] S20.213A CONTUSION OF BILATERAL FRONT WALL OF THO RAX, INIT CONTUSION OF BILATERAL FRONT WALL OF THORAX, INIT Diagnosis 11/09/2020 01:26:00 PM [facility] K76.0 Fatty (change of) liver, not elsewhere c lassified FATTY (CHANGE OF) LIVER, NOT ELSEWHERE CLASSIFIED Diagnosis 09/20/2020 08:30:00 AM [facility] ospital K75.9 Inflammatory liver disease, unspecified INFLAMMATORY LIVER DISEASE, UNSPECIFIED Diagnosis 09/20/2020 08:30:00 AM [facility] H10.023 Other mucopurulent conjunctivitis, bilat eral OTHER MUCOPURULENT CONJUNCTIVITIS, BILATERAL Diagnosis 07/09/2020 04:35:00 PM [facility] H57.89 OTHER SPECIFIED DISORDERS OF EYE AND ADN EXA OTHER SPECIFIED DISORDERS OF EYE AND ADNEXA Diagnosis 07/09/2020 04:35:00 PM EST Rufino bhatti G43.111 [id number] Intractable migraine with aura w ith status migrainosus Problem 11/29/2020 12:00:00 AM EDT eCW1 ([facility]) M54.41 [id number] Low back pain with r ight-sided sciatica, unspecified back pain laterality, unspecified chronicity Problem 09/29/2020 12:00:00 AM ED T eCW1 ([facility]) M35.00 [id number] Sicca syndrome Problem 09/14/2020 12:00:00 A M EDT eCW1 ([facility]) K75.9 [id number] Hepatitis Problem 09/14/2020 12:00:00 AM ED T eCW1 ([facility]) E55.9 [id number] Vitamin D deficiency Problem 04/29/2020 12:0 0:00 AM EST eCW1 ([facility]) Surgeries/Procedures Procedure Description Date Indications Data Source(s) OFFICE OUTPATIENT VISIT 25 MINUTES 04/12/2021 12:00:00 AM EST MEDENT ([facility], ) Medication: Toradol 60mg/2mL IM (Ketorolac) 11/29/2020 12:00:00 AM EDT eCW1 ([facility]) OFFICE OUTPATIENT NEW 30 MINUTES 09/22/2020 12:00:00 A M EDT MEDENT ([facility], ) Results ID Date Data Source [id number] 04/26/2021 10:30:00 AM EST [facility] Name Value Range Interpretation Code Description Data Camille rce(s) Supporting Document(s) SARS-CoV-2 (COVID-19) RNA [Presence] in Respiratory specimen by KORTNEY with probe detection Not Detected [facility] This lab was ordered by [facility] and reported by [employer] ID Date Data Source CBC with Auto Differential 03/02/2021 12:00:00 AM EDT eCW1 ( [facility]) Name Value Range Interpretation Code Description Data Camille rce(s) Supporting Document(s) 4.62 4.00-5.40 RED BLOOD COUNT eCW1 ([facility]) 15.6 12.0-15.5 HEMOGLOBIN eCW1 ([facility]) 8.9 4.0-10.0 WHITE BLOOD COUNT eCW1 ([facility]) 46.9 36.0-47.0 HEMATOCRIT eCW1 ([facility]) 101.5 80.0-96.0 MEAN CORPUSCULAR VOLUME e CW1 ([facility]) 33.8 27.0-33.0 MEAN CORPUSCULAR HEMOGLOB IN eCW1 ([facility]) 33.3 32.0-36.5 MEAN CORPUSCULAR HGB CONC eCW1 ([facility]) 264 150-450 PLATELET COUNT, AUTOMATED eCW1 ([facility]) 14.5 11.5-14.5 RED CELL DISTRIBUTION WID TH eCW1 ([facility]) 58.3 36.0-66.0 NEUTROPHILS % eCW1 ([facility]) 3.1 0.0-3.0 EOS % eCW1 ([facility]) 29.4 24.0-44.0 LYMPH % eCW1 ([facility]) 7.8 2.0-8.0 MONO % eCW1 ([facility]) 1.1 0.0-1.0 BASO % eCW1 ([facility]) 2.6 1.5-5.0 LYMPH # eCW1 ([facility]) 0.3 0-3.0 IMMATURE GRANULOCYTE % eCW1 ([facility]) 5.2 1.5-8.5 NEUTROPHILS # eCW1 ([facility]) 0.0 0-0 NUCLEATED RED BLOOD CELL % eCW 1 ([facility]) 0.7 0.0-0.8 MONO # eCW1 ([facility]) 0.1 0.0-0.2 BASO # eCW1 ([facility]) 0.3 0.0-0.5 EOS # eCW1 ([facility]) ID Date Data Source LIPASE 03/02/2021 12:00:00 AM EDT eCW1 ([facility]) Name Value Range Interpretation Code Description Data Camille rce(s) Supporting Document(s) 95 73-393 LIPASE eCW1 ([facility]) ID Date Data Source Comprehensive Metabolic Profile (CMP) 03/02/2021 12:00:00 AM EDT eCW1 ([facility]) Name Value Range Interpretation Code Description Data Camille rce(s) Supporting Document(s) 9 7-18 BLOOD UREA NITROGEN eCW1 ([facility]) 0.67 0.55-1.30 CREATININE FOR GFR eCW1 ([facility]) 78 70-100 GLUCOSE, FASTING eCW1 ([facility]) 4.7 3.5-5.1 POTASSIUM SERUM eCW1 ([facility]) > 60.0 >60 GLOMERULAR FILTRATION RATE eCW 1 ([facility]) 144 136-145 SODIUM LEVEL eCW1 ([facility]) 29 21-32 CARBON DIOXIDE LEVEL eCW1 ([facility]) 9.3 8.5-10.1 CALCIUM LEVEL eCW1 ([facility]) 110 98-107 CHLORIDE LEVEL eCW1 ([facility]) 19 12-78 ALT/SGPT eCW1 ([facility]) 0.3 0.2-1.0 BILIRUBIN,TOTAL eCW1 ([facility]) 20 7-37 AST/SGOT eCW1 ([facility]) 73 45-117 ALKALINE PHOSPHATASE eCW1 ([facility]) 3.1 3.2-5.2 ALBUMIN eCW1 ([facility]) 1.1 1.2-2.2 ALBUMIN/GLOBULIN RATIO eCW1 ([facility]) 5.9 6.4-8.2 TOTAL PROTEIN eCW1 ([facility]) ID Date Data Source AMYLASE 02/20/2021 12:00:00 AM EDT eCW1 ([facility]) Name Value Range Interpretation Code Description Data Camille rce(s) Supporting Document(s) 108 25-115 AMYLASE eCW1 ([facility]) ID Date Data Source CBC with Differential 02/20/2021 12:00:00 AM EDT eCW1 ([facility]) Name Value Range Interpretation Code Description Data Camille rce(s) Supporting Document(s) 4.26 4.00-5.40 RED BLOOD COUNT eCW1 ([facility]) 14.6 12.0-15.5 HEMOGLOBIN eCW1 ([facility]) 9.7 4.0-10.0 WHITE BLOOD COUNT eCW1 ([facility]) 41.8 36.0-47.0 HEMATOCRIT eCW1 ([facility]) 34.3 27.0-33.0 MEAN CORPUSCULAR HEMOGLOB IN eCW1 ([facility]) 98.1 80.0-96.0 MEAN CORPUSCULAR VOLUME e CW1 ([facility]) 15.1 11.5-14.5 RED CELL DISTRIBUTION WID TH eCW1 ([facility]) 417 150-450 PLATELET COUNT, AUTOMATED eCW1 ([facility]) 34.9 32.0-36.5 MEAN CORPUSCULAR HGB CONC eCW1 ([facility]) 15.8 24.0-44.0 LYMPH % eCW1 ([facility]) 76.1 36.0-66.0 NEUTROPHILS % eCW1 ([facility]) 0.5 0.0-1.0 BASO % eCW1 ([facility]) 5.7 2.0-8.0 MONO % eCW1 ([facility]) 1.6 0.0-3.0 EOS % eCW1 ([facility]) 0.6 0.0-0.8 MONO # eCW1 ([facility]) 0.2 0.0-0.5 EOS # eCW1 ([facility]) 7.4 1.5-8.5 NEUTROPHILS # eCW1 ([facility]) 1.5 1.5-5.0 LYMPH # eCW1 ([facility]) 0.1 0.0-0.2 BASO # eCW1 ([facility]) ID Date Data Source [id number] 02/19/2021 08:16:00 AM EDT [facility] TSYS[facility] [id number] Name Value Range Interpretation Code Description Data Camille rce(s) Supporting Document(s) GLUCOSE 90 mg/dL 74-106 [facility] BLOOD UREA NITROGEN 6 mg/dL 7-18 L [facility] ital CREATININE 0.65 mg/dL 0.6-1.0 [facility] SODIUM 148 mmol/L 136-145 H [facility] POTASSIUM 3.4 mmol/L 3.5-5.1 L [facility] CHLORIDE 113 mmol/L 98-107 H [facility] CO2 27 mmol/L 21-32 [facility] CALCIUM 7.8 mg/dL 8.5-10.1 [facility] ANION GAP 8.0 mmol/L 5-12 [facility] GLOMERULAR FILTRATION RATE >90 mL/min [facility] GFR IS CALCULATED IN mL/min/1.73m2 TOSHIA L FUNCTION: >90MILDLY DECREASED: 60-89MILDY TO MODERATELY DECREASED: 45-59 MODERATELY TO SEVERELY DECREASED: 30-44SEVERELY DECREASED: 15-29RENAL FAILURE: <15 AST 22 U/L 15-37 [facility] ALT 36 U/L 12-78 [facility] ALKALINE PHOSPHATASE 71 U/L 46-116 [facility] pital TOTAL BILIRUBIN 0.4 mg/dL 0.2-1.0 [facility] TOTAL PROTEIN 4.7 g/dl 6.4-8.2 L [facility] ALBUMIN 2.3 gm/dL 3.4-5.0 L [facility] ID Date Data Source [id number] 02/19/2021 08:13:00 AM EDT [facility] TSYSORDER [id number] Name Value Range Interpretation Code Description Data Camille rce(s) Supporting Document(s) C REACTIVE PROTEIN < 0.5 mg/L 0.0-3.0 [facility] ital ID Date Data Source [id number] 02/19/2021 08:13:00 AM EDT [facility] TSYSORDER [id number] Name Value Range Interpretation Code Description Data Camille rce(s) Supporting Document(s) LIPASE 292 U/L 73-393 [facility] ID Date Data Source [id number] 02/19/2021 08:01:00 AM EDT [facility] TSYSORDER [id number] Name Value Range Interpretation Code Description Data Camille rce(s) Supporting Document(s) WHITE BLOOD COUNT 8.9 K/mm3 4.0-10.0 [facility] 3.85 M/mm3 4.00-5.50 L [facility] l HEMOGLOBIN 13.2 gm/dL 12.0-16.0 [facility] HEMATOCRIT 36.4 % 36.0-48.8 [facility] MEAN CELL VOLUME 94.5 fl 80-96 [facility] MEAN CORPUSCULAR HEMOGLOBIN 34.3 pg 27.0-31.0 H [facility] MEAN CORPUSCULAR HGB CONC 36.3 g/dl 32.0-36.0 H [facility] RED CELL DISTRIBUTION WIDTH 14.5 % 10.0-14.5 [facility] PLATELET COUNT 322 K/mm3 172-450 [facility] MEAN PLATELET VOLUME 9.3 fl 9.0-13.0 [facility] pital GRAN % 58.9 % 50-80.0 [facility] IG% 0.2 % 0.0-0.2 [facility] LYMPH % 28.8 % 25.0-50.0 [facility] MONO % 7.2 % 2.0-10.0 [facility] EOS % 4.6 % 0-5.0 [facility] BASO % 0.3 % 0.0-2.0 [facility] GRAN # 5.3 K/mm3 2.0-8.00 [facility] IG# 0.0 K/mm3 0.0-0.2 [facility] LYMPH # 2.6 K/mm3 1.0-5.0 [facility] MONO # 0.6 K/mm3 0.10-1.20 [facility] EOS # 0.4 K/mm3 0.0-0.5 [facility] BASO # 0.0 K/mm3 0.0-0.2 [facility] ID Date Data Source [id number] 02/18/2021 05:59:00 PM EDT Rufino bhatti DATE OF EXAMINATION: 02/18/2021 16:01 EDT ABD/PEL WITH IV CONTRAST HISTORY: Pain Comparison:02/14/2021, 02/16/2021 TECHNIQUE: This CT exam was performed using the following dose reductiontechniques: automated exposure control, adjustment of mA and/or kV according tothe patient's size, and use of iterative reconstruction technique. Standard contiguous axial spiral imaging was obtained from the dome of thediaphragms through the symphysis pubis without oral contrast and withintravenous contrast administration and with coronal reformatting. FINDINGS:Lower thorax: Mild scarring versus atelectasis at the lung bases. No pleural orpericardial effusion. ABDOMEN:Liver: A message left hepatic lobe. No focal hepatic lesions. Gallbladder and bile ducts: Post cholecystectomy Pancreas: Pancreas is grossly unremarkable. Spleen: Spleen is normal Adrenals: Normal adrenal glands. No adrenal masses Kidneys and ureters: No hydronephrosis or renal stones no renal masses Stomach and bowel: Post bariatric surgery. The e xcluded portion of the of thestomach is fluid-filled similar to the previous study. Mild enhancement of themucosa. Prominent small bowel in the region of the anastomotic talon. This isimmediately adjacent to an umbilical hernia. The appearance is similar to theprevious study. Mildly thickened jejunal loops. There is contrast in the colonfrom the previously done CT scan. No evidence of bowel obstruction. Mildthickening of the proximal ascending colon. Appendix: No evidence of appendicitis Peritoneum/retroperitoneum:Small amount of free fluid in the pelvis. No freeair. Lymph nodes:No adenopathy Soft tissues:Umbilical hernia with diastases of the rectus muscles in thatregion. There is protrusion of the loop of small bowel. There is a defect in theleft lateral abdominal wall with herniated mesenteric fat however no herniatedbowel. This appearance is also similar to the previous examination. Bones:No bony lytic or blastic lesions. No fractures. Vessels:Unremarkable PELVIS:Bladder: Unremarkable Reproductive: Unremarkable as visualized IMPRESSION:Findings similar to the very recent CT scans. There is questionable mildthickening of loops of jejunum however no evidence of bowel obstruction.Prominent loop of small bowel in the midline adjacent to anastomotic staplessimilar to previous studies. Mild thickening of proximal colon. This can be seenwith enterocolitis. There is fluid distention of the excluded portion of thestomach post bariatric surgery with mild enhancement of the mucosa. Midlinevertical hernia as well as defect in the left lateral abdominal wall withherniated mesenteric fat. Electronically signed in [id number] by: Harris Bonner M.D. 02/18/2021 17:53 EDT Name Value Range Interpretation Code Description Data Camille rce(s) Supporting Document(s) ID Date Data Source [id number] 02/18/2021 04:49:00 PM EDT [facility] TSYSORDER [id number] Name Value Range Interpretation Code Description Data [facility] rce(s) Supporting Document(s) LACTIC ACID 0.8 mmol/L 0.4-2.0 [facility] ID Date Data Source [id number] 02/18/2021 04:44:00 PM EDT [facility] TSYSORDER [id number] Name Value Range Interpretation Code Description Data [facility] rce(s) Supporting Document(s) LIPASE 1219 U/L 73-393 H [facility] ID Date Data Source [id number] 02/18/2021 04:44:00 PM EDT [facility] TSYSORDER [id number] Name Value Range Interpretation Code Description Data [facility] rce(s) Supporting Document(s) GLUCOSE 91 mg/dL 74-106 [facility] BLOOD UREA NITROGEN 9 mg/dL 7-18 [facility] ital CREATININE 0.94 mg/dL 0.6-1.0 [facility] SODIUM 145 mmol/L 136-145 [facility] POTASSIUM 3.1 mmol/L 3.5-5.1 L [facility] CHLORIDE 106 mmol/L 98-107 [facility] CO2 28 mmol/L 21-32 [facility] CALCIUM 8.7 mg/dL 8.5-10.1 [facility] ANION GAP 11.0 mmol/L 5-12 [facility] GLOMERULAR FILTRATION RATE 67 mL/min [facility] GFR IS CALCULATED IN mL/min/1.73m2 TOSHIA L FUNCTION: >90MILDLY DECREASED: 60-89MILDY TO MODERATELY DECREASED: 45-59 MODERATELY TO SEVERELY DECREASED: 30-44SEVERELY DECREASED: 15-29RENAL FAILURE: <15 AST 20 U/L 15-37 [facility] ALT 47 U/L 12-78 [facility] ALKALINE PHOSPHATASE 114 U/L 46-116 [facility] TOTAL BILIRUBIN 0.4 mg/dL 0.2-1.0 [facility] TOTAL PROTEIN 6.2 g/dl 6.4-8.2 L [facility] ALBUMIN 3.2 gm/dL 3.4-5.0 L [facility] ID Date Data Source [id number] 02/18/2021 04:37:00 PM EDT [facility] TSYSORDER [id number] Name Value Range Interpretation Code Description Data Camille rce(s) Supporting Document(s) WHITE BLOOD COUNT 8.2 K/mm3 4.0-10.0 [facility]LOOD COUNT 4.46 M/mm3 4.00-5.50 [facility] l HEMOGLOBIN 15.3 gm/dL 12.0-16.0 [facility] HEMATOCRIT 40.8 % 36.0-48.8 [facility] MEAN CELL VOLUME 91.5 fl 80-96 [facility] MEAN CORPUSCULAR HEMOGLOBIN 34.3 pg 27.0-31.0 H [facility] MEAN CORPUSCULAR HGB CONC 37.5 g/dl 32.0-36.0 H [facility] RED CELL DISTRIBUTION WIDTH 13.8 % 10.0-14.5 [facility] PLATELET COUNT 369 K/mm3 172-450 [facility] MEAN PLATELET VOLUME 8.8 fl 9.0-13.0 [facility] % 65.6 % 50-80.0 [facility] IG% 0.1 % 0.0-0.2 [facility] LYMPH % 24.0 % 25.0-50.0 L [facility] MONO % 7.0 % 2.0-10.0 [facility] EOS % 3.1 % 0-5.0 [facility] BASO % 0.2 % 0.0-2.0 [facility] GRAN # 5.4 K/mm3 2.0-8.00 [facility] IG# 0.0 K/mm3 0.0-0.2 [facility] LYMPH # 2.0 K/mm3 1.0-5.0 [facility] MONO # 0.6 K/mm3 0.10-1.20 [facility] EOS # 0.3 K/mm3 0.0-0.5 [facility] BASO # 0.0 K/mm3 0.0-0.2 [facility] ID Date Data Source [id number] 02/18/2021 04:06:00 PM EDT [facility] ital TSYSORDER [id number] Name Value Range Interpretation Code Description Data Camille rce(s) Supporting Document(s) URINE COLOR. [facility] URINE APPEARANCE SLIGHTY CLOUDY [facility] spital URINE GLUCOSE (UA) NEGATIVE mg/dL NEGATIVE [facility] URINE BILIRUBIN NEGATIVE NEGATIVE [facility] URINE KETONE 5(TRACE) mg/dL NEGATIVE [facility] SPECIFIC GRAVITY,URINE 1.015 1.005-1.030 [facility] URINE BLOOD NEGATIVE NEGATIVE [facility] PH,URINE 6.5 5.0-9.0 [facility] URINE PROTEIN NEGATIVE mg/dL NEGATIVE [facility] UROBILINOGEN 2 mg/dL 0-1 H [facility] URINE NITRATE NEGATIVE NEGATIVE [facility] URINE LEUKOCYTE ESTERASE NEGATIVE NEGATIVE [facility] ID Date Data Source [id number] 02/17/2021 01:25:00 PM EDT [facility] l Patient: JHON HOFFMANN Observation Report - Physicians/Mid Levels [place].VisitID: [id number] [place] [address] [phone], FRegistration Date/Time: 02/16/2021 19:56 Weight:58.9 kg (S). Height/Length:62 inches (S). 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 Additional Surgeries:Adenoidectomy.Adrenal gland removed.Adrenalectomy.Cholecystectomy.Gastric bypass [2006]. (Dr Stauffer)Hernia Repair.Laparoscopy.Ovarian drilling.Tonsillectomy. Medications:Depakote Oral unk, last dose 2 days garcia.Magsalt 10mg, as needed, last dose several months ago.Omeprazole Oral (Capsule Delayed Release 40 mg) 1 capsule, daily every AM, last dose this am.Percocet Oral (Tablet 5-325 mg) 2 tablets, q4h as needed, last dose 2 days ago. Allergies:Azithromycin. Mild(nausea) (abdominal pain)Cef tin.(hives)Ciprofloxacin. ("caused pt to get C-diff")Erythromycin.(hives)NSAIDs. (had gastric bypass surgery)Penicillins.(hives)Sulfa Antibiotics.(hives). FAMILY HISTORYNegative - denies family medical history. INSTRUCTIONSYour Current Medications: Your current home medications have been reviewed. CONTINUE TAKING THE FOLLOWING MEDICATIONS:Depakote Oral : unk, Last: 2 days garcia. Mags alt* : 10mg, Last: several months ago, prn. Omeprazole Oral : Capsule Delayed Release 40 mg, 1 capsule daily, Last: this am, every AM. Percocet Oral : Tablet 5-325 mg, 2 tablets q4h, Last: 2 days ago, prn. (Electronically signed by Sindy Gonzalez 02/17/2021 01:46) Addenda for JHON HOFFMANN VisitID: [id number] Date: 02/16/2021 02/17/2021 11:51LWBS/LWBT/AMA??? follow-up I called the patient to see if she did have a follow up appointment for today. I could not leave a message on her phone, no voicemail set up.(Electronically signed by Christine Lee R.N. - 02/17/2021 11:51) 02/17/2021 13:23Patient returned call, states her is driving her to [facility] today.(Electronically signed by Angélica Vazquez R.N. - 02/17/2021 13:23) Name Value Range Interpretation Code Description Data Camille rce(s) Supporting Document(s) ID Date Data Source [id number] 02/17/2021 11:55:00 AM EDT [facility] Patient: JHON HOFFMANN Observation Report - Physicians/Mid Levels [place].VisitID: [id number] [place] [address] [phone], F[facility] Date/Time: 02/16/2021 19:56 Weight:58.9 kg (S). Height/Length:62 inches (S). 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 Additional Surgeries:Adenoidectomy.Adrenal gland removed.Adrenalectomy.Cholecystectomy.Gastric bypass [2007]. (Dr Stauffer)Hernia Repair.Laparoscopy.Ovarian drilling.Tonsillectomy. Medications:Depakote Oral unk, last dose 2 days garcia.Magsalt 10mg, as needed, last dose several months ago.Omeprazole Oral (Capsule Delayed Release 40 mg) 1 capsule, daily every AM, last dose this am.Percocet Oral (Tablet 5-325 mg) 2 tablets, q4h as needed, last dose 2 days ago. Allergies:Azithromycin. Mild(nausea) (abdominal pain)Cef tin.(hives)Ciprofloxacin. ("caused pt to get C-diff")Erythromycin.(hives)NSAIDs. (had gastric bypass surgery)Penicillins.(hives)Sulfa Antibiotics.(hives). FAMILY HISTORYNegative - denies family medical history. INSTRUCTIONSYour Current Medications: Your current home medications have been reviewed. CONTINUE TAKING THE FOLLOWING MEDICATIONS:Depakote Oral : unk, Last: 2 days garcia. Mags alt* : 10mg, Last: several months ago, prn. Omeprazole Oral : Capsule Delayed Release 40 mg, 1 capsule daily, Last: this am, every AM. Percocet Oral : Tablet 5-325 mg, 2 tablets q4h, Last: 2 days ago, prn. (Electronically signed by Sindy Gonzalez 02/17/2021 01:46) Addenda for JHON HOFFMANN VisitID: [id number] Date: 02/16/2021 02/17/2021 11:51LWBS/LWBT/AMA??? follow-up I called the patient to see if she did have a follow up appointment for today. I could not leave a message on her phone, no voicemail set up.(Electronically signed by Christine Lee R.N. - 02/17/2021 11:51) Name Value Range Interpretation Code Description Data [facility] rce(s) Supporting Document(s) ID Date Data Source [id number] 02/17/2021 08:17:00 AM EDT [facility] DATE OF EXAMINATION: 02/16/2021 20:39 EDT ABD/PEL WITH ORAL AND IV HISTORY: Abdominal pain. Generalized pain. TECHNIQUE: This CT exam was performed using the following dose reduction techniques:automated exposure control, adjustment of mA and/or kV according to thepatient's size, and use of iterative reconstruction technique. Standard contiguous axial spiral imaging was obtained from the dome of thediaphragms through the symphysis pubis with oral contrast and with intravenouscontrast administration and with coronal reformatting. FINDINGS: Lower thorax: Mild atelectatic changes. ABDOMEN: Liver: Moderate fatty infiltrationGallbladder and bile ducts: CholecystectomyPancreas: NormalSpleen: NormalAdrenals: NormalKidneys and ureters: NormalStomach and bowel: Gastric bypass. Dilation of proximal jejunal loops issuspicious for possible obstruction. There is some mucosal thickening ofdescending colon consistent with colitisAppendix: No evidence for appendicitis PELVIS: Bladder: UnremarkableReproductive: Unremarkable No ascites IMPRESSION: Status post gastric bypass. Proximal jejunal loops appear moderately dilatedraising the possibility of partial proximal small bowel obstruction. Thickening of the as cending colon suspicious for possible colitis. Eventration of the umbilicus is seen. Electronically signed in PS360 by: Vince Curran M.D. 02/17/2021 8:12 EDT Name Value Range Interpretation Code Description Data [facility]ille rce(s) Supporting Document(s) ID Date Data Source [id number] 02/17/2021 01:51:00 AM EDT [facility] Patient: JHON HOFFMANN Observation Report - [facility].VisitID: [id number] [place] [address] [phone], FRegistration Date/Time: 02/16/2021 19:56 Weight:58.9 kg (S). Height/Length:62 inches (S). 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 Additional Surgeries:Adenoidectomy.Adrenal gland removed.Adrenalectomy.Cholecystectomy.Gastric bypass [2006]. (Dr Stauffer)Hernia Repair.Laparoscopy.Ovarian drilling.Tonsillectomy. Medications:Depakote Oral unk, last dose 2 days garcia.Magsalt 10mg, as needed, last dose several months ago.Omeprazole Oral (Capsule Delayed Release 40 mg) 1 capsule, daily every AM, last dose this am.Percocet Oral (Tablet 5-325 mg) 2 tablets, q4h as needed, last dose 2 days ago. Allergies:Azithromycin. Mild(nausea) (abdominal pain)Cef tin.(hives)Ciprofloxacin. ("caused pt to get C-diff")Erythromycin.(hives)NSAIDs. (had gastric bypass surgery)Penicillins.(hives)Sulfa Antibiotics.(hives). FAMILY HISTORYNegative - denies family medical history. INSTRUCTIONSYour Current Medications: Your current home medications have been reviewed. CONTINUE TAKING THE FOLLOWING MEDICATIONS:Depakote Oral : unk, Last: 2 days garcia. Mags alt* : 10mg, Last: several months ago, prn. Omeprazole Oral : Capsule Delayed Release 40 mg, 1 capsule daily, Last: this am, every AM. Percocet Oral : Tablet 5-325 mg, 2 tablets q4h, Last: 2 days ago, prn. (Electronically signed by Sindy Gonzalez 02/17/2021 01:46) Name Value Range Interpretation Code Description Data [facility] rce(s) Supporting Document(s) ID Date Data Source [id number] 02/16/2021 09:16:00 PM EDT [facility] TSYSORDER [id number] Name Value Range Interpretation Code Description Data [facility] rce(s) Supporting Document(s) URINE RBC NONE SEEN /hpf 0-3 [facility] URINE WBC NONE SEEN /hpf 0-5 [facility] URINE EPITHELIAL CELLS 1+ /hpf 0 [facility] ID Date Data Source [id number] [id number] 02/16/2021 09:16:00 PM EDT [facility] TSYSORDER [id number] Name Value Range Interpretation Code Description Data [facility] rce(s) Supporting Document(s) URINE COLOR. YELLOW [facility] URINE APPEARANCE CLEAR [facility] URINE GLUCOSE (UA) NEGATIVE mg/dL NEGATIVE [facility] URINE BILIRUBIN 1+(SMALL) NEGATIVE [facility] URINE KETONE 40(MODERATE) mg/dL NEGATIVE H [facility] spital SPECIFIC GRAVITY,URINE 1.025 1.005-1.030 [facility] URINE BLOOD NEGATIVE NEGATIVE [facility] PH,URINE 6.5 5.0-9.0 [facility] URINE PROTEIN 1+(30) mg/dL NEGATIVE H [facility] URINE UROBILINOGEN NORMAL(0.2-1) mg/dL 0-1 [facility] URINE NITRATE NEGATIVE NEGATIVE [facility] URINE LEUKOCYTE ESTERASE NEGATIVE NEGATIVE [facility] ID Date Data Source [id number] 02/16/2021 09:05:00 PM EDT [facility] TSYSORDER [id number] Name Value Range Interpretation Code Description Data [facility] rce(s) Supporting Document(s) HCG URINE NEGATIVE NEGATIVE [facility] ID Date Data Source [id number] 02/16/2021 08:48:00 PM EDT [facility] Name Value Range Interpretation Code Description Data [facility] rce(s) Supporting Document(s) SARS COV2 TRP Not Detected [facility] This lab was ordered by [facility] and reported by [facility]. ID Date Data Source [id number] 02/16/2021 09:46:00 PM EDT [facility] TSYSORDER [id number] Name Value Range Interpretation Code Description Data [facility] rce(s) Supporting Document(s) Adenovirus Not Detected Detected Not [facility]ital Coronavirus 229E Not Detected Detected Not [facility] Coronavirus HKU1 Not Detected Detected Not [facility] Coronavirus NL63 Not Detected Detected Not [facility] Coronavirus OC43 Not Detected Detected Not [facility] Sars Cov 2 Not Detected Detected Not [facility] Negative results do not preclude SARS-Co V-2 infection andshould not be used as the sole basis for treatment or otherpatient management decisions. Negative SARS-CoV-2 resultsmust be combined with clinical observations, patienthistory, and epidemiological information. Human Metapneumovirus Not Detected Detected Not [facility] Human Rhinovirus DETECTED Detected Not [facility] Influenza A Not Detected Detected [facility] Influenza B Not Detected Detected [facility] Parainfluenza Virus 1 Not Detected Detected [facility] Parainfluenza Virus 2 Not Detected Detected [facility] Parainfluenza Virus 3 Not Detected Detected Not [facility] Parainfluenza Virus 4 Not Detected Detected [facility] Respiratory Syncytial Virus Not Detected Detected Not [facility] Bordetella parapertus ([id number]) Not Detected Detected Not [facility] Bordetella pertussis (ptxP) Not Detected Detected Not [facility] Chlamydia pneumoniae Not Detected Detected Not [facility] Mycoplasma pneumoniae Not Detected Detected Not [facility] The results of the respiratory panel yanna langebe used as the sole basis for diagnosis, [...] results have been determined by using the [employer] FilmArray system.FilmArray is an automated in vitro diagnostic system thatutilizes nested multiplex Polymerase Chain Reaction (PCR)and high-resolution melting analysis to detect and identifymultiple nucleic acid targets from clinical specimens. ID Date Data Source [id number] 02/16/2021 09:22:00 PM EDT [facility] TSYSORDER [id number] Name Value Range Interpretation Code Description Data [facility] Supporting Document(s) MAGNESIUM 1.9 mg/dL 1.8-2.4 [facility] ID Date Data Source [id number] 02/16/2021 09:22:00 PM EDT [facility] TSYSORDER [id number] Name Value Range Interpretation Code Description Data [facility](s) Supporting Document(s) GLUCOSE 78 mg/dL 74-106 [facility] BLOOD UREA NITROGEN 8 mg/dL 7-18 [facility] ital CREATININE 0.98 mg/dL 0.6-1.0 [facility] SODIUM 131 mmol/L 136-145 L [facility] POTASSIUM 3.2 mmol/L 3.5-5.1 L [facility] CHLORIDE 92 mmol/L 98-107 L [facility] CO2 24 mmol/L 21-32 [facility] CALCIUM 9.0 mg/dL 8.5-10.1 [facility] ANION GAP 15.0 mmol/L 5-12 H [facility] GLOMERULAR FILTRATION RATE 64 mL/min [facility] GFR IS CALCULATED IN mL/min/1.73m2 TOSHIA L FUNCTION: >90MILDLY DECREASED: 60-89MILDY TO MODERATELY DECREASED: 45-59 MODERATELY TO SEVERELY DECREASED: 30-44SEVERELY DECREASED: 15-29RENAL FAILURE: <15 AST 46 U/L 15-37 H [facility] ALT 76 U/L 12-78 [facility] ALKALINE PHOSPHATASE 122 U/L 46-116 H [facility] pital TOTAL BILIRUBIN 0.4 mg/dL 0.2-1.0 [facility] TOTAL PROTEIN 7.3 g/dl 6.4-8.2 [facility] ALBUMIN 3.8 gm/dL 3.4-5.0 [facility] ID Date Data Source [id number] 02/16/2021 09:22:00 PM EDT [facility] TSYSORDER [id number] Name Value Range Interpretation Code Description Data [facility] rce(s) Supporting Document(s) LIPASE 448 U/L 73-393 H [facility] ID Date Data Source [id number] 02/16/2021 09:16:00 PM EDT [facility] TSYSORDER [id number] Name Value Range Interpretation Code Description Data [facility] rce(s) Supporting Document(s) PARTIAL THROMBOPLASTIN TIME 23.5 SECONDS 21.2-27.3 [facility] ID Date Data Source [id number] 02/16/2021 09:16:00 PM EDT [facility] TSYSORDER [id number] Name Value Range Interpretation Code Description Data [facility] rce(s) Supporting Document(s) PROTHROMBIN TIME (PATIENT) 9.3 SECONDS 9.1-11.6 [facility] INR 0.89 0.87-1.06 [facility] ID Date Data Source [id number] 02/16/2021 08:59:00 PM T [facility] TSYSORDER [id number] Name Value Range Interpretation Code Description Data [facility] rce(s) Supporting Document(s) WHITE BLOOD COUNT 11.6 K/mm3 4.0-10.0 [facility] RED BLOOD COUNT 4.98 M/mm3 4.00-5.50 [facility] l HEMOGLOBIN 17.2 gm/dL 12.0-16.0 H [facility] HEMATOCRIT 45.5 % 36.0-48.8 [facility] MEAN CELL VOLUME 91.4 fl 80-96 [facility] MEAN CORPUSCULAR HEMOGLOBIN 34.5 pg 27.0-31.0 H [facility] MEAN CORPUSCULAR HGB CONC 37.8 g/dl 32.0-36.0 H [facility] RED CELL DISTRIBUTION WIDTH 13.5 % 10.0-14.5 [facility] PLATELET COUNT 401 K/mm3 172-450 [facility] MEAN PLATELET VOLUME 8.7 fl 9.0-13.0 L [facility] pital GRAN % 87.3 % 50-80.0 H [facility] IG% 0.4 % 0.0-0.2 H [facility] LYMPH % 9.9 % 25.0-50.0 L [facility] MONO % 2.2 % 2.0-10.0 [facility] EOS % 0.1 % 0-5.0 [facility] BASO % 0.1 % 0.0-2.0 [facility] GRAN # 10.1 K/mm3 2.0-8.00 H [facility] IG# 0.1 K/mm3 0.0-0.2 [facility] LYMPH # 1.1 K/mm3 1.0-5.0 [facility] MONO # 0.3 K/mm3 0.10-1.20 [facility] EOS # 0.0 K/mm3 0.0-0.5 [facility] BASO # 0.0 K/mm3 0.0-0.2 [facility] ID Date Data Source [id number] 02/14/2021 03:55:00 PM EDT [facility] Patient: JHON HOFFMANN Observation Report - [facility].VisitID: [id number] [place] [address] [phone], FRegistration Date/Time: 02/14/2021 10:59 Weight:49.8 kg (S). Height/Length:63 inches (S). 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 Additional Surgeries:Adenoidectomy.Adrenal gland removed.Adrenalectomy.Cholecystectomy.Gastric bypass.Hernia R epair.Laparoscopy.Ovarian drilling.Tonsillectomy. Medications:Magsalt 10mg, as needed, last dose several months ago.Omeprazole Oral (Capsule Delayed Release 40 mg) 1 capsule, daily every AM, last dose this am.Percocet Oral (Tablet 5-325 mg) 2 tablets, q4h as needed, last dose 7am. Allergies:Azithromycin. Mild(nausea) (abdominal pain)Ceftin.(hives)Ciprofloxacin. ("caused pt to get C-diff& quot;)Erythromycin.(hives)NSAIDs. (had gastric bypass surgery)Penicillins.(hives)Sulfa Antibiotics.(hives). FAMILY HISTORYNo significant family medical history. (Electronically signed by Clyde Moreno PA-C 02/14/2021 15:48) Name Value Range Interpretation Code Description Data [facility] rce(s) Supporting Document(s) ID Date Data Source [id number] 02/14/2021 02:00:00 PM EDT [facility] DATE OF EXAMINATION: 02/14/2021 12:58 EDT ABD/PEL WITH IV CONTRAST HISTORY: Pain and diarrhea TECHNIQUE: This CT exam was performed using the following dose reduction techniques:automated exposure control, adjustment of mA and/or kV according to thepatient's size, and use of iterative reconstruction technique. Standard contiguous axial spiral imaging was obtained from the dome of thediaphragms through the symphysis pubis without oral contrast and withintravenous contrast administration and with coronal reformatting. FINDINGS: Lower thorax: Unremarkable ABDOMEN: Liver: Moderate fatty infiltration. No focal massGallbladder and bile ducts: CholecystectomyPancreas: NormalSpleen: NormalAdrenals: NormalKidneys and ureters: NormalStomach and bowel: Status post gastric bypassAppendix: No appendicitis PELVIS: Bladder: UnremarkableReproductive: Not seen 1 cm fat-containing umbilical hernia IMPRESSION: Cholecystectomy and gastric bypass. Moderate fatty infiltration of liver. 1 cm fat-containing umbilical hernia. Electronically signed in PS360 by: Vince Curran M.D. 02/14/2021 13:54 EDT Name Value Range Interpretation Code Description Data [facility] rce(s) Supporting Document(s) ID Date Data Source [id number] 02/14/2021 01:55:00 PM EDT [facility] TSYSORDER [id number] Name Value Range Interpretation Code Description Data [facility] rce(s) Supporting Document(s) URINE RBC 0-2 /hpf 0-3 [facility] URINE WBC 0-2 /hpf 0-5 H [facility] URINE EPITHELIAL CELLS 2+ /hpf 0 [facility] URINE BACTERIA TRACE NONE SEEN H [facility] URINE HYALINE CAST 5-10 /LPF 0 [facility] ID Date Data Source [id number] 02/14/2021 01:40:00 PM EDT [facility] TSYSORDER [id number] Name Value Range Interpretation Code Description Data [facility] rce(s) Supporting Document(s) URINE COLOR. DARK YELLOW [facility] URINE APPEARANCE CLEAR [facility] l URINE GLUCOSE (UA) NEGATIVE mg/dL NEGATIVE [facility] URINE BILIRUBIN 1+(SMALL) NEGATIVE [facility] URINE KETONE 5(TRACE) mg/[facility] SPECIFIC GRAVITY,URINE >= 1.030 1.005-1.030 [facility] URINE BLOOD NEGATIVE NEGATIVE [facility] PH,URINE 6.0 5.0-9.0 [facility] URINE PROTEIN 2+(100) mg/dL NEGATIVE [facility] URINE UROBILINOGEN 1.0 mg/dL 0-1 [facility] URINE NITRATE NEGATIVE NEGATIVE [facility] URINE LEUKOCYTE ESTERASE NEGATIVE NEGATIVE [facility] ID Date Data Source [id number] 02/14/2021 01:14:00 PM EDT [facility] TSYSORDER [id number] Name Value Range Interpretation Code Description Data [facility] rce(s) Supporting Document(s) HCG URINE NEGATIVE NEGATIVE [facility] ID Date Data Source [id number] 02/14/2021 11:52:00 AM EDT [facility] Name Value Range Interpretation Code Description Data [facility] rce(s) Supporting Document(s) COVID-19 NEGATIVE [facility] This lab was ordered by [facility] and reported by [facility]. ID Date Data Source [id number] 02/14/2021 12:47:00 PM EDT [facility] [id number] Name Value Range Interpretation Code Description Data [facility] rce(s) Supporting Document(s) HCG,SERUM NEGATIVE NEGATIVE [facility] False negative results may occur when th e levels of hCG arebelow the sensitivity level of the test. If isstill suspected, a first morning urine specimen should becollected 48hrs later.This test has a sensitivity of 10mIU/mL in serum nkw52uMG/mL in urine. ID Date Data Source [id number] 02/14/2021 12:34:00 PM EDT [facility] TSYSORDER [id number] Name Value Range Interpretation Code Description Data [facility] rce(s) Supporting Document(s) WHITE BLOOD COUNT 19.8 K/mm3 4.0-10.0 H [facility] trini RED BLOOD COUNT 5.39 M/mm3 4.00-5.50 [facility] HEMOGLOBIN 18.3 gm/dL 12.0-16.0 H [facility] HEMATOCRIT 49.0 % 36.0-48.8 H [facility] MEAN CELL VOLUME 90.9 fl 80-96 [facility] MEAN CORPUSCULAR HEMOGLOBIN 34.0 pg 27.0-31.0 H [facility] MEAN CORPUSCULAR HGB CONC 37.3 g/dl 32.0-36.0 H [facility] RED CELL DISTRIBUTION WIDTH 13.1 % 10.0-14.5 [facility] PLATELET COUNT 364 K/mm3 172-450 [facility] MEAN PLATELET VOLUME 9.2 fl 9.0-13.0 [facility] pital GRAN % 82.0 % 50-80.0 H [facility] IG% 0.5 % 0.0-0.2 H [facility] LYMPH % 11.9 % 25.0-50.0 L [facility] MONO % 5.5 % 2.0-10.0 [facility] EOS % 0.0 % 0-5.0 [facility] BASO % 0.1 % 0.0-2.0 [facility] GRAN # 16.3 K/mm3 2.0-8.00 *H [facility] IG# 0.1 K/mm3 0.0-0.2 [facility] LYMPH # 2.4 K/mm3 1.0-5.0 [facility] MONO # 1.1 K/mm3 0.10-1.20 [facility] EOS # 0.0 K/mm3 0.0-0.5 [facility] BASO # 0.0 K/mm3 0.0-0.2 [facility] ID Date Data Source [id number] 02/14/2021 12:31:00 PM EDT [facility] TSYSORDER [id number] Name Value Range Interpretation Code Description Data [facility] rce(s) Supporting Document(s) LIPASE 304 U/L 73-393 [facility] ID Date Data Source [id number] 02/14/2021 12:31:00 PM EDT [facility] TSYSORDER [id number] Name Value Range Interpretation Code Description Data [facility] rce(s) Supporting Document(s) GLUCOSE 111 mg/dL 74-106 H [facility] BLOOD UREA NITROGEN 7 mg/dL 7-18 [facility] ital CREATININE 1.02 mg/dL 0.6-1.0 H [facility] SODIUM 135 mmol/L 136-145 L [facility] POTASSIUM 3.1 mmol/L 3.5-5.1 L [facility] CHLORIDE 96 mmol/L 98-107 L [facility] CO2 25 mmol/L 21-32 [facility] CALCIUM 9.3 mg/dL 8.5-10.1 [facility] ANION GAP 14.0 mmol/L 5-12 H [facility] GLOMERULAR FILTRATION RATE 61 mL/min [facility] GFR IS CALCULATED IN mL/min/1.73m2 TOSHIA L FUNCTION: >90MILDLY DECREASED: 60-89MILDY TO MODERATELY DECREASED: 45-59 MODERATELY TO SEVERELY DECREASED: 30-44SEVERELY DECREASED: 15-29RENAL FAILURE: <15 AST 117 U/L 15-37 H [facility] ALT 124 U/L 12-78 H [facility] ALKALINE PHOSPHATASE 131 U/L 46-116 H [facility] pital TOTAL BILIRUBIN 0.5 mg/dL 0.2-1.0 [facility] TOTAL PROTEIN 7.6 g/dl 6.4-8.2 [facility] ALBUMIN 4.1 gm/dL 3.4-5.0 [facility] ID Date Data Source [id number] 02/14/2021 12:27:00 PM EDT [facility] TSYSORDER [id number] Name Value Range Interpretation Code Description Data [facility] rce(s) Supporting Document(s) COVID-19 NEGATIVE NEGATIVE [facility] Negative results should be treated as pr [...] are for the indentification of SARS-CoV-2 RNA. FurCLJF-IeD-3 RNA is generally detectable in respiratorysamples during the actue phase of infection. ID Date Data Source [id number] 01/24/2021 10:18:00 AM EDT [facility] Name Value Range Interpretation Code Description Data [facility] rce(s) Supporting Document(s) SARS-CoV-2 (COVID-19) RNA [Presence] in Respiratory specimen by KORTNEY with probe detection Not Detected [facility] This lab was ordered by [facility] and reported by [facility]. ID Date Data Source [id number] 01/24/2021 09:02:00 AM EDT [facility] Name Value Range Interpretation Code Description Data [facility] rce(s) Supporting Document(s) SARS COVID ANTIGEN NEGATIVE [facility] This lab was ordered by JOSE JUAN saucedo nd reported by [facility]. ID Date Data Source Coronavirus 2019 NOSE (Send Out) COVID 01/24/2021 12:00:00 A M EDT eCW1 ([facility]) Name Value Range Interpretation Code Description Data [facility] rce(s) Supporting Document(s) ASSAY INFORMATION: Real Time RT-PCR CORONAVIRUS 2019 NOSE eCW1 ([facility]) ID Date Data Source TONG CHEST 2 VIEW 01/24/2021 12:00:00 AM EDT eCW1 ([facility]) Name Value Range Interpretation Code Description Data [facility] rce(s) Supporting Document(s) TONG CHEST 2 VIEW eCW1 ([facility]) ID Date Data Source MABLE COVID AG (Point of Care) 01/24/2021 12:00:00 AM EDT eC W1 ([facility]) Name Value Range Interpretation Code Description Data [facility] rce(s) Supporting Document(s) NEGATIVE NEGATIVE MABLE COVID ANTIGEN eCW1 ([facility]) ID Date Data Source VALPROIC ACID (DEPAKOTE) 12/30/2020 12:00:00 AM EDT eCW1 ([facility]) Name Value Range Interpretation Code Description Data [facility] rce(s) Supporting Document(s) 18.5 50.0-100.0 VALPROIC ACID (DEPAKOTE) eCW1 ([facility]) ID Date Data Source LIVER PROFILE 12/30/2020 12:00:00 AM EDT eCW1 ([facility]) Name Value Range Interpretation Code Description Data [facility] rce(s) Supporting Document(s) 15 7-37 AST/SGOT eCW1 ([facility]) 0.2 0.2-1.0 BILIRUBIN,TOTAL eCW1 ([facility]) 13 12-78 ALT/SGPT eCW1 ([facility]) 74 45-117 ALKALINE PHOSPHATASE eCW1 ([facility]) 5.7 6.4-8.2 TOTAL PROTEIN eCW1 ([facility]) < 0.1 0.0-0.2 BILIRUBIN,DIRECT eCW1 ([facility]) 1.3 1.2-2.2 ALBUMIN/GLOBULIN RATIO eCW1 ([facility]) 3.2 3.2-5.2 ALBUMIN eCW1 ([facility]) ID Date Data Source VITAMIN D 25-HYDROXY 11/24/2020 12:00:00 AM EDT eCW1 ([facility]) Name Value Range Interpretation Code Description Data [facility] rce(s) Supporting Document(s) 16.3 30.0-100.0 TOTAL 25(OH) VITAMIN D eC W1 ([facility]) ID Date Data Source RHEUMATOID FACTOR QUANT 11/24/2020 12:00:00 AM EDT eCW1 ([facility]) Name Value Range Interpretation Code Description Data [facility] rce(s) Supporting Document(s) < 10.0 <15.0 RHEUMATOID FACTOR QUANT eCW1 ( [facility]) ID Date Data Source ERYTHROCYTE SEDIMENTATION RATE 11/24/2020 12:00:00 AM EDT eC W1 ([facility]) Name Value Range Interpretation Code Description Data Camille rce(s) Supporting Document(s) 5 0-20 ERYTHROCYTE SEDIMENTATION RATE eCW1 ([facility]) ID Date Data Source C REACTIVE PROTEIN QUANTITATIV (At [facility]) 11/24/2020 12:00 :00 AM EDT eCW1 ([facility]) Name Value Range Interpretation Code Description Data Camille rce(s) Supporting Document(s) 0.30 0.00-0.30 C REACTIVE PROTEIN QUANTI TATIV eCW1 ([facility]) ID Date Data Source [id number] 11/21/2020 06:48:00 AM EDT [facility] Name Value Range Interpretation Code Description Data Camille rce(s) Supporting Document(s) SARS-CoV-2 (COVID-19) RNA [Presence] in Respiratory specimen by KORTNEY with probe detection Not Detected [facility] This lab was ordered by [facility] and reported by [facility]. ID Date Data Source [id number] 11/17/2020 12:00:00 AM EDT [facility] Name Value Range Interpretation Code Description Data Camille rce(s) Supporting Document(s) SARS [facility] 2 [facility]IVE [facility] and reported by [facility]. ID Date Data Source [id number] 11/14/2020 04:30:00 PM EDT [facility] Patient: JHON HOFFMANN Observation Report - Phys[facility] [place].VisitID: [id number] [place] [address] [phone], FRegistration Date/Time: 11/13/2020 18:56 Weight:58.9 kg (S). Height/Length:62 inches (S). 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 Additional Surgeries:Adenoidectomy.Adrenal gland removed.Adrenalectomy.Cholecystectomy.Gastric bypass.Hernia Repair.Laparoscopy.Ovarian drilling.Tonsillectomy. Medications:Magsalt 10mg, as needed, last dose several months ago.Omeprazole Oral (Capsule Delayed Release 40 mg) 1 capsule, daily every AM, last dose this am.Percocet Oral (Tablet 5-325 mg) 2 tablets, q4h as needed, last dose 7am. Allergies:Azithromycin. Mild(nausea) (abdominal pain)Ceftin.(hives)Ciprofloxacin. ("caused pt to get C- diff")Erythromycin.(hives)NSAIDs. (had gastric bypass surgery)Penicillins.(hives)Sulfa Antibiotics.(hives). INSTRUCTIONSYour Current Medications: Your current home medications have been reviewed. CONTINUE TAKING THE FOLLOWING MEDICATIONS:Magsalt* : 10mg, Last: several months ago, prn. Omeprazole Oral : Capsule Delayed Release 40 mg, 1 capsule daily, Last: this am, every AM. Percocet Oral : Tablet 5-325 mg, 2 tablets q4h, Last: 7am, prn. (Electronically signed by Sindy Gonzalez 11/14/2020 01:19) Name Value Range Interpretation Code Description Data Camille e(s) Supporting Document(s) ID Date Data Source [id number] 11/14/2020 07:13:00 AM EDT [facility] DATE OF EXAMINATION: 11/13/2020 19:52 EDT HISTORY: Fall TECHNIQUE: 3 views of the right ribs were obtained. FINDINGS: There is a normal alignment and position of the bones of the thorax. Nofractures are identified. No evidence for pneumothorax is noted. IMPRESSION: Unremarkable rib series. Electronically signed in PS360 by: Neel Arguelles M.D. 11/14/2020 7:07 EDT Name Value Range Interpretation Code Description Data Camille rce(s) Supporting Document(s) ID Date Data Source [id number] 11/14/2020 07:12:00 AM EDT [facility] DATE OF EXAMINATION: 11/13/2020 19:51 EDT HISTORY: Fall TECHNIQUE: 5 views of the left ribs were obtained. FINDINGS: There is a normal alignment and position of the bones of the thorax. Nofractures are identified. No evidence for pneumothorax is noted. IMPRESSION: Unremarkable rib series. Electronically signed in PS360 by: Neel Arguelles M.D. 11/14/2020 7:06 EDT Name Value Range Interpretation Code Description Data Camille rce(s) Supporting Document(s) ID Date Data Source [id number] 11/14/2020 05:32:00 AM EDT [facility] Name Value Range Interpretation Code Description Data Camille rce(s) Supporting Document(s) SARS-CoV-2 (COVID-19) RNA [Presence] in Respiratory specimen by KORTNEY with probe detection Not Detected [facility] This lab was ordered by [facility] and reported by [facility]. ID Date Data Source [id number] 11/10/2020 12:00:00 AM EDT [facility] Name Value Range Interpretation Code Description Data Camille rce(s) Supporting Document(s) SARS coronavirus 2 Ag NEGATIVE [facility] This lab was ordered by [facility] and reported by [facility]. ID Date Data Source [id number] 11/09/2020 08:14:00 PM EDT [facility] Patient: JHON HOFFMANN Observation Report - Physicians/[facility] Levels [place].VisitID: [id number] [place] [address] [phone], FRegistration Date/Time: 11/09/2020 12:23 Weight:58.9 kg (S). Height/Length:62 inches (S). BMI:23.8 PAST HISTORYProblems:Chronic Headache [Chronic].Migraine Headache [Chronic].Gastroesophageal Reflux Disease [Chronic].C diff.Cervical Radiculopathy.Adrenal Disease.Allergic Rhinitis.Abdominal Pain.Nervus intermedius neuralgia.Pneumonia.Conjunctivitis.Arthritis.Rheumatoid Arthritis.Psoriatic- arthritis [Intermittent]. Additional Surgeries:Adenoidectomy.Adrenal gland removed.Adrenalectomy.Cholecystectomy.Gastric bypass.Hernia Repair.Laparoscopy.Ovarian drilling.Tonsillectomy. Medications:Advil Oral (Tablet 200 mg) 2 tablets, as needed, last dose 3 am.Percocet Oral (Tablet 5- 325 mg) 2 tablets, q4h as needed, last dose 1100 today.Magsalt 10mg, as needed, last dose 3 weeks ago.Omeprazole Oral (Capsule Delayed Release 40 mg) 1 capsule, daily every AM, last dose today. Allergies:Azithromycin. Mild(nausea) (abdominal pain)Ceftin.(hives)Ciprofloxacin. ("caused pt to get C-diff")Erythromycin.(hives)NSAIDs. (had gastric bypass surgery)Penicillins.(hives)Sulfa Antibiotics.(hives). FAMILY HISTORYNo significant family medical history. (Electronically signed by Kelly Bob P.A. 11/09/2020 20:03) Name Value Range Interpretation Code Description Data Camille rce(s) Supporting Document(s) ID Date Data Source [id number] 11/09/2020 01:55:00 PM EDT [facility] DATE OF EXAMINATION: 11/09/2020 13:16 EDT CHEST W/O IV CONTRAST HISTORY: Fall TECHNIQUE: This CT exam was performed using the following dose reduction techniques:automatic exposure control, adjustment of mA and/or kV according to thepatient's size, and use of iterative reconstruction technique. Standard contiguous axial spiral imaging was obtained from lung apices to thelung bases without intravenous contrast administration and with coronalreformatting. FINDINGS: Lungs: No pneumothorax. No focal consolidation or mass. Mild groundglassopacities are noted bilaterally, of uncertain significance. Clinical correlationfor possible Covid infection is encouragedPleural space: No pleural fluid or airMediastinum: UnremarkableBones/joints: Grossly unremarkable Status post gastric bypass and cholecystectomy IMPRESSION: Mild groundglass opacities bilaterally. These are nonspecific. Evaluation forpossible Covid is encouraged. Electronically signed in PS360 by: Vince Curran M.D. 11/09/2020 13:49 EDT Name Value Range Interpretation Code Description Data Camille rce(s) Supporting Document(s) ID Date Data Source [id number] 11/09/2020 01:50:00 PM EDT [facility] Name Value Range Interpretation Code Description Data Camille rce(s) Supporting Document(s) COVID-19 NEGATIVE [facility] This lab was ordered by [facility] and reported by [facility]. ID Date Data Source [id number] 11/09/2020 02:10:00 PM EDT Ione Dov feliz TSYSORDER [id number] Name Value Range Interpretation Code Description Data Camille rce(s) Supporting Document(s) COVID-19 NEGATIVE NEGATIVE [facility] Negative results should be treated as pr [...] are for the indentification of SARS-CoV-2 RNA. [id number] RNA is generally detectable in respiratorysamples during the actue phase of infection. ID Date Data Source [id number] 11/07/2020 05:44:00 AM EDT [facility] Name Value Range Interpretation Code Description Data Camille rce(s) Supporting Document(s) SARS-CoV-2 (COVID-19) RNA [Presence] in Respiratory specimen by KORTNEY with probe detection Not Detected [facility] This lab was ordered by [facility] and reported by [facility]. ID Date Data Source [id number] 11/03/2020 12:00:00 AM EDT [facility] Name Value Range Interpretation Code Description Data Camille rce(s) Supporting Document(s) SARS coronavirus 2 Ag NEGATIVE [facility] This lab was ordered by [facility] and reported by [facility] [place]. ID Date Data Source [id number] 10/31/2020 05:50:00 AM EDT [facility] Name Value Range Interpretation Code Description Data Camille rce(s) Supporting Document(s) SARS-CoV-2 (COVID-19) RNA [Presence] in Respiratory specimen by KORTNEY with probe detection Not Detected [facility] This lab was ordered by [facility] and reported by [facility]. ID Date Data Source [id number] 10/28/2020 12:00:00 AM EDT [facility] Name Value Range Interpretation Code Description Data Camille rce(s) Supporting Document(s) SARS coronavirus 2 Ag NEGATIVE [facility] This lab was ordered by [facility] and reported by [facility]. ID Date Data Source [id number] 10/20/2020 12:00:00 AM EDT [facility] Name Value Range Interpretation Code Description Data Camille rce(s) Supporting Document(s) SARS coronavirus 2 Ag NEGATIVE [facility] This lab was ordered by [facility] and reported by [facility]. ID Date Data Source [id number] 10/17/2020 06:40:00 AM EDT [facility] Name Value Range Interpretation Code Description Data Camille rce(s) Supporting Document(s) SARS-CoV-2 (COVID-19) RNA [Presence] in Respiratory specimen by KORTNEY with probe detection Not Detected [facility] This lab was ordered by [facility] and reported by [employer] ID Date Data Source [id number] 2020 12:56:00 PM EDT [facility] Name Value Range Interpretation Code Description Data Camille rce(s) Supporting Document(s) SARS-CoV-2 (COVID-19) RNA [Presence] in Respiratory specimen by KORTNEY with probe detection Not Detected [facility] This lab was ordered by [facility] and reported by [employer] ID Date Data Source [id number] 10/06/2020 12:00:00 AM EDT [facility] Name Value Range Interpretation Code Description Data Camille rce(s) Supporting Document(s) SARS coronavirus 2 Ag NEGATIVE [facility] This lab was ordered by [facility] and reported by [facility]. ID Date Data Source [id number] 10/03/2020 08:13:00 AM EDT [facility], ) Name Value Range Interpretation Code Description Data Camille rce(s) Supporting Document(s) Creatinine For GFR 0.70 mg/dL 0.55-1.30 Normal (applies to non -numeric results) [facility] ([facility], ) Glomerular Filtration Rate Laboratory test result Normal (applies to non- numeric results) [facility]) <content>Units are mL/min/1.73 m2</content>
<content></content>
<content>Chronic Kidney Disease Staging per NKF:</content>
<content></content>
<content>Stage I & II GFR >=60 Normal to Mildly Decreased</content>
<content>Stage III GFR 30- 59 Moderately Decreased</content>
<content>Stage IV GFR 15-29 Severely Decreased</content>
<content>Stage V GFR <15 Very Little GFR Left</content>
<content>ESRD GFR <15 on [employer]</content>
<content></content> ID Date Data Source [id number] 10/03/2020 08:13:00 AM EDT [facility]) Name Value Range Interpretation Code Description Data Camille rce(s) Supporting Document(s) Urea nitrogen [Mass/volume] in Serum or Plasma 14 mg/dL 7 -18 Normal (applies to non-numeric results) [facility]) ID Date Data Source [id number] 10/03/2020 08:13:00 AM [facility]) Name Value Range Interpretation Code Description Data Camille rce(s) Supporting Document(s) Inr 0.89 Normal (applies to non-numeric resul ts) [facility]) THERAPUTIC HUMAN INR VALUES INDICATIONS NORMAL RANGES PROPHYLAXIS/TREATMENT OF: VENOUS THROMBOSIS 2.0-3.0 PULMONARY EMBOLISM 2.0-3.0 PREVENTION OF SYSTEMIC EMBOLISM FROM: TISSUE HEART VALVES 2.0-3.0 ACUTE MYOCARDIAL INFARCTION 2.0-3.0 VALVULAR HEART DISEASE 2.0-3.0 ATRIAL FIBRILLATION 2.0-3.0 MECHANICAL VALVES(HIGH RISK) 2.5-3.5 RECURRENT MYOCARDIAL INFARCTION 2.5-3.5 Prothrombin Time 12.2 s 12.5-14.3 Normal (applies to non-numeric results) [facility]) Partial Thromboplastin Time 32.6 s 24.2-38.5 Norm al (applies to non-numeric results) [facility]) ID Date Data Source [id number] 10/03/2020 08:13:00 AM [facility]) Name Value Range Interpretation Code Description Data Camille rce(s) Supporting Document(s) Mitochondria Ab [Units/volume] in Serum Laboratory test result 0 .0-20.0 Normal (applies to non-numeric results) [facility]) Negative 0.0 - 20.0 Equivocal 20.1 - 24.9 Positive >24.9 . Mitochondrial (M2) Antibodies are found in 90-96% of patients with primary biliary cirrhosis. Liver-Kidney Microsomal Joan Laboratory test result 0.0-20.0 Normal (applies to non-numeric results) [facility]) Negative 0.0 - 20.0 Equivocal 20.1 - 24.9 Positive >24.9 . LKM type 1 antibodies are detected in patients with autoimmune hepatitis type 2 and in up to 8% of patients with chronic HCV infection. Performed at: RN - [facility] [address] [id number] Containers Sales Representative: Belen Holman MD, Phone: [phone] Actin IgG Ab [Units/volume] in Serum or Plasma 5 units 0 -19 Normal (applies to non-numeric results) [facility]) Negative 0 - 19 Weak positive 20 - 30 Moderate to strong positive >30 . Actin Antibodies are found in 52-85% of patients with autoimmune hepatitis or chronic active hepatitis and in 22% of patients with primary biliary cirrhosis. ID Date Data Source [id number] 10/03/2020 08:13:00 AM [facility]) Name Value Range Interpretation Code Description Data Camille rce(s) Supporting Document(s) Ast/Sgot 31 U/L 7-37 Normal (applies to non-numeric resul ts) [facility]) Alt/SGPT 41 U/L 12-78 Normal (applies to non-numeric resul ts) [facility]) Alkaline Phosphatase 92 U/L 45-117 Normal (applies to non-num kelly results) [facility] ([facility]) Bilirubin,Direct 0.2 mg/dL 0.0-0.2 Normal (applies to non-numeric results) [facility] ([facility]) Bilirubin,Total 0.3 mg/dL 0.2-1.0 Normal (applies to non-numeric results) [facility] ([facility]) Albumin/Globulin Ratio 1.4 1.2-2.2 Normal (applies to non-n umeric results) [facility] ([facility]) Total Protein 6.1 GM/DL 6.4-8.2 Below low normal [facility] T ([facility]) Albumin 3.6 GM/DL 3.2-5.2 Normal (applies to non-numeric resul ts) [facility]) ID Date Data Source [id number] 10/03/2020 05:40:00 AM EDT [facility] Name Value Range Interpretation Code Description Data Camille rce(s) Supporting Document(s) SARS-CoV-2 (COVID-19) RNA [Presence] in Respiratory specimen by KORTNEY with probe detection Not Detected [facility] This lab was ordered by [facility] and reported by [employer] ID Date Data Source [id number] 09/29/2020 12:00:00 AM EDT [facility] Name Value Range Interpretation Code Description Data Camille rce(s) Supporting Document(s) SARS coronavirus 2 Ag NEGATIVE [facility] This lab was ordered by [facility] and reported by [facility]. ID Date Data Source [id number] 09/26/2020 07:06:00 AM EDT [facility] Name Value Range Interpretation Code Description Data Camille rce(s) Supporting Document(s) SARS-CoV-2 (COVID-19) RNA [Presence] in Respiratory specimen by KORTNEY with probe detection Not Detected [facility] This lab was ordered by [facility] and reported by [employer] ID Date Data Source [id number] 09/26/2020 12:00:00 AM EDT [facility] Name Value Range Interpretation Code Description Data Camille rce(s) Supporting Document(s) SARS-CoV2 Rapid Antigen Negative [facility] This lab was ordered by [facility] and reported by [facility]. ID Date Data Source [id number] 09/25/2020 12:00:00 AM EDT [facility] Name Value Range Interpretation Code Description Data Camille rce(s) Supporting Document(s) SARS-CoV2 Rapid Antigen Negative [facility] This lab was ordered by [facility] and reported by [facility]. ID Date Data Source [id number] 09/20/2020 09:22:00 AM EDT [facility] DATE OF EXAMINATION: 09/20/2020 8:27 EDT ABDOMEN LIMITED COMPARED TO: No priors HISTORY: Hepatitis Real-time ultrasound imaging was performed utilizing B- mode/cardoza scale and colorDoppler imaging where applicable. FINDINGS: Patient is status post cholecystectomy. Moderate fatty infiltration of liverwith mild hepatomegaly at 17 cm is noted. The liver displays a heterogeneousechotexture throughout. There is a hypoechoic area measuring 1.4 cm anterior tothe portal vein within the hepatic parenchyma. Neoplasm is not excluded. Thisshould be further evaluated with a contrast-enhanced CT. The pancreas and IVCappear normal. Right kidney is normal in appearance measuring 12.4 cm. There isno ascites. IMPRESSION: 1.4 cm hypoechoic lesion within the hepatic parenchyma warrants acontrast-enhanced CT scan of abdomen. Liver reveals fatty infiltration withheterogeneous echotexture as well. Cholecystectomy. Electronically signed in PS360 by: Vince Curran M.D. 09/20/2020 9:16 EDT Name Value Range Interpretation Code Description Data Camille rce(s) Supporting Document(s) ID Date Data Source [id number] 09/15/2020 12:00:00 AM EDT [facility] Name Value Range Interpretation Code Description Data Camille rce(s) Supporting Document(s) SARS coronavirus 2 Ag NEGATIVE [facility] This lab was ordered by [facility] and reported by [facility]. ID Date Data Source Reticulocyte Count Sys[employer]ex 09/14/2020 12:00:00 AM EDT eCW1 ([facility]) Name Value Range Interpretation Code Description Data Camille rce(s) Supporting Document(s) 1.9 0.5-1.5 RETICULOCYTE % eCW1 ([facility]) ID Date Data Source LDH LACTATE DEHYDROGENASE 09/14/2020 12:00:00 AM EDT eCW1 ([facility]) Name Value Range Interpretation Code Description Data Camille rce(s) Supporting Document(s) [id number] LDH LACTATE DEHYDROGENASE eCW1 ([facility]) ID Date Data Source [id number] 09/12/2020 06:12:00 AM EDT [facility] Name Value Range Interpretation Code Description Data Camille rce(s) Supporting Document(s) SARS-CoV-2 (COVID-19) RNA [Presence] in Respiratory specimen by KORTNEY with probe detection Not Detected [facility] This lab was ordered by [facility] and reported by [facility]. ID Date Data Source [id number] 08/29/2020 06:54:00 AM EDT [facility] Name Value Range Interpretation Code Description Data Camille rce(s) Supporting Document(s) SARS-CoV-2 (COVID-19) RNA [Presence] in Respiratory specimen by KORTNEY with probe detection Not Detected [facility] This lab was ordered by [facility] and reported by [employer] ID Date Data Source [id number] 08/25/2020 12:00:00 AM EDT [facility] Name Value Range Interpretation Code Description Data Camille rce(s) Supporting Document(s) SARS coronavirus 2 Ag NEGATIVE [facility] This lab was ordered by [facility] and reported by [facility] [place]. ID Date Data Source [id number] 08/22/2020 07:00:00 AM EDT [facility] Name Value Range Interpretation Code Description Data Camille rce(s) Supporting Document(s) SARS coronavirus 2 RNA Not Detected [facility] This lab was ordered by [facility] and reported by [facility]. ID Date Data Source [id number] 08/18/2020 12:00:00 AM EDT [facility] Name Value Range Interpretation Code Description Data Camille rce(s) Supporting Document(s) SARS coronavirus 2 Ag NEGATIVE [facility] This lab was ordered by [facility] and reported by [facility] [place]. ID Date Data Source [id number] 08/15/2020 07:07:00 AM EDT [facility] Name Value Range Interpretation Code Description Data Camille rce(s) Supporting Document(s) SARS coronavirus 2 RNA Not Detected [facility] [place] This lab was ordered by [facility] and reported by [facility]. ID Date Data Source [id number] 08/11/2020 12:00:00 AM EDT [facility] Name Value Range Interpretation Code Description Data Camille rce(s) Supporting Document(s) SARS coronavirus 2 Ag NEGATIVE [facility] This lab was ordered by [facility] and reported by [facility]. ID Date Data Source [id number] 08/08/2020 07:00:00 AM EDT [facility] Name Value Range Interpretation Code Description Data Camille rce(s) Supporting Document(s) SARS coronavirus 2 RNA Not Detected [facility] [place] This lab was ordered by [facility] and reported by [facility]. ID Date Data Source [id number] 08/04/2020 09:45:00 AM EST [facility] Name Value Range Interpretation Code Description Data Camille rce(s) Supporting Document(s) SARS coronavirus 2 RNA Not Detected [facility] [place] This lab was ordered by [facility] and reported by [facility]. ID Date Data Source [id number] 08/01/2020 07:10:00 AM EST [facility] Name Value Range Interpretation Code Description Data Camille rce(s) Supporting Document(s) SARS coronavirus 2 RNA Not Detected [facility] [place] This lab was ordered by [facility] and reported by [facility]. ID Date Data Source [id number] 07/28/2020 12:00:00 AM EST eCW1 ([facility]) Name Value Range Interpretation Code Description Data Camille rce(s) Supporting Document(s) 9.7 >5.4 FOLATE eCW1 ([facility]) ID Date Data Source FERRITIN 07/28/2020 12:00:00 AM EST eCW1 ([facility]) Name Value Range Interpretation Code Description Data Camille rce(s) Supporting Document(s) [id number] FERRITIN eCW1 ([facility]) ID Date Data Source [id number] 07/28/2020 12:00:00 AM EST [facility] Name Value Range Interpretation Code Description Data Camille rce(s) Supporting Document(s) SARS coronavirus 2 Ag NEGATIVE [facility] This lab was ordered by [facility] and reported by [facility]. ID Date Data Source [id number] 07/25/2020 07:00:00 AM EST [facility] Name Value Range Interpretation Code Description Data Camille rce(s) Supporting Document(s) SARS coronavirus 2 RNA Not Detected [facility] [place] This lab was ordered by [facility] and reported by [facility]. ID Date Data Source [id number] 07/21/2020 12:00:00 AM EST [facility] Name Value Range Interpretation Code Description Data Camille rce(s) Supporting Document(s) SARS coronavirus 2 Ag NEGATIVE [facility] This lab was ordered by [facility] and reported by [facility]. ID Date Data Source [id number] 07/18/2020 08:00:00 AM EST [facility] Name Value Range Interpretation Code Description Data Camille rce(s) Supporting Document(s) SARS coronavirus 2 RNA Not Detected [facility] [place] This lab was ordered by [facility] and reported by [facility]. ID Date Data Source [id number] 07/14/2020 12:00:00 AM EST [facility] Name Value Range Interpretation Code Description Data Camille rce(s) Supporting Document(s) SARS coronavirus 2 Ag NEGATIVE [facility] This lab was ordered by [facility] and reported by [facility]. ID Date Data Source [id number] 07/11/2020 05:30:00 AM EST [facility] Name Value Range Interpretation Code Description Data Camille rce(s) Supporting Document(s) SARS coronavirus 2 RNA Not Detected [facility] [place] This lab was ordered by [facility] and reported by [facility]. ID Date Data Source [id number] 07/09/2020 06:31:00 PM EST [facility] Patient: JHON HOFFMANN Observation Report - [facility].VisitID: [id number] [place] [address] [phone], FRegistration Date/Time: 07/09/2020 15:47 Weight:58.9 kg (S). Height/Length:62 inches (S). BMI:23.8 PAST HISTORYProblems:Gastroesophageal Reflux Disease [Chronic].Chronic Headache [Chronic].Rheumatoid Arthritis. Additional Surgeries:Adenoidectomy.Adrenal gland removed.Adrenalectomy.Cholecystectomy.Gastric bypass.Hernia Repair.Laparoscopy.Ovarian drilling.Tonsillectomy. Medications:Magsalt 10mg, as needed, last dose 3 weeks ago.Omeprazole Oral (Capsule Delayed Release 40 mg) 1 capsule, daily every AM, last dose today. Allergies:Azithromycin. Mild(nausea) (abdominal pain)Ceftin.(hives)Ciprofloxacin. ("caused pt to get C- diff")Erythromycin.(hives)NSAIDs. (had gastric bypass surgery)Penicillins.(hives)Sulfa Antibiotics.(hives). FAMILY HISTORYNegative. No significant family medical history. (Electronically signed by Sindy Orozco 07/09/2020 18:22) Name Value Range Interpretation Code Description Data Camille rce(s) Supporting Document(s) ID Date Data Source [id number] 07/07/2020 12:00:00 AM EST [facility] Name Value Range Interpretation Code Description Data Camille rce(s) Supporting Document(s) SARS coronavirus 2 Ag NEGATIVE [facility] This lab was ordered by [facility] and reported by [facility]. ID Date Data Source [id number] 07/04/2020 06:00:00 AM EST [facility] Name Value Range Interpretation Code Description Data Camille rce(s) Supporting Document(s) SARS coronavirus [address] [facility] This lab was ordered by [facility] and reported by [facility]. ID Date Data Source [id number] 06/30/2020 12:00:00 AM EST [facility] Name Value Range Interpretation Code Description Data Camille rce(s) Supporting Document(s) SARS coronavirus 2 Ag [facility] This lab was ordered by [facility] and reported by [facility]. ID Date Data Source [id number] 06/27/2020 06:00:00 AM EST [facility] Name Value Range Interpretation Code Description Data Camille rce(s) Supporting Document(s) SARS coronavirus 2 RNA Not Detected [facility] This lab was ordered by [facility] and reported by [facility]. ID Date Data Source [id number] 06/23/2020 12:00:00 AM EST [facility] Name Value Range Interpretation Code Description Data Camille rce(s) Supporting Document(s) SARS coronavirus 2 Ag NEGATIVE [facility] This lab was ordered by [facility] and reported by [facility]. ID Date Data Source [id number] 06/20/2020 06:12:00 AM EST [facility] Name Value Range Interpretation Code Description Data Camille rce(s) Supporting Document(s) SARS coronavirus 2 RNA Not Detected [facility] This lab was ordered by [facility] and reported by [facility]. ID Date Data Source [id number] 06/16/2020 12:00:00 AM EST [facility] Name Value Range Interpretation Code Description Data Camille rce(s) Supporting Document(s) SARS coronavirus 2 Ag Negative [facility] This lab was ordered by [facility] and reported by [facility]. ID Date Data Source [id number] 06/13/2020 05:49:00 AM EST [facility] Name Value Range Interpretation Code Description Data Camille rce(s) Supporting Document(s) SARS coronavirus 2 RNA Not Detected [facility] This lab was ordered by [facility] and reported by [facility]. ID Date Data Source [id number] 06/09/2020 12:00:00 AM EST [facility] Name Value Range Interpretation Code Description Data Camille rce(s) Supporting Document(s) SARS-CoV2 Rapid Antigen Negative [facility] This lab was ordered by [facility] and reported by [facility]. ID Date Data Source [id number] 06/06/2020 08:00:00 AM EST [facility] Name Value Range Interpretation Code Description Data Camille rce(s) Supporting Document(s) SARS coronavirus 2 RNA Not Detected [facility] This lab was ordered by [facility] and reported by [facility]. ID Date Data Source [id number] 05/30/2020 09:00:00 AM EST [facility] Name Value Range Interpretation Code Description Data Camille rce(s) Supporting Document(s) SARS coronavirus 2 RNA Not Detected [facility] This lab was ordered by [facility] and reported by [facility]. ID Date Data Source [id number] 05/24/2020 07:15:00 AM EST [facility] Name Value Range Interpretation Code Description Data Camille rce(s) Supporting Document(s) SARS-CoV-2 (COVID 19) [facility] This lab was ordered by [facility] a nd reported by [facility] ID Date Data Source Rapid Flu (Mable Influenza A+B ARNAV) 05/24/2020 12:00:[address] eCW1 ([facility]) Name Value Range Interpretation Code Description Data Camille rce(s) Supporting Document(s) Negative Result A (Positive/Negati ve) eCW1 ([facility]) Negative Result B (Positive/Negati ve) eCW1 ([facility]) Yes Internal Controls Perform ed (Y/N) eCW1 ([facility]) ID Date Data Source RESPIRATORY PANEL 05/24/2020 12:00:00 AM EST eCW1 ([facility]) Name Value Range Interpretation Code Description Data Camille rce(s) Supporting Document(s) This respiratory PCR panel detects Influenza A H1, H3 and RESPIRATORY PANEL eCW1 ([facility]) Procedure Social History Code Duration Value Status Description Data Source(s ) Smoking 03/16/2021 12:00:00 AM EDT Current Smoker completed Curre nt Smoker eCW1 ([facility]) Smoking 03/16/2021 12:00:00 AM EDT Current Smoker completed Curre nt Smoker eCW1 ([facility]) Smoking 03/02/2021 12:00:00 AM EDT Current Smoker completed Curre nt Smoker eCW1 ([facility]) Smoking 03/02/2021 12:00:00 AM EDT Current Smoker completed Curre nt Smoker eCW1 ([facility]) Smoking 03/02/2021 12:00:00 AM EDT Current Smoker completed Curre nt Smoker eCW1 ([facility]) Smoking 02/20/2021 12:00:00 AM EDT Current Smoker completed Curre nt Smoker eCW1 ([facility]) Smoking 02/20/2021 12:00:00 AM EDT Current Smoker completed Curre nt Smoker eCW1 ([facility]) Smoking 02/20/2021 12:00:00 AM EDT Current Smoker completed Curre nt Smoker eCW1 ([facility]) Smoking 02/08/2021 12:00:00 AM EDT Current Smoker completed Curre nt Smoker eCW1 ([facility]) Smoking 02/08/2021 12:00:00 AM EDT Current Smoker completed Curre nt Smoker eCW1 ([facility]) Smoking 02/08/2021 12:00:00 AM EDT Current Smoker completed Curre nt Smoker eCW1 ([facility]) Smoking 02/08/2021 12:00:00 AM EDT Current Smoker completed Curre nt Smoker eCW1 ([facility]) Smoking 01/24/2021 12:00:00 AM EDT Current Smoker completed Curre nt Smoker eCW1 ([facility]) Smoking 01/24/2021 12:00:00 AM EDT Current Smoker completed Curre nt Smoker eCW1 ([facility]) Smoking 01/24/2021 12:00:00 AM EDT Current Smoker completed Curre nt Smoker eCW1 ([facility]) Smoking 12/30/2020 12:00:00 AM EDT Current Smoker completed Curre nt Smoker eCW1 ([facility]) Smoking 12/30/2020 12:00:00 AM EDT Current Smoker completed Curre nt Smoker eCW1 ([facility]) Smoking 12/30/2020 12:00:00 AM EDT Current Smoker completed Curre nt Smoker eCW1 ([facility]) Smoking 12/30/2020 12:00:00 AM EDT Current Smoker completed Curre nt Smoker eCW1 ([facility]) Smoking 12/30/2020 12:00:00 AM EDT Current Smoker completed Curre nt Smoker eCW1 ([facility]) Smoking 12/02/2020 12:00:00 AM EDT Current Smoker completed Curre nt Smoker eCW1 ([facility]) Smoking 12/02/2020 12:00:00 AM EDT Current Smoker completed Curre nt Smoker eCW1 ([facility]) Smoking 12/02/2020 12:00:00 AM EDT Current Smoker completed Curre nt Smoker eCW1 ([facility]) Smoking 12/02/2020 12:00:00 AM EDT Current Smoker completed Curre nt Smoker eCW1 ([facility]) Smoking 12/02/2020 12:00:00 AM EDT Current Smoker completed Curre nt Smoker eCW1 ([facility]) Smoking 11/29/2020 12:00:00 AM EDT Current Smoker completed Curre nt Smoker eCW1 ([facility]) Smoking 11/29/2020 12:00:00 AM EDT Current Smoker completed Curre nt Smoker eCW1 ([facility]) Smoking 10/14/2020 12:00:00 AM EDT Current Smoker completed Curre nt Smoker eCW1 ([facility]) Smoking 10/14/2020 12:00:00 AM EDT Current Smoker completed Curre nt Smoker eCW1 ([facility]) Smoking 10/14/2020 12:00:00 AM EDT Current Smoker completed Curre nt Smoker eCW1 ([facility]) Smoking 09/29/2020 12:00:00 AM EDT Current Smoker completed Curre nt Smoker eCW1 ([facility]) Smoking 09/29/2020 12:00:00 AM EDT Current Smoker completed Curre nt Smoker eCW1 ([facility]) Smoking 09/29/2020 12:00:00 AM EDT Current Smoker completed Curre nt Smoker eCW1 ([facility]) Smoking 09/14/2020 12:00:00 AM EDT Current Smoker completed Curre nt Smoker eCW1 ([facility]) Smoking 09/14/2020 12:00:00 AM EDT Current Smoker completed Curre nt Smoker eCW1 ([facility]) Smoking 09/14/2020 12:00:00 AM EDT Current Smoker completed Curre nt Smoker eCW1 ([facility]) Smoking 09/14/2020 12:00:00 AM EDT Current Smoker completed Curre nt Smoker eCW1 ([facility]) Smoking 09/14/2020 12:00:00 AM EDT Current Smoker completed Curre nt Smoker eCW1 ([facility]) Smoking 09/14/2020 12:00:00 AM EDT Current Smoker completed Curre nt Smoker eCW1 ([facility]) Smoking 09/14/2020 12:00:00 AM EDT Current Smoker completed Curre nt Smoker eCW1 ([facility]) Smoking 09/14/2020 12:00:00 AM EDT Current Smoker completed Curre nt Smoker eCW1 ([facility]) Smoking 09/14/2020 12:00:00 AM EDT Current Smoker completed Curre nt Smoker eCW1 ([facility]) Smoking 09/14/2020 12:00:00 AM EDT Current Smoker completed Curre nt Smoker eCW1 ([facility]) Smoking 08/12/2020 12:00:00 AM EDT Current Smoker completed Curre nt Smoker eCW1 ([facility]) Smoking 08/12/2020 12:00:00 AM EDT Current Smoker completed Curre nt Smoker eCW1 ([facility]) Smoking 07/28/2020 12:00:00 AM EST Current Smoker completed Curre nt Smoker eCW1 ([facility]) Smoking 07/28/2020 12:00:00 AM EST Current Smoker completed Curre nt Smoker eCW1 ([facility]) Smoking 05/24/2020 12:00:00 AM EST Current Smoker completed Curre nt Smoker eCW1 ([facility]) Smoking 05/24/2020 12:00:00 AM EST Current Smoker completed Curre nt Smoker eCW1 ([facility]) Smoking 05/24/2020 12:00:00 AM EST Current Smoker completed Curre nt Smoker eCW1 ([facility]) Smoking 05/24/2020 12:00:00 AM EST Current Smoker completed Curre nt Smoker eCW1 ([facility]) Smoking 05/24/2020 12:00:00 AM EST Current Smoker completed Curre nt Smoker eCW1 ([facility]) Smoking 05/24/2020 12:00:00 AM EST Current Smoker completed Curre nt Smoker eCW1 ([facility]) Smoking 05/24/2020 12:00:00 AM EST Current Smoker completed Curre nt Smoker eCW1 ([facility]) Smoking 05/24/2020 12:00:00 AM EST Current Smoker completed Curre nt Smoker eCW1 ([facility]) Smoking 05/24/2020 12:00:00 AM EST Current Smoker completed Curre nt Smoker eCW1 ([facility]) Smoking 05/24/2020 12:00:00 AM EST Current Smoker completed Curre nt Smoker eCW1 ([facility]) Smoking 05/24/2020 12:00:00 AM EST Current Smoker completed Curre nt Smoker eCW1 ([facility]) Smoking 05/24/2020 12:00:00 AM EST Current Smoker completed Curre nt Smoker eCW1 ([facility]) Smoking 05/24/2020 12:00:00 AM EST Current Smoker completed Curre nt Smoker eCW1 ([facility]) Smoking 04/29/2020 12:00:00 AM EST Current Smoker completed Curre nt Smoker eCW1 ([facility]) Smoking 04/29/2020 12:00:00 AM EST Current Smoker completed Curre nt Smoker eCW1 ([facility]) Smoking 04/29/2020 12:00:00 AM EST Current Smoker completed Curre nt Smoker eCW1 ([facility]) Smoking 04/29/2020 12:00:00 AM EST Current Smoker completed Curre nt Smoker eCW1 ([facility]) Smoking 04/29/2020 12:00:00 AM EST Current Smoker completed Curre nt Smoker eCW1 ([facility]) Vital Signs ID Date Data Source UNK Name Value Range Interpretation Code Description Data Source(s) Systolic blood pressure 120 mm[Hg] 120 mm[Hg] M HAWA ([facility], ) Diastolic blood pressure 68 mm[Hg] 68 mm[Hg] JOSELUIS ([facility]) Body temperature 98.3 [degF] 98.3 [degF] MEDENT ([facility]) Body height 62 [in_i] 62 [in_i] MEDENT ([facility]) 5'2" Body weight 134.12 [lb_av] 134.12 [lb_av] MEDEN T ([facility]) Body mass index (BMI) [Ratio] 24.5 kg/m2 24.5 k g/m2 [facility] ([facility]) [place] body weight 110 [lb_av] 110 [lb_av] MEDEN T ([facility]) Body weight 60.839 kg 60.839 kg [facility] ([facility]) Body surface area Derived from formula 1.61 m2 1.61 m2 [facility] ([facility]) Body weight 131 [lb_av] 131 [lb_av] eCW1 ([facility]) Body height [in_i] eCW1 ([facility]) Body mass index (BMI) [Ratio] 23.96 kg/m2 23.96 kg/m2 W1 ([facility]) Heart rate 88 /min 88 /min W1 ([facility]) Respiratory rate 18 /min 18 /min W1 ([facility]) Body temperature 98 [degF] 98 [degF] eCW1 ([facility]) Systolic blood pressure 125 mm[Hg] 125 mm[Hg] e CW1 ([facility]) Diastolic blood pressure 84 mm[Hg] 84 mm[Hg] eCW1 ([facility]) Systolic blood pressure 112 mm[Hg] 112 mm[Hg] M EDENT ([facility]) Diastolic blood pressure 68 mm[Hg] 68 mm[Hg] MEDENT ([facility]) Body height 62 [in_i] 62 [in_i] [facility] 5'2" Body weight 131.00 [lb_av] 131.00 [lb_av] MEDEN T ([facility]) Body mass index (BMI) [Ratio] 24.0 kg/m2 24.0 k g/m2 MEDENT ([facility]) [place] body weight 110 [lb_av] 110 [lb_av] MEDEN T ([facility]) Body weight 59.422 kg 59.422 kg MEDENT ([facility]) Body surface area Derived from formula 1.60 m2 1.60 m2 MEDENT ([facility]) Body weight 133.8 [lb_av] 133.8 [lb_av] eCW1 ([facility]) Body height [in_i] eCW1 ([facility]) Body mass index (BMI) [Ratio] 24.47 kg/m2 24.47 kg/m2 W1 ([facility]) Heart rate 84 /min 84 /min eCW1 ([facility]) Respiratory rate 18 /min 18 /min eCW1 ([facility]) Body temperature 98.6 [degF] 98.6 [degF] eCW1 ( [facility]) Systolic blood pressure 143 mm[Hg] 143 mm[Hg] e CW1 ([facility]) Diastolic blood pressure 87 mm[Hg] 87 mm[Hg] eCW1 ([facility]) Body weight 144 [lb_av] 144 [lb_av] eCW1 ([facility]) Body height [in_i] eCW1 ([facility]) Body mass index (BMI) [Ratio] 26.34 kg/m2 26.34 kg/m2 eCW1 ([facility]) Heart rate 66 /min 66 /min eCW1 ([facility]) Respiratory rate 18 /min 18 /min eCW1 ([facility]) Body temperature 100.7 [degF] 100.7 [degF] eCW1 ([facility]) Systolic blood pressure 127 mm[Hg] 127 mm[Hg] e CW1 ([facility]) Diastolic blood pressure 86 mm[Hg] 86 mm[Hg] eCW1 ([facility]) Body weight 135.8 [lb_av] 135.8 [lb_av] eCW1 ([facility]) Body height [in_i] eCW1 ([facility]) Body mass index (BMI) [Ratio] 24.84 kg/m2 24.84 kg/m2 eCW1 ([facility]) Heart rate 92 /min 92 /min eCW1 ([facility]) Respiratory rate 18 /min 18 /min eCW1 ([facility]) Body temperature 97.3 [degF] 97.3 [degF] eCW1 ( [facility]) Systolic blood pressure 130 mm[Hg] 130 mm[Hg] e CW1 ([facility]) Diastolic blood pressure 90 mm[Hg] 90 mm[Hg] eCW1 ([facility]) Body weight 136 [lb_av] 136 [lb_av] eCW1 ([facility]) Body height [in_i] eCW1 ([facility]) Body mass index (BMI) [Ratio] 24.87 kg/m2 24.87 kg/m2 eCW1 ([facility]) Heart rate 82 /min 82 /min eCW1 ([facility]) Respiratory rate 18 /min 18 /min eCW1 ([facility]) Body temperature 98.4 [degF] 98.4 [degF] eCW1 ( [facility]) Systolic blood pressure 137 mm[Hg] 137 mm[Hg] e CW1 ([facility]) Diastolic blood pressure 88 mm[Hg] 88 mm[Hg] eCW1 ([facility]) Body weight 141 [lb_av] 141 [lb_av] eCW1 ([facility]) Body height [in_i] eCW1 ([facility]) Body mass index (BMI) [Ratio] 25.79 kg/m2 25.79 kg/m2 eCW1 ([facility]) Heart rate 98 /min 98 /min eCW1 ([facility]) Respiratory rate 18 /min 18 /min eCW1 ([facility]) Body temperature 97.8 [degF] 97.8 [degF] eCW1 ( [facility]) Systolic blood pressure 114 mm[Hg] 114 mm[Hg] e CW1 ([facility]) Diastolic blood pressure 78 mm[Hg] 78 mm[Hg] eCW1 ([facility]) Body weight 144 [lb_av] 144 [lb_av] eCW1 ([facility]) Body height [in_i] eCW1 ([facility]) Body mass index (BMI) [Ratio] 26.34 kg/m2 26.34 kg/m2 eCW1 ([facility]) Heart rate 85 /min 85 /min eCW1 ([facility]) Respiratory rate 18 /min 18 /min eCW1 ([facility]) Body temperature 98 [degF] 98 [degF] eCW1 ([facility]) Systolic blood pressure 117 mm[Hg] 117 mm[Hg] e CW1 ([facility]) Diastolic blood pressure 82 mm[Hg] 82 mm[Hg] eCW1 ([facility]) Body height [in_i] eCW1 ([facility]) Body mass index (BMI) [Ratio] 25.79 kg/m2 25.79 kg/m2 eCW1 ([facility]) Heart rate 76 /min 76 /min eCW1 ([facility]) Respiratory rate 16 /min 16 /min eCW1 ([facility]) Body weight [lb_av] eCW1 ([facility]) Systolic blood pressure 127 mm[Hg] 127 mm[Hg] e CW1 ([facility]) Diastolic blood pressure 88 mm[Hg] 88 mm[Hg] eCW1 ([facility]) Body temperature 98.2 [degF] 98.2 [degF] eCW1 ( [facility]) Body weight 141.8 [lb_av] 141.8 [lb_av] eCW1 ([facility]) Body height [in_i] eCW1 ([facility]) Body mass index (BMI) [Ratio] 25.93 kg/m2 25.93 kg/m2 eCW1 ([facility]) Heart rate 73 /min 73 /min eCW1 ([facility]) Respiratory rate 18 /min 18 /min eCW1 ([facility]) Body temperature 97.5 [degF] 97.5 [degF] eCW1 ( [facility]) Systolic blood pressure 118 mm[Hg] 118 mm[Hg] e CW1 ([facility]) Diastolic blood pressure 82 mm[Hg] 82 mm[Hg] eCW1 ([facility]) Body weight 132 [lb_av] 132 [lb_av] eCW1 ([facility]) Body height 62 [in_i] 62 [in_i] eCW1 ([facility]) Body mass index (BMI) [Ratio] 24.14 kg/m2 24.14 kg/m2 eCW1 ([facility]) Heart rate 73 /min 73 /min eCW1 ([facility]) Respiratory rate 18 /min 18 /min eCW1 ([facility]) Body temperature 98.2 [degF] 98.2 [degF] eCW1 ( [facility]) Systolic blood pressure 135 mm[Hg] 135 mm[Hg] e CW1 ([facility]) Diastolic blood pressure 89 mm[Hg] 89 mm[Hg] eCW1 ([facility]) Respiratory rate 18 /min 18 /min eCW1 ([facility]) Body weight 132 [lb_av] 132 [lb_av] eCW1 ([facility]) Body height 62 [in_i] 62 [in_i] eCW1 ([facility]) Body mass index (BMI) [Ratio] 24.14 kg/m2 24.14 kg/m2 eCW1 ([facility]) Heart rate 83 /min 83 /min eCW1 ([facility]) Body temperature 99.1 [degF] 99.1 [degF] eCW1 ( [facility]) Systolic blood pressure 106 mm[Hg] 106 mm[Hg] e CW1 ([facility]) Diastolic blood pressure 74 mm[Hg] 74 mm[Hg] eCW1 ([facility]) Body height 62 [in_i] 62 [in_i] MEDENT ([facility]) 5'2" Body weight 130.00 [lb_av] 130.00 [lb_av] MEDEN T ([facility]) Body mass index (BMI) [Ratio] 23.8 kg/m2 23.8 k [facility] [place] body weight 110 [lb_av] 110 [lb_av] MEDEN T ([facility]) Body weight 58.968 kg 58.968 kg MEDENT ([facility]) Body surface area Derived from formula 1.59 m2 1.59 m2 [facility] ([facility]) Systolic blood pressure 116 mm[Hg] 116 mm[Hg] M EDENT ([facility]) Diastolic blood pressure 68 mm[Hg] 68 mm[Hg] MEDENT ([facility]) Body height 62 [in_i] 62 [in_i] MEDENT ([facility]) 5'2" Body weight 130.00 [lb_av] 130.00 [lb_av] MEDEN T ([facility]) Body mass index (BMI) [Ratio] 23.8 kg/m2 23.8 k g/m2 [facility] ([facility]) [place] body weight 110 [lb_av] 110 [lb_av] MEDEN T ([facility]) Body weight 58.968 kg 58.968 kg [facility] ([facility]) Body surface area Derived from formula 1.59 m2 1.59 m2 [facility] ([facility]) Systolic blood pressure 128 mm[Hg] 128 mm[Hg] e CW1 ([facility]) Diastolic blood pressure 84 mm[Hg] 84 mm[Hg] eCW1 ([facility]) Body weight 136 [lb_av] 136 [lb_av] eCW1 ([facility]) Body height 62 [in_i] 62 [in_i] eCW1 ([facility]) Body mass index (BMI) [Ratio] 24.87 kg/m2 24.87 kg/m2 eCW1 ([facility]) Heart rate 106 /min 106 /min eCW1 ([facility]) Respiratory rate 18 /min 18 /min eCW1 ([facility]) Body temperature 98 [degF] 98 [degF] eCW1 ([facility]) Body weight 140 [lb_av] 140 [lb_av] eCW1 ([facility]) Body height 62 [in_i] 62 [in_i] eCW1 ([facility]) Body mass index (BMI) [Ratio] 25.60 kg/m2 25.60 kg/m2 eCW1 ([facility]) Heart rate 81 /min 81 /min eCW1 ([facility]) Respiratory rate 16 /min 16 /min eCW1 ([facility]) Body temperature 97.6 [degF] 97.6 [degF] eCW1 ( [facility]) Systolic blood pressure 126 mm[Hg] 126 mm[Hg] e CW1 ([facility]) Diastolic blood pressure 83 mm[Hg] 83 mm[Hg] eCW1 ([facility]) Body weight 141 [lb_av] 141 [lb_av] eCW1 ([facility]) Body height 62 [in_i] 62 [in_i] eCW1 ([facility]) Body mass index (BMI) [Ratio] 25.79 kg/m2 25.79 kg/m2 eCW1 ([facility]) Heart rate 76 /min 76 /min eCW1 ([facility]) Respiratory rate 18 /min 18 /min eCW1 ([facility]) Systolic blood pressure 124 mm[Hg] 124 mm[Hg] e CW1 ([facility]) Diastolic blood pressure 93 mm[Hg] 93 mm[Hg] eCW1 ([facility]) Body temperature 97.4 [degF] 97.4 [degF] eCW1 ( [facility]) Body weight 141 [lb_av] 141 [lb_av] eCW1 ([facility]) Body height 62 [in_i] 62 [in_i] eCW1 ([facility]) Body mass index (BMI) [Ratio] 25.79 kg/m2 25.79 kg/m2 eCW1 ([facility]) Heart rate 81 /min 81 /min eCW1 ([facility]) Respiratory rate 18 /min 18 /min eCW1 ([facility]) Body temperature 98.8 [degF] 98.8 [degF] eCW1 ( [facility]) Systolic blood pressure 145 mm[Hg] 145 mm[Hg] e CW1 ([facility]) Diastolic blood pressure 92 mm[Hg] 92 mm[Hg] eCW1 ([facility]) Patient Treatment Plan of Care Planned Activity Planned Date Details Description Data Source (s) Sucralfate 1000 MG Oral Tablet 03/16/2021 12:00:00 AM EDT eCW1 ([facility]) Sucralfate 1000 MG Oral Tablet 03/16/2021 12:00:00 AM EDT eCW1 ([facility]) Acetaminophen 325 MG / Oxycodone Hydrochloride 5 MG Or al Tablet 03/02/2021 12:00:00 AM EDT eCW1 ([facility]) Acetaminophen 325 MG / Oxycodone Hydrochloride 5 MG Or al Tablet 03/02/2021 12:00:00 AM EDT eCW1 (Formerly [facility], [facility]) Acetaminophen 325 MG / Oxycodone Hydrochloride 5 MG Or al Tablet 03/02/2021 12:00:00 AM EDT eCW1 (Formerly [facility], [facility]) Levofloxacin 500 MG Oral Tablet 02/20/2021 12:00:00 AM EDT eCW1 ([facility]) Levofloxacin 500 MG Oral Tablet 02/20/2021 12:00:00 AM EDT eCW1 ([facility]) Levofloxacin 500 MG Oral Tablet 02/20/2021 12:00:00 AM EDT eCW1 ([facility]) Ondansetron 4 MG Oral Tablet 02/09/2021 12:00:00 AM EDT eCW1 ([facility]) Ondansetron 4 MG Oral Tablet 02/09/2021 12:00:00 AM EDT eCW1 ([facility]) Ondansetron 4 MG Oral Tablet 02/09/2021 12:00:00 AM EDT eCW1 ([facility]) Ondansetron 4 MG Oral Tablet 02/09/2021 12:00:00 AM EDT eCW1 ([facility]) Fluconazole 150 MG Oral Tablet 02/08/2021 12:00:00 AM EDT eCW1 ([facility]) Doxycycline Monohydrate 100 MG Oral Tablet 02/08/2021 12:00:00 AM E DT eCW1 ([facility]) Fluticasone Propionate 50 MCG/ACT 02/08/2021 12:00:00 AM EDT eCW1 ([facility]) Fluconazole 150 MG Oral Tablet 02/08/2021 12:00:00 AM EDT eCW1 ([facility]) Doxycycline Monohydrate 100 MG Oral Tablet 02/08/2021 12:00:00 AM E DT eCW1 ([facility]) Fluticasone Propionate 50 MCG/ACT 02/08/2021 12:00:00 AM EDT eCW1 ([facility]) Fluconazole 150 MG Oral Tablet 02/08/2021 12:00:00 AM EDT eCW1 ([facility]) Doxycycline Monohydrate 100 MG Oral Tablet 02/08/2021 12:00:00 AM E DT eCW1 ([facility]) Fluticasone Propionate 50 MCG/ACT 02/08/2021 12:00:00 AM EDT eCW1 ([facility]) Fluconazole 150 MG Oral Tablet 02/08/2021 12:00:00 AM EDT eCW1 ([facility]) Fluconazole 150 MG Oral Tablet 02/08/2021 12:00:00 AM EDT eCW1 ([facility]) Fluconazole 150 MG Oral Tablet 02/08/2021 12:00:00 AM EDT eCW1 ([facility]) Fluconazole 150 MG Oral Tablet 02/08/2021 12:00:00 AM EDT eCW1 ([facility]) Doxycycline Monohydrate 100 MG Oral Tablet 02/08/2021 12:00:00 AM E DT eCW1 ([facility]) Fluticasone Propionate 50 MCG/ACT 02/08/2021 12:00:00 AM EDT eCW1 ([facility]) Acetaminophen 325 MG / Oxycodone Hydrochloride 5 MG Or al Tablet 02/03/2021 12:00:00 AM EDT eCW1 (Formerly [facility], [facility]) benzonatate 100 MG Oral Capsule [Tessalon Perles] 01/24/2021 12: 00:00 AM EDT eCW1 ([facility]) benzonatate 100 MG Oral Capsule [Tessalon Perles] 01/24/2021 12: 00:00 AM EDT eCW1 ([facility]) benzonatate 100 MG Oral Capsule [Tessalon Perles] 01/24/2021 12: 00:00 AM EDT eCW1 ([facility]) benzonatate 100 MG Oral Capsule [Tessalon Perles] 01/24/2021 12: 00:00 AM EDT eCW1 ([facility]) benzonatate 100 MG Oral Capsule [Tessalon Perles] 01/24/2021 12: 00:00 AM EDT eCW1 ([facility]) benzonatate 100 MG Oral Capsule [Tessalon Perles] 01/24/2021 12: 00:00 AM EDT eCW1 ([facility]) Acetaminophen 325 MG / Oxycodone Hydrochloride 5 MG Or al Tablet 01/06/2021 12:00:00 AM EDT eCW1 (Formerly [facility], [facility]) Acetaminophen 325 MG / Oxycodone Hydrochloride 5 MG Or al Tablet 01/06/2021 12:00:00 AM EDT eCW1 (Formerly [facility], [facility]) Metoclopramide 10 MG Oral Tablet 12/06/2020 12:00:00 AM EDT eCW1 ([facility]) Acetaminophen 325 MG / Oxycodone Hydrochloride 5 MG Or al Tablet 12/06/2020 12:00:00 AM EDT eCW1 (Formerly [facility]) Metoclopramide 10 MG Oral Tablet 12/06/2020 12:00:00 AM EDT eCW1 ([facility]) Acetaminophen 325 MG / Oxycodone Hydrochloride 5 MG Or al Tablet 12/06/2020 12:00:00 AM EDT eCW1 (Formerly [facility]) Metoclopramide 10 MG Oral Tablet 12/06/2020 12:00:00 AM EDT eCW1 ([facility]) Acetaminophen 325 MG / Oxycodone Hydrochloride 5 MG Or al Tablet 12/06/2020 12:00:00 AM EDT eCW1 (Formerly [facility]) Acetaminophen 325 MG / Oxycodone Hydrochloride 5 MG Or al Tablet 12/06/2020 12:00:00 AM EDT eCW1 (Formerly [facility]) Metoclopramide 10 MG Oral Tablet 12/06/2020 12:00:00 AM EDT eCW1 ([facility]) Acetaminophen 325 MG / Oxycodone Hydrochloride 5 MG Or al Tablet 12/06/2020 12:00:00 AM EDT eCW1 (Formerly [facility]) Metoclopramide 10 MG Oral Tablet 12/06/2020 12:00:00 AM EDT eCW1 ([facility]) Valproic Acid 250 MG Oral Capsule 12/02/2020 12:00:00 AM EDT eCW1 ([facility]) Valproic Acid 250 MG Oral Capsule 12/02/2020 12:00:00 AM EDT eCW1 ([facility]) Fluconazole 150 MG Oral Tablet 12/02/2020 12:00:00 AM EDT eCW1 ([facility]) Levofloxacin 500 MG Oral Tablet 12/02/2020 12:00:00 AM EDT eCW1 ([facility]) Valproic Acid 250 MG Oral Capsule 12/02/2020 12:00:00 AM EDT eCW1 ([facility]) Fluconazole 150 MG Oral Tablet 12/02/2020 12:00:00 AM EDT eCW1 ([facility]) Levofloxacin 500 MG Oral Tablet 12/02/2020 12:00:00 AM EDT eCW1 ([facility]) Valproic Acid 250 MG Oral Capsule 12/02/2020 12:00:00 AM EDT eCW1 ([facility]) Fluconazole 150 MG Oral Tablet 12/02/2020 12:00:00 AM EDT eCW1 ([facility]) Levofloxacin 500 MG Oral Tablet 12/02/2020 12:00:00 AM EDT eCW1 ([facility]) Valproic Acid 250 MG Oral Capsule 12/02/2020 12:00:00 AM EDT eCW1 ([facility]) Fluconazole 150 MG Oral Tablet 12/02/2020 12:00:00 AM EDT eCW1 ([facility]) Levofloxacin 500 MG Oral Tablet 12/02/2020 12:00:00 AM EDT eCW1 ([facility]) Valproic Acid 250 MG Oral Capsule 12/02/2020 12:00:00 AM EDT eCW1 ([facility]) Fluconazole 150 MG Oral Tablet 12/02/2020 12:00:00 AM EDT eCW1 ([facility]) Levofloxacin 500 MG Oral Tablet 12/02/2020 12:00:00 AM EDT eCW1 ([facility]) Valproic Acid 250 MG Oral Capsule 12/02/2020 12:00:00 AM EDT eCW1 ([facility]) Prednisone 10 MG Oral Tablet 11/29/2020 12:00:00 AM EDT eCW1 ([facility]) Prednisone 10 MG Oral Tablet 11/29/2020 12:00:00 AM EDT eCW1 ([facility]) Acetaminophen 325 MG / Oxycodone Hydrochloride 5 MG Or al Tablet 11/07/2020 12:00:00 AM EDT eCW1 (Formerly [facility]) Acetaminophen 325 MG / Oxycodone Hydrochloride 5 MG Or al Tablet 11/07/2020 12:00:00 AM EDT eCW1 (Formerly [facility]) Acetaminophen 325 MG / Oxycodone Hydrochloride 5 MG Or al Tablet 10/07/2020 12:00:00 AM EDT eCW1 (Formerly [facility]) Acetaminophen 325 MG / Oxycodone Hydrochloride 5 MG Or al Tablet 10/07/2020 12:00:00 AM EDT eCW1 (Formerly [facility]) Promethazine Hydrochloride 25 MG Oral Tablet 09/14/2020 12:00:00 AM EDT eCW1 ([facility]) Promethazine Hydrochloride 25 MG Oral Tablet 09/14/2020 12:00:00 AM EDT eCW1 ([facility]) Promethazine Hydrochloride 25 MG Oral Tablet 09/14/2020 12:00:00 AM EDT eCW1 ([facility]) Promethazine Hydrochloride 25 MG Oral Tablet 09/14/2020 12:00:00 AM EDT eCW1 ([facility]) Promethazine Hydrochloride 25 MG Oral Tablet 09/14/2020 12:00:00 AM EDT eCW1 ([facility]) Promethazine Hydrochloride 25 MG Oral Tablet 09/14/2020 12:00:00 AM EDT eCW1 ([facility]) Promethazine Hydrochloride 25 MG Oral Tablet 09/14/2020 12:00:00 AM EDT eCW1 ([facility]) Promethazine Hydrochloride 25 MG Oral Tablet 09/14/2020 12:00:00 AM EDT eCW1 ([facility]) Fluconazole 150 MG Oral Tablet 09/14/2020 12:00:00 AM EDT eCW1 ([facility]) Promethazine Hydrochloride 25 MG Oral Tablet 09/14/2020 12:00:00 AM EDT eCW1 ([facility]) Fluconazole 150 MG Oral Tablet 09/14/2020 12:00:00 AM EDT eCW1 ([facility]) Promethazine Hydrochloride 25 MG Oral Tablet 09/14/2020 12:00:00 AM EDT eCW1 ([facility]) Fluconazole 150 MG Oral Tablet 09/14/2020 12:00:00 AM EDT eCW1 ([facility]) Promethazine Hydrochloride 25 MG Oral Tablet 09/14/2020 12:00:00 AM EDT eCW1 ([facility]) Fluconazole 150 MG Oral Tablet 09/14/2020 12:00:00 AM EDT eCW1 ([facility]) Promethazine Hydrochloride 25 MG Oral Tablet 09/14/2020 12:00:00 AM EDT eCW1 ([facility]) Fluconazole 150 MG Oral Tablet 09/14/2020 12:00:00 AM EDT eCW1 ([facility]) Promethazine Hydrochloride 25 MG Oral Tablet 09/14/2020 12:00:00 AM EDT eCW1 ([facility]) Fluconazole 150 MG Oral Tablet 09/14/2020 12:00:00 AM EDT eCW1 ([facility]) Promethazine Hydrochloride 25 MG Oral Tablet 09/14/2020 12:00:00 AM EDT eCW1 ([facility]) Fluconazole 150 MG Oral Tablet 09/14/2020 12:00:00 AM EDT eCW1 ([facility]) Promethazine Hydrochloride 25 MG Oral Tablet 09/14/2020 12:00:00 AM EDT eCW1 ([facility]) Fluconazole 150 MG Oral Tablet 09/14/2020 12:00:00 AM EDT eCW1 ([facility]) Promethazine Hydrochloride 25 MG Oral Tablet 09/14/2020 12:00:00 AM EDT eCW1 ([facility]) Fluconazole 150 MG Oral Tablet 09/14/2020 12:00:00 AM EDT eCW1 ([facility]) Promethazine Hydrochloride 25 MG Oral Tablet 09/14/2020 12:00:00 AM EDT eCW1 ([facility]) Fluconazole 150 MG Oral Tablet 09/14/2020 12:00:00 AM EDT eCW1 ([facility]) Promethazine Hydrochloride 25 MG Oral Tablet 09/14/2020 12:00:00 AM EDT eCW1 ([facility]) Promethazine Hydrochloride 25 MG Oral Tablet 09/14/2020 12:00:00 AM EDT eCW1 ([facility]) Promethazine Hydrochloride 25 MG Oral Tablet 09/14/2020 12:00:00 AM EDT eCW1 ([facility]) Acetaminophen 325 MG / Oxycodone Hydrochloride 5 MG Or al Tablet 09/08/2020 12:00:00 AM EDT eCW1 (Formerly [facility]) Acetaminophen 325 MG / Oxycodone Hydrochloride 5 MG Or al Tablet 09/08/2020 12:00:00 AM EDT eCW1 (Formerly [facility], [facility]) Acetaminophen 325 MG / Oxycodone Hydrochloride 5 MG Or al Tablet 09/08/2020 12:00:00 AM EDT eCW1 (Formerly [facility], [facility]) Acetaminophen 325 MG / Oxycodone Hydrochloride 5 MG Or al Tablet 09/08/2020 12:00:00 AM EDT eCW1 (Formerly [facility], [facility]) Acetaminophen 325 MG / Oxycodone Hydrochloride 5 MG Or al Tablet 09/08/2020 12:00:00 AM EDT eCW1 (Formerly [facility], [facility]) Acetaminophen 325 MG / Oxycodone Hydrochloride 5 MG Or al Tablet 09/08/2020 12:00:00 AM EDT eCW1 (Formerly [facility], [facility]) Acetaminophen 325 MG / Oxycodone Hydrochloride 5 MG Or al Tablet 09/08/2020 12:00:00 AM EDT eCW1 (Formerly [facility], [facility]) Acetaminophen 325 MG / Oxycodone Hydrochloride 5 MG Or al Tablet 09/08/2020 12:00:00 AM EDT eCW1 (Formerly [facility], [facility]) Acetaminophen 325 MG / Oxycodone Hydrochloride 5 MG Or al Tablet 09/08/2020 12:00:00 AM EDT eCW1 (Formerly [facility], [facility]) Acetaminophen 325 MG / Oxycodone Hydrochloride 5 MG Or al Tablet 09/08/2020 12:00:00 AM EDT eCW1 (Formerly [facility]) Acetaminophen 325 MG / Oxycodone Hydrochloride 5 MG Or al Tablet 09/08/2020 12:00:00 AM EDT eCW1 (Formerly [facility]) Acetaminophen 325 MG / Oxycodone Hydrochloride 5 MG Or al Tablet 09/08/2020 12:00:00 AM EDT eCW1 (Formerly [facility]) Acetaminophen 325 MG / Oxycodone Hydrochloride 5 MG Or al Tablet 08/12/2020 12:00:00 AM EDT eCW1 (Formerly [facility]) Ergocalciferol 51794 UNT Oral Capsule [Drisdol] 07/28/2020 12:00:00 AM EST eCW1 ([facility]) Ergocalciferol 31189 UNT Oral Capsule [Drisdol] 07/28/2020 12:00:00 AM EST eCW1 ([facility]) Ergocalciferol 64983 UNT Oral Capsule [Drisdol] 07/28/2020 12:00:00 AM EST eCW1 ([facility]) Ergocalciferol 01357 UNT Oral Capsule [Drisdol] 07/28/2020 12:00:00 AM EST eCW1 ([facility]) Ergocalciferol 23653 UNT Oral Capsule [Drisdol] 07/28/2020 12:00:00 AM EST eCW1 ([facility]) Ergocalciferol 74209 UNT Oral Capsule [Drisdol] 07/28/2020 12:00:00 AM EST eCW1 ([facility]) Ergocalciferol 39707 UNT Oral Capsule [Drisdol] 07/28/2020 12:00:00 AM EST eCW1 ([facility]) Ergocalciferol 97801 UNT Oral Capsule [Drisdol] 07/28/2020 12:00:00 AM EST eCW1 ([facility]) Ergocalciferol 12270 UNT Oral Capsule [Drisdol] 07/28/2020 12:00:00 AM EST eCW1 ([facility]) Acetaminophen 325 MG / Oxycodone Hydrochloride 5 MG Or al Tablet 07/28/2020 12:00:00 AM EST eCW1 (Formerly [facility]) Ergocalciferol 13421 UNT Oral Capsule [Drisdol] 07/28/2020 12:00:00 AM EST eCW1 ([facility]) Acetaminophen 325 MG / Oxycodone Hydrochloride 5 MG Or al Tablet 07/28/2020 12:00:00 AM EST eCW1 (Formerly [facility]) Ergocalciferol 03815 UNT Oral Capsule [Drisdol] 07/28/2020 12:00:00 AM EST eCW1 ([facility]) Ergocalciferol 23533 UNT Oral Capsule [Drisdol] 07/28/2020 12:00:00 AM EST eCW1 ([facility]) Ergocalciferol 47567 UNT Oral Capsule [Drisdol] 07/28/2020 12:00:00 AM EST eCW1 ([facility]) Ergocalciferol 50460 UNT Oral Capsule [Drisdol] 07/28/2020 12:00:00 AM EST eCW1 ([facility]) Ergocalciferol 44156 UNT Oral Capsule [Drisdol] 07/28/2020 12:00:00 AM EST eCW1 ([facility]) Ergocalciferol 62235 UNT Oral Capsule [Drisdol] 07/28/2020 12:00:00 AM EST eCW1 ([facility]) Ergocalciferol 04698 UNT Oral Capsule [Drisdol] 07/28/2020 12:00:00 AM EST eCW1 ([facility]) Ergocalciferol 92068 UNT Oral Capsule [Drisdol] 07/28/2020 12:00:00 AM EST eCW1 ([facility]) Ergocalciferol 89990 UNT Oral Capsule [Drisdol] 07/28/2020 12:00:00 AM EST eCW1 ([facility]) Acetaminophen 325 MG / Oxycodone Hydrochloride 5 MG Or al Tablet 07/22/2020 12:00:00 AM EST eCW1 (Formerly [facility]) Acetaminophen 325 MG / Oxycodone Hydrochloride 5 MG Or al Tablet 07/15/2020 12:00:00 AM EST eCW1 (Formerly [facility]) Acetaminophen 325 MG / Oxycodone Hydrochloride 5 MG Or al Tablet 07/08/2020 12:00:00 AM EST eCW1 (Formerly [facility]) Acetaminophen 325 MG / Oxycodone Hydrochloride 5 MG Or al Tablet 07/01/2020 12:00:00 AM EST eCW1 (Formerly [facility]) Acetaminophen 325 MG / Oxycodone Hydrochloride 5 MG Or al Tablet 07/01/2020 12:00:00 AM EST eCW1 (Formerly [facility]) Acetaminophen 325 MG / Oxycodone Hydrochloride 5 MG Or al Tablet 06/24/2020 12:00:00 AM EST eCW1 (Formerly [facility]) Acetaminophen 325 MG / Oxycodone Hydrochloride 5 MG Or al Tablet 06/17/2020 12:00:00 AM EST eCW1 (Formerly [facility]) Ondansetron 4 MG Disintegrating Oral Tablet 06/14/2020 12:00:00 AM EST eCW1 ([facility]) Ondansetron 4 MG Disintegrating Oral Tablet 06/14/2020 12:00:00 AM EST eCW1 ([facility]) Ondansetron 4 MG Disintegrating Oral Tablet 06/14/2020 12:00:00 AM EST eCW1 ([facility]) Ondansetron 4 MG Disintegrating Oral Tablet 06/14/2020 12:00:00 AM EST eCW1 ([facility]) Ondansetron 4 MG Disintegrating Oral Tablet 06/14/2020 12:00:00 AM EST eCW1 ([facility]) Ondansetron 4 MG Disintegrating Oral Tablet 06/14/2020 12:00:00 AM EST eCW1 ([facility]) Ondansetron 4 MG Disintegrating Oral Tablet 06/14/2020 12:00:00 AM EST eCW1 ([facility]) Ondansetron 4 MG Disintegrating Oral Tablet 06/14/2020 12:00:00 AM EST eCW1 ([facility]) Ondansetron 4 MG Disintegrating Oral Tablet 06/14/2020 12:00:00 AM EST eCW1 ([facility]) Ondansetron 4 MG Disintegrating Oral Tablet 06/14/2020 12:00:00 AM EST eCW1 ([facility]) Ondansetron 4 MG Disintegrating Oral Tablet 06/14/2020 12:00:00 AM EST eCW1 ([facility]) Ondansetron 4 MG Disintegrating Oral Tablet 06/14/2020 12:00:00 AM EST eCW1 ([facility]) Ondansetron 4 MG Disintegrating Oral Tablet 06/14/2020 12:00:00 AM EST eCW1 ([facility]) Ondansetron 4 MG Disintegrating Oral Tablet 06/14/2020 12:00:00 AM EST eCW1 ([facility]) Ondansetron 4 MG Disintegrating Oral Tablet 06/14/2020 12:00:00 AM EST eCW1 ([facility]) Ondansetron 4 MG Disintegrating Oral Tablet 06/14/2020 12:00:00 AM EST eCW1 ([facility]) Ondansetron 4 MG Disintegrating Oral Tablet 06/14/2020 12:00:00 AM EST eCW1 ([facility]) Ondansetron 4 MG Disintegrating Oral Tablet 06/14/2020 12:00:00 AM EST eCW1 ([facility]) Ondansetron 4 MG Disintegrating Oral Tablet 06/14/2020 12:00:00 AM EST eCW1 ([facility]) Ondansetron 4 MG Disintegrating Oral Tablet 06/14/2020 12:00:00 AM EST eCW1 ([facility]) Ondansetron 4 MG Disintegrating Oral Tablet 06/14/2020 12:00:00 AM EST eCW1 ([facility]) Ondansetron 4 MG Disintegrating Oral Tablet 06/14/2020 12:00:00 AM EST eCW1 ([facility]) Ondansetron 4 MG Disintegrating Oral Tablet 06/14/2020 12:00:00 AM EST eCW1 ([facility]) Ondansetron 4 MG Disintegrating Oral Tablet 06/14/2020 12:00:00 AM EST eCW1 ([facility]) Ondansetron 4 MG Disintegrating Oral Tablet 06/14/2020 12:00:00 AM EST eCW1 ([facility]) Acetaminophen 325 MG / Oxycodone Hydrochloride 5 MG Or al Tablet 06/13/2020 12:00:00 AM EST eCW1 (Formerly [facility]) Acetaminophen 325 MG / Oxycodone Hydrochloride 5 MG Or al Tablet 06/13/2020 12:00:00 AM EST eCW1 (Formerly [facility]) Acetaminophen 325 MG / Oxycodone Hydrochloride 5 MG Or al Tablet 06/06/2020 12:00:00 AM EST eCW1 (Formerly [facility]) Acetaminophen 325 MG / Oxycodone Hydrochloride 5 MG Or al Tablet 05/31/2020 12:00:00 AM EST eCW1 (Formerly [facility]) doxycycline hyclate 100 MG Oral Capsule 05/24/2020 12:00:00 AM EST eCW1 ([facility]) Prednisone 20 MG Oral Tablet 05/24/2020 12:00:00 AM EST eCW1 ([facility]) Fluconazole 150 MG Oral Tablet [Diflucan] 05/24/2020 12:00:00 AM ES T eCW1 ([facility]) doxycycline hyclate 100 MG Oral Capsule 05/24/2020 12:00:00 AM EST eCW1 ([facility]) Prednisone 20 MG Oral Tablet 05/24/2020 12:00:00 AM EST eCW1 ([facility]) Fluconazole 150 MG Oral Tablet [Diflucan] 05/24/2020 12:00:00 AM ES T eCW1 ([facility]) doxycycline hyclate 100 MG Oral Capsule 05/24/2020 12:00:00 AM EST eCW1 ([facility]) Prednisone 20 MG Oral Tablet 05/24/2020 12:00:00 AM EST eCW1 ([facility]) Fluconazole 150 MG Oral Tablet [Diflucan] 05/24/2020 12:00:00 AM ES T eCW1 ([facility]) Fluconazole 150 MG Oral Tablet [Diflucan] 05/24/2020 12:00:00 AM ES T eCW1 ([facility]) doxycycline hyclate 100 MG Oral Capsule 05/24/2020 12:00:00 AM EST eCW1 ([facility]) Prednisone 20 MG Oral Tablet 05/24/2020 12:00:00 AM EST eCW1 ([facility]) Fluconazole 150 MG Oral Tablet [Diflucan] 05/24/2020 12:00:00 AM ES T eCW1 ([facility]) doxycycline hyclate 100 MG Oral Capsule 05/24/2020 12:00:00 AM EST eCW1 ([facility]) Prednisone 20 MG Oral Tablet 05/24/2020 12:00:00 AM EST eCW1 ([facility]) doxycycline hyclate 100 MG Oral Capsule 05/24/2020 12:00:00 AM EST eCW1 ([facility]) Prednisone 20 MG Oral Tablet 05/24/2020 12:00:00 AM EST eCW1 ([facility]) Fluconazole 150 MG Oral Tablet [Diflucan] 05/24/2020 12:00:00 AM ES T eCW1 ([facility]) Prednisone 20 MG Oral Tablet 05/24/2020 12:00:00 AM EST eCW1 ([facility]) Fluconazole 150 MG Oral Tablet [Diflucan] 05/24/2020 12:00:00 AM ES T eCW1 ([facility]) doxycycline hyclate 100 MG Oral Capsule 05/24/2020 12:00:00 AM EST eCW1 ([facility]) Prednisone 20 MG Oral Tablet 05/24/2020 12:00:00 AM EST eCW1 ([facility]) Fluconazole 150 MG Oral Tablet [Diflucan] 05/24/2020 12:00:00 AM ES T eCW1 ([facility]) doxycycline hyclate 100 MG Oral Capsule 05/24/2020 12:00:00 AM EST eCW1 ([facility]) Acetaminophen 325 MG / Oxycodone Hydrochloride 5 MG Or al Tablet 05/24/2020 12:00:00 AM EST eCW1 (Formerly [facility]) Prednisone 20 MG Oral Tablet 05/24/2020 12:00:00 AM EST eCW1 ([facility]) Fluconazole 150 MG Oral Tablet [Diflucan] 05/24/2020 12:00:00 AM ES T eCW1 ([facility]) doxycycline hyclate 100 MG Oral Capsule 05/24/2020 12:00:00 AM EST eCW1 ([facility]) Acetaminophen 325 MG / Oxycodone Hydrochloride 5 MG Or al Tablet 05/24/2020 12:00:00 AM EST eCW1 (Formerly [facility]) Prednisone 20 MG Oral Tablet 05/24/2020 12:00:00 AM EST eCW1 ([facility]) Fluconazole 150 MG Oral Tablet [Diflucan] 05/24/2020 12:00:00 AM ES T eCW1 ([facility]) doxycycline hyclate 100 MG Oral Capsule 05/24/2020 12:00:00 AM EST eCW1 ([facility]) Prednisone 20 MG Oral Tablet 05/24/2020 12:00:00 AM EST eCW1 ([facility]) Fluconazole 150 MG Oral Tablet [Diflucan] 05/24/2020 12:00:00 AM ES T eCW1 ([facility]) Fluconazole 150 MG Oral Tablet [Diflucan] 05/24/2020 12:00:00 AM ES T eCW1 ([facility]) doxycycline hyclate 100 MG Oral Capsule 05/24/2020 12:00:00 AM EST eCW1 ([facility]) Prednisone 20 MG Oral Tablet 05/24/2020 12:00:00 AM EST eCW1 ([facility]) Fluconazole 150 MG Oral Tablet [Diflucan] 05/24/2020 12:00:00 AM ES T eCW1 ([facility]) doxycycline hyclate 100 MG Oral Capsule 05/24/2020 12:00:00 AM EST eCW1 ([facility]) Prednisone 20 MG Oral Tablet 05/24/2020 12:00:00 AM EST eCW1 ([facility]) doxycycline hyclate 100 MG Oral Capsule 05/24/2020 12:00:00 AM EST eCW1 ([facility]) Acetaminophen 325 MG / Oxycodone Hydrochloride 5 MG Or al Tablet 05/18/2020 12:00:00 AM EST eCW1 ([facility]ly [facility]) Acetaminophen 325 MG / Oxycodone Hydrochloride 5 MG Or al Tablet 05/18/2020 12:00:00 AM EST eCW1 (Formerly [facility]) Acetaminophen 325 MG / Oxycodone Hydrochloride 5 MG Or al Tablet 05/12/2020 12:00:00 AM EST eCW1 ([facility]ly [facility]) Acetaminophen 325 MG / Oxycodone Hydrochloride 5 MG Or al Tablet 05/06/2020 12:00:00 AM EST eCW1 (Formerly [facility], [facility]) Ergocalciferol 05205 UNT Oral Capsule [Drisdol] 04/29/2020 12:00:00 AM EST [email or web address] ([facility]) Ergocalciferol 04688 UNT Oral Capsule [Drisdol] 04/29/2020 12:00:00 AM EST eCW1 ([facility]) Ergocalciferol 03405 UNT Oral Capsule [Drisdol] 04/29/2020 12:00:00 AM EST eCW1 ([facility]) Ergocalciferol 95209 UNT Oral Capsule [Drisdol] 04/29/2020 12:00:00 AM EST eCW1 ([facility]) Acetaminophen 325 MG / Oxycodone Hydrochloride 5 MG Or al Tablet 04/29/2020 12:00:00 AM EST eCW1 (Formerly [facility]) Ergocalciferol 53311 UNT Oral Capsule [Drisdol] 04/29/2020 12:00:00 AM EST eCW1 ([facility]) Ergocalciferol 94544 UNT Oral Capsule [Drisdol] 04/29/2020 12:00:00 AM EST eCW1 ([facility]) Ergocalciferol 09293 UNT Oral Capsule [Drisdol] 04/29/2020 12:00:00 AM EST eCW1 ([facility]) Ergocalciferol 43321 UNT Oral Capsule [Drisdol] 04/29/2020 12:00:00 AM EST eCW1 ([facility]) Ergocalciferol 50696 UNT Oral Capsule [Drisdol] 04/29/2020 12:00:00 AM EST eCW1 ([facility]) Acetaminophen 325 MG / Oxycodone Hydrochloride 5 MG Or al Tablet 04/20/2020 12:00:00 AM EST eCW1 (Formerly [facility]) Acetaminophen 325 MG / Oxycodone Hydrochloride 5 MG Or al Tablet 04/15/2020 12:00:00 AM EST eCW1 (Formerly [facility]) Acetaminophen 325 MG / Oxycodone Hydrochloride 5 MG Or al Tablet 04/11/2020 12:00:00 AM EST eCW1 (Formerly [facility]) Acetaminophen 325 MG / Oxycodone Hydrochloride 5 MG Or al Tablet 04/04/2020 12:00:00 AM EST eCW1 (Formerly [facility]) Acetaminophen 325 MG / Oxycodone Hydrochloride 5 MG Or al Tablet 03/29/2020 12:00:00 AM EST eCW1 (Formerly [facility]) Acetaminophen 325 MG / Oxycodone Hydrochloride 5 MG Or al Tablet 03/29/2020 12:00:00 AM EST eCW1 (Formerly [facility]) Acetaminophen 325 MG / Oxycodone Hydrochloride 5 MG Or al Tablet 03/29/2020 12:00:00 AM EST eCW1 (Formerly [facility]) Acetaminophen 325 MG / Oxycodone Hydrochloride 5 MG Or al Tablet 03/23/2020 12:00:00 AM EDT eCW1 (Formerly [facility]) Acetaminophen 325 MG / Oxycodone Hydrochloride 5 MG Or al Tablet 03/17/2020 12:00:00 AM EDT eCW1 ([facility]ly [facility]) Acetaminophen 325 MG / Oxycodone Hydrochloride 5 MG Or al Tablet 03/11/2020 12:00:00 AM EDT eCW1 (Formerly [facility]) Acetaminophen 325 MG / Oxycodone Hydrochloride 5 MG Or al Tablet 03/11/2020 12:00:00 AM EDT eCW1 ([facility]ly [facility]) tizanidine 2 MG Oral Tablet 03/04/2020 12:00:00 AM EDT eCW1 ([facility]) tizanidine 2 MG Oral Tablet 03/04/2020 12:00:00 AM EDT eCW1 ([facility]) tizanidine 2 MG Oral Tablet 03/04/2020 12:00:00 AM EDT eCW1 ([facility]) tizanidine 2 MG Oral Tablet 03/04/2020 12:00:00 AM EDT eCW1 ([facility]) tizanidine 2 MG Oral Tablet 03/04/2020 12:00:00 AM EDT eCW1 ([facility]) tizanidine 2 MG Oral Tablet 03/04/2020 12:00:00 AM EDT eCW1 ([facility]) tizanidine 2 MG Oral Tablet 03/04/2020 12:00:00 AM EDT eCW1 ([facility]) tizanidine 2 MG Oral Tablet 03/04/2020 12:00:00 AM EDT eCW1 ([facility]) tizanidine 2 MG Oral Tablet 03/04/2020 12:00:00 AM EDT eCW1 ([facility]) tizanidine 2 MG Oral Tablet 03/04/2020 12:00:00 AM EDT eCW1 ([facility]) tizanidine 2 MG Oral Tablet 03/04/2020 12:00:00 AM EDT eCW1 ([facility]) tizanidine 2 MG Oral Tablet 03/04/2020 12:00:00 AM EDT eCW1 ([facility]) tizanidine 2 MG Oral Tablet 03/04/2020 12:00:00 AM EDT eCW1 ([facility]) tizanidine 2 MG Oral Tablet 03/04/2020 12:00:00 AM EDT eCW1 ([facility]) tizanidine 2 MG Oral Tablet 03/04/2020 12:00:00 AM EDT eCW1 ([facility]) tizanidine 2 MG Oral Tablet 03/04/2020 12:00:00 AM EDT eCW1 ([facility]) tizanidine 2 MG Oral Tablet 03/04/2020 12:00:00 AM EDT eCW1 ([facility]) tizanidine 2 MG Oral Tablet 03/04/2020 12:00:00 AM EDT eCW1 ([facility]) tizanidine 2 MG Oral Tablet 03/04/2020 12:00:00 AM EDT eCW1 ([facility]) tizanidine 2 MG Oral Tablet 03/04/2020 12:00:00 AM EDT eCW1 ([facility]) tizanidine 2 MG Oral Tablet 03/04/2020 12:00:00 AM EDT eCW1 ([facility]) tizanidine 2 MG Oral Tablet 03/04/2020 12:00:00 AM EDT eCW1 ([facility]) tizanidine 2 MG Oral Tablet 03/04/2020 12:00:00 AM EDT eCW1 ([facility]) tizanidine 2 MG Oral Tablet 03/04/2020 12:00:00 AM EDT eCW1 ([facility]) tizanidine 2 MG Oral Tablet 03/04/2020 12:00:00 AM EDT eCW1 ([facility]) tizanidine 2 MG Oral Tablet 03/04/2020 12:00:00 AM EDT eCW1 ([facility]) tizanidine 2 MG Oral Tablet 03/04/2020 12:00:00 AM EDT eCW1 ([facility]) tizanidine 2 MG Oral Tablet 03/04/2020 12:00:00 AM EDT eCW1 ([facility]) tizanidine 2 MG Oral Tablet 03/04/2020 12:00:00 AM EDT eCW1 ([facility]) tizanidine 2 MG Oral Tablet 03/04/2020 12:00:00 AM EDT eCW1 ([facility]) tizanidine 2 MG Oral Tablet 03/04/2020 12:00:00 AM EDT eCW1 ([facility]) Acetaminophen 325 MG / Oxycodone Hydrochloride 5 MG Or al Tablet 03/04/2020 12:00:00 AM EDT eCW1 ([facility]) tizanidine 2 MG Oral Tablet 03/04/2020 12:00:00 AM EDT eCW1 ([facility]) tizanidine 2 MG Oral Tablet 03/04/2020 12:00:00 AM EDT eCW1 ([facility]) tizanidine 2 MG Oral Tablet 03/04/2020 12:00:00 AM EDT eCW1 ([facility]) tizanidine 2 MG Oral Tablet 03/04/2020 12:00:00 AM EDT eCW1 ([facility]) tizanidine 2 MG Oral Tablet 03/04/2020 12:00:00 AM EDT eCW1 ([facility]) tizanidine 2 MG Oral Tablet 03/04/2020 12:00:00 AM EDT eCW1 ([facility]) tizanidine 2 MG Oral Tablet 03/04/2020 12:00:00 AM EDT eCW1 ([facility]) tizanidine 2 MG Oral Tablet 03/04/2020 12:00:00 AM EDT eCW1 ([facility])
[2021-05-01] MEDS ORDERED: fentaNYL 100 MCG/2 ML INJECTION (J3010) As Ordered ONE (11:20)
[2021-05-01] MEDS ORDERED: propofoL 200 MG/20 ML VIAL As Ordered ONE (11:37)
--- NOTE | 2021-05-01 11:59 | ROOR ---
Patient Name: Dimitrios Thomson Procedure Date: 05/01/2021 11:17 AM Date of : 1985 Age: 35 Room: [facility] Gender: Female Note Status: Finalized Procedure: Upper GI endoscopy Indications: Abnormal CT of the GI tract, Nausea with vomiting Providers: Steve Lynn MD Referring MD: Jcarlos Hernández MD Requesting Provider: Medicines: Monitored Anesthesia Care Complications: No immediate complications. Procedure: Pre-Anesthesia Assessment: - Prior to the procedure, a History and Physical was performed, and patient medications and allergies were reviewed. The patient is competent. The risks and benefits of the procedure and the sedation options and risks were discussed with the patient. All questions were answered and informed consent was obtained. Patient identification and proposed procedure were verified by the physician, the nurse and the anesthesiologist in the procedure room. Mental Status Examination: normal. Airway Examination: normal oropharyngeal airway and neck mobility. Respiratory Examination: clear to auscultation. CV Examination: normal. Prophylactic Antibiotics: The patient does not require prophylactic antibiotics. Prior Anticoagulants: The patient has taken no previous anticoagulant or antiplatelet agents. ASA Grade Assessment: III - A patient with severe systemic disease. After reviewing the risks and benefits, the patient was deemed in satisfactory condition to undergo the procedure. The anesthesia plan was to use monitored anesthesia care (MAC). Immediately prior to administration of medications, the patient was re-assessed for adequacy to receive sedatives. The heart rate, respiratory rate, oxygen saturations, blood pressure, adequacy of pulmonary ventilation, and response to care were monitored throughout the procedure. The physical status of the patient was re-assessed after the procedure. The Endoscope was introduced through the mouth, and advanced to the afferent and efferent jejunal loops. The upper GI endoscopy was accomplished without difficulty. The patient tolerated the procedure well. Findings: The examined esophagus was normal. The Z-line was irregular and was found in the distal esophagus. 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 The gastrojejunal anastomosis was characterized by healthy appearing mucosa. This was traversed. The qyfgz-fi-tdhvecg limb was characterized by healthy appearing mucosa and visible sutures. The jejunojejunal anastomosis was characterized by healthy appearing mucosa. The rzesthdo-vc-pqczbgt limb was not examined as it could not be found. Scattered mild inflammation characterized by congestion (edema), erythema and granularity was found in the gastric body. Biopsies were taken with a cold forceps for Helicobacter pylori testing. Verification of patient identification for the specimen was done by the physician and nurse using the patient's name, date and medical record number. Estimated blood loss was minimal. Localized mildly scalloped mucosa was found in the jejunum. Biopsies for histology were taken with a cold forceps for evaluation of celiac disease. Impression: - Normal esophagus. - Z-line irregular, in the distal esophagus. - Mazin-en-Y gastrojejunostomy with gastrojejunal anastomosis characterized by healthy appearing mucosa. - Gastritis. Biopsied. - Jejunal mucosal changes, suspicious for celiac disease. Biopsied. Recommendation: - Patient has a contact number available for emergencies. The signs and symptoms of potential delayed complications were discussed with the patient. Return to normal activities tomorrow. Written discharge instructions were provided to the patient. - High fiber diet and Post gastric bypass diet (small frequent meals and avoid fatty/ fried foods). - Continue present medications. - Await pathology results. - Follow an antireflux regimen. - Use Protonix (pantoprazole) 40 mg PO twice daily - to be taken in morning (1/2 hour before breakfast) and at bedtime ( atleast 3 hours after last meal) for 6 weeks. - Return to GI clinic in [facility] (address: [address] [place] [address], [address] [place] [address], [place], [place],[address]) in 4 -- 6 weeks. Please call GI clinic @ [phone] for apppointment date and time. - Return to primary care physician. Procedure Code(s): --- Professional --- 21911, Esophagogastroduodenoscopy, flexible, transoral; with biopsy, single or multiple Diagnosis Code(s): --- Professional --- K22.8, Other specified diseases of esophagus Z98.0, Intestinal bypass and anastomosis status K29.70, Gastritis, unspecified, without bleeding R11.2, Nausea with vomiting, unspecified R93.3, Abnormal findings on diagnostic imaging of other parts of digestive tract CPT copyright 2019 [employer]. All rights reserved. The codes documented in this report are preliminary and upon electronics assembler review may be revised to meet current compliance requirements. Steve Lynn MD Steve Lynn MD 05/01/2021 11:58:41 AM Electronically signed by Steve Lynn MD Number of Addenda: 0 Note Initiated On: 05/01/2021 11:17 AM Estimated Blood Loss: Estimated blood loss was minimal.
--- NOTE | 2021-05-01 12:11 | ROOR ---
Patient Name: Dimitrios Thomson Procedure Date: 05/01/2021 11:18 AM Date of : 1985 Age: 35 Room: [facility] Gender: Female Note Status: Finalized Procedure: Colonoscopy Indications: Change in bowel habits Providers: Steve Lynn MD Referring MD: Jcarlos Hernández MD Requesting Provider: Medicines: Monitored Anesthesia Care Complications: No immediate complications. Procedure: Pre-Anesthesia Assessment: - Prior to the procedure, a History and Physical was performed, and patient medications and allergies were reviewed. The patient is competent. The risks and benefits of the procedure and the sedation options and risks were discussed with the patient. All questions were answered and informed consent was obtained. Patient identification and proposed procedure were verified by the physician, the nurse and the anesthesiologist in the procedure room. Mental Status Examination: alert and oriented. Airway Examination: normal oropharyngeal airway and neck mobility. Respiratory Examination: clear to auscultation. CV Examination: normal. Prophylactic Antibiotics: The patient does not require prophylactic antibiotics. Prior Anticoagulants: The patient has taken no previous anticoagulant or antiplatelet agents. ASA Grade Assessment: III - A patient with severe systemic disease. After reviewing the risks and benefits, the patient was deemed in satisfactory condition to undergo the procedure. The anesthesia plan was to use monitored anesthesia care (MAC). Immediately prior to administration of medications, the patient was re-assessed for adequacy to receive sedatives. The heart rate, respiratory rate, oxygen saturations, blood pressure, adequacy of pulmonary ventilation, and response to care were monitored throughout the procedure. The physical status of the patient was re-assessed after the procedure. The Colonoscope was introduced through the anus and advanced to the terminal ileum, with identification of the appendiceal orifice and IC valve. The colonoscopy was performed without difficulty. The patient tolerated the procedure well. The quality of the bowel preparation was poor and inadequate. The terminal ileum, ileocecal valve, appendiceal orifice, and rectum were photographed. Scope insertion time was 2 minutes. Scope withdrawal time was 8 minutes. The total duration of the procedure was 10 minutes. Findings: The perianal and digital rectal examinations were normal. The terminal ileum appeared normal. A moderate amount of stool was found from sigmoid to cecum, making visualization difficult. Lavage of the area was performed using a large amount of sterile water, resulting in incomplete clearance with continued poor visualization. There is no endoscopic evidence of mass, stricture or ulcerations in the entire colon. Normal mucosa was found in the entire colon. Biopsies for histology were taken with a cold forceps from the right colon, left colon and rectosigmoid colon for evaluation of microscopic colitis. Verification of patient identification for the specimen was done by the physician and nurse using the patient's name, date and medical record number. Estimated blood loss was minimal. Non-bleeding external and internal hemorrhoids were found during retroflexion. The hemorrhoids were medium-sized. Impression: - Preparation of the colon was poor. - Preparation of the colon was inadequate. - The examined portion of the ileum was normal. - Stool from sigmoid to cecum. - Normal mucosa in the entire examined colon. Biopsied. - Non-bleeding external and internal hemorrhoids. Recommendation: - Patient has a contact number available for emergencies. The signs and symptoms of potential delayed complications were discussed with the patient. Return to normal activities tomorrow. Written discharge instructions were provided to the patient. - High fiber diet. - Continue present medications. - Await pathology results. - Repeat colonoscopy in 8 years for screening purposes. - Return to GI clinic in [facility] (address: [address] [place] [address], [address] floor, [place], [place],[address]) in 4 -- 6 weeks. Please call GI clinic @ [phone] for apppointment date and time. - Return to primary care physician. Procedure Code(s): --- Professional --- 61075, Colonoscopy, flexible; with biopsy, single or multiple Diagnosis Code(s): --- Professional --- K64.8, Other hemorrhoids R19.4, Change in bowel habit CPT copyright 2019 [employer]. All rights reserved. The codes documented in this report are preliminary and upon general store manager review may be revised to meet current compliance requirements. Steve Lynn MD Steve Lynn MD 05/01/2021 12:11:18 PM Electronically signed by Steve Lynn MD Number of Addenda: 0 Note Initiated On: 05/01/2021 11:18 AM Estimated Blood Loss: Estimated blood loss was minimal.
[2021-05-01 12:20] VITALS: BP 130/83
== END 2021-05-01 12:52 | disposition home or self-care (01) ==
LOC: M OPP 09:54
PROVIDERS: ATTEND Internal Medicine Gastroenterology
DX: K64.8 Other hemorrhoids (principal); R19.4 Change in bowel habit; R93.3 Abnormal findings on diagnostic imaging of other parts of digestive tract; K22.89 Other specified disease of esophagus; Z98.0 Intestinal bypass and anastomosis status; K29.70 Gastritis, unspecified, without bleeding; R11.2 Nausea with vomiting, unspecified; Z79.891 Long term (current) use of opiate analgesic; Z79.899 Other long term (current) drug therapy; Z80.0 Family history of malignant neoplasm of digestive organs; Z88.1 Allergy status to other antibiotic agents; Z88.2 Allergy status to sulfonamides; Z88.8 Allergy status to other drugs, medicaments and biological substances; F17.210 Nicotine dependence, cigarettes, uncomplicated; Z85.9 Personal history of malignant neoplasm, unspecified
CPT/HCPCS: 43239; 45380; 88305; J3010

== ENCOUNTER → 2021-05-11 | Outpatient (CLI) | payer SELFPAY ==
[~2021-05-11] MED LIST changes: -LIDOCAINE 2% 100MG/5ML SDV (FOR ANES.) As Ordered ONE; -NS 1,000 ML IV ONE; -propofoL 500 MG/50 ML VIAL As Ordered ONE
== END ==
LOC: M LABSMTC 09:36
PROVIDERS: ATTEND Anesthesiology
DX: Z11.52 Encounter for screening for COVID-19 (principal); Z20.822 Contact with and (suspected) exposure to COVID-19

== ENCOUNTER 2021-05-16 06:06 | Day surgery (SDC) | payer SELFPAY ==
[~2021-05-16] VITALS: Ht 157.5 cm; Wt 63.5 kg
[~2021-05-16 06:06] MED LIST changes: +LIDOCAINE 1% MDV 20ML VIAL SQ PRN; +LR 1,000 ML IV ONE
[2021-05-16] MEDS ORDERED: fentaNYL 250 MCG/5 ML INJECTION (J3010) As Ordered ONE (06:53)
[2021-05-16] MEDS ORDERED: MIDAZOLAM INJ 2MG/2ML VIAL (J2250 PER 1MG) As Ordered ONE (06:54)
[2021-05-16] MEDS ORDERED: ePHEDrine SULFATE 25 MG/5 ML(5MG/ML) SYRINGE As Ordered ONE (06:54)
[2021-05-16] MEDS ORDERED: ONDANSETRON 4MG/2ML VIAL As Ordered ONE (06:54)
[2021-05-16] MEDS ORDERED: PHENYLephrine 500MCG 5ML (100MCG/ML) SYRINGE As Ordered ONE (06:54)
[2021-05-16] MEDS ORDERED: propofoL 200 MG/20 ML VIAL As Ordered ONE (06:55)
[2021-05-16] MEDS ORDERED: KETOROLAC 60MG 2ML VIAL As Ordered ONE (06:55)
[2021-05-16] MEDS ORDERED: ROCURONIUM BROMIDE 50 MG/5 ML VIAL As Ordered ONE ×2 (06:55→08:46)
[2021-05-16] MEDS ORDERED: dexameTHASONE 4 MG/ML 1ML VIAL (J1100 PER 1MG) As Ordered ONE (06:55)
[2021-05-16] MEDS ORDERED: SUGAMMADEX SODIUM 500 MG/5 ML VIAL (BRIDION) As Ordered ONE (06:55)
[2021-05-16] MEDS ORDERED: ALBU8.5H (06:56)
[2021-05-16] MEDS ORDERED: LIDOCAINE 2% 100MG/5ML SDV (FOR ANES.) As Ordered ONE (07:02)
[2021-05-16] MEDS ORDERED: BUPIVACAINE HCL 0.25% 30ML VIAL As Ordered ONE (07:17)
[2021-05-16] MEDS ORDERED: ACETAMINOPHEN 1000MG 100ML IV BTL (OFIRMEV) (J0131 PER 10MG) As Ordered ONE (07:54)
[2021-05-16] MEDS ORDERED: PERCOCET 5MG/325MG TAB PO PRN (09:45)
[2021-05-16] MEDS ORDERED: fentaNYL 100 MCG/2 ML INJECTION (J3010) IV PRN (09:45)
[2021-05-16] MEDS ORDERED: ACETAMINOPHEN TAB 650MG DOSE (2X325MG) PO PRN (09:45)
[2021-05-16] MEDS ORDERED: LR 1,000 ML IV SCH (09:45)
[2021-05-16] MEDS: PERCOCET 5MG/325MG TAB PO PRN ×2 (09:57→10:16)
[2021-05-16 11:20] VITALS: BP 121/84
--- NOTE | 2021-05-16 13:08 | RO ---
OPERATIVE NOTE DATE OF OPERATION: 05/16/2021 PREOPERATIVE DIAGNOSIS: Left upper quadrant incisional hernia. POSTOPERATIVE DIAGNOSIS: Incarcerated left upper quadrant incisional hernia. PROCEDURE PERFORMED: Robotic-assisted laparoscopic repair of incarcerated incisional hernia with mesh. MESH UTILIZED: [employer] Parietex reference code [id number], lot #[id number]. SURGEON: Marc Saucedo MD BENDING PRESS OPERATOR: GARRETT Garcia (assistance was essential for management of the robotic technology with assistance in placing the trocars, docking and undocking the robot, passing sutures and mesh and also closing the incisions). ANESTHESIA: General. INDICATIONS FOR PROCEDURE: The patient is a 35-year-old woman who has undergone several laparoscopic abdominal procedures and has some discomfort in the left upper quadrant. CT scan identified a hernia through what appears to be one of her trocar sites in the left upper quadrant below the costal margin with some fat between the layers of the abdominal wall. She is now for repair of her incisional hernia. DESCRIPTION OF PROCEDURE: The patient was brought to the operating room and placed on the table in the supine position. She was placed under general endotracheal anesthesia. The patient's abdomen was prepped and draped in sterile fashion. 0.25% Marcaine was infiltrated at each of the trocar sites as needed. The initial insertion was in the right upper quadrant below the costal margin. A short transverse incision was made and the Veress needle was inserted. After positive hanging drop test the abdomen was inflated with CO2. An 8 mm port was placed over the laparoscope and inserted through the abdominal wall without difficulty. Initial examination showed no evidence of trocar or Veress needle injury. Brief inspection showed a small hernia in the left upper quadrant with some entrapped omentum. There were some scarred areas of the small bowel consistent with her prior gastric bypass. Two additional ports were placed in the right mid abdomen and right lower quadrant. The patient cart of the [employer] Xi robot was brought into position and the endoscope arm was docked to the middle port. The endoscope was inserted and targeting took place on the hernia. The additional arms were then docked and cauterizing scissor and fenestrated bipolar were inserted. I then moved to the control console to proceed with the procedure. Inspection showed a piece of prosthetic mesh covering portions of the mid and left upper part of the abdominal wall. This appeared to be nicely incorporated. Lateral and above this was a small defect containing some omentum. With careful traction and countertraction it was possible to reduce a moderate amount of omentum which had been entrapped in her hernia. There were some final adhesions between the omentum and the abdominal wall tissues and these were lysed using the cautery. Inspection showed a defect through the muscles approximately 1.5 cm in size. This was slightly irregular. Interestingly it was possible to see the various layers of the muscle quite distinctly. The internal oblique and transversus abdominis layers were closed with running sutures of 1-0 Stratafix. A 9 cm Parietex patch as outlined previously was then marked at the midpoint and inserted into the abdomen. This was placed over the sutured abdominal wall defect and then sutured securely in place with running sutures of 2-0 V-Loc. These sutures completed both longitudinal and transverse midline sutures as well as complete suturing of the periphery of the mesh to the abdominal wall. Final inspection revealed excellent placement of the mesh. I would note that the abdominal pressure was reduced to 10 mm while the mesh was being sutured. The patient cart was then undocked and withdrawn. The abdomen was deflated and the trocars were removed. Sonam Vaughn proceeded to close the skin incisions with buried sutures of 4-0 Vicryl and Steri-Strips. Light dressings were applied. The patient tolerated the procedure well without apparent complications. She was awakened in the operating room, extubated and moved to the recovery room in stable condition.
== END 2021-05-16 11:27 | disposition home or self-care (01) ==
LOC: M SDC 06:06
PROVIDERS: ATTEND Surgery
DX: K43.0 Incisional hernia with obstruction, without gangrene (principal); Z98.84 Bariatric surgery status; K21.9 Gastro-esophageal reflux disease without esophagitis; L40.50 Arthropathic psoriasis, unspecified; N80.9 Endometriosis, unspecified; G43.111 Migraine with aura, intractable, with status migrainosus; J45.998 Other asthma; K58.9 Irritable bowel syndrome, unspecified; R94.5 Abnormal results of liver function studies; Z87.09 Personal history of other diseases of the respiratory system; Z87.19 Personal history of other diseases of the digestive system; F17.210 Nicotine dependence, cigarettes, uncomplicated; Z91.040 Latex allergy status; Z88.1 Allergy status to other antibiotic agents; Z88.0 Allergy status to penicillin; Z88.2 Allergy status to sulfonamides; Z88.5 Allergy status to narcotic agent; Z79.899 Other long term (current) drug therapy
CPT/HCPCS: 49654; 81025; C1781; J0131; J1100; J1885; J2250; J2370; J2405; J3010; S2900

== ENCOUNTER → 2021-06-12 | Outpatient (REF) | payer OTHER ==
[~2021-06-12] MED LIST changes: +ALBU8.5H; -LIDOCAINE 1% MDV 20ML VIAL SQ PRN; -LR 1,000 ML IV ONE; -OMEP-221 PO; +OMEP40CA5 PO
== END ==
LOC: M SFHCCLAY 16:55
PROVIDERS: ATTEND Physician Assistant
DX: R05.9 Cough, unspecified (principal); R06.02 Shortness of breath

== ENCOUNTER → 2021-06-26 | Outpatient (REF) | payer OTHER | LOC: M SFHCCLAY 08:23 | PROVIDERS: ATTEND Family Medicine | DX: K85.90 Acute pancreatitis without necrosis or infection, unspecified (principal) ==

== ENCOUNTER → 2021-07-03 | Outpatient (CLI) | payer SELFPAY | LOC: M RAD 11:07 | PROVIDERS: ATTEND Family Medicine | DX: K85.90 Acute pancreatitis without necrosis or infection, unspecified (principal) ==

== ENCOUNTER → 2021-07-06 | Outpatient (REF) | payer OTHER, SELFPAY ==
[2021-07-14 13:09] LABS: CREATININE, URINE 181.6 mg/dL (20.0-300.0); OXYCODONE URINE Negative (Cutoff=100); OXYCODONE/OXYMORPH, URINE Positive (Cutoff=100); OXYMORPHONE, URINE Positive (.); OXYMORPHONE, URINE CONFIRM 194 ng/mL (Cutoff=100); PORPHYRINS SERUM <0.1 ug/dL (0.0-1.0)
== END ==
LOC: M SFHCCLAY 11:14
PROVIDERS: ATTEND Family Medicine
DX: G89.29 Other chronic pain (principal)

== ENCOUNTER → 2021-08-15 | Outpatient (REF) | payer OTHER ==
[2021-08-15 13:03] LABS: APPEARANCE, URINE CLEAR (CLEAR); BACTERIA, URINE AUTO 1+ (NEGATIVE); BILIRUBIN, URINE AUTO NEGATIVE (NEGATIVE); BLOOD, URINE BLOOD NEGATIVE (NEGATIVE); COLOR, URINE YELLOW (YELLOW); GLUCOSE, URINE (UA) AUTO NEGATIVE (NEGATIVE); KETONE, URINE AUTO NEGATIVE (NEGATIVE); LEUKOCYTE ESTERASE, URINE AUTO NEGATIVE (NEGATIVE); MUCUS, URINE SMALL (NEGATIVE); NITRITE, URINE AUTO NEGATIVE (NEGATIVE); PROTEIN, URINE AUTO NEGATIVE (NEGATIVE); RBC, URINE AUTO 1 /HPF (0-3); SPECIFIC GRAVITY URINE AUTO 1.024 (1.002-1.035); SQUAMOUS EPITHELIAL CELL UR AU 1 /HPF (0-6); UROBILINOGEN, URINE AUTO 0.2 mg/dL (0.0-2.0); WBC, URINE AUTO 0 /HPF (0-3)
[2021-08-15 13:08] LABS: BASO # 0.1 10^3/uL (0.0-0.2); BASO % 0.5 % (0.0-1.0); EOS # 0.4 10^3/uL (0.0-0.5); EOS % 1.9 % (0.0-3.0); HEMOGLOBIN 14.8 g/dl (12.0-15.5); LYMPH % 15.5 % (24.0-44.0); MEAN CORPUSCULAR HEMOGLOBIN 33.6 pg (27.0-33.0); MEAN CORPUSCULAR HGB CONC 32.9 g/dl (32.0-36.5); MONO # 0.8 10^3/uL (0.0-0.8); MONO % 4.2 % (2.0-8.0); NEUTROPHILS # 14.8 10^3/uL (1.5-8.5); NEUTROPHILS % 77.3 % (36.0-66.0); PLATELET COUNT, AUTOMATED 628 10^3/uL (150-450); RED BLOOD COUNT 4.41 10^6/uL (4.00-5.40); WHITE BLOOD COUNT 19.1 10^3/uL (4.0-10.0)
[2021-08-15 13:19] LABS: COMPLEMENT C3 114 MG/DL (90-180); COMPLEMENT C4 28 MG/DL (10-40); IMMUNOGLOBULIN G 514 MG/DL (681-1648); IMMUNOGLOBULIN M 51.6 MG/DL (40-230); MAGNESIUM LEVEL 2.4 MG/DL (1.8-2.4); PHOSPHORUS LEVEL 4.9 MG/DL (2.5-4.9); TOTAL 25(OH) VITAMIN D 8.9 NG/ML (30.0-100.0); VITAMIN B12 LEVEL 471 PG/ML (247-911)
[2021-08-15 13:34] LABS: CREATININE,RANDOM URINE 69.6 MG/DL; TOTAL PROTEIN,RANDOM URINE 38.2 MG/DL (0.0-12.0)
[2021-08-16 13:10] LABS: ALBUMIN 4.13 GM/DL (3.29-5.55); ALPHA-1-GLOBULIN % 5.5 % (2.9-4.9); ALPHA-1-GLOBULINS 0.39 GM/DL (0.17-0.41); ALPHA-2-GLOBULINS 1.02 GM/DL (0.42-0.99); ALPHA-2-GLOBULINS % 14.6 % (7.1-11.8); BETA-1-GLOBULINS 0.55 GM/DL (0.28-0.60); BETA-1-GLOBULINS % 7.9 % (4.7-7.2); BETA-2-GLOBULINS 0.36 GM/DL (0.19-0.55); BETA-2-GLOBULINS % 5.1 % (3.2-6.5); GAMMA GLOBULIN % 7.9 % (11.1-18.8); GAMMA GLOBULINS 0.55 GM/DL (0.65-1.58)
[2021-08-17 10:48] LABS: DRVV SCREEN 41.2 SEC
[2021-08-17 10:53] LABS: PTT LUPUS TYPE ANTICOAG SCREEN 1.1 (0-1.2)
[2021-08-17 16:12] LABS: ANCA-ATYPICAL <1:20 titer (Neg:<1:20); COMPLEMENT TOTAL (CH50) > 60 U/mL (>41); CYTOPLASMIC NEUTROP AB ANCA-C <1:20 titer (Neg:<1:20); PERINUCLEAR AB ANCA-P <1:20 titer (Neg:<1:20)
== END ==
LOC: M SFHCRHEU 09:09
PROVIDERS: ATTEND Internal Medicine
DX: M06.4 Inflammatory polyarthropathy (principal); M79.10 Myalgia, unspecified site; B99.9 Unspecified infectious disease

== ENCOUNTER → 2021-09-18 | Outpatient (CLI) | payer SELFPAY | LOC: M CLY 14:44 | PROVIDERS: ATTEND Internal Medicine | DX: M06.4 Inflammatory polyarthropathy (principal) ==

== ENCOUNTER → 2021-10-24 | Outpatient (CLI) | payer SELFPAY | LOC: M PLAIMG 13:25 | PROVIDERS: ATTEND Internal Medicine | DX: M79.89 Other specified soft tissue disorders (principal) ==

== ENCOUNTER → 2022-01-10 | Outpatient (REF) | payer SELFPAY | LOC: M SFHCPLAZ 13:15 | PROVIDERS: ATTEND Physician Assistant | DX: R30.0 Dysuria (principal) ==

== ENCOUNTER 2022-05-03 13:03 | Emergency (ER) | payer SELFPAY ==
[~2022-05-03] VITALS: Ht 157.5 cm; Wt 56.9 kg
[~2022-05-03 13:03] MED LIST changes: -MAXA10TA14 PO; +RIZA10TA64 PO
[2022-05-03 13:04] VITALS: BP 153/86
[2022-05-03 14:51] LABS: AMPHETAMINES LEVEL URINE NEGATIVE (NEGATIVE); BARBITURATES URINE NEGATIVE (NEGATIVE); BENZODIAZEPINES URINE NEGATIVE (NEGATIVE); CANNABINOIDS URINE NEGATIVE (NEGATIVE); COCAINE METABOLITE URINE NEGATIVE (NEGATIVE); METHADONE URINE NEGATIVE (NEGATIVE); PHENCYCLIDINE URINE NEGATIVE (NEGATIVE)
[2022-05-03 14:54] LABS: OPIATES URINE POSITIVE (NEGATIVE)
== END 2022-05-03 17:15 | disposition left against medical advice (07) ==
LOC: M ED 13:03
DX: Z53.21 Procedure and treatment not carried out due to patient leaving prior to being seen by health care provider (principal)

== ENCOUNTER → 2022-05-08 | Outpatient (REF) | payer OTHER | LOC: M SFHCRHEU 11:27 | PROVIDERS: ATTEND Internal Medicine | DX: E55.9 Vitamin D deficiency, unspecified (principal) ==

== ENCOUNTER 2022-06-04 12:24 | Emergency (ER) | payer OTHER, SELFPAY ==
[~2022-06-04] VITALS: Ht 157.5 cm; Wt 56.4 kg
[2022-06-04] MEDS ORDERED: METH4TAB8 (12:53)
[2022-06-04 13:44] LABS: BASO # 0.1 10^3/uL (0.0-0.2); BASO % 0.6 % (0.0-1.0); EOS # 0.1 10^3/uL (0.0-0.5); EOS % 0.8 % (0.0-3.0); HEMATOCRIT 40.9 % (36.0-47.0); LYMPH # 1.9 10^3/uL (1.5-5.0); LYMPH % 16.1 % (24.0-44.0); MEAN CORPUSCULAR HEMOGLOBIN 35.5 pg (27.0-33.0); MEAN CORPUSCULAR HGB CONC 34.2 g/dl (32.0-36.5); MEAN CORPUSCULAR VOLUME 103.8 fl (80.0-96.0); MONO # 0.8 10^3/uL (0.0-0.8); MONO % 6.7 % (2.0-8.0); NEUTROPHILS # 9.1 10^3/uL (1.5-8.5); NEUTROPHILS % 75.4 % (36.0-66.0); PLATELET COUNT, AUTOMATED 346 10^3/uL (150-450); RED BLOOD COUNT 3.94 10^6/uL (4.00-5.40)
[2022-06-04 15:59] LABS: LIPASE 60 U/L (12-53)
[2022-06-04] MEDS ORDERED: ONDANSETRON 4MG 2ML VIAL IV ONE (16:00)
[2022-06-04 16:01] LABS: ALBUMIN 3.2 G/DL (3.2-5.2); ALKALINE PHOSPHATASE 139 U/L (46-116); ALT/SGPT 71 U/L (7.0-40); AST/SGOT 84 U/L (<34); BILIRUBIN,DIRECT 0.3 MG/DL (<0.4); BILIRUBIN,TOTAL 0.5 MG/DL (0.3-1.2); BLOOD UREA NITROGEN 10 MG/DL (9-23); CALCIUM LEVEL 8.8 MG/DL (8.5-10.1); CARBON DIOXIDE LEVEL 20 MMOL/L (20-31); CHLORIDE LEVEL 102 MMOL/L (98-107); CREATININE FOR GFR 0.62 MG/DL (0.55-1.30); GLOMERULAR FILTRATION RATE > 60.0 (>60); GLUCOSE, FASTING 80 MG/DL (60-100); POTASSIUM SERUM 4.2 MMOL/L (3.5-5.1); SODIUM LEVEL 135 MMOL/L (136-145); TOTAL PROTEIN 5.9 G/DL (5.7-8.2)
[2022-06-04 16:02] LABS: HCG, SERUM QUALITATIVE NEGATIVE (NEGATIVE)
[2022-06-04] MEDS ORDERED: KETAMINE HCL IV ONE (17:00)
[2022-06-04] MEDS ORDERED: NS IV ONE (17:00)
[2022-06-04 18:51] VITALS: BP 133/83
== END 2022-06-04 19:11 | disposition home or self-care (01) ==
LOC: M ED 12:24
DX: R19.5 Other fecal abnormalities (principal); R10.9 Unspecified abdominal pain; K21.9 Gastro-esophageal reflux disease without esophagitis; N92.6 Irregular menstruation, unspecified; Z86.19 Personal history of other infectious and parasitic diseases; Z87.19 Personal history of other diseases of the digestive system; Z98.84 Bariatric surgery status; F17.200 Nicotine dependence, unspecified, uncomplicated; Z79.899 Other long term (current) drug therapy; Z88.8 Allergy status to other drugs, medicaments and biological substances; Z88.0 Allergy status to penicillin; Z88.2 Allergy status to sulfonamides; Z88.1 Allergy status to other antibiotic agents
CPT/HCPCS: 80048; 80076; 83605; 83690; 84703; 85025; 96365; 96375; 99284; J2405

== ENCOUNTER → 2022-06-05 | Outpatient (REF) | payer SELFPAY ==
[~2022-06-05] MED LIST changes: +METH4TAB8
== END ==
LOC: M LAB REF 11:24
PROVIDERS: ATTEND Physician Assistant
DX: R19.5 Other fecal abnormalities (principal)

== ENCOUNTER → 2022-07-10 | Outpatient (REF) | payer OTHER ==
[2022-07-10 17:17] LABS: APPEARANCE, URINE HAZY (CLEAR); BILIRUBIN, URINE AUTO 1+ (NEGATIVE); BLOOD, URINE BLOOD NEGATIVE (NEGATIVE); COLOR, URINE AMBER (YELLOW); GLUCOSE, URINE (UA) AUTO NEGATIVE (NEGATIVE); KETONE, URINE AUTO TRACE mg/dL (NEGATIVE); LEUKOCYTE ESTERASE, URINE AUTO NEGATIVE (NEGATIVE); NITRITE, URINE AUTO NEGATIVE (NEGATIVE); PROTEIN, URINE AUTO 1+ mg/dL (NEGATIVE); SPECIFIC GRAVITY URINE AUTO 1.031 (1.002-1.035)
[2022-07-10 17:20] LABS: BACTERIA, URINE AUTO NEGATIVE (NEGATIVE); MUCUS, URINE SMALL (NEGATIVE); RBC, URINE AUTO 1 /HPF (0-3); SQUAMOUS EPITHELIAL CELL UR AU 18 /HPF (0-6); WBC, URINE AUTO 2 /HPF (0-3)
[2022-07-10 17:31] LABS: HEMOGLOBIN 11.9 g/dl (12.0-15.5); MEAN CORPUSCULAR VOLUME 105.7 fl (80.0-96.0); PLATELET COUNT, AUTOMATED 259 10^3/uL (150-450); RED BLOOD COUNT 3.31 10^6/uL (4.00-5.40); WHITE BLOOD COUNT 12.5 10^3/uL (4.0-10.0)
[2022-07-10 17:40] LABS: LIPASE 15 U/L (12-53)
[2022-07-10 17:42] LABS: ALBUMIN 2.1 G/DL (3.2-5.2); ALKALINE PHOSPHATASE 202 U/L (46-116); ALT/SGPT 95 U/L (7.0-40); AST/SGOT 238 U/L (<34); BLOOD UREA NITROGEN 6 MG/DL (9-23); CALCIUM LEVEL 8.2 MG/DL (8.5-10.1); CARBON DIOXIDE LEVEL 28 MMOL/L (20-31); CHLORIDE LEVEL 105 MMOL/L (98-107); CREATININE FOR GFR 0.51 MG/DL (0.55-1.30); GLOMERULAR FILTRATION RATE > 60.0 (>60); GLUCOSE, FASTING 73 MG/DL (60-100); POTASSIUM SERUM 4.8 MMOL/L (3.5-5.1); SODIUM LEVEL 138 MMOL/L (136-145)
[2022-07-10 17:44] LABS: CORTISOL AM 27.3 UG/DL (4.3-22.4)
[2022-07-10 17:45] LABS: THYROID STIMULATING HORMONE 1.694 uIU/ML (0.55-4.78)
== END ==
LOC: M SFHCCLAY 15:16
PROVIDERS: ATTEND Family Medicine
DX: R10.84 Generalized abdominal pain (principal); R63.4 Abnormal weight loss; M79.89 Other specified soft tissue disorders; E88.09 Other disorders of plasma-protein metabolism, not elsewhere classified

== ENCOUNTER → 2022-08-06 | Outpatient (REF) | payer OTHER ==
[~2022-08-06] MED LIST changes: -ALBU8.5H; +ALBU8.5H INH; +BENZ-18 PO; +CREO24CA PO; +D3 H10002 PO; +FURO40TA2 PO; +IPRA0.00 NEB; +MAGN50TA PO; +METO1TAB87 PO; +MIRA1POW3 PO; +MUCI600T31 PO; +NARC1SPR NARES; +ONDA-83 PO; +OXYC15TA66 PO; +POTA-136 PO; +SENN18TA PO; +THIA100TA PO; +VANC1CAP6 PO; +ZENP1CAP PO
[2022-08-06 11:30] LABS: ALBUMIN 2.6 G/DL (3.2-5.2); ALKALINE PHOSPHATASE 148 U/L (46-116); ALT/SGPT 29 U/L (7.0-40); AST/SGOT 28 U/L (<34); BILIRUBIN,TOTAL 0.6 MG/DL (0.3-1.2); BLOOD UREA NITROGEN 12 MG/DL (9-23); CALCIUM LEVEL 8.9 MG/DL (8.5-10.1); CARBON DIOXIDE LEVEL 28 MMOL/L (20-31); CHLORIDE LEVEL 103 MMOL/L (98-107); CREATININE FOR GFR 0.58 MG/DL (0.55-1.30); GLOMERULAR FILTRATION RATE > 60.0 (>60); GLUCOSE, FASTING 103 MG/DL (60-100); POTASSIUM SERUM 4.7 MMOL/L (3.5-5.1); SODIUM LEVEL 137 MMOL/L (136-145); TOTAL PROTEIN 5.7 G/DL (5.7-8.2)
[2022-08-06 11:35] LABS: BASO # 0.1 10^3/uL (0.0-0.2); BASO % 0.9 % (0.0-1.0); EOS # 0.4 10^3/uL (0.0-0.5); HEMATOCRIT 37.2 % (36.0-47.0); HEMOGLOBIN 11.7 g/dl (12.0-15.5); LYMPH # 4.7 10^3/uL (1.5-5.0); LYMPH % 36.4 % (24.0-44.0); MEAN CORPUSCULAR HEMOGLOBIN 35.2 pg (27.0-33.0); MEAN CORPUSCULAR HGB CONC 31.5 g/dl (32.0-36.5); MONO # 0.8 10^3/uL (0.0-0.8); MONO % 6.1 % (2.0-8.0); NEUTROPHILS # 6.9 10^3/uL (1.5-8.5); NEUTROPHILS % 53.2 % (36.0-66.0); PLATELET COUNT, AUTOMATED 444 10^3/uL (150-450); RED BLOOD COUNT 3.32 10^6/uL (4.00-5.40)
[2022-08-06 11:37] LABS: INR 1.14; PROTHROMBIN TIME 14.8 SECONDS (12.5-14.5)
== END ==
LOC: M SFHCCLAY 08:40
PROVIDERS: ATTEND Family Medicine
DX: K86.1 Other chronic pancreatitis (principal); E44.0 Moderate protein-calorie malnutrition; R60.1 Generalized edema; R10.84 Generalized abdominal pain

== ENCOUNTER → 2022-08-23 | Outpatient (CLI) | payer OTHER | LOC: M RAD 08:52 | PROVIDERS: ATTEND Internal Medicine Gastroenterology | DX: K70.31 Alcoholic cirrhosis of liver with ascites (principal) ==

== ENCOUNTER → 2022-09-07 | Outpatient (REF) | payer OTHER ==
[2022-09-07 11:59] LABS: INR 0.93; PROTHROMBIN TIME 12.7 SECONDS (12.5-14.5)
[2022-09-07 12:00] LABS: PARTIAL THROMBOPLASTIN TIME 27.5 SECONDS (24.8-34.2)
[2022-09-07 12:02] LABS: HEMATOCRIT 35.1 % (36.0-47.0); HEMOGLOBIN 11.1 g/dl (12.0-15.5); MEAN CORPUSCULAR HEMOGLOBIN 32.9 pg (27.0-33.0); MEAN CORPUSCULAR HGB CONC 31.6 g/dl (32.0-36.5); MEAN CORPUSCULAR VOLUME 104.2 fl (80.0-96.0); PLATELET COUNT, AUTOMATED 367 10^3/uL (150-450); RED BLOOD COUNT 3.37 10^6/uL (4.00-5.40); WHITE BLOOD COUNT 9.8 10^3/uL (4.0-10.0)
[2022-09-07 12:23] LABS: ALBUMIN 2.4 G/DL (3.2-5.2); ALKALINE PHOSPHATASE 127 U/L (46-116); ALT/SGPT 73 U/L (7.0-40); AST/SGOT 79 U/L (<34); BILIRUBIN,DIRECT 0.4 MG/DL (<0.4); BILIRUBIN,TOTAL 0.4 MG/DL (0.3-1.2); BLOOD UREA NITROGEN 11 MG/DL (9-23); CALCIUM LEVEL 8.3 MG/DL (8.5-10.1); CARBON DIOXIDE LEVEL 26 MMOL/L (20-31); CHLORIDE LEVEL 110 MMOL/L (98-107); CREATININE FOR GFR 0.46 MG/DL (0.55-1.30); GLOMERULAR FILTRATION RATE > 60.0 (>60); GLUCOSE, FASTING 93 MG/DL (60-100); POTASSIUM SERUM 4.3 MMOL/L (3.5-5.1); PREALBUMIN 17.9 MG/DL (10.0-40.0); SODIUM LEVEL 143 MMOL/L (136-145)
== END ==
LOC: M LABDRAWC 11:13
PROVIDERS: ATTEND Internal Medicine Gastroenterology
DX: Z98.84 Bariatric surgery status (principal)

== ENCOUNTER → 2022-09-11 | Outpatient (CLI) | payer OTHER | LOC: M CARPUL 09:21 | PROVIDERS: ATTEND Physician Assistant | DX: R00.0 Tachycardia, unspecified (principal) ==

== ENCOUNTER → 2022-09-13 | Outpatient (REF) | payer OTHER ==
[2022-09-13 12:34] LABS: BASO # 0.1 10^3/uL (0.0-0.2); BASO % 0.7 % (0.0-1.0); EOS # 0.3 10^3/uL (0.0-0.5); EOS % 2.1 % (0.0-3.0); HEMOGLOBIN 10.8 g/dl (12.0-15.5); LYMPH # 3.5 10^3/uL (1.5-5.0); LYMPH % 29.9 % (24.0-44.0); MEAN CORPUSCULAR HEMOGLOBIN 33.4 pg (27.0-33.0); MEAN CORPUSCULAR HGB CONC 32.7 g/dl (32.0-36.5); MEAN CORPUSCULAR VOLUME 102.2 fl (80.0-96.0); MONO # 0.9 10^3/uL (0.0-0.8); MONO % 7.7 % (2.0-8.0); NEUTROPHILS % 59.1 % (36.0-66.0); PLATELET COUNT, AUTOMATED 387 10^3/uL (150-450); RED BLOOD COUNT 3.23 10^6/uL (4.00-5.40); WHITE BLOOD COUNT 11.8 10^3/uL (4.0-10.0)
[2022-09-13 12:39] LABS: IRON (FE) 23 UG/DL (50-170)
[2022-09-13 12:40] LABS: ALBUMIN 2.7 G/DL (3.2-5.2); ALKALINE PHOSPHATASE 136 U/L (46-116); ALT/SGPT 53 U/L (7.0-40); AST/SGOT 58 U/L (<34); BILIRUBIN,TOTAL 0.3 MG/DL (0.3-1.2); BLOOD UREA NITROGEN 14 MG/DL (9-23); CALCIUM LEVEL 8.6 MG/DL (8.5-10.1); CARBON DIOXIDE LEVEL 28 MMOL/L (20-31); CHLORIDE LEVEL 104 MMOL/L (98-107); CREATININE FOR GFR 0.44 MG/DL (0.55-1.30); GLOMERULAR FILTRATION RATE > 60.0 (>60); GLUCOSE, FASTING 84 MG/DL (60-100); PERCENT SATURATION 5.8 % (13.2-45.0); POTASSIUM SERUM 4.2 MMOL/L (3.5-5.1); SODIUM LEVEL 137 MMOL/L (136-145); THYROID STIMULATING HORMONE 6.727 uIU/ML (0.55-4.78); TOTAL IRON BINDING CAPACITY 395 UG/DL (250-425); TOTAL PROTEIN 5.6 G/DL (5.7-8.2)
== END ==
LOC: M SFHCCLAY 08:39
PROVIDERS: ATTEND Family Medicine
DX: K86.1 Other chronic pancreatitis (principal); E88.09 Other disorders of plasma-protein metabolism, not elsewhere classified; G89.4 Chronic pain syndrome

== ENCOUNTER → 2022-09-21 | Outpatient (CLI) | payer OTHER ==
[~2022-09-21] MED LIST changes: +SYNT25TA PO
== END ==
LOC: M IRPRO 12:54
PROVIDERS: ATTEND Internal Medicine Infectious Disease
DX: K86.1 Other chronic pancreatitis (principal); Z22.39 Carrier of other specified bacterial diseases

== ENCOUNTER → 2022-10-16 | Outpatient (REF) | payer OTHER ==
[2022-10-16 17:43] LABS: BASO # 0.1 10^3/uL (0.0-0.2); BASO % 0.6 % (0.0-1.0); EOS # 0.2 10^3/uL (0.0-0.5); EOS % 1.5 % (0.0-3.0); HEMATOCRIT 34.1 % (36.0-47.0); HEMOGLOBIN 10.8 g/dl (12.0-15.5); LIPASE 18 U/L (12-53); LYMPH # 3.1 10^3/uL (1.5-5.0); LYMPH % 25.9 % (24.0-44.0); MEAN CORPUSCULAR HEMOGLOBIN 30.1 pg (27.0-33.0); MEAN CORPUSCULAR HGB CONC 31.7 g/dl (32.0-36.5); MONO # 0.8 10^3/uL (0.0-0.8); MONO % 6.6 % (2.0-8.0); NEUTROPHILS # 7.8 10^3/uL (1.5-8.5); NEUTROPHILS % 65.1 % (36.0-66.0); PLATELET COUNT, AUTOMATED 395 10^3/uL (150-450); RED BLOOD COUNT 3.59 10^6/uL (4.00-5.40); WHITE BLOOD COUNT 12.1 10^3/uL (4.0-10.0)
[2022-10-16 17:45] LABS: ALBUMIN 3.2 G/DL (3.2-5.2); ALKALINE PHOSPHATASE 130 U/L (46-116); ALT/SGPT 39 U/L (7.0-40); AST/SGOT 35 U/L (<34); BILIRUBIN,TOTAL 0.2 MG/DL (0.3-1.2); BLOOD UREA NITROGEN 11 MG/DL (9-23); CALCIUM LEVEL 8.9 MG/DL (8.5-10.1); CARBON DIOXIDE LEVEL 27 MMOL/L (20-31); CHLORIDE LEVEL 107 MMOL/L (98-107); CREATININE FOR GFR 0.63 MG/DL (0.55-1.30); GLOMERULAR FILTRATION RATE > 60.0 (>60); GLUCOSE, FASTING 110 MG/DL (60-100); POTASSIUM SERUM 4.6 MMOL/L (3.5-5.1); SODIUM LEVEL 139 MMOL/L (136-145)
[2022-10-16 17:47] LABS: FREE T4 0.77 NG/DL (0.89-1.76); THYROID STIMULATING HORMONE 0.429 uIU/ML (0.55-4.78)
== END ==
LOC: M SFHCCLAY 13:42
PROVIDERS: ATTEND Family Medicine
DX: G89.4 Chronic pain syndrome (principal); E88.09 Other disorders of plasma-protein metabolism, not elsewhere classified; K86.1 Other chronic pancreatitis; E03.9 Hypothyroidism, unspecified

== ENCOUNTER → 2022-10-17 | Outpatient (REF) | payer OTHER | LOC: M SFHCCLAY 12:50 | PROVIDERS: ATTEND Family Medicine | DX: Z53.9 Procedure and treatment not carried out, unspecified reason (principal) ==

== ENCOUNTER → 2022-11-29 | Outpatient (REF) | payer OTHER ==
[~2022-11-29] MED LIST changes: +SENN-111 PO; -SENN18TA PO
[2022-11-29 12:13] LABS: HEMOGLOBIN 9.9 g/dl (12.0-15.5); MEAN CORPUSCULAR HEMOGLOBIN 26.1 pg (27.0-33.0); MEAN CORPUSCULAR HGB CONC 30.9 g/dl (32.0-36.5); MEAN CORPUSCULAR VOLUME 84.2 fl (80.0-96.0); PLATELET COUNT, AUTOMATED 348 10^3/uL (150-450); WHITE BLOOD COUNT 11.1 10^3/uL (4.0-10.0)
[2022-11-29 12:18] LABS: ALBUMIN 3.4 G/DL (3.2-5.2); ALKALINE PHOSPHATASE 105 U/L (46-116); ALT/SGPT 46 U/L (7.0-40); AST/SGOT 12 U/L (<34); BILIRUBIN,TOTAL < 0.2 MG/DL (0.3-1.2); BLOOD UREA NITROGEN 11 MG/DL (9-23); CALCIUM LEVEL 8.5 MG/DL (8.5-10.1); CARBON DIOXIDE LEVEL 30 MMOL/L (20-31); CHLORIDE LEVEL 107 MMOL/L (98-107); CREATININE FOR GFR 0.53 MG/DL (0.55-1.30); GLOMERULAR FILTRATION RATE > 60.0 (>60); GLUCOSE, FASTING 84 MG/DL (60-100); SODIUM LEVEL 140 MMOL/L (136-145); TOTAL PROTEIN 5.9 G/DL (5.7-8.2)
[2022-11-29 12:21] LABS: THYROID STIMULATING HORMONE 2.672 uIU/ML (0.55-4.78)
[2022-11-29 12:22] LABS: FREE T4 0.89 NG/DL (0.89-1.76)
== END ==
LOC: M SFHCCLAY 07:17
PROVIDERS: ATTEND Family Medicine
DX: E03.9 Hypothyroidism, unspecified (principal)

== ENCOUNTER → 2022-12-10 | Outpatient (CLI) | payer OTHER ==
[~2022-12-10] MED LIST changes: +PROB250C PO; +SPIR-10 PO; +VENL75CA47 PO
== END ==
LOC: M IRPRO 14:02
PROVIDERS: ATTEND Family Medicine
DX: K86.1 Other chronic pancreatitis (principal); Z22.39 Carrier of other specified bacterial diseases

== ENCOUNTER → 2023-08-13 | Outpatient (REF) | payer OTHER ==
[~2023-08-13] MED LIST changes: -GABA-283 PO; +GABA-284 PO; -MIRA1POW3 PO; +MIRA33506 PO
[2023-08-13 12:24] LABS: BASO # 0.2 10^3/uL (0.0-0.2); BASO % 1.2 % (0.0-1.0); EOS # 0.4 10^3/uL (0.0-0.5); EOS % 3.1 % (0.0-3.0); HEMATOCRIT 35.1 % (36.0-47.0); HEMOGLOBIN 10.5 g/dl (12.0-15.5); LYMPH # 4.1 10^3/uL (1.5-5.0); LYMPH % 30.2 % (24.0-44.0); MEAN CORPUSCULAR HEMOGLOBIN 26.4 pg (27.0-33.0); MEAN CORPUSCULAR HGB CONC 29.9 g/dl (32.0-36.5); MEAN CORPUSCULAR VOLUME 88.4 fl (80.0-96.0); MONO % 7.5 % (2.0-8.0); NEUTROPHILS # 7.8 10^3/uL (1.5-8.5); NEUTROPHILS % 57.6 % (36.0-66.0); PLATELET COUNT, AUTOMATED 208 10^3/uL (150-450); RED BLOOD COUNT 3.97 10^6/uL (4.00-5.40); WHITE BLOOD COUNT 13.6 10^3/uL (4.0-10.0)
[2023-08-13 12:47] LABS: LIPASE 21 U/L (12-53)
[2023-08-13 12:49] LABS: ALBUMIN 3.3 G/DL (3.2-5.2); ALKALINE PHOSPHATASE 108 U/L (46-116); ALT/SGPT 69 U/L (7.0-40); AST/SGOT 106 U/L (<34); BILIRUBIN,TOTAL 0.4 MG/DL (0.3-1.2); BLOOD UREA NITROGEN 8 MG/DL (9-23); CALCIUM LEVEL 8.6 MG/DL (8.5-10.1); CARBON DIOXIDE LEVEL 26 MMOL/L (20-31); CHLORIDE LEVEL 107 MMOL/L (98-107); CREATININE FOR GFR 0.58 MG/DL (0.55-1.30); GLOMERULAR FILTRATION RATE > 60.0 (>60); GLUCOSE, FASTING 89 MG/DL (60-100); IRON (FE) 29 UG/DL (50-170); POTASSIUM SERUM 3.9 MMOL/L (3.5-5.1); SODIUM LEVEL 136 MMOL/L (136-145); TOTAL IRON BINDING CAPACITY 483 UG/DL (250-425); TOTAL PROTEIN 6.1 G/DL (5.7-8.2)
[2023-08-13 12:51] LABS: FREE T4 0.99 NG/DL (0.89-1.76)
== END ==
LOC: M SFHCCLAY 07:48
PROVIDERS: ATTEND Family Medicine
DX: K86.1 Other chronic pancreatitis (principal); E03.9 Hypothyroidism, unspecified; D50.9 Iron deficiency anemia, unspecified; K76.0 Fatty (change of) liver, not elsewhere classified; Z98.84 Bariatric surgery status

== ENCOUNTER → 2023-09-13 | Outpatient (CLI) | payer OTHER | LOC: M RAD 10:01 | PROVIDERS: ATTEND Family Medicine | DX: K74.60 Unspecified cirrhosis of liver (principal) ==

== ENCOUNTER 2023-10-21 19:21 | Inpatient (IN) | payer OTHER ==
[~2023-10-21] VITALS: Ht 157.5 cm; Wt 57.9 kg
[2023-10-21 20:14] LABS: BASO # 0.1 10^3/uL (0.0-0.2); BASO % 0.5 % (0.0-1.0); EOS # 0.1 10^3/uL (0.0-0.5); EOS % 0.5 % (0.0-3.0); HEMATOCRIT 45.2 % (36.0-47.0); HEMOGLOBIN 13.4 g/dl (12.0-15.5); LYMPH # 1.3 10^3/uL (1.5-5.0); LYMPH % 10.1 % (24.0-44.0); MEAN CORPUSCULAR HEMOGLOBIN 27.5 pg (27.0-33.0); MEAN CORPUSCULAR HGB CONC 29.6 g/dl (32.0-36.5); MEAN CORPUSCULAR VOLUME 92.6 fl (80.0-96.0); MONO # 0.8 10^3/uL (0.0-0.8); MONO % 6.4 % (2.0-8.0); NEUTROPHILS # 10.5 10^3/uL (1.5-8.5); NEUTROPHILS % 81.7 % (36.0-66.0); PLATELET COUNT, AUTOMATED 302 10^3/uL (150-450); RED BLOOD COUNT 4.88 10^6/uL (4.00-5.40); WHITE BLOOD COUNT 12.9 10^3/uL (4.0-10.0)
[2023-10-21] MEDS: AMITRIPTYLINE 25MG TABLET PO SCH (21:00)
[2023-10-21] MEDS: ONDANSETRON 4MG 2ML VIAL IV ONE (21:05)
[2023-10-21] MEDS: MORPHINE 4 MG/ML 1ML VIAL IV ONE (21:05)
[2023-10-21 21:45] LABS: ALBUMIN 3.5 G/DL (3.2-5.2); ALKALINE PHOSPHATASE 192 U/L (46-116); ALT/SGPT 184 U/L (7.0-40); AST/SGOT 455 U/L (<34); BILIRUBIN,DIRECT 0.3 MG/DL (<0.4); BILIRUBIN,TOTAL 0.8 MG/DL (0.3-1.2); BLOOD UREA NITROGEN 9 MG/DL (9-23); CALCIUM LEVEL 8.9 MG/DL (8.5-10.1); CARBON DIOXIDE LEVEL < 10.0 MMOL/L (20-31); CHLORIDE LEVEL 97 MMOL/L (98-107); CREATININE FOR GFR 0.53 MG/DL (0.55-1.30); GLOMERULAR FILTRATION RATE > 60.0 (>58); GLUCOSE, FASTING 74 MG/DL (60-100); LIPASE 87 U/L (12-53); SODIUM LEVEL 129 MMOL/L (136-145)
[2023-10-21] MEDS ORDERED: ISOVUE-370 76% 100ML VIAL As Ordered ONE (22:04)
[2023-10-21 22:52] LABS: ABG BASE EXCESS -18.1 (-2.0-2.0); ABG HCO3 7.2 MMOL/L (22.0-26.0); ABG O2 SATURATION 96.4 % (95.0-99.0); ABG PARTIAL PRESSURE O2 124.6 mmHg (75.0-100.0); ABG STANDARD HCO3 11.1 MMOL/L. (22.0-26.0); ABG TOTAL CO2 7.7 MMOL/L (22.0-29.0)
[2023-10-21 22:54] LABS: ABG PARTIAL PRESSURE CO2 17.5 mmHg (35.0-45.0); ABG pH (ARTERIAL) 7.231 UNITS (7.350-7.450)
[2023-10-21] MEDS: NS 1,000 ML IV ONE (23:18)
[2023-10-21] MEDS: MORPHINE 4 MG/ML 1ML VIAL IV PRN (23:34)
[2023-10-21 23:35] LABS: ETHYL ALCOHOL (ETHANOL) < 0.003 % (0.000-0.010)
[2023-10-21 23:37] LABS: SALICYLATE LEVEL < 3.0 MG/DL (<30)
[2023-10-22] MEDS ORDERED: MOM 30ML SUSPENSION UDC PO PRN (01:10)
[2023-10-22] MEDS ORDERED: MAALOX 30 ML SUSP *UDC PO PRN (01:10)
[2023-10-22] MEDS ORDERED: ACETAMINOPHEN TAB 650MG DOSE (2X325MG) PO PRN (01:10)
[2023-10-22] MEDS ORDERED: HYDROmorphone HCL 2MG/ML 1ML VIAL IV PRN (01:10)
[2023-10-22] MEDS: SODIUM BICARBONATE 8.4% INJ 50ML SYRINGE IV STA (01:34)
[2023-10-22] MEDS ORDERED: ONDA-83 PO (01:54)
[2023-10-22] MEDS ORDERED: SPIR-10 PO (01:54)
[2023-10-22] MEDS ORDERED: FURO40TA2 PO (01:54)
[2023-10-22] MEDS ORDERED: OXYC20TA40 PO (01:54)
[2023-10-22] MEDS ORDERED: VENL150C43 PO (01:54)
[2023-10-22] MEDS ORDERED: OXYC-517 PO (01:54)
[2023-10-22] MEDS ORDERED: HOME MED LIST COMPLETE! XX SCH (02:05)
[2023-10-22] MEDS: SODIUM BICARBONATE IV SCH (02:14)
[2023-10-22] MEDS: LR IV SCH (02:14)
[2023-10-22 02:17] LABS: BLOOD UREA NITROGEN 8 MG/DL (9-23); CALCIUM LEVEL 8.8 MG/DL (8.5-10.1); CARBON DIOXIDE LEVEL 13 MMOL/L (20-31); CHLORIDE LEVEL 98 MMOL/L (98-107); CREATININE FOR GFR 0.51 MG/DL (0.55-1.30); GLOMERULAR FILTRATION RATE > 60.0 (>58); GLUCOSE, FASTING 63 MG/DL (60-100); SODIUM LEVEL 132 MMOL/L (136-145)
[2023-10-22 03:40] LABS: ABG pH (ARTERIAL) 7.275 UNITS (7.350-7.450)
[2023-10-22] MEDS: HYDROMORPHONE HCL 0.5 MG/ 0.5 ML SYRINGE IV PRN ×3 (03:40→18:55)
[2023-10-22 03:41] LABS: ABG BASE EXCESS -15.6 (-2.0-2.0); ABG HCO3 9.2 MMOL/L (22.0-26.0); ABG O2 SATURATION 95.8 % (95.0-99.0); ABG PARTIAL PRESSURE CO2 20.2 mmHg (35.0-45.0); ABG STANDARD HCO3 12.6 MMOL/L. (22.0-26.0); ABG TOTAL CO2 9.8 MMOL/L (22.0-29.0)
[2023-10-22 05:29] LABS: VENOUS BASE EXCESS -14.1 (-2.0-2.0); VENOUS HCO3 12.6 MMOL/L (23.0-27.0); VENOUS O2 SATURATION 82.3 % (60.0-80.0); VENOUS PARTIAL PRESSURE CO2 32.7 mmHg (38.0-50.0); VENOUS PARTIAL PRESSURE O2 53.4 mmHg (30.0-50.0); VENOUS PH 7.205 UNITS (7.330-7.430); VENOUS STANDARD HCO3 13.4 MMOL/L; VENOUS TOTAL CO2 13.6 MMOL/L (24.0-28.0)
[2023-10-22 05:57] LABS: BLOOD UREA NITROGEN 8 MG/DL (9-23); CALCIUM LEVEL 8.5 MG/DL (8.5-10.1); CARBON DIOXIDE LEVEL 15 MMOL/L (20-31); CHLORIDE LEVEL 102 MMOL/L (98-107); CREATININE FOR GFR 0.53 MG/DL (0.55-1.30); GLOMERULAR FILTRATION RATE > 60.0 (>58); GLUCOSE, FASTING 63 MG/DL (60-100); POTASSIUM SERUM 4.6 MMOL/L (3.5-5.1); SODIUM LEVEL 133 MMOL/L (136-145)
[2023-10-22] MEDS ORDERED: MORPHINE 2 MG/ML 1ML VIAL IV PRN (07:00)
[2023-10-22] MEDS: MORPHINE 4 MG/ML 1ML VIAL IV PRN (07:53)
[2023-10-22] MEDS: ENOXAPARIN 40MG/0.4ML SYRINGE (J1650 PER 10MG) SC SCH (07:54)
[2023-10-22] MEDS: PANTOPRAZOLE 40MG VIAL IV SCH (07:54)
[2023-10-22 08:35] LABS: HEMATOCRIT 40.5 % (36.0-47.0); MEAN CORPUSCULAR HEMOGLOBIN 27.5 pg (27.0-33.0); MEAN CORPUSCULAR HGB CONC 29.6 g/dl (32.0-36.5); MEAN CORPUSCULAR VOLUME 92.9 fl (80.0-96.0); PLATELET COUNT, AUTOMATED 264 10^3/uL (150-450); RED BLOOD COUNT 4.36 10^6/uL (4.00-5.40); WHITE BLOOD COUNT 9.6 10^3/uL (4.0-10.0)
[2023-10-22] MEDS: DOCUSATE SODIUM 100MG CAPSULE PO SCH (08:49)
[2023-10-22 08:56] LABS: BLOOD UREA NITROGEN 8 MG/DL (9-23); CALCIUM LEVEL 8.8 MG/DL (8.5-10.1); CARBON DIOXIDE LEVEL 15 MMOL/L (20-31); CHLORIDE LEVEL 101 MMOL/L (98-107); CREATININE FOR GFR 0.46 MG/DL (0.55-1.30); GLOMERULAR FILTRATION RATE > 60.0 (>58); GLUCOSE, FASTING 68 MG/DL (60-100); POTASSIUM SERUM 5.2 MMOL/L (3.5-5.1); SODIUM LEVEL 133 MMOL/L (136-145)
[2023-10-22] MEDS: CREON-24 CAPSULE PO SCH (09:01)
[2023-10-22] MEDS ORDERED: HYDROMORPHONE HCL 0.5 MG/ 0.5 ML SYRINGE IV PRN ×2 (11:30→18:45)
[2023-10-22] MEDS ORDERED: GLUCAGON INJ 1MG VIAL SC PRN (11:50)
[2023-10-22] MEDS ORDERED: DEXTROSE 50% 50ML SYRINGE IV PRN (11:50)
[2023-10-22] MEDS ORDERED: GLUCOSE 4 GM CHEW PO PRN (11:50)
[2023-10-22 12:17] LABS: VENOUS BASE EXCESS -9.1 (-2.0-2.0); VENOUS HCO3 15.8 MMOL/L (23.0-27.0); VENOUS O2 SATURATION 95.8 % (60.0-80.0); VENOUS PARTIAL PRESSURE CO2 31.2 mmHg (38.0-50.0); VENOUS PARTIAL PRESSURE O2 106.6 mmHg (30.0-50.0); VENOUS PH 7.321 UNITS (7.330-7.430); VENOUS STANDARD HCO3 17.2 MMOL/L; VENOUS TOTAL CO2 16.7 MMOL/L (24.0-28.0)
[2023-10-22 12:53] LABS: BLOOD UREA NITROGEN 6 MG/DL (9-23); CALCIUM LEVEL 8.9 MG/DL (8.5-10.1); CARBON DIOXIDE LEVEL 17 MMOL/L (20-31); CHLORIDE LEVEL 103 MMOL/L (98-107); CREATININE FOR GFR 0.43 MG/DL (0.55-1.30); GLOMERULAR FILTRATION RATE > 60.0 (>58); GLUCOSE, FASTING 83 MG/DL (60-100); POTASSIUM SERUM 4.3 MMOL/L (3.5-5.1); SODIUM LEVEL 133 MMOL/L (136-145)
[2023-10-22 17:06] LABS: BLOOD UREA NITROGEN 7 MG/DL (9-23); CARBON DIOXIDE LEVEL 18 MMOL/L (20-31); CHLORIDE LEVEL 103 MMOL/L (98-107); CREATININE FOR GFR 0.39 MG/DL (0.55-1.30); GLOMERULAR FILTRATION RATE > 60.0 (>58); GLUCOSE, FASTING 97 MG/DL (60-100); POTASSIUM SERUM 4.3 MMOL/L (3.5-5.1); SODIUM LEVEL 134 MMOL/L (136-145)
[2023-10-22] MEDS: SODIUM BICARBONATE 150 MEQ in D5W 1,000 ML IV SCH (17:07)
[2023-10-22] MEDS: HYDROMORPHONE HCL 0.5 MG/ 0.5 ML SYRINGE IV ONE (21:44)
[2023-10-22 22:30] VITALS: BP 117/81; TEMP 97.1; O2SAT 98
[2023-10-22 23:00] VITALS: O2SAT 95
[2023-10-23] VITALS (26 sets, daily range): BP systolic 102–138; BP diastolic 66–91; TEMP 96.9–97.9; O2SAT 93–100
[2023-10-23 00:55] LABS: BLOOD UREA NITROGEN 6 MG/DL (9-23); CALCIUM LEVEL 8.5 MG/DL (8.5-10.1); CARBON DIOXIDE LEVEL 29 MMOL/L (20-31); CHLORIDE LEVEL 102 MMOL/L (98-107); GLOMERULAR FILTRATION RATE > 60.0 (>58); GLUCOSE, FASTING 129 MG/DL (60-100); POTASSIUM SERUM 3.4 MMOL/L (3.5-5.1); SODIUM LEVEL 136 MMOL/L (136-145)
[2023-10-23 05:25] LABS: VENOUS BASE EXCESS 7.7 (-2.0-2.0); VENOUS HCO3 32.4 MMOL/L (23.0-27.0); VENOUS O2 SATURATION 95.8 % (60.0-80.0); VENOUS PARTIAL PRESSURE CO2 45.8 mmHg (38.0-50.0); VENOUS PARTIAL PRESSURE O2 101.8 mmHg (30.0-50.0); VENOUS PH 7.467 UNITS (7.330-7.430); VENOUS STANDARD HCO3 31.4 MMOL/L; VENOUS TOTAL CO2 33.8 MMOL/L (24.0-28.0)
[2023-10-23 05:36] LABS: HEMATOCRIT 36.6 % (36.0-47.0); HEMOGLOBIN 11.4 g/dl (12.0-15.5); MEAN CORPUSCULAR HEMOGLOBIN 27.5 pg (27.0-33.0); MEAN CORPUSCULAR HGB CONC 31.1 g/dl (32.0-36.5); MEAN CORPUSCULAR VOLUME 88.4 fl (80.0-96.0); PLATELET COUNT, AUTOMATED 192 10^3/uL (150-450); RED BLOOD COUNT 4.14 10^6/uL (4.00-5.40); WHITE BLOOD COUNT 6.8 10^3/uL (4.0-10.0)
[2023-10-23 06:11] LABS: PROCALCITONIN 0.32 ng/ml
[2023-10-23 06:12] LABS: ALBUMIN 2.7 G/DL (3.2-5.2); ALKALINE PHOSPHATASE 147 U/L (46-116); ALT/SGPT 119 U/L (7.0-40); AST/SGOT 176 U/L (<34); BILIRUBIN,TOTAL 0.7 MG/DL (0.3-1.2); BLOOD UREA NITROGEN < 5 MG/DL (9-23); CALCIUM LEVEL 8.6 MG/DL (8.5-10.1); CARBON DIOXIDE LEVEL 33 MMOL/L (20-31); CHLORIDE LEVEL 99 MMOL/L (98-107); CREATININE FOR GFR 0.37 MG/DL (0.55-1.30); GLOMERULAR FILTRATION RATE > 60.0 (>58); GLUCOSE, FASTING 133 MG/DL (60-100); MAGNESIUM LEVEL 1.7 MG/DL (1.8-2.4); POTASSIUM SERUM 3.3 MMOL/L (3.5-5.1); SODIUM LEVEL 137 MMOL/L (136-145); TOTAL PROTEIN 5.3 G/DL (5.7-8.2)
[2023-10-23] MEDS: POTASSIUM CHLORIDE 10MEQ SR TABLET PO ONE (08:45)
[2023-10-23] MEDS: MAGNESIUM OXIDE 400MG TAB (MAG-OX) PO SCH (08:46)
[2023-10-23] MEDS: ONDANSETRON 4MG 2ML VIAL IV PRN (10:25)
[2023-10-23] MEDS: VENLAFAXINE **XR** 75MG CAPSULE PO SCH (20:57)
[2023-10-24] VITALS (8 sets, daily range): BP systolic 129–153; BP diastolic 83–93; TEMP 97–97.5; O2SAT 94–98
[2023-10-24 05:51] LABS: HEMATOCRIT 32.5 % (36.0-47.0); HEMOGLOBIN 10.3 g/dl (12.0-15.5); MEAN CORPUSCULAR HEMOGLOBIN 28.1 pg (27.0-33.0); MEAN CORPUSCULAR HGB CONC 31.7 g/dl (32.0-36.5); MEAN CORPUSCULAR VOLUME 88.8 fl (80.0-96.0); PLATELET COUNT, AUTOMATED 164 10^3/uL (150-450); RED BLOOD COUNT 3.66 10^6/uL (4.00-5.40); WHITE BLOOD COUNT 6.3 10^3/uL (4.0-10.0)
[2023-10-24 06:09] LABS: BLOOD UREA NITROGEN 7 MG/DL (9-23); CALCIUM LEVEL 8.6 MG/DL (8.5-10.1); CARBON DIOXIDE LEVEL 32 MMOL/L (20-31); CHLORIDE LEVEL 104 MMOL/L (98-107); CREATININE FOR GFR 0.38 MG/DL (0.55-1.30); GLOMERULAR FILTRATION RATE > 60.0 (>58); GLUCOSE, FASTING 101 MG/DL (60-100); POTASSIUM SERUM 3.6 MMOL/L (3.5-5.1); SODIUM LEVEL 137 MMOL/L (136-145)
[2023-10-24] MEDS ORDERED: oxyCODONE 5MG TAB PO PRN (06:55)
[2023-10-24] MEDS ORDERED: SPIRONOLACTONE 25 MG TAB PO PRN (06:55)
[2023-10-24] MEDS ORDERED: FUROSEMIDE 40 MG TAB PO PRN (06:55)
[2023-10-24] MEDS: oxyCODONE 5MG TAB PO PRN (07:37)
[2023-10-24] MEDS: oxyCODONE 20MG CR TAB PO SCH (09:08)
== END 2023-10-24 09:46 | disposition home or self-care (01) | DRG 425 ==
LOC: M ED 19:21 → M ED INP 23:56 → M PCU 10-22 22:20
PROVIDERS: ADMIT Internal Medicine; ATTEND Internal Medicine
DX: E87.1 Hypo-osmolality and hyponatremia (principal); E87.20 Acidosis, unspecified; K76.0 Fatty (change of) liver, not elsewhere classified; K86.1 Other chronic pancreatitis; M06.9 Rheumatoid arthritis, unspecified; J45.909 Unspecified asthma, uncomplicated; E03.9 Hypothyroidism, unspecified; R11.2 Nausea with vomiting, unspecified; E16.2 Hypoglycemia, unspecified; E28.2 Polycystic ovarian syndrome; N80.9 Endometriosis, unspecified; F17.210 Nicotine dependence, cigarettes, uncomplicated; Z79.891 Long term (current) use of opiate analgesic; Z79.890 Hormone replacement therapy; Z79.899 Other long term (current) drug therapy; Z88.0 Allergy status to penicillin; Z88.1 Allergy status to other antibiotic agents; Z88.2 Allergy status to sulfonamides; Z88.8 Allergy status to other drugs, medicaments and biological substances; Z90.49 Acquired absence of other specified parts of digestive tract; Z98.84 Bariatric surgery status; R74.01 Elevation of levels of liver transaminase levels; E87.6 Hypokalemia

== ENCOUNTER → 2023-11-05 | Outpatient (REF) | payer OTHER ==
[~2023-11-05] MED LIST changes: +ONDA-282 PO; -ONDA4TAB6 PO; +OXYC20TA40 PO; +VENL150C43 PO
[2023-11-05 18:29] LABS: HEMATOCRIT 36.3 % (36.0-47.0); MEAN CORPUSCULAR HEMOGLOBIN 27.9 pg (27.0-33.0); MEAN CORPUSCULAR HGB CONC 30.3 g/dl (32.0-36.5); MEAN CORPUSCULAR VOLUME 92.1 fl (80.0-96.0); PLATELET COUNT, AUTOMATED 485 10^3/uL (150-450); RED BLOOD COUNT 3.94 10^6/uL (4.00-5.40); WHITE BLOOD COUNT 11.8 10^3/uL (4.0-10.0)
[2023-11-05 18:36] LABS: FREE T4 0.75 NG/DL (0.89-1.76); THYROID STIMULATING HORMONE 0.738 uIU/ML (0.55-4.78)
[2023-11-05 18:37] LABS: FERRITIN 6.3 NG/ML (7.3-270.7)
[2023-11-05 18:38] LABS: HEPATITIS B SURFACE ANTIBODY POSITIVE (POSITIVE); IRON (FE) 10 UG/DL (50-170)
[2023-11-05 18:40] LABS: PERCENT SATURATION 1.8 % (13.2-45.0); TOTAL IRON BINDING CAPACITY 554 UG/DL (250-425)
[2023-11-05 18:41] LABS: ALBUMIN 3.2 G/DL (3.2-5.2); ALKALINE PHOSPHATASE 112 U/L (46-116); ALT/SGPT 38 U/L (7.0-40); AST/SGOT 24 U/L (<34); BILIRUBIN,TOTAL < 0.2 MG/DL (0.3-1.2); BLOOD UREA NITROGEN 13 MG/DL (9-23); CALCIUM LEVEL 9.3 MG/DL (8.5-10.1); CARBON DIOXIDE LEVEL 24 MMOL/L (20-31); CHLORIDE LEVEL 113 MMOL/L (98-107); CHOLESTEROL LEVEL 217 MG/DL (<200); CREATININE FOR GFR 0.59 MG/DL (0.55-1.30); GLOMERULAR FILTRATION RATE > 60.0 (>58); GLUCOSE, FASTING 106 MG/DL (60-100); HDL CHOLESTEROL 63.7 MG/DL (>40); LDL CHOLESTEROL 134.5 MG/DL (<100); NON-HDL-C 153.3 MG/DL; POTASSIUM SERUM 4.2 MMOL/L (3.5-5.1); SODIUM LEVEL 142 MMOL/L (136-145); TOTAL PROTEIN 6.2 G/DL (5.7-8.2); TRIGLYCERIDES LEVEL 94 MG/DL (<150)
[2023-11-05 18:49] LABS: HEPATITIS B SURFACE ANTIGEN NEGATIVE (NEGATIVE)
[2023-11-05 19:09] LABS: HEPATITIS C VIRUS ABY INDEX 0.02 INDEX (<0.8)
== END ==
LOC: M SFHCCLAY 14:54
PROVIDERS: ATTEND Physician Assistant
DX: K86.1 Other chronic pancreatitis (principal); E03.9 Hypothyroidism, unspecified; Z98.84 Bariatric surgery status; D50.9 Iron deficiency anemia, unspecified; K76.0 Fatty (change of) liver, not elsewhere classified; K74.60 Unspecified cirrhosis of liver; Z13.6 Encounter for screening for cardiovascular disorders

== ENCOUNTER 2023-12-02 09:50 | Outpatient (CLI) | payer OTHER ==
[~2023-12-02] VITALS: Ht 157.5 cm; Wt 63.1 kg
[2023-12-02 10:00] VITALS: BP 137/77; O2SAT 96
[2023-12-02] MEDS: IRON SUCROSE 25 MG in NS 23.75 ML IV ONE (10:35)
[2023-12-02] MEDS: IRON SUCROSE 475 MG in NS 250 ML IV ONE (11:37)
[2023-12-02 12:30] VITALS: BP 129/81; O2SAT 100
[2023-12-02 13:30] VITALS: BP 141/93; O2SAT 100
[2023-12-02 14:30] VITALS: BP 133/84; O2SAT 99
[2023-12-02 15:43] VITALS: BP 153/92; O2SAT 98
[2023-12-02 16:15] VITALS: BP 140/78; O2SAT 88
== END 2023-12-02 16:15 ==
LOC: M INFU 09:50
PROVIDERS: ATTEND Physician Assistant
DX: D50.9 Iron deficiency anemia, unspecified (principal); Z88.0 Allergy status to penicillin; Z88.2 Allergy status to sulfonamides; Z88.1 Allergy status to other antibiotic agents; Z88.8 Allergy status to other drugs, medicaments and biological substances
CPT/HCPCS: 96365; 96366; J1756

== ENCOUNTER → 2023-12-06 | Outpatient (REF) | payer OTHER | LOC: M SFHCCLAY 16:54 | PROVIDERS: ATTEND Family Medicine | DX: D50.9 Iron deficiency anemia, unspecified (principal); K86.1 Other chronic pancreatitis; I10 Essential (primary) hypertension ==

== ENCOUNTER 2023-12-16 09:50 | Outpatient (CLI) | payer OTHER ==
[2023-12-16 09:50] VITALS: BP 120/76; O2SAT 100
[2023-12-16] MEDS: IRON SUCROSE 500 MG in NS 250 ML OVER 4 HRS IV ONE (10:40)
[2023-12-16 11:00] VITALS: BP 122/68; O2SAT 100
[2023-12-16 12:30] VITALS: BP 102/61; O2SAT 97
[2023-12-16 13:30] VITALS: BP 117/69; O2SAT 100
[2023-12-16 14:55] VITALS: BP 119/77; O2SAT 100
== END 2023-12-16 14:55 ==
LOC: M INFU 09:50
PROVIDERS: ATTEND Physician Assistant
DX: D50.9 Iron deficiency anemia, unspecified (principal); Z88.0 Allergy status to penicillin; Z88.1 Allergy status to other antibiotic agents; Z88.2 Allergy status to sulfonamides
CPT/HCPCS: 96365; 96366; J1756

== ENCOUNTER → 2024-02-03 | Outpatient (REF) | payer OTHER | LOC: M SFHCLERA 16:31 | PROVIDERS: ATTEND Physician Assistant | DX: R30.0 Dysuria (principal) ==

== ENCOUNTER → 2024-03-24 | Outpatient (REF) | payer OTHER ==
[~2024-03-24] MED LIST changes: +GABA-1172 PO; -GABA-282 PO; -SENN-111 PO; +SENN-165 PO
[2024-03-24 17:58] LABS: HEMATOCRIT 37.5 % (36.0-47.0); HEMOGLOBIN 13.1 g/dl (12.0-15.5); MEAN CORPUSCULAR HGB CONC 34.9 g/dl (32.0-36.5); MEAN CORPUSCULAR VOLUME 97.4 fl (80.0-96.0); PLATELET COUNT, AUTOMATED 291 10^3/uL (150-450); RED BLOOD COUNT 3.85 10^6/uL (4.00-5.40); WHITE BLOOD COUNT 10.2 10^3/uL (4.0-10.0)
[2024-03-24 18:35] LABS: FREE T4 0.81 NG/DL (0.89-1.76)
[2024-03-24 18:36] LABS: IRON (FE) 210 UG/DL (50-170); PERCENT SATURATION 75.8 % (13.2-45.0); TOTAL IRON BINDING CAPACITY 277 UG/DL (250-425)
[2024-03-24 18:37] LABS: ALBUMIN 2.9 G/DL (3.2-5.2); ALKALINE PHOSPHATASE 111 U/L (35-104); ALT/SGPT 39 U/L (7.0-40); AST/SGOT 56 U/L (<34); BILIRUBIN,TOTAL 0.2 MG/DL (0.3-1.2); BLOOD UREA NITROGEN 10 MG/DL (9-23); CARBON DIOXIDE LEVEL 27 MMOL/L (20-31); CHLORIDE LEVEL 109 MMOL/L (98-107); CREATININE FOR GFR 0.56 MG/DL (0.55-1.30); GLOMERULAR FILTRATION RATE > 60.0 (>58); GLUCOSE, FASTING 90 MG/DL (60-100); MAGNESIUM LEVEL 1.8 MG/DL (1.8-2.4); POTASSIUM SERUM 4.6 MMOL/L (3.5-5.1); SODIUM LEVEL 142 MMOL/L (136-145); TOTAL PROTEIN 5.7 G/DL (5.7-8.2)
== END ==
LOC: M SFHCCLAY 12:12
PROVIDERS: ATTEND Family Medicine
DX: D50.9 Iron deficiency anemia, unspecified (principal); I10 Essential (primary) hypertension; K86.1 Other chronic pancreatitis; E03.9 Hypothyroidism, unspecified; K76.0 Fatty (change of) liver, not elsewhere classified

== ENCOUNTER 2024-06-05 16:00 | Observation (INO) | payer OTHER ==
[~2024-06-05] VITALS: Ht 157.5 cm; Wt 65.5 kg
[~2024-06-05 16:00] MED LIST changes: -B-1100TA2 PO; -CHOL125C5 PO; -COLA100C5 PO; -DILT120C31 PO; -LEVO75TA4 PO; -LISI10TA22 PO; -SENO8.6T5 PO
[2024-06-05] MEDS: NS (Normal Saline) 0.9% 1,000 ML IV SCH ×2 (17:35→21:59)
[2024-06-05] MEDS: ONDANSETRON 4MG 2ML VIAL IV ONE (17:36)
[2024-06-05] MEDS: MORPHINE 4 MG/ML 1ML VIAL IV ONE ×2 (17:36→18:54)
[2024-06-05] MEDS: MAGNESIUM CITRATE 300ML BTL PO ONE (17:37)
[2024-06-05 18:00] LABS: BASO # 0.1 10^3/uL (0.0-0.2); BASO % 0.8 % (0.0-1.0); EOS # 0.3 10^3/uL (0.0-0.5); EOS % 2.7 % (0.0-3.0); HEMATOCRIT 38.5 % (36.0-47.0); HEMOGLOBIN 13.5 g/dl (12.0-15.5); LYMPH % 27.4 % (24.0-44.0); MEAN CORPUSCULAR HEMOGLOBIN 33.8 pg (27.0-33.0); MEAN CORPUSCULAR HGB CONC 35.1 g/dl (32.0-36.5); MEAN CORPUSCULAR VOLUME 96.3 fl (80.0-96.0); MONO # 0.7 10^3/uL (0.0-0.8); MONO % 6.7 % (2.0-8.0); NEUTROPHILS # 6.7 10^3/uL (1.5-8.5); NEUTROPHILS % 61.8 % (36.0-66.0); PLATELET COUNT, AUTOMATED 367 10^3/uL (150-450); WHITE BLOOD COUNT 10.8 10^3/uL (4.0-10.0)
[2024-06-05 18:18] LABS: LIPASE 15 U/L (12-53)
[2024-06-05 18:36] LABS: ALBUMIN 2.9 G/DL (3.2-5.2); ALKALINE PHOSPHATASE 150 U/L (35-104); ALT/SGPT 39 U/L (7.0-40); AST/SGOT 85 U/L (<34); BILIRUBIN,DIRECT 0.3 MG/DL (<0.4); BILIRUBIN,TOTAL 0.6 MG/DL (0.3-1.2); BLOOD UREA NITROGEN < 5 MG/DL (9-23); CALCIUM LEVEL 8.8 MG/DL (8.5-10.1); CARBON DIOXIDE LEVEL 27 MMOL/L (20-31); CHLORIDE LEVEL 106 MMOL/L (98-107); CREATININE FOR GFR 0.46 MG/DL (0.55-1.30); GLOMERULAR FILTRATION RATE > 60.0 (>58); GLUCOSE, FASTING 92 MG/DL (60-100); SODIUM LEVEL 140 MMOL/L (136-145); TOTAL PROTEIN 5.8 G/DL (5.7-8.2)
[2024-06-05 20:00] VITALS: TEMP 97.9
[2024-06-05] MEDS: dilTIAZem 120MG **CD** CAPSULE PO SCH (21:00)
[2024-06-05] MEDS: VENLAFAXINE **XR** 75MG CAPSULE PO SCH (21:00)
[2024-06-05] MEDS ORDERED: KETOROLAC TROMETHAMINE 10 MG TAB PO PRN (21:15)
[2024-06-05] MEDS ORDERED: KETOROLAC 30 MG/ML 1ML VIAL IV PRN (21:15)
[2024-06-05] MEDS ORDERED: CHOL125C5 PO (21:38)
[2024-06-05] MEDS ORDERED: LISI10TA22 PO (21:49)
[2024-06-05] MEDS ORDERED: LEVO75TA4 PO (21:49)
[2024-06-05] MEDS ORDERED: DILT120C31 PO (21:49)
[2024-06-05] MEDS ORDERED: B-1100TA2 PO (21:49)
[2024-06-05] MEDS ORDERED: HOME MED LIST COMPLETE! XX SCH (21:55)
[2024-06-05] MEDS: metroNIDAZOLE 500 MG in IV 1 EA IV SCH (21:59)
[2024-06-06] MEDS ORDERED: ONDANSETRON 4MG TAB PO PRN (03:05)
[2024-06-06] MEDS ORDERED: FUROSEMIDE 40 MG TAB PO PRN (03:05)
[2024-06-06] MEDS ORDERED: SPIRONOLACTONE 25 MG TAB PO PRN (03:05)
[2024-06-06] MEDS ORDERED: ALBUTEROL 90 MCG/ACT 8GM HFA INHALER INH PRN (03:05)
[2024-06-06] MEDS: LEVOTHYROXINE 75MCG TABLET (0.075MG) PO SCH (06:00)
[2024-06-06 06:42] LABS: HEMATOCRIT 34.8 % (36.0-47.0); HEMOGLOBIN 12.1 g/dl (12.0-15.5); MEAN CORPUSCULAR HEMOGLOBIN 34.4 pg (27.0-33.0); MEAN CORPUSCULAR HGB CONC 34.8 g/dl (32.0-36.5); MEAN CORPUSCULAR VOLUME 98.9 fl (80.0-96.0); PLATELET COUNT, AUTOMATED 323 10^3/uL (150-450); RED BLOOD COUNT 3.52 10^6/uL (4.00-5.40); WHITE BLOOD COUNT 8.4 10^3/uL (4.0-10.0)
[2024-06-06 07:08] VITALS: BP 122/82
[2024-06-06 07:08] LABS: ALBUMIN 2.3 G/DL (3.2-5.2); ALKALINE PHOSPHATASE 116 U/L (35-104); ALT/SGPT 39 U/L (7.0-40); AST/SGOT 102 U/L (<34); BILIRUBIN,TOTAL 0.7 MG/DL (0.3-1.2); BLOOD UREA NITROGEN 5 MG/DL (9-23); CALCIUM LEVEL 8.2 MG/DL (8.5-10.1); CARBON DIOXIDE LEVEL 26 MMOL/L (20-31); CHLORIDE LEVEL 109 MMOL/L (98-107); CREATININE FOR GFR 0.43 MG/DL (0.55-1.30); GLOMERULAR FILTRATION RATE > 60.0 (>58); GLUCOSE, FASTING 76 MG/DL (60-100); MAGNESIUM LEVEL 2.1 MG/DL (1.8-2.4); POTASSIUM SERUM 4.6 MMOL/L (3.5-5.1); SODIUM LEVEL 143 MMOL/L (136-145)
[2024-06-06] MEDS ORDERED: MIRALAX *UNIT DOSE* 17GM PACKET PO PRN (07:15)
[2024-06-06 07:40] VITALS: O2SAT 93
[2024-06-06] MEDS ORDERED: CREON-12 CAPSULE (PANCRELIPASE) PO SCH (08:00)
[2024-06-06] MEDS ORDERED: MORPHINE 2 MG/ML 1ML VIAL IV PRN (08:00)
[2024-06-06] MEDS: NS (Normal Saline) 0.9% 1,000 ML IV SCH (08:40)
[2024-06-06] MEDS: ENOXAPARIN 40MG/0.4ML SYRINGE (J1650 PER 10MG) SC SCH (08:41)
[2024-06-06] MEDS: OMEPRAZOLE 20MG CAP PO SCH (08:42)
[2024-06-06] MEDS: DOCUSATE SODIUM 100MG CAPSULE PO SCH (08:42)
[2024-06-06] MEDS: KETOROLAC 30 MG/ML 1ML VIAL IV PRN (08:42)
[2024-06-06] MEDS: SENNA 8.6 MG TAB (SENOKOT) PO SCH (08:42)
[2024-06-06 08:44] VITALS: BP 135/81
[2024-06-06] MEDS: FOLIC ACID 1MG TAB PO SCH (08:44)
[2024-06-06] MEDS: THIAMINE 100 MG TAB PO SCH (08:44)
[2024-06-06] MEDS ORDERED: COLA100C5 PO (09:18)
[2024-06-06] MEDS ORDERED: SENO8.6T5 PO (09:18)
[2024-06-06] MEDS ORDERED: oxyCODONE 20MG CR TAB PO SCH (09:25)
[2024-06-06] MEDS ORDERED: oxyCODONE 5MG TAB PO PRN (09:25)
[2024-06-06] MEDS: oxyCODONE 5MG TAB PO ONE (09:53)
[2024-06-06] MEDS: CREON-12 CAPSULE (PANCRELIPASE) PO SCH (10:40)
== END 2024-06-06 10:52 | disposition home or self-care (01) ==
LOC: M ED 16:00 → M ED INP 16:01
PROVIDERS: ADMIT Student in an Organized Health Care Education/Training Program; ATTEND Student in an Organized Health Care Education/Training Program
DX: K56.600 Partial intestinal obstruction, unspecified as to cause (principal); R79.89 Other specified abnormal findings of blood chemistry; R10.10 Upper abdominal pain, unspecified; G89.29 Other chronic pain; K58.9 Irritable bowel syndrome, unspecified; K21.9 Gastro-esophageal reflux disease without esophagitis; E03.9 Hypothyroidism, unspecified; R00.0 Tachycardia, unspecified; Z87.19 Personal history of other diseases of the digestive system; G43.909 Migraine, unspecified, not intractable, without status migrainosus; J45.909 Unspecified asthma, uncomplicated; M06.9 Rheumatoid arthritis, unspecified; N80.9 Endometriosis, unspecified; Z98.84 Bariatric surgery status; F17.210 Nicotine dependence, cigarettes, uncomplicated; Z88.0 Allergy status to penicillin; Z88.2 Allergy status to sulfonamides; Z88.1 Allergy status to other antibiotic agents; Z88.4 Allergy status to anesthetic agent; Z79.899 Other long term (current) drug therapy; Z79.891 Long term (current) use of opiate analgesic; Z79.890 Hormone replacement therapy
CPT/HCPCS: 71045; 80048; 80053; 80076; 83690; 83735; 85025; 85027; 93041; 96372; 96374; 96375; 96376; 99285; J1650; J1836; J1885; J2405

== ENCOUNTER → 2024-06-05 | Outpatient (REF) | payer OTHER ==
[~2024-06-05] MED LIST changes: +B-1100TA2 PO; +CHOL125C5 PO; +COLA100C5 PO; +DILT120C31 PO; +LEVO75TA4 PO; +LISI10TA22 PO; +SENO8.6T5 PO
[2024-06-05 13:36] LABS: BASO # 0.1 10^3/uL (0.0-0.2); BASO % 0.7 % (0.0-1.0); EOS # 0.4 10^3/uL (0.0-0.5); EOS % 3.4 % (0.0-3.0); HEMATOCRIT 40.1 % (36.0-47.0); HEMOGLOBIN 13.9 g/dl (12.0-15.5); LYMPH # 3.4 10^3/uL (1.5-5.0); LYMPH % 27.6 % (24.0-44.0); MEAN CORPUSCULAR HEMOGLOBIN 34.1 pg (27.0-33.0); MEAN CORPUSCULAR HGB CONC 34.7 g/dl (32.0-36.5); MEAN CORPUSCULAR VOLUME 98.3 fl (80.0-96.0); MONO # 0.8 10^3/uL (0.0-0.8); MONO % 6.5 % (2.0-8.0); NEUTROPHILS # 7.5 10^3/uL (1.5-8.5); NEUTROPHILS % 61.2 % (36.0-66.0); PLATELET COUNT, AUTOMATED 398 10^3/uL (150-450); RED BLOOD COUNT 4.08 10^6/uL (4.00-5.40); WHITE BLOOD COUNT 12.2 10^3/uL (4.0-10.0)
[2024-06-05 13:37] LABS: LIPASE 15 U/L (12-53)
[2024-06-05 13:39] LABS: ALBUMIN 2.7 G/DL (3.2-5.2); ALKALINE PHOSPHATASE 166 U/L (35-104); ALT/SGPT 37 U/L (7.0-40); AST/SGOT 58 U/L (<34); BILIRUBIN,TOTAL 0.4 MG/DL (0.3-1.2); BLOOD UREA NITROGEN 6 MG/DL (9-23); CARBON DIOXIDE LEVEL 23 MMOL/L (20-31); CHLORIDE LEVEL 109 MMOL/L (98-107); CREATININE FOR GFR 0.49 MG/DL (0.55-1.30); GLOMERULAR FILTRATION RATE > 60.0 (>58); GLUCOSE, FASTING 84 MG/DL (60-100); POTASSIUM SERUM 4.5 MMOL/L (3.5-5.1); SODIUM LEVEL 143 MMOL/L (136-145); TOTAL PROTEIN 5.9 G/DL (5.7-8.2)
[2024-06-12 13:09] LABS: AMPHETAMINE SCREEN, URINE Negative ng/mL (Cutoff=1000); BARBITURATES SCREEN, URINE Negative ng/mL (Cutoff=200); BENZODIAZEPINES, URINE SCREEN Negative ng/mL (Cutoff=200); CANNABINOID SCREEN, URINE Negative ng/mL (Cutoff=20); COCAINE SCREEN, URINE Negative ng/mL (Cutoff=300); CREATININE, URINE 57.9 mg/dL (20.0-300.0); METHADONE, URINE SCREEN Negative ng/mL (Cutoff=300); OPIATE SCREEN, URINE See Final Results ng/mL (Cutoff=300); OPIATES, URINE Negative ng/mL (Cutoff=300); OXYCODONE URINE Positive (.); OXYCODONE, SCREEN, URINE See Final Results ng/mL (Cutoff=100); OXYCODONE, URINE CONFIRM 9556 ng/mL (Cutoff=100); OXYCODONE/OXYMORPH, URINE Positive (Cutoff=100); OXYMORPHONE, URINE Positive (.); OXYMORPHONE, URINE CONFIRM 11998 ng/mL (Cutoff=100); PCP SCREEN, URINE Negative ng/mL (Cutoff=25); pH, URINE 5.6 (4.5-8.9)
== END ==
LOC: M SFHCCLAY 09:24
PROVIDERS: ATTEND Physician Assistant
DX: R10.9 Unspecified abdominal pain (principal); K86.1 Other chronic pancreatitis; G43.909 Migraine, unspecified, not intractable, without status migrainosus; I47.10 Supraventricular tachycardia, unspecified; I10 Essential (primary) hypertension; G89.29 Other chronic pain

== ENCOUNTER → 2024-06-05 | Outpatient (CLI) | payer OTHER | LOC: M RAD 11:08 | PROVIDERS: ATTEND Physician Assistant | DX: K76.0 Fatty (change of) liver, not elsewhere classified (principal); R16.0 Hepatomegaly, not elsewhere classified; R10.9 Unspecified abdominal pain ==

== ENCOUNTER 2024-07-02 02:31 | Inpatient (IN) | payer OTHER ==
[~2024-07-02] VITALS: Ht 157.5 cm; Wt 62.5 kg
[~2024-07-02 02:31] MED LIST changes: +B-1100TA2 PO; +CHOL125C5 PO; +COLA100C5 PO; +DILT120C31 PO; +LEVO75TA4 PO; +LISI10TA22 PO; +SENO8.6T5 PO
[2024-07-02] MEDS: ADENOSINE 6MG 2ML INJECTION IV STA ×3 (02:37→02:55)
[2024-07-02] MEDS: NS (Normal Saline) 0.9% 1,000 ML IV STA (02:50)
[2024-07-02 02:58] LABS: BASO # 0.1 10^3/uL (0.0-0.2); BASO % 0.6 % (0.0-1.0); EOS # 0.2 10^3/uL (0.0-0.5); EOS % 1.5 % (0.0-3.0); HEMATOCRIT 48.4 % (36.0-47.0); HEMOGLOBIN 17.7 g/dl (12.0-15.5); LYMPH # 2.7 10^3/uL (1.5-5.0); LYMPH % 16.6 % (24.0-44.0); MEAN CORPUSCULAR HEMOGLOBIN 33.7 pg (27.0-33.0); MONO # 0.8 10^3/uL (0.0-0.8); NEUTROPHILS % 73.7 % (36.0-66.0); PLATELET COUNT, AUTOMATED 373 10^3/uL (150-450); RED BLOOD COUNT 5.26 10^6/uL (4.00-5.40); WHITE BLOOD COUNT 16.3 10^3/uL (4.0-10.0)
[2024-07-02 03:00] LABS: MEAN CORPUSCULAR HGB CONC 36.6 g/dl (32.0-36.5)
[2024-07-02 03:26] LABS: CK-MB VALUE MASS < 1.0 NG/ML (<3.6)
[2024-07-02 03:28] LABS: CPK CREATINE PHOSPHOKINASE 54 U/L (34-145); MB/CK RELATIVE INDEX 1.85 (< OR =4)
[2024-07-02] MEDS: NS (Normal Saline) 0.9% 1,800 ML in IV 1 EA IV ONE (04:31)
[2024-07-02] MEDS: KCL 10MEQ/100ML SWI (KRUN) 10 MEQ in IV 1 EA IV ONE ×4 (04:32→06:29)
[2024-07-02] MEDS: ONDANSETRON 4MG 2ML VIAL IV ONE (04:35)
[2024-07-02] MEDS: POTASSIUM CHLORIDE 10% LIQ 20MEQ/15ML UDC PO ONE (04:44)
[2024-07-02] MEDS: LevoFLOXacin IV 750 MG in IV 1 EA IV ONE (04:44)
[2024-07-02 05:21] LABS: CK-MB VALUE MASS < 1.0 NG/ML (<3.6)
[2024-07-02 05:25] LABS: THYROID STIMULATING HORMONE 0.608 uIU/ML (0.55-4.78)
[2024-07-02] MEDS: LevoFLOXacin 750 MG TABLET PO ONE (05:27)
[2024-07-02 05:30] LABS: PROCALCITONIN 1.39 ng/ml
[2024-07-02 05:35] LABS: BLOOD UREA NITROGEN < 5 MG/DL (9-23); CALCIUM LEVEL 8.4 MG/DL (8.5-10.1); CARBON DIOXIDE LEVEL 33 MMOL/L (20-31); CHLORIDE LEVEL 94 MMOL/L (98-107); CPK CREATINE PHOSPHOKINASE 57 U/L (34-145); CREATININE FOR GFR 0.48 MG/DL (0.55-1.30); GLOMERULAR FILTRATION RATE > 60.0 (>58); GLUCOSE, FASTING 78 MG/DL (60-100); MAGNESIUM LEVEL 1.8 MG/DL (1.8-2.4); MB/CK RELATIVE INDEX 1.75 (< OR =4); POTASSIUM SERUM 3.1 MMOL/L (3.5-5.1); SODIUM LEVEL 140 MMOL/L (136-145)
[2024-07-02 05:59] LABS: ALBUMIN 2.4 G/DL (3.2-5.2); ALKALINE PHOSPHATASE 252 U/L (35-104); ALT/SGPT 29 U/L (7.0-40); AST/SGOT 86 U/L (<34); BILIRUBIN,TOTAL 1.4 MG/DL (0.3-1.2); TOTAL PROTEIN 6.9 G/DL (5.7-8.2)
[2024-07-02] MEDS ORDERED: METOCLOPRAMIDE INJ 10MG/2ML VIAL IV PRN (06:15)
[2024-07-02] MEDS ORDERED: SENN-186 PO (07:42)
[2024-07-02] MEDS ORDERED: RIZA10TA2 PO (07:44)
[2024-07-02] MEDS ORDERED: HOME MED LIST COMPLETE! XX SCH (07:45)
[2024-07-02] MEDS: FOLIC ACID 1MG TAB PO ONE (08:35)
[2024-07-02] MEDS: THIAMINE 100 MG TAB PO ONE (08:35)
[2024-07-02] MEDS: MIDODRINE 5 MG TAB PO SCH (08:35)
[2024-07-02] MEDS: guaiFENesin ER TABLET 600 MG TAB PO SCH (08:35)
[2024-07-02] MEDS: dilTIAZem 120MG **CD** CAPSULE PO ONE (08:36)
[2024-07-02] MEDS: HEPARIN SOD (PORCINE) 5000UNITS/ML 1ML VIAL/SYRINGE SC SCH (08:37)
[2024-07-02] MEDS: LEVOTHYROXINE 75MCG TABLET (0.075MG) PO SCH (08:40)
[2024-07-02] MEDS: PANTOPRAZOLE 40MG VIAL IV SCH (09:39)
[2024-07-02] MEDS: LR 1,000 ML IV ONE (09:40)
[2024-07-02] MEDS: MAG SULF 1GM/100ML (MAG RUN) 1 GM in IV 1 EA IV ONE (09:40)
[2024-07-02 10:11] LABS: IONIZED CALCIUM 3.8 MG/DL (4.5-5.3)
[2024-07-02 10:39] LABS: MAGNESIUM LEVEL 1.6 MG/DL (1.8-2.4); POTASSIUM SERUM 3.6 MMOL/L (3.5-5.1)
[2024-07-02 13:58] LABS: KETONE, URINE AUTO RFX 1+ mg/dL (NEGATIVE); MUCUS, URINE RFX SMALL (NEGATIVE); NITRITE, URINE AUTO RFX NEGATIVE (NEGATIVE); RBC, URINE AUTO RFX 3 /HPF (0-3); SQUAM EPITHELIAL CELL UR AURFX 9 /HPF (0-6)
[2024-07-02] MEDS: AMIODARONE 200 MG TAB (PACERONE) PO ONE (13:58)
[2024-07-02] MEDS: oxyCODONE 5MG TAB PO PRN (13:58)
[2024-07-02 14:00] LABS: LEUKOCYTE ESTERASE UR AUTO RFX 2+ (NEGATIVE); WBC, URINE AUTO RFX 24 /HPF (0-3)
[2024-07-02] MEDS: MAG SULF 1GM/100ML (MAG RUN) 1 GM in IV 1 EA IV SCH (16:26)
[2024-07-02] MEDS: oxyCODONE 10 MG CR TAB PO ONE (16:27)
[2024-07-02] MEDS: POTASSIUM CHLORIDE 10MEQ SR TABLET PO ONE (16:27)
[2024-07-02 17:10] VITALS: BP 116/65; TEMP 98.4; O2SAT 93
[2024-07-02] MEDS: CALCIUM GLUCONATE 1,000 MG in DEXTROSE 5% (D5W) MINI-BAG PLU 100 ML IV ONE (18:36)
[2024-07-02] MEDS: METOCLOPRAMIDE INJ 10MG/2ML VIAL IV PRN (18:37)
[2024-07-02 20:26] VITALS: BP 121/79; TEMP 98.3; O2SAT 95
[2024-07-02] MEDS: VENLAFAXINE **XR** 75MG CAPSULE PO SCH (20:51)
[2024-07-02] MEDS ORDERED: AMIODARONE 200 MG TAB (PACERONE) PO SCH (21:00)
[2024-07-02] MEDS: oxyCODONE 10 MG CR TAB PO SCH (21:40)
[2024-07-02 23:01] VITALS: BP 108/73; TEMP 98.6; O2SAT 93
[2024-07-03] VITALS (8 sets, daily range): BP systolic 104–115; BP diastolic 72–82; TEMP 96.1–98.4; O2SAT 90–94
[2024-07-03] MEDS: LEVALBUTEROL 1.25MG 0.5ML CONCENTRATE NEB INH PRN (03:12)
[2024-07-03] MEDS: CEPACOL LOZENGE PO PRN (03:37)
[2024-07-03] MEDS: LevoFLOXacin IV 750 MG in IV 1 EA IV SCH (05:48)
[2024-07-03 07:07] LABS: IONIZED CALCIUM 4.2 MG/DL (4.5-5.3)
[2024-07-03 07:15] LABS: BASO % 0.2 % (0.0-1.0); EOS # 0.2 10^3/uL (0.0-0.5); EOS % 1.3 % (0.0-3.0); HEMATOCRIT 36.4 % (36.0-47.0); HEMOGLOBIN 13.1 g/dl (12.0-15.5); LYMPH # 2.1 10^3/uL (1.5-5.0); LYMPH % 14.1 % (24.0-44.0); MEAN CORPUSCULAR HEMOGLOBIN 33.2 pg (27.0-33.0); MEAN CORPUSCULAR VOLUME 92.4 fl (80.0-96.0); MONO # 0.9 10^3/uL (0.0-0.8); MONO % 5.9 % (2.0-8.0); NEUTROPHILS # 11.4 10^3/uL (1.5-8.5); NEUTROPHILS % 76.6 % (36.0-66.0); PLATELET COUNT, AUTOMATED 259 10^3/uL (150-450); RED BLOOD COUNT 3.94 10^6/uL (4.00-5.40); WHITE BLOOD COUNT 14.9 10^3/uL (4.0-10.0)
[2024-07-03 07:43] LABS: BLOOD UREA NITROGEN < 5 MG/DL (9-23); CALCIUM LEVEL 7.9 MG/DL (8.5-10.1); CARBON DIOXIDE LEVEL 34 MMOL/L (20-31); CHLORIDE LEVEL 96 MMOL/L (98-107); CREATININE FOR GFR 0.51 MG/DL (0.55-1.30); GLOMERULAR FILTRATION RATE > 60.0 (>58); GLUCOSE, FASTING 119 MG/DL (60-100); MAGNESIUM LEVEL 1.7 MG/DL (1.8-2.4); POTASSIUM SERUM 3.7 MMOL/L (3.5-5.1); SODIUM LEVEL 136 MMOL/L (136-145)
[2024-07-03] MEDS: POTASSIUM CHLORIDE 10MEQ SR TABLET PO SCH (08:58)
[2024-07-03 09:35] LABS: LIPASE 13 U/L (12-53)
[2024-07-03] MEDS: METOPROLOL TART 50 MG TAB PO SCH (10:13)
[2024-07-03] MEDS ORDERED: ISOVUE-370 76% 100ML VIAL As Ordered ONE (13:59)
[2024-07-03] MEDS: OMEPRAZOLE 20MG CAP PO SCH (14:53)
[2024-07-03] MEDS: THIAMINE 100 MG TAB PO SCH (14:53)
[2024-07-03] MEDS: VITAMIN D 1,000 INTERNATIONAL UNITS TABLET PO SCH (14:53)
[2024-07-03] MEDS: CALCIUM GLUCONATE 1,000 MG in DEXTROSE 5% (D5W) MINI-BAG PLU 100 ML IV ONE (14:54)
[2024-07-03] MEDS: MAG SULF 1GM/100ML (MAG RUN) 1 GM in IV 1 EA IV SCH (16:00)
[2024-07-03] MEDS: RIZATRIPTAN BENZOATE 10 MG TAB PO PRN (16:42)
[2024-07-03] MEDS ORDERED: CREON-12 CAPSULE (PANCRELIPASE) PO SCH (18:00)
[2024-07-03] MEDS: SENNA 8.6 MG TAB (SENOKOT) PO SCH (20:46)
[2024-07-04 03:40] VITALS: BP 103/66; TEMP 97.7; O2SAT 91
[2024-07-04] MEDS: LevoFLOXacin 750 MG TABLET PO SCH (05:33)
[2024-07-04 06:06] LABS: BASO # 0.1 10^3/uL (0.0-0.2); BASO % 0.4 % (0.0-1.0); EOS # 0.4 10^3/uL (0.0-0.5); EOS % 2.3 % (0.0-3.0); HEMATOCRIT 39.9 % (36.0-47.0); HEMOGLOBIN 13.9 g/dl (12.0-15.5); LYMPH # 2.7 10^3/uL (1.5-5.0); MEAN CORPUSCULAR HEMOGLOBIN 33.1 pg (27.0-33.0); MEAN CORPUSCULAR HGB CONC 34.8 g/dl (32.0-36.5); MONO # 0.7 10^3/uL (0.0-0.8); MONO % 4.2 % (2.0-8.0); NEUTROPHILS # 13.5 10^3/uL (1.5-8.5); NEUTROPHILS % 76.4 % (36.0-66.0); PLATELET COUNT, AUTOMATED 237 10^3/uL (150-450); WHITE BLOOD COUNT 17.7 10^3/uL (4.0-10.0)
[2024-07-04 06:34] LABS: BLOOD UREA NITROGEN 6 MG/DL (9-23); CALCIUM LEVEL 7.5 MG/DL (8.5-10.1); CARBON DIOXIDE LEVEL 33 MMOL/L (20-31); CHLORIDE LEVEL 98 MMOL/L (98-107); CREATININE FOR GFR 0.46 MG/DL (0.55-1.30); GLOMERULAR FILTRATION RATE > 60.0 (>58); GLUCOSE, FASTING 77 MG/DL (60-100); MAGNESIUM LEVEL 1.8 MG/DL (1.8-2.4); POTASSIUM SERUM 4.3 MMOL/L (3.5-5.1); SODIUM LEVEL 137 MMOL/L (136-145)
[2024-07-04 07:41] VITALS: BP 111/75; O2SAT 94
[2024-07-04 07:41] LABS: PROCALCITONIN 0.48 ng/ml
[2024-07-04 07:43] LABS: ERYTHROCYTE SEDIMENTATION RATE 33 mm/hr (0-20)
[2024-07-04] MEDS: ZENPEP 15000 UNIT PO SCH (08:23)
[2024-07-04] MEDS: MEROPENEM INJ 1 GM in IV 1 EA IV SCH (08:41)
[2024-07-04 09:59] LABS: HEPATITIS B SURFACE ANTIGEN NEGATIVE (NEGATIVE)
[2024-07-04 10:21] LABS: HEPATITIS B CORE ANTIBODY IGM NEGATIVE (NEGATIVE); HEPATITIS C VIRUS ABY INDEX 0.15 INDEX (<0.8)
[2024-07-04] MEDS ORDERED: DOXYCYCLINE HYCLATE 100 MG in DEXTROSE 5% (D5W) MINI-BAG PLU 100 ML IV SCH (11:00)
[2024-07-04 11:42] VITALS: BP 106/70; TEMP 98.2; O2SAT 89
[2024-07-04] MEDS: DOXYCYCLINE HYCLATE 100MG TABLET PO SCH (11:59)
[2024-07-04] MEDS: guaiFENesin/CODEINE SYRUP 5 ML UDC PO SCH (12:00)
[2024-07-04] MEDS: CALCIUM CARB SUSP 1250MG/5ML UNIT DOSE CUP PO SCH (13:16)
[2024-07-04 15:39] VITALS: BP 109/77; TEMP 98.4; O2SAT 92
[2024-07-04] MEDS: CEFEPIME HCL 2 GM in DEXTROSE 5% (D5W) ADV/MINI-BAG 50 ML IV SCH (16:11)
[2024-07-04] MEDS: PROCHLORPERAZINE 5MG TAB PO PRN (17:09)
[2024-07-04 19:32] VITALS: BP 117/77; TEMP 98.2; O2SAT 91
[2024-07-04 23:53] VITALS: BP 112/76; TEMP 97.8; O2SAT 92
[2024-07-05 03:28] VITALS: BP 114/80; TEMP 98.5; O2SAT 93
[2024-07-05 06:26] LABS: BASO # 0.1 10^3/uL (0.0-0.2); BASO % 0.5 % (0.0-1.0); EOS # 0.4 10^3/uL (0.0-0.5); EOS % 1.8 % (0.0-3.0); HEMATOCRIT 40.2 % (36.0-47.0); HEMOGLOBIN 13.6 g/dl (12.0-15.5); LYMPH # 2.4 10^3/uL (1.5-5.0); LYMPH % 12.1 % (24.0-44.0); MEAN CORPUSCULAR HEMOGLOBIN 32.9 pg (27.0-33.0); MEAN CORPUSCULAR HGB CONC 33.8 g/dl (32.0-36.5); MEAN CORPUSCULAR VOLUME 97.1 fl (80.0-96.0); MONO # 0.8 10^3/uL (0.0-0.8); MONO % 3.9 % (2.0-8.0); NEUTROPHILS # 15.4 10^3/uL (1.5-8.5); NEUTROPHILS % 79.6 % (36.0-66.0); PLATELET COUNT, AUTOMATED 211 10^3/uL (150-450); RED BLOOD COUNT 4.14 10^6/uL (4.00-5.40); WHITE BLOOD COUNT 19.4 10^3/uL (4.0-10.0)
[2024-07-05 06:55] LABS: BLOOD UREA NITROGEN 6 MG/DL (9-23); CALCIUM LEVEL 8.3 MG/DL (8.5-10.1); CARBON DIOXIDE LEVEL 30 MMOL/L (20-31); CHLORIDE LEVEL 100 MMOL/L (98-107); CREATININE FOR GFR 0.46 MG/DL (0.55-1.30); GLOMERULAR FILTRATION RATE > 60.0 (>58); GLUCOSE, FASTING 77 MG/DL (60-100); MAGNESIUM LEVEL 1.7 MG/DL (1.8-2.4); POTASSIUM SERUM 4.7 MMOL/L (3.5-5.1); SODIUM LEVEL 136 MMOL/L (136-145)
[2024-07-05 07:41] LABS: ALBUMIN 1.8 G/DL (3.2-5.2); ALKALINE PHOSPHATASE 175 U/L (35-104); ALT/SGPT 19 U/L (7.0-40); AST/SGOT 67 U/L (<34); BILIRUBIN,DIRECT 0.6 MG/DL (<0.4); TOTAL PROTEIN 5.3 G/DL (5.7-8.2)
[2024-07-05 07:46] VITALS: BP 107/70; O2SAT 89
[2024-07-05] MEDS: ENOXAPARIN 40MG/0.4ML SYRINGE (J1650 PER 10MG) SC SCH (08:10)
[2024-07-05] MEDS: SCOPOLAMINE 1MG TRANSDERMAL PATCH TOP SCH (09:43)
[2024-07-05] MEDS: ONDANSETRON 4MG 2ML VIAL IV PRN (12:10)
[2024-07-05 15:53] VITALS: BP 117/80; TEMP 97.8; O2SAT 90
[2024-07-05 19:50] VITALS: BP 104/70; TEMP 97.4; O2SAT 92
[2024-07-05 20:00] VITALS: O2SAT 93
[2024-07-05] MEDS: CEFDINIR 300 MG CAP (OMNICEF) PO SCH (20:16)
[2024-07-06] VITALS (34 sets, daily range): BP systolic 92–116; BP diastolic 62–74; TEMP 97.1–98; O2SAT 84–97
[2024-07-06] MEDS ORDERED: METOPROLOL 5 MG/5 ML VIAL As Ordered ONE (06:17)
[2024-07-06] MEDS ORDERED: ADENOSINE 6MG 2ML INJECTION As Ordered ONE (06:30)
[2024-07-06] MEDS ORDERED: ADENOSINE 6MG 2ML INJECTION ONE (06:35)
[2024-07-06 06:42] LABS: BASO # 0.1 10^3/uL (0.0-0.2); BASO % 0.6 % (0.0-1.0); EOS # 0.3 10^3/uL (0.0-0.5); EOS % 1.5 % (0.0-3.0); HEMOGLOBIN 12.9 g/dl (12.0-15.5); LYMPH # 2.4 10^3/uL (1.5-5.0); LYMPH % 11.7 % (24.0-44.0); MEAN CORPUSCULAR HEMOGLOBIN 33.8 pg (27.0-33.0); MEAN CORPUSCULAR HGB CONC 33.9 g/dl (32.0-36.5); MEAN CORPUSCULAR VOLUME 99.5 fl (80.0-96.0); MONO % 5.1 % (2.0-8.0); NEUTROPHILS # 16.1 10^3/uL (1.5-8.5); PLATELET COUNT, AUTOMATED 215 10^3/uL (150-450); RED BLOOD COUNT 3.82 10^6/uL (4.00-5.40); WHITE BLOOD COUNT 20.3 10^3/uL (4.0-10.0)
[2024-07-06] MEDS: METOPROLOL 5 MG/5 ML VIAL IV STA (06:58)
[2024-07-06] MEDS: SODIUM CHLORIDE 0.9% 1000 ML IV ONE (06:59)
[2024-07-06 07:13] LABS: BLOOD UREA NITROGEN 6 MG/DL (9-23); CALCIUM LEVEL 7.8 MG/DL (8.5-10.1); CARBON DIOXIDE LEVEL 30 MMOL/L (20-31); CHLORIDE LEVEL 98 MMOL/L (98-107); CREATININE FOR GFR 0.45 MG/DL (0.55-1.30); GLOMERULAR FILTRATION RATE > 60.0 (>58); GLUCOSE, FASTING 72 MG/DL (60-100); MAGNESIUM LEVEL 1.6 MG/DL (1.8-2.4); POTASSIUM SERUM 4.5 MMOL/L (3.5-5.1); SODIUM LEVEL 133 MMOL/L (136-145)
[2024-07-06 08:24] LABS: C REACTIVE PROTEIN QUANTITATIV 3.18 MG/DL (<1.0)
[2024-07-06] MEDS ORDERED: PILL CUTTER 1 EACH XX ONE (08:27)
[2024-07-06] MEDS: METOPROLOL TARTRATE 100MG TAB PO SCH (08:29)
[2024-07-06 08:53] LABS: ERYTHROCYTE SEDIMENTATION RATE 85 mm/hr (0-20); PROCALCITONIN 0.37 ng/ml
[2024-07-06] MEDS: MAG SULF 1GM/100ML (MAG RUN) 1 GM in IV 1 EA IV SCH (09:11)
[2024-07-06] MEDS: CEFEPIME HCL 2 GM in DEXTROSE 5% (D5W) ADV/MINI-BAG 50 ML IV SCH (10:59)
[2024-07-06] MEDS: guaiFENesin/CODEINE SYRUP 5 ML UDC PO PRN (17:00)
[2024-07-07] VITALS (40 sets, daily range): BP systolic 102–114; BP diastolic 64–78; TEMP 97–98.5; O2SAT 86–97
[2024-07-07 07:52] LABS: BASO # 0.1 10^3/uL (0.0-0.2); BASO % 0.6 % (0.0-1.0); EOS # 0.3 10^3/uL (0.0-0.5); EOS % 1.6 % (0.0-3.0); HEMATOCRIT 37.1 % (36.0-47.0); HEMOGLOBIN 12.1 g/dl (12.0-15.5); LYMPH # 1.9 10^3/uL (1.5-5.0); LYMPH % 11.1 % (24.0-44.0); MEAN CORPUSCULAR HEMOGLOBIN 33.4 pg (27.0-33.0); MEAN CORPUSCULAR HGB CONC 32.6 g/dl (32.0-36.5); MEAN CORPUSCULAR VOLUME 102.5 fl (80.0-96.0); MONO # 1.2 10^3/uL (0.0-0.8); MONO % 6.8 % (2.0-8.0); NEUTROPHILS # 13.4 10^3/uL (1.5-8.5); NEUTROPHILS % 77.8 % (36.0-66.0); PLATELET COUNT, AUTOMATED 211 10^3/uL (150-450); RED BLOOD COUNT 3.62 10^6/uL (4.00-5.40); WHITE BLOOD COUNT 17.3 10^3/uL (4.0-10.0)
[2024-07-07 08:33] LABS: BLOOD UREA NITROGEN < 5 MG/DL (9-23); CALCIUM LEVEL 7.9 MG/DL (8.5-10.1); CARBON DIOXIDE LEVEL 29 MMOL/L (20-31); CHLORIDE LEVEL 103 MMOL/L (98-107); CREATININE FOR GFR 0.41 MG/DL (0.55-1.30); GLOMERULAR FILTRATION RATE > 60.0 (>58); GLUCOSE, FASTING 69 MG/DL (60-100); MAGNESIUM LEVEL 1.9 MG/DL (1.8-2.4); POTASSIUM SERUM 4.8 MMOL/L (3.5-5.1); SODIUM LEVEL 138 MMOL/L (136-145)
[2024-07-07] MEDS: LevoFLOXacin 750 MG TABLET PO SCH (12:13)
[2024-07-08] VITALS (12 sets, daily range): BP systolic 104–116; BP diastolic 64–78; TEMP 97.2–99.8; O2SAT 92–98
[2024-07-08 05:45] LABS: BASO # 0.1 10^3/uL (0.0-0.2); BASO % 0.4 % (0.0-1.0); EOS # 0.1 10^3/uL (0.0-0.5); EOS % 0.8 % (0.0-3.0); HEMATOCRIT 35.2 % (36.0-47.0); HEMOGLOBIN 11.9 g/dl (12.0-15.5); LYMPH # 2.1 10^3/uL (1.5-5.0); LYMPH % 14.9 % (24.0-44.0); MEAN CORPUSCULAR HEMOGLOBIN 34.3 pg (27.0-33.0); MEAN CORPUSCULAR HGB CONC 33.8 g/dl (32.0-36.5); MEAN CORPUSCULAR VOLUME 101.4 fl (80.0-96.0); MONO # 1.2 10^3/uL (0.0-0.8); MONO % 8.1 % (2.0-8.0); NEUTROPHILS # 10.5 10^3/uL (1.5-8.5); NEUTROPHILS % 73.8 % (36.0-66.0); PLATELET COUNT, AUTOMATED 276 10^3/uL (150-450); RED BLOOD COUNT 3.47 10^6/uL (4.00-5.40); WHITE BLOOD COUNT 14.3 10^3/uL (4.0-10.0)
[2024-07-08] MEDS ORDERED: LOPR1TAB7 PO (06:02)
[2024-07-08] MEDS ORDERED: LEVO75TAB PO (06:02)
[2024-07-08 06:32] LABS: BLOOD UREA NITROGEN < 5 MG/DL (9-23); CARBON DIOXIDE LEVEL 31 MMOL/L (20-31); CHLORIDE LEVEL 105 MMOL/L (98-107); CREATININE FOR GFR 0.43 MG/DL (0.55-1.30); GLOMERULAR FILTRATION RATE > 60.0 (>58); GLUCOSE, FASTING 89 MG/DL (60-100); MAGNESIUM LEVEL 1.7 MG/DL (1.8-2.4); SODIUM LEVEL 140 MMOL/L (136-145)
[2024-07-08] MEDS ORDERED: GUAI100S4 PO (07:29)
[2024-07-08] MEDS ORDERED: NALO4SPR20 NS (07:36)
== END 2024-07-08 11:58 | disposition home or self-care (01) | DRG 720 ==
LOC: M ED 02:31 → M ED INP 05:26 → M PCU 17:00
PROVIDERS: ADMIT Student in an Organized Health Care Education/Training Program; ATTEND Student in an Organized Health Care Education/Training Program
DX: A41.9 Sepsis, unspecified organism (principal); J18.9 Pneumonia, unspecified organism; I95.9 Hypotension, unspecified; K86.1 Other chronic pancreatitis; I47.10 Supraventricular tachycardia, unspecified; K76.0 Fatty (change of) liver, not elsewhere classified; E83.42 Hypomagnesemia; E83.51 Hypocalcemia; E03.9 Hypothyroidism, unspecified; J45.909 Unspecified asthma, uncomplicated; I10 Essential (primary) hypertension; R65.20 Severe sepsis without septic shock; I47.19 Other supraventricular tachycardia; K21.9 Gastro-esophageal reflux disease without esophagitis; M06.9 Rheumatoid arthritis, unspecified; G43.909 Migraine, unspecified, not intractable, without status migrainosus; F17.200 Nicotine dependence, unspecified, uncomplicated; F32.A Depression, unspecified; E87.6 Hypokalemia; Z98.84 Bariatric surgery status; Z90.49 Acquired absence of other specified parts of digestive tract; Z88.0 Allergy status to penicillin; Z88.1 Allergy status to other antibiotic agents; Z88.2 Allergy status to sulfonamides; Z88.6 Allergy status to analgesic agent; Z79.890 Hormone replacement therapy; Z79.899 Other long term (current) drug therapy

== ENCOUNTER → 2024-07-17 | Outpatient (REF) | payer OTHER ==
[~2024-07-17] MED LIST changes: +GUAI100S4 PO; +LEVO75TAB PO; +LOPR1TAB7 PO; +NALO4SPR20 NS; +SENN-186 PO; +TOPI-257 PO; -TOPI100T9 PO; +VANC125C13 PO; -VANC125C3 PO
[2024-07-17 18:33] LABS: BASO # 0.2 10^3/uL (0.0-0.2); BASO % 1.4 % (0.0-1.0); EOS # 0.2 10^3/uL (0.0-0.5); EOS % 1.4 % (0.0-3.0); HEMATOCRIT 38.5 % (36.0-47.0); LYMPH # 2.7 10^3/uL (1.5-5.0); LYMPH % 22.8 % (24.0-44.0); MEAN CORPUSCULAR HEMOGLOBIN 34.8 pg (27.0-33.0); MEAN CORPUSCULAR HGB CONC 33.8 g/dl (32.0-36.5); MEAN CORPUSCULAR VOLUME 102.9 fl (80.0-96.0); MONO # 0.6 10^3/uL (0.0-0.8); MONO % 4.9 % (2.0-8.0); NEUTROPHILS # 8.1 10^3/uL (1.5-8.5); PLATELET COUNT, AUTOMATED 508 10^3/uL (150-450); RED BLOOD COUNT 3.74 10^6/uL (4.00-5.40); WHITE BLOOD COUNT 11.8 10^3/uL (4.0-10.0)
[2024-07-17 18:59] LABS: IRON (FE) 148 UG/DL (50-170)
[2024-07-17 19:00] LABS: ALBUMIN 2.5 G/DL (3.2-5.2); ALKALINE PHOSPHATASE 151 U/L (35-104); ALT/SGPT 43 U/L (7.0-40); AST/SGOT 88 U/L (<34); BILIRUBIN,TOTAL 0.4 MG/DL (0.3-1.2); BLOOD UREA NITROGEN 5 MG/DL (9-23); CALCIUM LEVEL 8.6 MG/DL (8.5-10.1); CARBON DIOXIDE LEVEL 20 MMOL/L (20-31); CHLORIDE LEVEL 104 MMOL/L (98-107); CREATININE FOR GFR 0.52 MG/DL (0.55-1.30); GLOMERULAR FILTRATION RATE > 60.0 (>58); GLUCOSE, FASTING 71 MG/DL (60-100); MAGNESIUM LEVEL 1.7 MG/DL (1.8-2.4); PERCENT SATURATION 52.7 % (13.2-45.0); POTASSIUM SERUM 3.2 MMOL/L (3.5-5.1); SODIUM LEVEL 142 MMOL/L (136-145); TOTAL IRON BINDING CAPACITY 281 UG/DL (250-425); TOTAL PROTEIN 6.3 G/DL (5.7-8.2)
[2024-07-17 19:04] LABS: FREE T4 0.99 NG/DL (0.89-1.76); THYROID STIMULATING HORMONE 3.247 uIU/ML (0.55-4.78)
== END ==
LOC: M SFHCCLAY 10:44
PROVIDERS: ATTEND Physician Assistant
DX: M06.09 Rheumatoid arthritis without rheumatoid factor, multiple sites (principal); J18.9 Pneumonia, unspecified organism; E87.8 Other disorders of electrolyte and fluid balance, not elsewhere classified; K86.1 Other chronic pancreatitis; G43.909 Migraine, unspecified, not intractable, without status migrainosus; I47.10 Supraventricular tachycardia, unspecified; I10 Essential (primary) hypertension; G89.29 Other chronic pain; F32.2 Major depressive disorder, single episode, severe without psychotic features; R53.83 Other fatigue; E03.9 Hypothyroidism, unspecified; D50.9 Iron deficiency anemia, unspecified

== ENCOUNTER → 2024-07-23 | Outpatient (CLI) | payer OTHER ==
[~2024-07-23] MED LIST changes: -TOPI-257 PO; +TOPI100T9 PO
== END ==
LOC: M CLY 13:08
PROVIDERS: ATTEND Physician Assistant
DX: J18.9 Pneumonia, unspecified organism (principal)

== ENCOUNTER → 2024-07-29 | Outpatient (CLI) | payer OTHER | LOC: M RAD 13:06 | PROVIDERS: ATTEND Physician Assistant | DX: I47.10 Supraventricular tachycardia, unspecified (principal); Z53.9 Procedure and treatment not carried out, unspecified reason ==

== ENCOUNTER 2024-08-25 21:40 | Emergency (ER) | payer OTHER ==
[~2024-08-25] VITALS: Ht 157.5 cm; Wt 59.0 kg
[2024-08-25 22:39] LABS: BASO # 0.1 10^3/uL (0.0-0.2); BASO % 0.5 % (0.0-1.0); EOS # 0.2 10^3/uL (0.0-0.5); EOS % 2.4 % (0.0-3.0); HEMATOCRIT 37.4 % (36.0-47.0); HEMOGLOBIN 12.7 g/dl (12.0-15.5); LYMPH % 40.6 % (24.0-44.0); MEAN CORPUSCULAR HEMOGLOBIN 34.7 pg (27.0-33.0); MEAN CORPUSCULAR VOLUME 102.2 fl (80.0-96.0); MONO # 0.6 10^3/uL (0.0-0.8); MONO % 6.3 % (2.0-8.0); NEUTROPHILS # 4.9 10^3/uL (1.5-8.5); NEUTROPHILS % 49.7 % (36.0-66.0); PLATELET COUNT, AUTOMATED 272 10^3/uL (150-450); RED BLOOD COUNT 3.66 10^6/uL (4.00-5.40); WHITE BLOOD COUNT 9.8 10^3/uL (4.0-10.0)
[2024-08-25 23:06] LABS: AMPHETAMINES LEVEL URINE NEGATIVE (NEGATIVE); BARBITURATES URINE NEGATIVE (NEGATIVE); BENZODIAZEPINES URINE NEGATIVE (NEGATIVE)
[2024-08-25 23:07] LABS: CANNABINOIDS URINE NEGATIVE (NEGATIVE); COCAINE METABOLITE URINE NEGATIVE (NEGATIVE); OPIATES URINE NEGATIVE (NEGATIVE); PHENCYCLIDINE URINE NEGATIVE (NEGATIVE)
[2024-08-25 23:09] LABS: ETHYL ALCOHOL (ETHANOL) 0.077 % (0.000-0.010); METHADONE URINE POSITIVE (NEGATIVE)
[2024-08-25 23:10] LABS: SALICYLATE LEVEL < 3.0 MG/DL (<30)
[2024-08-25 23:11] LABS: ALBUMIN 2.8 G/DL (3.2-5.2); ALKALINE PHOSPHATASE 168 U/L (35-104); ALT/SGPT 66 U/L (7.0-40); AST/SGOT 124 U/L (<34); BILIRUBIN,DIRECT 0.2 MG/DL (<0.4); BILIRUBIN,TOTAL 0.4 MG/DL (0.3-1.2); BLOOD UREA NITROGEN 8 MG/DL (9-23); CALCIUM LEVEL 8.4 MG/DL (8.5-10.1); CARBON DIOXIDE LEVEL 22 MMOL/L (20-31); CHLORIDE LEVEL 107 MMOL/L (98-107); CREATININE FOR GFR 0.46 MG/DL (0.55-1.30); GLOMERULAR FILTRATION RATE > 60.0 (>58); GLUCOSE, FASTING 73 MG/DL (60-100); POTASSIUM SERUM 4.1 MMOL/L (3.5-5.1); SODIUM LEVEL 140 MMOL/L (136-145)
[2024-08-25 23:13] LABS: THYROID STIMULATING HORMONE 6.633 uIU/ML (0.55-4.78)
[2024-08-25 23:16] LABS: LIPASE 20 U/L (12-53)
[2024-08-25 23:18] LABS: AMYLASE 94 U/L (30-118)
[2024-08-25 23:20] LABS: CPK CREATINE PHOSPHOKINASE 59 U/L (34-145)
[2024-08-26] MEDS: LR 1,000 ML IV ONE (00:35)
[2024-08-26] MEDS ORDERED: ISOVUE-370 76% 100ML VIAL As Ordered ONE (00:36)
[2024-08-26 05:01] VITALS: BP 125/74; TEMP 97.9; O2SAT 98
== END 2024-08-26 05:02 | disposition home or self-care (01) ==
LOC: EDBD 21:40 → M ED 21:40
DX: T40.3X1A Poisoning by methadone, accidental (unintentional), initial encounter (principal); R53.83 Other fatigue; E03.9 Hypothyroidism, unspecified; F17.210 Nicotine dependence, cigarettes, uncomplicated; F10.10 Alcohol abuse, uncomplicated; Z88.0 Allergy status to penicillin; Z88.1 Allergy status to other antibiotic agents; Z88.2 Allergy status to sulfonamides; Z79.51 Long term (current) use of inhaled steroids; Z79.899 Other long term (current) drug therapy
CPT/HCPCS: 70450; 71045; 71275; 74177; 80048; 80076; 80143; 80307; 82077; 82150; 82550; 83690; 84443; 85025; 93005; 93041; 94760; 96365; 99285; Q9967

== ENCOUNTER → 2024-10-07 | Outpatient (CLI) | payer OTHER ==
[~2024-10-07] MED LIST changes: +TOPI-257 PO; -TOPI100T9 PO
[2024-10-07 11:15] LABS: BASO # 0.1 10^3/uL (0.0-0.2); BASO % 0.7 % (0.0-1.0); EOS # 0.2 10^3/uL (0.0-0.5); HEMATOCRIT 42.5 % (36.0-47.0); LYMPH # 2.7 10^3/uL (1.5-5.0); LYMPH % 24.5 % (24.0-44.0); MEAN CORPUSCULAR HEMOGLOBIN 34.1 pg (27.0-33.0); MEAN CORPUSCULAR HGB CONC 32.9 g/dl (32.0-36.5); MEAN CORPUSCULAR VOLUME 103.4 fl (80.0-96.0); MONO # 0.6 10^3/uL (0.0-0.8); MONO % 5.3 % (2.0-8.0); NEUTROPHILS # 7.3 10^3/uL (1.5-8.5); PLATELET COUNT, AUTOMATED 276 10^3/uL (150-450); RED BLOOD COUNT 4.11 10^6/uL (4.00-5.40)
[2024-10-07 11:53] LABS: IRON (FE) 112 UG/DL (50-170); PERCENT SATURATION 24.7 % (13.2-45.0); TOTAL IRON BINDING CAPACITY 453 UG/DL (250-425)
[2024-10-07 11:58] LABS: ALBUMIN 3.6 G/DL (3.2-5.2); ALKALINE PHOSPHATASE 108 U/L (35-104); ALT/SGPT 95 U/L (7.0-40); AST/SGOT 84 U/L (<34); BILIRUBIN,TOTAL 0.4 MG/DL (0.3-1.2); BLOOD UREA NITROGEN 16 MG/DL (9-23); CALCIUM LEVEL 9.7 MG/DL (8.5-10.1); CARBON DIOXIDE LEVEL 28 MMOL/L (20-31); CHLORIDE LEVEL 105 MMOL/L (98-107); CREATININE FOR GFR 0.56 MG/DL (0.55-1.30); GLOMERULAR FILTRATION RATE > 90.0 (>58); GLUCOSE, FASTING 95 MG/DL (60-100); MAGNESIUM LEVEL 1.8 MG/DL (1.8-2.4); POTASSIUM SERUM 4.3 MMOL/L (3.5-5.1); SODIUM LEVEL 142 MMOL/L (136-145); TOTAL PROTEIN 6.6 G/DL (5.7-8.2)
== END ==
LOC: M RAD 09:51
PROVIDERS: ATTEND Physician Assistant
DX: K70.31 Alcoholic cirrhosis of liver with ascites (principal)

== ENCOUNTER → 2024-10-09 | Outpatient (REF) | payer OTHER ==
[2024-10-09 13:08] LABS: CHOLESTEROL RISK RATIO 3.47 (<5); HDL CHOLESTEROL 55.8 MG/DL (>40); LDL CHOLESTEROL 97.2 MG/DL (<100); NON-HDL-C 138.2 MG/DL
[2024-10-09 13:10] LABS: FERRITIN 188.4 NG/ML (7.3-270.7); FREE T4 1.03 NG/DL (0.89-1.76)
[2024-10-09 13:11] LABS: THYROID STIMULATING HORMONE 3.321 uIU/ML (0.55-4.78)
[2024-10-09 13:44] LABS: HEMOGLOBIN A1c 4.4 % (4.0-6.0)
== END ==
LOC: M SFHCCLAY 07:32
PROVIDERS: ATTEND Physician Assistant
DX: E87.6 Hypokalemia (principal); R79.0 Abnormal level of blood mineral; R79.89 Other specified abnormal findings of blood chemistry; T40 Poisoning by, adverse effect of and underdosing of narcotics and psychodysleptics [hallucinogens]; F10.10 Alcohol abuse, uncomplicated; K86.1 Other chronic pancreatitis; G43.909 Migraine, unspecified, not intractable, without status migrainosus; I47.10 Supraventricular tachycardia, unspecified; I10 Essential (primary) hypertension; G89.29 Other chronic pain; F32.2 Major depressive disorder, single episode, severe without psychotic features; E03.9 Hypothyroidism, unspecified; D50.9 Iron deficiency anemia, unspecified; M06.09 Rheumatoid arthritis without rheumatoid factor, multiple sites

== ENCOUNTER → 2024-10-12 | Outpatient (REF) | payer OTHER ==
[2024-10-12 15:28] LABS: APPEARANCE, URINE CLEAR (CLEAR); BACTERIA, URINE AUTO NEGATIVE (NEGATIVE); BILIRUBIN, URINE AUTO NEGATIVE (NEGATIVE); BLOOD, URINE BLOOD 1+ (NEGATIVE); COLOR, URINE YELLOW (YELLOW); GLUCOSE, URINE (UA) AUTO NEGATIVE (NEGATIVE); KETONE, URINE AUTO NEGATIVE (NEGATIVE); LEUKOCYTE ESTERASE, URINE AUTO NEGATIVE (NEGATIVE); MUCUS, URINE SMALL (NEGATIVE); NITRITE, URINE AUTO NEGATIVE (NEGATIVE); PROTEIN, URINE AUTO NEGATIVE (NEGATIVE); RBC, URINE AUTO 3 /HPF (0-3); SPECIFIC GRAVITY URINE AUTO 1.013 (1.002-1.035); SQUAMOUS EPITHELIAL CELL UR AU 3 /HPF (0-6); UROBILINOGEN, URINE AUTO 0.2 mg/dL (0.0-2.0); WBC, URINE AUTO 0 /HPF (0-3)
[2024-10-12 15:37] LABS: C REACTIVE PROTEIN QUANTITATIV < 0.50 MG/DL (<1.0)
[2024-10-12 15:40] LABS: TOTAL 25(OH) VITAMIN D 31.9 NG/ML (20.0-100.0)
[2024-10-12 15:41] LABS: COMPLEMENT C4 30.6 MG/DL (12-36); IMMUNOGLOBULIN A 271.4 MG/DL (40-350); IMMUNOGLOBULIN G 582 MG/DL (650-1600); IMMUNOGLOBULIN M 105.4 MG/DL (50-300)
[2024-10-12 15:52] LABS: TOTAL PROTEIN,RANDOM URINE 9.5 MG/DL (0.0-14.0)
[2024-10-12 15:57] LABS: CREATININE,RANDOM URINE 34.9 MG/DL
[2024-10-14 19:08] LABS: T P ELECTROPHORESIS SO 7.1 g/dL (6.1-8.1)
== END ==
LOC: M SFHCRHEU 10:15
PROVIDERS: ATTEND Internal Medicine
DX: M06.4 Inflammatory polyarthropathy (principal); E55.9 Vitamin D deficiency, unspecified; B99.9 Unspecified infectious disease

== ENCOUNTER → 2024-12-08 | Outpatient (CLI) | payer OTHER | LOC: M CLY 08:11 | PROVIDERS: ATTEND Internal Medicine | DX: M54.9 Dorsalgia, unspecified (principal) ==

== ENCOUNTER → 2025-01-08 | Outpatient (CLI) | payer MEDICAID, OTHER, SELFPAY ==
[~2025-01-08] MED LIST changes: +SENN-225 PO; -SENO8.6T5 PO
== END ==
LOC: M PLAIMG 10:36
PROVIDERS: ATTEND Internal Medicine
DX: M54.9 Dorsalgia, unspecified (principal); M46.1 Sacroiliitis, not elsewhere classified